=== PATIENT | female | born 1990 | race Caucasian/White ===

== ENCOUNTER → 2017-06-21 | Outpatient (CLI) | payer OTHER | END | disposition home or self-care (01) | LOC: CPPFTMAIN 14:05 | PROVIDERS: ATTEND Physician Assistant | DX: J45.909 Unspecified asthma, uncomplicated (principal) | CPT/HCPCS: 94060; 94726; 94729 ==

== ENCOUNTER 2018-04-18 10:13 | Inpatient (IN) | payer OTHER ==
[2018-04-18] MEDS ORDERED: FAMOTIDINE 20 MG/2 ML VIAL IV STA (10:44)
[2018-04-18] MEDS ORDERED: SODIUM CHLORIDE 0.9% 1,000 ML IV STA (10:44)
[2018-04-18] MEDS ORDERED: ONDANSETRON 4 MG/2 ML VIAL IVP STA ×2 (10:44→11:51)
--- NOTE | 2018-04-18 10:53 | ED ---
General Adult HPI - General Source: patient, RN notes reviewed Mode of arrival: ambulatory Limitations: no limitations <Vinod Byrnes - Last Filed: 04/18/18 12:18> <Yinka Jackson - Last Filed: 04/18/18 12:33> - General Chief complaint: Abdominal Pain Stated complaint: Abd Pain Time Seen by Provider: 04/18/18 10:29 - History of Present Illness Initial comments: Patient 27-year-old female presenting to the emergency room today with chief complaint of abdominal pain over the last 2 days. She does admit that it's worse with eating. She states located in the upper abdomen. She states feels it across. She states it lasted for approximately a lasted about an hour. She admits to nausea but denies vomiting. Patient denies any recent fever, chills, shortness of breath, chest pain, back pain, numbness or tingling, dysuria or hematuria, constipation or diarrhea, headaches or visual changes, or any other complaints. (Vinod Byrnes) - Related Data Home Medications Medication Instructions Recorded Confirmed Albuterol Sulfate [Proair Hfa] 2 puff INHALATION DIRECTED PRN 02/26/16 Butalb/Acetaminophen/Caffeine 1 tab PO DIRECTED PRN 02/26/16 04/18/18 [Fioricet 50-300-40 mg Capsule] Levothyroxine Sodium [Synthroid] 50 mcg PO DAILY 02/26/16 04/18/18 Levothyroxine Sodium [Synthroid] 200 mcg PO DAILY 02/26/16 04/18/18 Topiramate 50 mg PO DAILY 02/26/16 04/18/18 Montelukast [Singulair] 10 mg PO HS 03/01/16 04/18/18 Albuterol Nebulized [Ventolin 2.5 mg INHALATION Q6H PRN 04/18/18 04/18/18 Nebulized] Fexofenadine HCl [Loan Allergy] 60 mg PO DAILY 04/18/18 04/18/18 Allergies Allergy/AdvReac Type Severity Reaction Status Date / Time hydrocodone bitartrate Allergy Nausea & Verified 04/18/18 10:41 [From Vicodin] Vomiting tramadol Allergy Nausea & Verified 04/18/18 10:41 Vomiting Review of Systems ROS Other: All systems not noted in ROS Statement are negative. <Vinod Byrnes - Last Filed: 04/18/18 12:18> ROS Other: All systems not noted in ROS Statement are negative. <ManuelYinka - Last Filed: 04/18/18 12:33> ROS Statement: Those systems with pertinent positive or pertinent negative responses have been documented in the HPI. Past Medical History Past Medical History: Asthma, Hearing Disorder / Deafness, Thyroid Disorder Additional Past Medical History / Comment(s): CYST LEFT WRIST, HX MIGRAINES History of Any Multi-Drug Resistant Organisms: None Reported Past Surgical History: Ear Surgery Additional Past Surgical History / Comment(s): CLEFT PALETTE SX, JAW ALIGNMENT, PROSTHETIC EARS AND NOSE RECONSTRUCTION, JEFFERY COCHLEAR IMPLANTS Past Anesthesia/Blood Transfusion Reactions: Postoperative Nausea & Vomiting ( PONV) Past Psychological History: No Psychological Hx Reported Smoking Status: Never smoker Past Alcohol Use History: None Reported Past Drug Use History: None Reported - Past Family History Father Family Medical History: Cancer Additional Family Medical History / Comment(s): COLON Mother Family Medical History: Congestive Heart Failure (CHF) <Vinod Byrnes - Last Filed: 04/18/18 12:18> General Exam Limitations: no limitations <Vinod Byrnes - Last Filed: 04/18/18 12:18> <Yinka Jackson - Last Filed: 04/18/18 12:33> - General Exam Comments Initial Comments: General: The patient is awake and alert, in no distress, and does not appear acutely ill. Eye: Pupils are equal, round and reactive to light, extra-ocular movements are intact. No nystagmus. There is normal conjunctiva bilaterally. No signs of icterus. Ears, nose, mouth and throat: There are moist mucous membranes and no oral lesions. Neck: The neck is supple, there is no tenderness or JVD. Cardiovascular: There is a regular rate and rhythm. No murmur, rub or gallop is appreciated. Respiratory: Lungs are clear to auscultation, respirations are non-labored, breath sounds are equal. No wheezes, stridor, rales, or rhonchi. Gastrointestinal: Abdomen soft on palpation. Tender epigastric and right upper quadrants. No rebound tenderness. No guarding. Musculoskeletal: Normal ROM, no tenderness. Strength 5/5. Sensation intact. Neurological: A&O x 3. CN II-XII intact, There are no obvious motor or sensory deficits. Coordination appears grossly intact. Speech is normal. Skin: Skin is warm and dry and no rashes or lesions are noted. Psychiatric: Cooperative, appropriate mood & affect, normal judgment. (Vinod Byrnes) Course <Vinod Byrnes - Last Filed: 04/18/18 12:18> <Yinka Jackson - Last Filed: 04/18/18 12:33> Vital Signs 04/18/18 04/18/18 10:15 11:58 Temperature 97.9 F Pulse Rate 102 H 83 Respiratory 18 16 Rate Blood Pressure 144/79 111/65 O2 Sat by Pulse 100 100 Oximetry - Reevaluation(s) Reevaluation #1: 04/18/18 12:32 PA supervision: I did proceed a [id number] evaluation the patient did discuss [employer] the patient and her sister who is her caregiver. Absent discuss case Dr. Mckeon. Patient will be admitted for evaluation of dilated common bile duct and pancreatitis. I do agree with the assessment and plan. I did review the imaging and reports as well as the labs. (Yinka Jackson) Medical Decision Making - Lab Data Result diagrams: 04/18/18 10:33 04/18/18 10:33 <Vinod Byrnes - Last Filed: 04/18/18 12:18> - Lab Data Result diagrams: 04/18/18 10:33 04/18/18 10:33 <Yinka Jackson - Last Filed: 04/18/18 12:33> - Medical Decision Making Patient's labs been reviewed does show mildly elevated AST ALT and lipase. Patient's ultrasound does show evidence for dilated common bile duct. Case discussed with attending physician Dr. Jackson discuss case with admitting physician, she will with the patient with consult to GI. (Vinod Byrnes) - Lab Data Lab Results 04/18/18 04/18/18 04/18/18 Range/Units 10:33 10:33 10:33 WBC 6.1 (3.8-10.6) k/uL RBC 5.39 (3.80-5.40) m/uL Hgb 15.0 (11.4-16.0) gm/dL Hct 44.7 (34.0-46.0) % MCV 82.9 (80.0-100.0) fL MCH 27.8 (25.0-35.0) pg MCHC 33.5 (31.0-37.0) g/dL RDW 12.5 (11.5-15.5) % Plt Count 201 (150-450) k/uL Neutrophils % 69 % Lymphocytes % 21 % Monocytes % 6 % Eosinophils % 1 % Basophils % 0 % Neutrophils # 4.2 (1.3-7.7) k/uL Lymphocytes # 1.3 (1.0-4.8) k/uL Monocytes # 0.4 (0-1.0) k/uL Eosinophils # 0.1 (0-0.7) k/uL Basophils # 0.0 (0-0.2) k/uL Sodium 146 H (137-145) mmol/L Potassium 4.2 (3.5-5.1) mmol/L Chloride 113 H (98-107) mmol/L Carbon Dioxide 16 L (22-30) mmol/L Anion Gap 17 mmol/L BUN 10 (7-17) mg/dL Creatinine 0.75 (0.52-1.04) mg/dL Est GFR (CKD-EPI)AfAm >90 (>60 ml/min/1.73 sqM) Est GFR (CKD-EPI)NonAf >90 (>60 ml/min/1.73 sqM) Glucose 82 (74-99) mg/dL Calcium 9.5 (8.4-10.2) mg/dL Total Bilirubin 0.9 (0.2-1.3) mg/dL AST 129 H (14-36) U/L ALT 157 H (9-52) U/L Alkaline Phosphatase 90 (38-126) U/L Total Protein 7.4 (6.3-8.2) g/dL Albumin 4.7 (3.5-5.0) g/dL Amylase 102 (30-110) U/L Lipase 373 H (23-300) U/L Urine Color Urine Appearance (Clear) Urine pH (5.0-8.0) Ur Specific Allred (1.001-1.035) Urine Protein (Negative) Urine Glucose (UA) (Negative) Urine Ketones (Negative) Urine Blood (Negative) Urine Nitrite (Negative) Urine Bilirubin (Negative) Urine Urobilinogen (<2.0) mg/dL Ur Leukocyte Esterase (Negative) Urine RBC (0-5) /hpf Urine WBC (0-5) /hpf Ur Squamous Epith Cells (0-4) /hpf Urine Bacteria (None) /hpf Urine Mucus (None) /hpf Urine HCG, Qual Not Detected (Not Detectd) 04/18/18 Range/Units 10:33 WBC (3.8-10.6) k/uL RBC (3.80-5.40) m/uL Hgb (11.4-16.0) gm/dL Hct (34.0-46.0) % MCV (80.0-100.0) fL MCH (25.0-35.0) pg MCHC (31.0-37.0) g/dL RDW (11.5-15.5) % Plt Count (150-450) k/uL Neutrophils % % Lymphocytes % % Monocytes % % Eosinophils % % Basophils % % Neutrophils # (1.3-7.7) k/uL Lymphocytes # (1.0-4.8) k/uL Monocytes # (0-1.0) k/uL Eosinophils # (0-0.7) k/uL Basophils # (0-0.2) k/uL Sodium (137-145) mmol/L Potassium (3.5-5.1) mmol/L Chloride (98-107) mmol/L Carbon Dioxide (22-30) mmol/L Anion Gap mmol/L BUN (7-17) mg/dL Creatinine (0.52-1.04) mg/dL Est GFR (CKD-EPI)AfAm (>60 ml/min/1.73 sqM) Est GFR (CKD-EPI)NonAf (>60 ml/min/1.73 sqM) Glucose (74-99) mg/dL Calcium (8.4-10.2) mg/dL Total Bilirubin (0.2-1.3) mg/dL AST (14-36) U/L ALT (9-52) U/L Alkaline Phosphatase (38-126) U/L Total Protein (6.3-8.2) g/dL Albumin (3.5-5.0) g/dL Amylase (30-110) U/L Lipase (23-300) U/L Urine Color Yellow Urine Appearance Cloudy H (Clear) Urine pH 6.0 (5.0-8.0) Ur Specific Allred 1.024 (1.001-1.035) Urine Protein 1+ H (Negative) Urine Glucose (UA) Negative (Negative) Urine Ketones Negative (Negative) Urine Blood Negative (Negative) Urine Nitrite Negative (Negative) Urine Bilirubin 1+ H (Negative) Urine Urobilinogen 6.0 (<2.0) mg/dL Ur Leukocyte Esterase Large H (Negative) Urine RBC 3 (0-5) /hpf Urine WBC 15 H (0-5) /hpf Ur Squamous Epith Cells 41 H (0-4) /hpf Urine Bacteria Rare H (None) /hpf Urine Mucus Many H (None) /hpf Urine HCG, Qual (Not Detectd) Disposition Is patient prescribed a controlled substance at d/c from ED?: No Time of Disposition: 12:21 <Vinod Byrnes - Last Filed: 04/18/18 12:18> <Yinka Jackson - Last Filed: 04/18/18 12:33> Clinical Impression: Choledocholithiasis, Acute pancreatitis Disposition: ADMITTED IP TO THIS HOSP Condition: Stable
[2018-04-18 11:08] LABS: Basophils % (A) 0 %; Eosinophils # (A) 0.1 k/uL (0-0.7); Eosinophils % (A) 1 %; HCT 44.7 % (34.0-46.0); Lymphocytes # (A) 1.3 k/uL (1.0-4.8); Lymphocytes % (A) 21 %; MCH 27.8 pg (25.0-35.0); MCHC 33.5 g/dL (31.0-37.0); MCV 82.9 fL (80.0-100.0); Mean Platelet Volume 8.3; Monocytes # (A) 0.4 k/uL (0-1.0); Monocytes % (A) 6 %; Neutrophils # (A) 4.2 k/uL (1.3-7.7); Neutrophils % (A) 69 %; Platelet Count 201 k/uL (150-450); RBC 5.39 m/uL (3.80-5.40); RDW 12.5 % (11.5-15.5); WBC 6.1 k/uL (3.8-10.6)
[2018-04-18 11:14] LABS: Appearance,Urine Cloudy (Clear); Bacteria,Urine Rare /hpf; Bilirubin,Urine 1+ (Negative); Blood,Urine Negative (Negative); Color,Urine Yellow; Glucose,Urine (UA) Negative (Negative); Ketones,Urine Negative (Negative); Leukocyte Esterase,Urine Large (Negative); Mucus,Urine Many /hpf; Nitrite,Urine Negative (Negative); Protein,Urine 1+ (Negative); RBC,Urine 3 /hpf (0-5); Specific Gravity,Urine 1.024 (1.001-1.035); Squamous Epithelial Cell,Urine 41 /hpf (0-4); WBC,Urine 15 /hpf (0-5)
[2018-04-18 11:16] LABS: ALT 157 U/L (9-52); AST 129 U/L (14-36); Albumin 4.7 g/dL (3.5-5.0); Alkaline Phosphatase 90 U/L (38-126); Amylase 102 U/L (30-110); Anion Gap 17 mmol/L; Blood Urea Nitrogen 10 mg/dL (7-17); Calcium 9.5 mg/dL (8.4-10.2); Carbon Dioxide 16 mmol/L (22-30); Chloride 113 mmol/L (98-107); Glucose 82 mg/dL (74-99); Lipase 373 U/L (23-300); Potassium 4.2 mmol/L (3.5-5.1); Sodium 146 mmol/L (137-145); Total Bilirubin 0.9 mg/dL (0.2-1.3); Total Protein 7.4 g/dL (6.3-8.2)
--- NOTE | 2018-04-18 11:45 | US ---
EXAMINATION TYPE: US abdomen limited DATE OF EXAM: 04/18/2018 COMPARISON: NONE CLINICAL HISTORY: Pain, nausea/vomiting. Difficult exam as patient was in pain and could not tolerate much pressure from the probe. EXAM MEASUREMENTS: Liver Length: 14.6 cm Gallbladder Wall: 0.2 cm CBD: 1.1 cm Right Kidney: 9.5 x 4.1 x 3.8 cm Pancreas: Obscured by bowel gas Liver: Homogeneous. Some dilated intrahepatic ductal dilation Gallbladder: No stones or sludge visualized and the gallbladder appears hydropic Evidence for sonographic Crump's sign: Yes CBD: Dilated. Unable to visualized distal portion at pancreatic head due to overlying bowel gas Right Kidney: No hydronephrosis or masses seen There is no ascites. IMPRESSION: Dilated common bile duct, recommend gastroenterology consult There are some limitations t o the exam.
[2018-04-18] MEDS ORDERED: MORPHINE SULFATE 2 MG/ML SYRINGE IVP STA (11:51)
[2018-04-18] MEDS ORDERED: LORazepam 2 MG/ML INJ IV PRN (12:21)
[2018-04-18] MEDS ORDERED: NALOXONE 0.4 MG/ML 1 ML VIAL IV PRN (12:21)
[2018-04-18] MEDS ORDERED: SODIUM CHLORIDE 0.9% 1,000 ML IV ONE (12:21)
[2018-04-18 15:01] VITALS: BMI 35.7
[2018-04-18] MEDS: KETOROLAC 30 MG/ML 1 ML VIAL IVP PRN (18:53)
--- NOTE | 2018-04-18 22:09 | HP ---
HISTORY AND PHYSICAL DATE OF ADMISSION: 04/18/2018 DATE OF SERVICE: 04/18/2018 PRESENTING COMPLAINT: Abdominal pain. HISTORY OF PRESENTING COMPLAINT: This is a very pleasant 27-year-old patient of Dr. Grayson. Chronic stable medical conditions include asthma, scoliosis, bilateral cochlear implant. The patient has had multiple cleft palate facial surgeries. The patient lives with her boyfriend called Con and a sister who really helps her out. For 2 days, the patient was having increasing right upper quadrant pain present on and off with nausea, some sweating and chills, felt a bit faint. Normally has 3 bowel movements a week. In the ER, ultrasound did showed dilated intrabiliary duct with no obvious stone. The patient was admitted for the same. The patient's elder sister is present in the room. REVIEW OF SYSTEMS: CONSTITUTIONAL: Tired. HEENT: Cochlear implants. RESPIRATORY: None. CARDIOVASCULAR: None. GASTROINTESTINAL: As above. GENITOURINARY: None. MUSCULOSKELETAL: Scoliosis. DERMATOLOGICAL: None. HEMATOLOGICAL: None. LYMPHATICS: None. PSYCHIATRY: None. NEUROLOGICAL: None. 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 PAST SURGICAL HISTORY: Cleft palate surgery, jaw alignment, prosthetic ears and nose reconstruction, bilateral cochlear implant, right eye plastic surgery to make face look symmetrical, left wrist ganglion cyst removed twice. SOCIAL HISTORY: The patient lives with her boyfriend and a 6-year-old son, sister Agustina whom the patient calls mom and her sister has raised her. The patient does not drive. No smoking, no alcohol. FAMILY HISTORY: Colon cancer. HOME MEDICATIONS: 1. Synthroid 25 mcg, not on all days. 2. Topamax 50 mg p.o. b.i.d. 3. Loan 60 mg p.o. daily. 4. Singulair 10 mg p.o. q.h.s. 5. Synthroid 200 mcg p.o. daily. 6. Fioricet 50/300/40 one tab p.r.n. 7. ProAir 2 puffs p.r.n. 8. Ventolin 2.5 q.6h p.r.n. ALLERGIES: VICODIN and TRAMADOL. PHYSICAL EXAMINATION: Afebrile. GENERAL APPEARANCE: Well-built. BMI 35.7, sitting up. Pulse 83, respirations 16, blood pressure 111/65, pulse ox 100% on room air. EYES: Pupils equal and conjunctivae normal. HEENT: The patient with bilateral cochlear implants and hearing aids. NECK: JVD not raised. Mass not palpable. Respiratory effort normal. LUNGS: Fair entry. CARDIOVASCULAR: First and second sounds normal. No edema. ABDOMEN: Right upper quadrant tenderness. No guarding or rigidity. Liver and spleen not palpable. LYMPHATICS: No lymph palpable in the neck or axillae. PSYCHIATRY: Alert and oriented x3. Mood and affect normal. NEUROLOGICAL: Facial asymmetry, decreased hearing. Moving all 4 limbs. INVESTIGATIONS: White count 6.1, hemoglobin 15.0, potassium 4.2. BUN and creatinine is normal. AST 129, ALT 157. Bilirubin is normal. Abdominal ultrasound dilated common bile duct. ASSESSMENT: 1. This patient with significant tenderness right upper quadrant with pain present on and off for 2 days with dilated common bile duct. Even thought no stone is obvious it is pretty likely the patient has a great or small stone. The patient's gallbladder does appear hydropic. 2. Obesity, BMI 35.7. 3. Bilateral cochlear implants. 4. Chronic scoliosis. 5. Mild hypernatremia from free water deficit. PLAN: Both the consultation to GI and General Surgery was made. The patient is on IV fluids. Currently, there is no obvious evidence of infection. No fever, no white count. We will hold off any antibiotics. Care was discussed with the patient's family at the bedside. Questions were answered. The patient may need ERCP probably followed by cholecystectomy, depends how things betancourt out. MMODL / IJN: [id number] /
[2018-04-19] MEDS: MONTELUKAST 10 MG TAB PO SCH ×2 (01:43→21:08)
[2018-04-19] MEDS: TOPIRAMATE 25 MG TAB PO SCH ×3 (01:43→21:08)
[2018-04-19] MEDS: KETOROLAC 30 MG/ML 1 ML VIAL IVP PRN ×4 (01:44→21:19)
[2018-04-19] MEDS: LACTATED RINGERS 1,000 ML IV SCH ×3 (01:49→18:11)
[2018-04-19] MEDS: LEVOTHYROXINE 100 MCG TAB PO SCH (06:42)
[2018-04-19 07:14] LABS: Basophils % (A) 0 %; Eosinophils # (A) 0.1 k/uL (0-0.7); Eosinophils % (A) 3 %; HCT 38.3 % (34.0-46.0); HGB 13.1 gm/dL (11.4-16.0); Lymphocytes # (A) 1.2 k/uL (1.0-4.8); Lymphocytes % (A) 26 %; MCH 28.6 pg (25.0-35.0); MCHC 34.1 g/dL (31.0-37.0); MCV 83.9 fL (80.0-100.0); Mean Platelet Volume 8.2; Monocytes # (A) 0.3 k/uL (0-1.0); Monocytes % (A) 6 %; Neutrophils # (A) 2.8 k/uL (1.3-7.7); Neutrophils % (A) 63 %; Platelet Count 164 k/uL (150-450); RBC 4.56 m/uL (3.80-5.40); RDW 12.5 % (11.5-15.5); WBC 4.5 k/uL (3.8-10.6)
[2018-04-19 07:30] LABS: ALT 124 U/L (9-52); AST 77 U/L (14-36); Albumin 3.6 g/dL (3.5-5.0); Alkaline Phosphatase 78 U/L (38-126); Amylase 97 U/L (30-110); Anion Gap 14 mmol/L; Blood Urea Nitrogen 8 mg/dL (7-17); Calcium 9.1 mg/dL (8.4-10.2); Carbon Dioxide 16 mmol/L (22-30); Chloride 115 mmol/L (98-107); Glucose 77 mg/dL (74-99); Lipase 413 U/L (23-300); Sodium 145 mmol/L (137-145); Total Bilirubin 0.9 mg/dL (0.2-1.3); Total Protein 5.9 g/dL (6.3-8.2)
[2018-04-19] MEDS: ALBUTEROL NEBULIZED 2.5 MG/3 ML INHALATION PRN ×2 (07:37→15:03)
[2018-04-19 07:38] LABS: INR 1.2 (<1.2); Prothrombin Time 11.4 sec (9.0-12.0)
--- NOTE | 2018-04-19 08:54 | P.GSCN ---
<Cindy Morales - Last Filed: 04/19/18 08:40> History of Present Illness Consult date: 04/19/18 Reason for Consult: 27-year-old female being seen at the request of the attending for a surgical eval for right upper quadrant abdominal pain. Patient reportedly presented to the emergency room on the day of admission was reportedly experiencing an episode of right upper quadrant abdominal pain with nausea. Patient stated it started on Tuesday continued became more symptomatic. Patient states she felt nauseated but did not actually vomit. Denied any burning on urination frequency urgency or change in bowel habits denied any loose stools. Patient denies any prior episodes. Ultrasound done in the emergency room showed evidence to suggest a dilated common bile duct. The lipase was elevated 413 AST and ALT were mildly elevated positive tenderness to the right upper quadrant Denies any abdominal surgeries. 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 History of Any Multi-Drug Resistant Organisms: None Reported Past Surgical History: Ear Surgery Additional Past Surgical History / Comment(s): CLEFT PALETTE SX, JAW ALIGNMENT, PROSTHETIC EARS ( HAS BRACKETS ON SIDES OF HEAD) AND NOSE RECONSTRUCTION, JEFFERY COCHLEAR IMPLANTS, R EYE PLASTIC SURGERY TO MAKE FACE LOOK MORE SYMMETRICAL, L WRIST GANGLION CYST REMOVED TWICE. Past Anesthesia/Blood Transfusion Reactions: No Reported Reaction, Postoperative Nausea & Vomiting (PONV) Smoking Status: Never smoker - Past Family History Father Family Medical History: Cancer Additional Family Medical History / Comment(s): COLON Mother Family Medical History: Congestive Heart Failure (CHF) Medications and Allergies Home Medications Medication Instructions Recorded Confirmed Type Albuterol Sulfate [Proair Hfa] 2 puff INHALATION DIRECTED PRN 02/26/16 History Butalb/Acetaminophen/Caffeine 1 tab PO DIRECTED PRN 02/26/16 04/18/18 History [Fioricet 50-300-40 mg Capsule] Levothyroxine Sodium [Synthroid] 25 mcg PO DIRECTED PRN 02/26/16 04/18/18 History Levothyroxine Sodium [Synthroid] 200 mcg PO DAILY 02/26/16 04/18/18 History Topiramate 50 mg PO BID 02/26/16 04/18/18 History Montelukast [Singulair] 10 mg PO HS 03/01/16 04/18/18 History Albuterol Nebulized [Ventolin 2.5 mg INHALATION Q6H PRN 04/18/18 04/18/18 History Nebulized] Fexofenadine HCl [Loan Allergy] 60 mg PO DAILY 04/18/18 04/18/18 History Allergies Allergy/AdvReac Type Severity Reaction Status Date / Time hydrocodone bitartrate Allergy Nausea & Verified 04/18/18 10:41 [From Vicodin] Vomiting tramadol Allergy Nausea & Verified 04/18/18 10:41 Vomiting Surgical - Exam Vital Signs Temp Pulse Resp BP Pulse Ox 97.9 F 102 H 18 144/79 100 04/18/18 10:15 04/18/18 10:15 04/18/18 10:15 04/18/18 10:15 04/18/18 10:15 GENERAL APPEARANCE: 27-year-old female patient is alert, oriented, in no acute distress. Up ambulating to the bathroom reports persistent right upper quadrant abdominal discomfort VITAL SIGNS: Reviewed HEENT: Head is normocephalic and atraumatic. Pupils are equal and reactive. The nares are patent. Oropharynx is clear without lesions. NECK: Supple without lymphadenopathy. Traches midline. HEART: S1, S2. Regular rate and rhythm. No murmur denying chest pain LUNGS: No crackles or wheezes are heard. Cardiac exam movement bilaterally ABDOMEN: Soft, positive tenderness to the right upper quadrant nondistended with good bowel sounds. No peritoneal signs. No palpable organomegaly or masses. Reports a nausea sensation no emesis no stool EXTREMITIES: Normal skin color and turgor. No cyanosis, rash, ulceration, clubbing or edema. Radial pedal pulses are 2/4 bilaterally. NEUROLOGICAL: No focal deficits. Strength and sensation are grossly intact. Results - Labs 04/19/18 06:47 04/19/18 06:47 Abnormal Lab Results - Last 24 Hours (Table) 04/18/18 04/18/1818 Range/Units 10:33 10:33 06:47 INR (<1.2) Sodium 146 H (137-145) mmol/L Chloride 113 H 115 H (98-107) mmol/L Carbon Dioxide 16 L 16 L (22-30) mmol/L AST 129 H 77 H (14-36) U/L ALT 157 H 124 H (9-52) U/L Total Protein 5.9 L (6.3-8.2) g/dL Lipase 373 H 413 H (23-300) U/L Urine Appearance Cloudy H (Clear) Urine Protein 1+ H (Negative) Urine Bilirubin 1+ H (Negative) Ur Leukocyte Esterase Large H (Negative) Urine WBC 15 H (0-5) /hpf Ur Squamous Epith Cells 41 H (0-4) /hpf Urine Bacteria Rare H (None) /hpf Urine Mucus Many H (None) /hpf 04/19/18 Range/Units 06:47 INR 1.2 H (<1.2) Sodium (137-145) mmol/L Chloride (98-107) mmol/L Carbon Dioxide (22-30) mmol/L AST (14-36) U/L ALT (9-52) U/L Total Protein (6.3-8.2) g/dL Lipase (23-300) U/L Urine Appearance (Clear) Urine Protein (Negative) Urine Bilirubin (Negative) Ur Leukocyte Esterase (Negative) Urine WBC (0-5) /hpf Ur Squamous Epith Cells (0-4) /hpf Urine Bacteria (None) /hpf Urine Mucus (None) /hpf Diabetes panel 04/18/18 04/19/18 Range/Units 10:33 06:47 Sodium 146 H 145 (137-145) mmol/L Potassium 4.2 4.0 (3.5-5.1) mmol/L Chloride 113 H 115 H (98-107) mmol/L Carbon Dioxide 16 L 16 L (22-30) mmol/L BUN 10 8 (7-17) mg/dL Creatinine 0.75 0.69 (0.52-1.04) mg/dL Glucose 82 77 (74-99) mg/dL Calcium 9.5 9.1 (8.4-10.2) mg/dL AST 129 H 77 H (14-36) U/L ALT 157 H 124 H (9-52) U/L Alkaline Phosphatase 90 78 (38-126) U/L Total Protein 7.4 5.9 L (6.3-8.2) g/dL Albumin 4.7 3.6 (3.5-5.0) g/dL Calcium panel 04/18/18 04/19/18 Range/Units 10:33 06:47 Calcium 9.5 9.1 (8.4-10.2) mg/dL Albumin 4.7 3.6 (3.5-5.0) g/dL Pituitary panel 04/18/18 04/19/18 Range/Units 10:33 06:47 Sodium 146 H 145 (137-145) mmol/L Potassium 4.2 4.0 (3.5-5.1) mmol/L Chloride 113 H 115 H (98-107) mmol/L Carbon Dioxide 16 L 16 L (22-30) mmol/L BUN 10 8 (7-17) mg/dL Creatinine 0.75 0.69 (0.52-1.04) mg/dL Glucose 82 77 (74-99) mg/dL Calcium 9.5 9.1 (8.4-10.2) mg/dL Adrenal panel 04/18/18 04/19/18 Range/Units 10:33 06:47 Sodium 146 H 145 (137-145) mmol/L Potassium 4.2 4.0 (3.5-5.1) mmol/L Chloride 113 H 115 H (98-107) mmol/L Carbon Dioxide 16 L 16 L (22-30) mmol/L BUN 10 8 (7-17) mg/dL Creatinine 0.75 0.69 (0.52-1.04) mg/dL Glucose 82 77 (74-99) mg/dL Calcium 9.5 9.1 (8.4-10.2) mg/dL Total Bilirubin 0.9 0.9 (0.2-1.3) mg/dL AST 129 H 77 H (14-36) U/L ALT 157 H 124 H (9-52) U/L Alkaline Phosphatase 90 78 (38-126) U/L Total Protein 7.4 5.9 L (6.3-8.2) g/dL Albumin 4.7 3.6 (3.5-5.0) g/dL Assessment and Plan Assessment: Impression Present on admission right upper quadrant pain ultrasound abdomen dilated common bile duct Present on admission elevated AST, ALT, lipase Bilateral cochlear implants History of multiple facial surgeries for cleft palate reconstruction History of asthma no evidence of an exacerbation Obesity BMI 35 Plan IV fluid for hydration as ordered Await GIs eval pending Repeat labs in the morning Pain control DVT and GI prophylaxis Further surgical recommendations pending GIs workup NPO until surgical decision and workup is complete Surgical consultation note dictated for Dr Riggs The above impression and plan of care have been discussed and directed by signing physician. Cindy Morales nurse practitioner acting as scribe for signing physician. <Ashlee Riggs N - Last Filed: 04/19/18 19:12> Surgical - Exam Vital Signs Temp Pulse Resp BP Pulse Ox 97.9 F 102 H 18 144/79 100 04/18/18 10:15 04/18/18 10:15 04/18/18 10:15 04/18/18 10:15 04/18/18 10:15 Results - Labs 04/19/18 06:47 04/19/18 06:47 Abnormal Lab Results - Last 24 Hours (Table) 04/19/18 04/19/18 Range/Units 06:47 06:47 INR 1.2 H (<1.2) Chloride 115 H (98-107) mmol/L Carbon Dioxide 16 L (22-30) mmol/L AST 77 H (14-36) U/L ALT 124 H (9-52) U/L Total Protein 5.9 L (6.3-8.2) g/dL Lipase 413 H (23-300) U/L Diabetes panel 04/19/18 Range/Units 06:47 Sodium 145 (137-145) mmol/L Potassium 4.0 (3.5-5.1) mmol/L Chloride 115 H (98-107) mmol/L Carbon Dioxide 16 L (22-30) mmol/L BUN 8 (7-17) mg/dL Creatinine 0.69 (0.52-1.04) mg/dL Glucose 77 (74-99) mg/dL Calcium 9.1 (8.4-10.2) mg/dL AST 77 H (14-36) U/L ALT 124 H (9-52) U/L Alkaline Phosphatase 78 (38-126) U/L Total Protein 5.9 L (6.3-8.2) g/dL Albumin 3.6 (3.5-5.0) g/dL Calcium panel 04/19/18 Range/Units 06:47 Calcium 9.1 (8.4-10.2) mg/dL Albumin 3.6 (3.5-5.0) g/dL Pituitary panel 04/19/18 Range/Units 06:47 Sodium 145 (137-145) mmol/L Potassium 4.0 (3.5-5.1) mmol/L Chloride 115 H (98-107) mmol/L Carbon Dioxide 16 L (22-30) mmol/L BUN 8 (7-17) mg/dL Creatinine 0.69 (0.52-1.04) mg/dL Glucose 77 (74-99) mg/dL Calcium 9.1 (8.4-10.2) mg/dL Adrenal panel 04/19/18 Range/Units 06:47 Sodium 145 (137-145) mmol/L Potassium 4.0 (3.5-5.1) mmol/L Chloride 115 H (98-107) mmol/L Carbon Dioxide 16 L (22-30) mmol/L BUN 8 (7-17) mg/dL Creatinine 0.69 (0.52-1.04) mg/dL Glucose 77 (74-99) mg/dL Calcium 9.1 (8.4-10.2) mg/dL Total Bilirubin 0.9 (0.2-1.3) mg/dL AST 77 H (14-36) U/L ALT 124 H (9-52) U/L Alkaline Phosphatase 78 (38-126) U/L Total Protein 5.9 L (6.3-8.2) g/dL Albumin 3.6 (3.5-5.0) g/dL
[2018-04-19] MEDS: LORATADINE 10 MG TAB PO SCH (09:20)
--- NOTE | 2018-04-19 12:06 | P.CONS ---
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 Admitted with acute RUQ abdominal pain N/V no fever that started on Tuesday. No history of this type of pain. No changes in medications. US abdomen hydropic gallbladder without stones. CBD 1.1 cm. No focal liver mass. LFTs elevated T bili 0.9- AST 77-129. ALT 124-157. AP 78-90. Lipase 373-413. Amylase normal. No history of pancreatitis or ETOH abuse. No history of hepatitis. Denies dyspepsia hematemesis hematochezia or melena. UA positive for urobilinogen and bilirubin. Review of Systems Constitutional: Denies fever, chills, sweats, weight gain, or loss. HEENT: History of craniofacial abnormalities congenital. Negative for migraines , blurred vision or loss, earaches, drainage, tinnitus, oral mucosal lesions, dysphagia, or odynophagia. CARDIAC: Negative for chest pain, arrhythmias, or palpitation. RESPIRATORY: Negative for shortness of breath, hemoptysis, cough, or sputum production. GI: See HPI for pertinent findings. : Negative for hematuria, urgency, frequency, polyuria, or dysuria. GYNc: Negative vaginal discharge. MUSCULOSKELETAL: Negative for muscle aches, swelling, arthritis, and arthralgias. NEUROLOGIC: Negative for stroke or TIA. ENDOCRINE: Negative for thyroid problems. SKIN: Negative for rash or itching. 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 History of Any Multi-Drug Resistant Organisms: None Reported Past Surgical History: Ear Surgery Additional Past Surgical History / Comment(s): CLEFT PALETTE SX, JAW ALIGNMENT, PROSTHETIC EARS ( HAS BRACKETS ON SIDES OF HEAD) AND NOSE RECONSTRUCTION, JEFFERY COCHLEAR IMPLANTS, R EYE PLASTIC SURGERY TO MAKE FACE LOOK MORE SYMMETRICAL, L WRIST GANGLION CYST REMOVED TWICE. Past Anesthesia/Blood Transfusion Reactions: No Reported Reaction, Postoperative Nausea & Vomiting (PONV) Smoking Status: Never smoker - Past Family History Father Family Medical History: Cancer Additional Family Medical History / Comment(s): COLON Mother Family Medical History: Congestive Heart Failure (CHF) Medications and Allergies Home Medications Medication Instructions Recorded Confirmed Type Albuterol Sulfate [Proair Hfa] 2 puff INHALATION DIRECTED PRN 02/26/16 History Butalb/Acetaminophen/Caffeine 1 tab PO DIRECTED PRN 02/26/16 04/18/18 History [Fioricet 50-300-40 mg Capsule] Levothyroxine Sodium [Synthroid] 25 mcg PO DIRECTED PRN 02/26/16 04/18/18 History Levothyroxine Sodium [Synthroid] 200 mcg PO DAILY 02/26/16 04/18/18 History Topiramate 50 mg PO BID 02/26/16 04/18/18 History Montelukast [Singulair] 10 mg PO HS 03/01/16 04/18/18 History Albuterol Nebulized [Ventolin 2.5 mg INHALATION Q6H PRN 04/18/18 04/18/18 History Nebulized] Fexofenadine HCl [Loan Allergy] 60 mg PO DAILY 04/18/18 04/18/18 History Allergies Allergy/AdvReac Type Severity Reaction Status Date / Time hydrocodone bitartrate Allergy Nausea & Verified 04/18/18 10:41 [From Vicodin] Vomiting tramadol Allergy Nausea & Verified 04/18/18 10:41 Vomiting Physical Exam Vitals: Vital Signs Temp Pulse Pulse Resp BP BP Pulse Ox 04/19/18 08:00 97.7 F 108 H 20 121/84 98 04/19/18 07:45 76 04/19/18 07:40 72 04/19/18 02:00 97.9 F 68 18 117/64 96 04/19/18 00:00 16 04/18/18 20:02 98.1 F 81 16 105/71 96 04/18/18 16:15 98 F 69 16 107/72 98 04/18/18 13:08 98.2 F 82 19 121/81 98 04/18/18 12:35 98.1 F 85 18 118/83 100 Intake and Output 04/18/18 04/19/18 04/19/18 22:59 06:59 14:59 Intake Total 240 Balance 240 Intake: Oral 240 Other: # Voids 1 2 Weight 80.286 kg - Constitutional General appearance: average body habitus - EENT Eyes: normal appearance - Neck Neck: normal ROM - Respiratory Respiratory: bilateral: CTA - Cardiovascular Rhythm: regular Heart sounds: normal: S1, S2 - Gastrointestinal RUQ tenderness no rebound or guarding General gastrointestinal: soft Results CBC & Chem 7: 04/19/18 06:47 04/20/18 06:48 Labs: Abnormal Lab Results - Last 24 Hours (Table) 04/19/18 04/19/18 Range/Units 06:47 06:47 INR 1.2 H (<1.2) Chloride 115 H (98-107) mmol/L Carbon Dioxide 16 L (22-30) mmol/L AST 77 H (14-36) U/L ALT 124 H (9-52) U/L Total Protein 5.9 L (6.3-8.2) g/dL Lipase 413 H (23-300) U/L US - abdomen: report reviewed (Dr. Boo) Assessment and Plan (1) RUQ abdominal pain Narrative/Plan: 27 y/o female admitted with acute RUQ abdominal pain dilated CBD transaminitis but no stones on ultrasound. UA positive for bilirubin as well as mildly elevated lipase. Possible passage of microlithiasis possible mild biliary pancreatitis possible cholecystitis. Transaminases are improving. Current Visit: Yes Status: Acute Code(s): R10.11 - RIGHT UPPER QUADRANT PAIN SNOMED Code(s): 083669988 (2) Transaminitis Current Visit: Yes Status: Acute Code(s): R74.0 - NONSPEC ELEV OF LEVELS OF TRANSAMNS & LACTIC ACID DEHYDRGNSE SNOMED Code(s): 334203326 (3) Elevated lipase Current Visit: Yes Status: Acute Code(s): R74.8 - ABNORMAL LEVELS OF OTHER SERUM ENZYMES SNOMED Code(s): 390042577 Plan: 1. GS consult for further evaluation of abdominal pain. Hepatitis screen. 2. ERCP not indicated at this time considering transaminases are improving. She is not a good candidate for MRCP at this time secondary to multiple metal implantaions in her head. Guardian requests no MRI unless its absolutely necessary. 3. GI prophylaxsis. 4. Repeat CMP lipase in am. Will follow with you. HIDA ordered. Thank you for this kind referral and the opportunity to participate in the care of your patient. This consultation was discussed with Dr. Boo. The impression and plan of care have been directed as dictated.
--- NOTE | 2018-04-19 13:01 | NM ---
EXAMINATION TYPE: NM hepatobiliary w CCK DATE OF EXAM: 04/19/2018 COMPARISON: NONE HISTORY: Pain TECHNIQUE: After the intravenous administration of 5.3 mCi Tc 99m Mebrofenin hepatobiliary scintigrap hy is performed. Immediate images post injection. FINDINGS: There is satisfactory initial accumulation of tracer by the liver. The gallbladder is visualized wit hin 22 minutes. The small bowel activity is noted within 46 minutes. At one hour CCK was administer ed, patient was injected with 1.6 mcg of Kinevac, and gallbladder ejection fraction is calculated at 1%. IMPRESSION: Markedly diminished gallbladder ejection fraction which may reflect chronic cholecystitis and/or biliary dyskinesia.
[2018-04-19] MEDS: ONDANSETRON 4 MG/2 ML VIAL IVP PRN (13:23)
[2018-04-19 16:34] LABS: Hepatitis A Antibody IgM Non-Reactive (Non-Reactive); Hepatitis B Core IgM Non-Reactive (Non-Reactive)
--- NOTE | 2018-04-19 19:14 | P.PN ---
Progress Note - Text Progress Note Date: 04/19/18 Patient seen and evaluated. MICHELET reviewed with EF of 1%. She reports RUQ pain that is improved. Lipase is elevated. Patient reports that she wishes to go home and follow-up as outpatient for cholecystectomy. Patient is tentatively boarded for Tuesday, April 21 pending improvement of Lipase and LFTs.
[2018-04-20] MEDS: LACTATED RINGERS 1,000 ML IV SCH ×3 (01:12→18:26)
[2018-04-20] MEDS: KETOROLAC 30 MG/ML 1 ML VIAL IVP PRN ×3 (06:13→18:25)
[2018-04-20] MEDS: LEVOTHYROXINE 100 MCG TAB PO SCH (06:15)
[2018-04-20] MEDS ORDERED: LEVOTHYROXINE 25 MCG TAB PO SCH (06:30)
[2018-04-20 07:23] LABS: ALT 108 U/L (9-52); AST 51 U/L (14-36); Albumin 3.8 g/dL (3.5-5.0); Alkaline Phosphatase 76 U/L (38-126); Anion Gap 14 mmol/L; Blood Urea Nitrogen 6 mg/dL (7-17); Calcium 9.2 mg/dL (8.4-10.2); Carbon Dioxide 17 mmol/L (22-30); Chloride 115 mmol/L (98-107); Glucose 83 mg/dL (74-99); Lipase 220 U/L (23-300); Potassium 4.2 mmol/L (3.5-5.1); Sodium 146 mmol/L (137-145); Total Bilirubin 0.5 mg/dL (0.2-1.3); Total Protein 6.2 g/dL (6.3-8.2)
--- NOTE | 2018-04-20 09:02 | PN ---
PROGRESS NOTE DATE OF SERVICE: 04/19/2018 PRESENTING COMPLAINT: Abdominal pain. INTERVAL HISTORY: This patient was seen by me yesterday late afternoon, was admitted with right upper quadrant pain. The patient did undergo a HIDA scan today showing EF only 1%. At this point, surgical input was pending. The patient still has right upper abdominal pain, very slight nausea. REVIEW OF SYSTEMS: Review of systems done for constitutional, cardiovascular, GI, pulmonary; relevant findings as above. CURRENT MEDICATIONS: Current medications are reviewed that include IV fluids. PHYSICAL EXAMINATION: On examination, temperature 97.7 pulse 108, respirations 20, blood pressure 121/84, pulse ox 98% on room air. GENERAL APPEARANCE: Lying in bed, tired appearing. EYES: Pupils equal. Conjunctivae normal. HENT: The patient has bilateral cochlear implants with hearing aids. NECK: JVD not raised. Mass not palpable. RESPIRATORY: Effort normal. Lungs are clear. CARDIOVASCULAR: First and second sounds normal. No edema. ABDOMEN: Right upper quadrant tenderness persists. No guarding or rigidity. Liver and spleen not palpable. PSYCHIATRY: Alert and oriented x3. Mood and affect normal. INVESTIGATIONS: Potassium 4.0. AST 77, ALT 124, bilirubin 0.9. Lipase 413. HIDA scan poor EF. ASSESSMENT: 1. Acute acalculous cholecystitis with a poor ejection fraction. The patient is still symptomatic, but still possible patient could have passed a small stone given that the LFTs were up. The patient does have a hydropic gallbladder. 2. Obesity, body mass index 35.7. 3. Bilateral cochlear implants. 4. Chronic scoliosis. 5. Mild hypernatremia from free water deficit. PLAN: Continue current medication and treatment plans. IV fluids. Await input from Surgery. Patient will need surgery. At this point, GI has decided not to do any further interventions. Care was discussed with the patient. MMODL / IJN: [id number] /
[2018-04-20] MEDS: TOPIRAMATE 25 MG TAB PO SCH ×2 (09:18→20:56)
[2018-04-20] MEDS: LORATADINE 10 MG TAB PO SCH (09:18)
[2018-04-20] MEDS: ONDANSETRON 4 MG/2 ML VIAL IVP PRN ×2 (09:19→20:55)
[2018-04-20] MEDS: MORPHINE SULFATE 2 MG/ML SYRINGE IV PRN ×3 (09:19→20:56)
--- NOTE | 2018-04-20 10:08 | P.PN ---
Subjective Progress Note Date: 04/20/18 Principal diagnosis: RUQ abdominal pain elevated liver enzymes Still reports right upper quadrant abdominal pain. HIDA scan 1% scheduled for cholecystectomy tomorrow. Afebrile. Hepatitis screen negative. LFTs lipase improving. Objective - Vital Signs Vital signs: Vital Signs Temp 98.1 F 04/20/18 07:47 Pulse 68 04/20/18 07:47 Resp 16 04/20/18 07:47 BP 104/74 04/20/18 07:47 Pulse Ox 98 04/20/18 07:47 Intake & Output 04/19/18 04/20/18 04/20/18 18:59 06:59 18:59 Output Total 50 Balance -50 Output: Emesis 50 Other: Voiding Method Toilet # Voids 2 1 # Bowel Movements 1 - Exam General appearance: The patient is alert, oriented, in no acute distress. HET: Head is atraumatic. Pupils are equal and reactive. Oropharynx is clear without lesions. Neck: Supple without lymphadenopathy. Trachea midline. Heart: S1 S2. Regular rate and rhythm. Lungs: No crackles or wheezes are heard. Abdomen: Soft, tenderness right upper quadrant, nondistended with bowel sounds. No peritoneal signs. No palpable organomegaly or masses. Extremities: Normal skin color and turgor. No cyanosis, rash, ulceration, clubbing, or edema. Radial and pedal pulses are 2/4 bilaterally. Neurological: No focal deficits. Strength and sensation are grossly intact. - Labs CBC & Chem 7: 04/19/18 06:47 04/20/18 06:48 Labs: Abnormal Lab Results - Last 24 Hours (Table) 04/20/18 Range/Units 06:48 Sodium 146 H (137-145) mmol/L Chloride 115 H (98-107) mmol/L Carbon Dioxide 17 L (22-30) mmol/L BUN 6 L (7-17) mg/dL AST 51 H (14-36) U/L ALT 108 H (9-52) U/L Total Protein 6.2 L (6.3-8.2) g/dL Assessment and Plan (1) RUQ abdominal pain Narrative/Plan: 27 y/o female admitted with acute RUQ abdominal pain dilated CBD transaminitis but no stones on ultrasound. UA positive for bilirubin as well as mildly elevated lipase. Possible passage of microlithiasis possible mild biliary pancreatitis possible cholecystitis. Transaminases lipase are improving. Current Visit: Yes Status: Acute Code(s): R10.11 - RIGHT UPPER QUADRANT PAIN SNOMED Code(s): 733575535 (2) Transaminitis Current Visit: Yes Status: Acute Code(s): R74.0 - NONSPEC ELEV OF LEVELS OF TRANSAMNS & LACTIC ACID DEHYDRGNSE SNOMED Code(s): 796498362 (3) Elevated lipase Current Visit: Yes Status: Acute Code(s): R74.8 - ABNORMAL LEVELS OF OTHER SERUM ENZYMES SNOMED Code(s): 912795907 Plan: 1. OR tomorrow. Continue supportive measures. We'll follow as needed. ERCP not indicated. Assessment and plan a care discussed with Dr. Boo
--- NOTE | 2018-04-20 11:04 | P.PN ---
<Cindy Morales Zoila - Last Filed: 04/20/18 10:57> Subjective Progress Note Date: 04/20/18 27-year-old female sitting up in bed just ambulated from the bathroom. Continues to report having right upper quadrant abdominal pain. Patient states she wishes to stay in the hospital and have the surgery cholecystectomy tomorrow. Did note the labs have improved total bili 0.5, AST down to 51, ALT 108, lipase down to 220 alk phos down to 71 remains afebrile GIs recommendations noted continue supportive measures will follow as needed ERCP not indicated at this time Objective - Vital Signs Vital signs: Vital Signs Temp 98.1 F 04/20/18 07:47 Pulse 68 04/20/18 07:47 Resp 16 04/20/18 07:47 BP 104/74 04/20/18 07:47 Pulse Ox 98 04/20/18 07:47 Intake & Output 04/19/18 04/20/18 04/20/18 18:59 06:59 18:59 Output Total 50 Balance -50 Output: Emesis 50 Other: Voiding Method Toilet # Voids 2 1 # Bowel Movements 1 - Exam Physical exam 27-year-old female appears in no acute distress Lungs adequate air movement bilaterally on room air Heart S1-S2 audible regular Abdomen continues to report having right upper quadrant abdominal pain mild tenderness noted nondistended bowel tones present urinating no difficulty no nausea no vomiting Extremities no edema - Labs CBC & Chem 7: 04/19/18 06:47 04/20/18 06:48 Labs: Abnormal Lab Results - Last 24 Hours (Table) 04/20/18 Range/Units 06:48 Sodium 146 H (137-145) mmol/L Chloride 115 H (98-107) mmol/L Carbon Dioxide 17 L (22-30) mmol/L BUN 6 L (7-17) mg/dL AST 51 H (14-36) U/L ALT 108 H (9-52) U/L Total Protein 6.2 L (6.3-8.2) g/dL Assessment and Plan Assessment: Impression Present on admission right upper quadrant pain ultrasound abdomen dilated common bile duct Present on admission elevated AST, ALT, lipase Bilateral cochlear implants History of multiple facial surgeries for cleft palate reconstruction History of asthma no evidence of an exacerbation Obesity BMI 35 Present on admission right upper quadrant abdominal pain likely cholecystitis HIDA scan EF less than 1% Plan IV fluid for hydration as ordered Scheduled tomorrow for a lap cholecystectomy Repeat labs in the morning Pain control DVT and GI prophylaxis Surgical consultation note dictated for Dr Riggs The above impression and plan of care have been discussed and directed by signing physician. Cindy Morales nurse practitioner acting as scribe for signing physician. <Ashlee Riggs N - Last Filed: 04/20/18 19:57> Objective - Vital Signs Vital signs: Vital Signs Temp 98.1 F 04/20/18 16:27 Pulse 61 04/20/18 16:27 Resp 16 04/20/18 16:27 BP 114/80 04/20/18 16:27 Pulse Ox 97 04/20/18 16:27 Intake & Output 04/20/18 04/20/18 04/21/18 06:59 18:59 06:59 Output Total 300 Balance -300 Output: Urine 300 Other: Voiding Method Toilet # Voids 1 # Bowel Movements 1 - Labs CBC & Chem 7: 04/19/18 06:47 04/20/18 06:48 Labs: Abnormal Lab Results - Last 24 Hours (Table) 04/20/18 Range/Units 06:48 Sodium 146 H (137-145) mmol/L Chloride 115 H (98-107) mmol/L Carbon Dioxide 17 L (22-30) mmol/L BUN 6 L (7-17) mg/dL AST 51 H (14-36) U/L ALT 108 H (9-52) U/L Total Protein 6.2 L (6.3-8.2) g/dL
[2018-04-20] MEDS: FAMOTIDINE 20 MG/2 ML VIAL IV SCH ×2 (12:49→20:56)
--- NOTE | 2018-04-20 20:11 | PN ---
PROGRESS NOTE DATE OF SERVICE: 04/20/2018. PRESENTING COMPLAINT: Abdominal pain. INTERVAL HISTORY: This patient presented with acute cholecystitis. The patient may have had a stone. Still having right upper quadrant pain, pending surgery by Dr. Riggs, which is scheduled for tomorrow. REVIEW OF SYSTEMS: Done for constitutional, cardiovascular, GI, pulmonary; relevant findings as above. The patient continues to have some nausea. EXAMINATION: Temperature 97.8, pulse 77, respirations 16, blood pressure 109/78, pulse ox 96% on room air. GENERAL APPEARANCE: Lying in bed, tired-appearing. EYES: Pupils equal. Conjunctivae normal. HEENT: External appearance of nose and ears normal. The patient has bilateral cochlear implants with hearing aids. NECK: JVD not raised. Mass not palpable. RESPIRATORY: Effort normal. LUNGS: Clear. CARDIOVASCULAR: First and second sounds normal. No edema. ABDOMEN: Right upper quadrant tenderness. No guarding or rigidity. Liver and spleen not palpable. PSYCHIATRY: Alert and oriented x3. Mood and affect normal. INVESTIGATIONS: Potassium 4.2, BUN 6, creatinine 0.68. AST 51, ALT 108. ASSESSMENT: 1. Acute acalculous cholecystitis with poor ejection fraction. The patient remains to be symptomatic. The patient may have had a small stone. Pending surgery by Dr. Riggs. 2. Obesity, BMI 35.7. 3. Bilateral cochlear implants. 4. Chronic scoliosis. 5. Mild hyponatremia from free water deficit. 6. Hypochloremia. PLAN: The patient will be maintained on lactated Ringer's. Other medication and treatment plan. Await surgery as per Dr. Riggs. MMODL / IJN: [id number] /
[2018-04-20] MEDS: MONTELUKAST 10 MG TAB PO SCH (20:56)
[2018-04-20] MEDS ORDERED: ONDANSETRON 4 MG/2 ML VIAL IVP PRN (22:13)
[2018-04-20] MEDS ORDERED: MORPHINE SULFATE 2 MG/ML SYRINGE IV PRN (22:13)
[2018-04-20] MEDS ORDERED: HYDROmorphone 0.5 MG/0.5 ML SYRINGE IVP PRN (22:13)
[2018-04-20] MEDS ORDERED: ONDANSETRON 4 MG/2 ML VIAL IVP ONE (22:13)
[2018-04-20] MEDS ORDERED: PROMETHAZINE INJ 6.25 MG in SODIUM CHLORIDE 0.9% 50 ML IVPB PRN (22:13)
[2018-04-20] MEDS ORDERED: DEXAMETHASONE SOD PHOSPHATE 10 MG/ML 1 ML VIAL IV ONE (22:13)
[2018-04-20] MEDS ORDERED: LACTATED RINGERS 1,000 ML IV SCH (22:15)
[2018-04-21] MEDS: LACTATED RINGERS 1,000 ML IV SCH ×3 (00:14→12:36)
[2018-04-21] MEDS ORDERED: HEPARIN SODIUM,PORCINE 5,000 UNIT/ML 1 ML VIAL SQ ONE (06:00)
[2018-04-21] MEDS ORDERED: ceFAZolin IN SWFI 2 GM/20 ML SYRINGE IVP ONE ×2 (06:00→13:06)
[2018-04-21] MEDS: LEVOTHYROXINE 100 MCG TAB PO SCH (06:50)
[2018-04-21] MEDS: KETOROLAC 30 MG/ML 1 ML VIAL IVP PRN ×3 (06:52→18:50)
--- NOTE | 2018-04-21 08:02 | P.HPADDEND ---
H&P Addendum H&P Addendum Date: 04/21/18 Benefits and risks of surgical intervention described. We'll proceed with robotic cholecystectomy. Possible discharge in the morning when medically stable. May follow up in the office 1 week.
[2018-04-21] MEDS: TOPIRAMATE 25 MG TAB PO SCH ×2 (09:03→20:14)
[2018-04-21] MEDS: LORATADINE 10 MG TAB PO SCH (09:03)
[2018-04-21] MEDS: FAMOTIDINE 20 MG/2 ML VIAL IV SCH ×2 (09:03→20:14)
[2018-04-21] MEDS ORDERED: ACETAMINOPHEN IV (For NPO) 1,000 MG in EMPTY BAG 1 BAG IVPB STA (13:06)
[2018-04-21] MEDS ORDERED: INDOCYANINE GREEN 25 MG VIAL IV STA (13:06)
[2018-04-21] MEDS ORDERED: HEPARIN SODIUM,PORCINE 5,000 UNIT/ML 1 ML VIAL SQ STA (13:06)
[2018-04-21] MEDS ORDERED: IV FLUID CONTINUATION 1,000 ML IV ONE (14:04)
[2018-04-21] MEDS ORDERED: SCOPOLAMINE 1.5MG/72HR PATCH TRANSDERM ONE (14:05)
[2018-04-21] MEDS ORDERED: ONDANSETRON 4 MG/2 ML VIAL IVP ONE (14:05)
[2018-04-21] MEDS ORDERED: PROPOFOL 10 MG/ML 20 ML VIAL IV ONE (14:52)
[2018-04-21] MEDS ORDERED: NEOSTIGMINE 1 MG/ML 10 ML VIAL ONE (14:52)
[2018-04-21] MEDS ORDERED: ROCURONIUM BROMIDE 10 MG/ML 10 ML VIAL IV ONE (14:52)
[2018-04-21] MEDS ORDERED: fentaNYL (PF) 50 MCG/ML 2 ML AMP ONE (14:52)
[2018-04-21] MEDS ORDERED: HYDROmorphone (PF) 1 MG/ML ONE (14:52)
[2018-04-21] MEDS ORDERED: LIDOCAINE 1% INJ 10MG/ML (20 ML MDV) ONE (14:52)
[2018-04-21] MEDS ORDERED: GLYCOPYRROLATE 0.2 MG/ML 2 ML VIAL ONE (14:52)
[2018-04-21] MEDS ORDERED: MIDAZOLAM 2 MG/2 ML VIAL ONE (14:52)
[2018-04-21] MEDS ORDERED: BUPIVACAINE (PF) 0.5% 30 ML VIAL SQ ONE (15:17)
[2018-04-21] MEDS ORDERED: SODIUM CHLORIDE 0.9% 1,000 ML IV ONE ×2 (15:50)
--- NOTE | 2018-04-21 16:15 | P.OP ---
Date of Procedure: 04/21/18 Description of Procedure: SURGEON: SHANNAN BHATT MD IDENTIFICATION TECHNICIAN: PREOPERATIVE DIAGNOSES: 1. Chronic cholecystitis 2. Biliary dyskinesia 3. History of abnormal LFTs 4. Morbid obesity excess calories 5. BMI 35.7 6. Cognitive delay 7. History of craniofacial disorder 8. Family history of colon cancer 9. Congenital absence of thyroid gland 10. Hypothyroidism 11. History of cleft lip and palate 12. Asthma 13. Right upper quadrant abdominal pain POSTOPERATIVE DIAGNOSES: 1. Chronic cholecystitis 2. Biliary dyskinesia 3. History of abnormal LFTs 4. Morbid obesity excess calories 5. BMI 35.7 6. Cognitive delay 7. History of craniofacial disorder 8. Family history of colon cancer 9. Congenital absence of thyroid gland 10. Hypothyroidism 11. History of cleft lip and palate 12. Asthma 13. Right upper quadrant abdominal pain OPERATION: Robotic-assisted da Luigi Xi laparoscopic cholecystectomy, multiport with FIREFLY ESTIMATED BLOOD LOSS: 5 mL. SPECIMENS REMOVED: Gallbladder. COMPLICATIONS: None. OPERATIVE FINDINGS: 1. Chronic cholecystitis INDICATIONS: The patient is a 27-year-old female who presents with cholelcystitis. Surgical intervention with a laparoscopic cholecystectomy was described at length including injury to the biliary tree, bleeding, infection, need for further surgery. Informed consent was obtained. Robotic assisted laparoscopic approach was described. Benefits and risks of the procedure including but not limited to bleeding, infection, injury to the biliary tree was described. Informed consent was obtained. DESCRIPTION OF PROCEDURE: Patient was brought to the operating room, placed in supine position. After general induction, the abdomen had been prepped and draped in standard sterile fashion. The robotic da Luigi XI system was primed. After a timeout protocol was performed, the patient had been prepped and draped in standard sterile fashion. The patient was injected with indocyanine green. A 5 mm 0 degrees laparoscopic trocar entry was performed along the left upper quadrant. The abdomen insufflated to 15 mmHg pressure which she tolerated well. Diagnostic laparoscopy demonstrated no injury to bowel viscera or mesentery. The liver surface was unremarkable. Next, two 8 mm robotic ports were placed along the right upper abdomen. The camera 8-mm port was maintained along the epigastrium. Another 8 mm port was placed along the left upper abdominal wall after exchanging the 5 mm port. Please note that the ports were placed at least 10 to 15 cm away from the target anatomy of the gallbladder. The robot was docked along the left lateral abdomen. The patient was repositioned in reverse Trendelenburg position. Using a grasper for arm 3, a grasper for arm 4, including hook cautery for arm 1 , the robotic system was docked and primed as described. Instruments were interchanged by the marketing assistant including hook cautery, Bovie cautery and clip appliers. I had sat at the console. Adhesions were identified along the infundibulum of the gallbladder and addressed using hook cautery. The gallbladder fundus was retracted over the dome of the liver. Initial attention was brought to the infundibulum which was gently retracted in the inferior lateral approach. Using a grasper, the cystic duct including the cystic artery was carefully skeletonized. FIREFLY was used to identify the cystic artery and cystic structures. Large PLASTIC clips were used throughout the entire case. Using a clip sustainment logistics analyst 2 clips were placed proximally, and 1 clip was placed distally along the cystic duct and then cauterized with the cautery. Again care was taken to avoid any injury to the biliary tree as the common bile duct was clearly visualized during this portion of dissection. Next, the cystic artery was similarly clipped and cauterized. Electro-Bovie cautery was used to remove the gallbladder from the hepatic fossa. Hemostasis was checked and found to be adequate. The robot was undocked. I re-scrubbed into the case. Using a 10 mm Endo Catch bag via the left upper quadrant incision, the specimen was removed from the abdominal cavity. All pneumoperitoneum instruments were evacuated from the abdominal cavity. The incisions were reapproximated using 4-0 Monocryl in an interrupted subcuticular fashion. Fascial defects were less than 8 mm in size. Please note along the trocar sites, local anesthetic was placed as a field block prior to insertion of all instruments. Liquid glue was applied to the skin. At the end of the procedure needle, sponge, and instrument count had been verified correct by the surgical coordinator. The patient was transferred to postanesthesia care unit in stable condition. Intraoperative films were shared with the patient's family who were very pleased with the level of care. Console time 16 minutes
[2018-04-21] MEDS ORDERED: ACETAMINOPHEN TAB 325 MG TAB PO PRN (16:17)
[2018-04-21] MEDS: ONDANSETRON 4 MG/2 ML VIAL IVP PRN (20:14)
[2018-04-21] MEDS: MONTELUKAST 10 MG TAB PO SCH (20:14)
[2018-04-21] MEDS: MORPHINE SULFATE 2 MG/ML SYRINGE IV PRN (20:14)
[2018-04-22] MEDS: ceFAZolin IN SWFI 2 GM/20 ML SYRINGE IVP SCH ×2 (00:23→06:22)
[2018-04-22] MEDS: KETOROLAC 30 MG/ML 1 ML VIAL IVP PRN ×2 (01:43→09:12)
[2018-04-22] MEDS: LACTATED RINGERS 1,000 ML IV SCH (01:46)
--- NOTE | 2018-04-22 04:24 | PN ---
PROGRESS NOTE DATE OF SERVICE: April 21, 2018. PRESENTING COMPLAINT: Abdominal pain. INTERVAL HISTORY: Patient presented with right upper quadrant pain. Today underwent cholecystectomy by Dr. Riggs. Postprocedure, having some abdominal pain, some nausea. Lying in bed. Did try some clear liquids. REVIEW OF SYSTEMS: Attempted for constitutional, cardiovascular, GI, pulmonary; relevant findings as above. CURRENT MEDICATIONS: Reviewed. PHYSICAL EXAMINATION: VITAL SIGNS: On examination, afebrile. Pulse 95. Respiration 16, blood pressure 120/76, pulse ox 95% on room air. GENERAL APPEARANCE: Lying in bed, tired appearing. EYES: Pupils are equal. Conjunctivae normal. HEENT: External appearance of nose and ears normal. The patient does wear bilateral cochlear implants with hearing aids. NECK: JVD not raised. Mass not palpable. RESPIRATORY: Effort normal. LUNGS are clear. CARDIOVASCULAR: 1st and second sounds normal. No edema. ABDOMEN: Tenderness present. No guarding or rigidity. Liver and spleen not palpable. PSYCHIATRY: Tired but awake and answers questions. INVESTIGATIONS: Potassium 4.2, BUN 6, creatinine 0.68. These labs are from yesterday. Lipase was 220. ASSESSMENT: 1. Status post cholecystectomy for acalculous cholecystitis. 2. Obesity BMI 35.7. 3. Bilateral cochlear implants. 4. Chronic scoliosis. 5. Mild hypernatremia from free water deficit. PLAN: The patient is getting IV fluids. Continue other medication and treatment plan. Diet to be advanced per Dr. Riggs. MMODL / IJN: [id number] /
[2018-04-22] MEDS: LEVOTHYROXINE 100 MCG TAB PO SCH (06:22)
[2018-04-22] MEDS: MORPHINE SULFATE 2 MG/ML SYRINGE IV PRN (06:58)
[2018-04-22] MEDS: ONDANSETRON 4 MG/2 ML VIAL IVP PRN (06:58)
[2018-04-22 08:50] VITALS: RESP 19
[2018-04-22] MEDS: TOPIRAMATE 25 MG TAB PO SCH (09:05)
[2018-04-22] MEDS: LORATADINE 10 MG TAB PO SCH (09:05)
[2018-04-22] MEDS: FAMOTIDINE 20 MG/2 ML VIAL IV SCH (09:06)
[2018-04-22 12:01] VITALS: BP 127/67; PULSE 57; TEMP 97.6
--- NOTE | 2018-04-22 20:37 | DS ---
DISCHARGE SUMMARY DATE OF ADMISSION: April 18, 2018. DATE OF DISCHARGE: April 22, 2018. FINAL DIAGNOSES: 1. Acute acalculous cholecystitis. 2. Obesity BMI 35.7. 3. Bilateral cochlear implants. 4. Chronic scoliosis. 5. Mild hypernatremia from free water deficit. HOSPITAL COURSE: This patient presents with abdominal pain. Had a scan showed a low ejection fraction. Ultrasound showed dilated gallbladder. The patient underwent cholecystectomy by Dr. Riggs. Today was tolerating a diet. Some pain is present. No nausea, vomiting. Up and about in the hallway. PHYSICAL EXAMINATION: ABDOMEN: Soft, mild tenderness. Lungs are clear. CONSULTATION: Dr. Kimberly Boo from Gastroenterology and Dr. Riggs from General surgery. DISCHARGE MEDICATIONS: 1. ProAir 2 puffs p.r.n. 2. Fioricet p.r.n. 3. Synthroid 200 mcg p.o. daily. 4. Topamax 50 mg p.o. b.i.d. 5. Singulair 10 mg q.h.s. 6. Ventolin 2.5 q.6h p.r.n. 7. Loan 60 mg q.6. 8. Motrin 600 mg q.8h p.r.n. 9. Tylenol 650 mg q.6h p.r.n. Diet: Soft, bland, advanced as tolerated. Other postop surgical orders per Dr. Riggs. Follow up with Dr. Riggs on April 25, 2018, follow up with Dr. Manuel Grayson in [address] Grayson. MMODL / IJN: [id number] /
== END 2018-04-22 13:23 | disposition home or self-care (01) | DRG 417 ==
LOC: EC 10:13 → 6PED 12:18
PROVIDERS: ADMIT Hospitalist; ATTEND Hospitalist
PROC: 8E0W4CZ Robotic Assisted Procedure of Trunk Region, Percutaneous Endoscopic Approach (ICD-10-PCS; 2018-04-21)
PROC: 0FT44ZZ Resection of Gallbladder, Percutaneous Endoscopic Approach (ICD-10-PCS; principal; 2018-04-21 15:00)
DX: K81.0 Acute cholecystitis (principal); K85.90 Acute pancreatitis without necrosis or infection, unspecified; E87.0 Hyperosmolality and hypernatremia; K82.1 Hydrops of gallbladder; E66.01 Morbid (severe) obesity due to excess calories; E87.8 Other disorders of electrolyte and fluid balance, not elsewhere classified; J45.909 Unspecified asthma, uncomplicated; M41.9 Scoliosis, unspecified; E03.8 Other specified hypothyroidism; G43.909 Migraine, unspecified, not intractable, without status migrainosus; Z68.35 Body mass index [BMI] 35.0-35.9, adult; Z79.899 Other long term (current) drug therapy; Z79.890 Hormone replacement therapy; Z87.730 Personal history of (corrected) cleft lip and palate; Z88.5 Allergy status to narcotic agent; Z80.0 Family history of malignant neoplasm of digestive organs; Z82.49 Family history of ischemic heart disease and other diseases of the circulatory system
CPT/HCPCS: 36415; 76705; 78227; 80053; 80074; 81001; 81025; 82150; 83690; 85025; 85610; 88304; 94640; 96361; 96374; 96375; 99285

== ENCOUNTER → 2020-09-01 | Outpatient (CLI) | payer OTHER ==
--- NOTE | 2020-09-01 09:30 | USB ---
Reason for exam: clinical finding. Physical Findings: Nurse did not find any significant physical abnormalities on exam. US Breast BILAT Technologist: Shaniqua Abrams Right complete breast ultrasound includes all four quadrants, the retroareolar region and axilla. Finding demonstrates including area of concern. Left complete breast ultrasound includes all four quadrants, the retroareolar region and axilla. Finding demonstrates including area of concern. No abnormality seen along the medial aspect of the right breast at the patient directed palpable site. These results were verbally communicated with the patient and result sheet given to the patient on . ASSESSMENT: Negative, BI-RAD 1 RECOMMENDATION: Routine screening mammogram of both breasts at age 40. (unless clinical indication to start sooner) Manage on a clinical basis with regard to any enlarging palpable area can be rescanned.
== END | disposition home or self-care (01) ==
LOC: RADUSWWP 07:12
PROVIDERS: ATTEND Internal Medicine
DX: N63.10 Unspecified lump in the right breast, unspecified quadrant (principal)

== ENCOUNTER → 2021-11-04 | Outpatient (CLI) | payer OTHER ==
--- NOTE | 2021-11-04 14:14 | XR ---
EXAMINATION TYPE: XR thoracic spine 3 views, XR lumbar spine 3 views DATE OF EXAM: 11/04/2021 COMPARISON: 03/24/2010 HISTORY: 31-year-old female M5 4.6, M5 4.5, mid to lower back pain. FINDINGS: THORACIC SPINE: 12 rib-bearing thoracic vertebral bodies. All pedicles are visualized. There is a gentle dextroconvex curvature of the thoracic spine. Vertebral body heights are preserved and alignment is maintained. T here may be very minimal disc space narrowing in the upper third thoracic spine. LUMBAR SPINE: There is a transitional lumbosacral segment denoted as a lumbarized S1. Vertebral body heights are pr eserved and alignment is maintained. Facet arthropathy lower lumbar spine. Disc spaces relatively lyudmila ntained. IMPRESSION (thoracic and lumbar spine): 1. Thoracic spine: Gentle dextroconvex curvature. No vertebral compression collapse or malalignment. 2. Lumbar spine: Transitional lumbosacral segment denoted as a lumbarized S1. Facet arthropathy lower lumbar spine. No vertebral compression collapse or malalignment.
== END | disposition home or self-care (01) ==
LOC: RADXRMAIN 09:36
PROVIDERS: ATTEND Family Medicine
DX: M47.896 Other spondylosis, lumbar region (principal); M54.6 Pain in thoracic spine; M54.50 Low back pain, unspecified
CPT/HCPCS: 72070; 72100

== ENCOUNTER → 2021-11-04 | Outpatient (CLI) | payer OTHER ==
[2021-11-04 09:51] LABS: Basophils % (A) 1 %; Eosinophils # (A) 0.2 k/uL (0-0.7); Eosinophils % (A) 3 %; HCT 41.3 % (34.0-46.0); HGB 13.7 gm/dL (11.4-16.0); Lymphocytes # (A) 1.5 k/uL (1.0-4.8); Lymphocytes % (A) 26 %; MCH 28.9 pg (25.0-35.0); MCHC 33.1 g/dL (31.0-37.0); MCV 87.3 fL (80.0-100.0); Mean Platelet Volume 8.3; Monocytes # (A) 0.4 k/uL (0-1.0); Monocytes % (A) 7 %; Neutrophils # (A) 3.6 k/uL (1.3-7.7); Neutrophils % (A) 62 %; Platelet Count 201 k/uL (150-450); RBC 4.73 m/uL (3.80-5.40); RDW 13.7 % (11.5-15.5); WBC 5.8 k/uL (3.8-10.6)
== END | disposition home or self-care (01) ==
LOC: LABPAT 09:13
PROVIDERS: ATTEND Obstetrics & Gynecology
DX: Z01.812 Encounter for preprocedural laboratory examination (principal)
CPT/HCPCS: 85025

== ENCOUNTER 2021-11-20 06:14 | Day surgery (SDC) | payer OTHER ==
[2021-11-13 10:14] VITALS: BMI 37.6
--- NOTE | 2021-11-19 21:14 | P.HPOB ---
History of Present Illness H&P Date: 11/19/21 Chief Complaint: Family planning This is a 31 y.o. female, 2, para 1, who presents for laparoscopic bilateral tubal ligation via fulgaration for family planning. She has been on Depo-Provera for about 10 years and would like to get off it. OB Hx: . History of 1 previous and 1 . 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 No history of STDs Social Hx: Single, disabled. Lives with boyfriend and son. Review of Systems Constitutional: Reports weight gain, Denies chills, Denies fever Eyes: denies blurred vision, denies pain Ears: bilateral: decreased hearing Ears, nose, mouth and throat: Reports headache, Denies sore throat Cardiovascular: Denies chest pain, Denies shortness of breath Respiratory: Denies cough Gastrointestinal: Denies abdominal pain, Denies diarrhea, Denies nausea, Denies vomiting Genitourinary: Reports stress incontinence, Denies dysuria, Denies hematuria Menstruation: Reports amenorrhea on BC Musculoskeletal: Reports low back pain Integumentary: Denies pruritus, Denies rash Neurological: Reports headaches, Denies numbness, Denies weakness Psychiatric: Reports anxiety Endocrine: Reports weight change, Denies fatigue Past Medical History Past Medical History: Asthma, Hearing Disorder / Deafness, Musculoskeletal Disorder, Thyroid Disorder Additional Past Medical History / Comment(s): BILATERAL COCHLEAR IMPLANTS, HEARING AIDES, BORN WITH CLEFT PALATE/LIP, RIGHT FACIAL WEAKNESS, 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 History of Any Multi-Drug Resistant Organisms: None Reported Past Surgical History: Section, Ear Surgery Additional Past Surgical History / Comment(s): MULTIPLE CLEFT PALATE SURGERIES, JAW ALIGNMENT, PROSTHETIC EARS (HAS BRACKETS ON SIDES OF HEAD) AND NOSE RECONSTRUCTION, BILATERAL COCHLEAR IMPLANTS, RIGHT EYE PLASTIC SURGERY, LEFT WRIST GANGLION CYST REMOVED X2. Past Anesthesia/Blood Transfusion Reactions: Motion Sickness, Postoperative Nausea & Vomiting (PONV) Additional Past Anesthesia/Blood Transfusion Reaction / Comment(s): Slow to wake up. Past Psychological History: Anxiety Smoking Status: Never smoker Past Alcohol Use History: None Reported Past Drug Use History: None Reported - Past Family History Father Family Medical History: Cancer Additional Family Medical History / Comment(s): COLON Cancer. Mother Family Medical History: Congestive Heart Failure (CHF) Medications and Allergies Home Medications Medication Instructions Recorded Confirmed Type Albuterol Sulfate [Proair Hfa] 2 puff INHALATION DIRECTED PRN 02/26/16 11/20/21 History Butalb/Acetaminophen/Caffeine 1 tab PO DIRECTED PRN 02/26/16 11/20/21 History [Fioricet 50-300-40 mg Capsule] Topiramate 50 mg PO BID 02/26/16 11/20/21 History Montelukast [Singulair] 10 mg PO HS 03/01/16 11/20/21 History Albuterol Nebulized [Ventolin 2.5 mg INHALATION Q6H PRN 04/18/18 11/20/21 History Nebulized] Fexofenadine HCl [Loan Allergy] 60 mg PO DAILY 04/18/18 11/20/21 History Acetaminophen Tab [Tylenol] 650 mg PO Q6HR PRN tab 04/22/18 11/20/21 Rx FLUoxetine HCL [PROzac] 20 mg PO QAM 11/13/21 11/20/21 History Levothyroxine Sodium 150 mcg PO QAM 11/13/21 11/20/21 History Medroxyprogesterone Acetate 150 mg IM Q90D 11/13/21 11/20/21 History [Depo-Provera] Allergies Allergy/AdvReac Type Severity Reaction Status Date / Time hydrocodone bitartrate Allergy Nausea & Verified 11/20/21 06:54 [From Vicodin] Vomiting tramadol Allergy Nausea & Verified 11/20/21 06:54 Vomiting Exam Osteopathic Statement: *. No significant issues noted on an osteopathic structural exam other than those noted in the History and Physical/Consult. HEENT: within normal limits Heart: regular rate and rhythm Lungs: clear to auscultation bilaterally Abdomen: soft, non-tender Pelvic: uterus small, anteverted, non-tender with no adnexal masses or tenderness Extremities: neg. Real's Assessment and Plan (1) Family planning Current Visit: No Status: Acute Code(s): Z30.09 - ENCOUNTER FOR OTH GENERAL CNSL AND ADVICE ON CONTRACEPTION SNOMED Code(s): 552439819 Plan: Proceed with laparoscopic bilateral tubal ligation via fulgaration. I have discussed the risks, benefits, and alternative therapies for the above- mentioned procedure and for both sedation/anesthesia as well as necessary blood products administration, if indicated, as they pertain to this patient. The patient has indicated her understanding and acceptance of the risks and procedures discussed.
[~2021-11-20 06:14] MED LIST: DEXAMETHASONE SOD PHOSPHATE 4 MG/ML 1 ML VIAL IV ONE; HYDROmorphone 0.5 MG/0.5 ML SYRINGE IVP PRN; ONDANSETRON 4 MG/2 ML VIAL IVP ONE; Pre Op ABX Message 1 EACH MISC MISCELLANE ONE
[2021-11-20] MEDS ORDERED: LIDOCAINE 1% (10MG/ML) FOR IV START INTRADERMA ONE (07:09)
[2021-11-20] MEDS: LACTATED RINGERS 1,000 ML IV SCH ×2 (07:10→07:34)
[2021-11-20] MEDS ORDERED: SCOPOLAMINE 1.5MG/72HR PATCH TRANSDERM ONE (07:18)
[2021-11-20] MEDS ORDERED: NEOSTIGMINE 1 MG/ML 10 ML VIAL ONE (07:32)
[2021-11-20] MEDS ORDERED: LIDOCAINE 1% INJ 10MG/ML (20 ML MDV) ONE (07:32)
[2021-11-20] MEDS ORDERED: KETOROLAC 15 MG/ML 1 ML VIAL ONE (07:32)
[2021-11-20] MEDS ORDERED: GLYCOPYRROLATE 0.2 MG/ML 2 ML VIAL ONE (07:32)
[2021-11-20] MEDS ORDERED: fentaNYL (PF) 50 MCG/ML 2 ML AMP ONE (07:32)
[2021-11-20] MEDS ORDERED: SUCCINYLCHOLINE CHLORIDE 100 MG/5 ML SYR IV ONE (07:32)
[2021-11-20] MEDS ORDERED: PROPOFOL 10 MG/ML 20 ML VIAL IV ONE (07:32)
[2021-11-20] MEDS ORDERED: ROCURONIUM 10 MG/ML (5 ML VIAL) IV ONE (07:32)
[2021-11-20] MEDS ORDERED: BUPIVACAINE (PF) 0.25% 30 ML VIAL SQ ONE ×2 (07:32)
[2021-11-20] MEDS ORDERED: MIDAZOLAM 2 MG/2 ML VIAL ONE (07:32)
--- NOTE | 2021-11-20 08:17 | P.OP ---
Date of Procedure: 11/20/21 Preoperative Diagnosis: Family planning Postoperative Diagnosis: Same Procedure(s) Performed: Laparoscopic bilateral tubal ligation via fulguration Anesthesia: PATTIE Surgeon: Sherin Mcconnell Estimated Blood Loss (ml): 5 Pathology: none sent Condition: stable Disposition: same day Indications for Procedure: This is a 31 y.o. female, 2, para 1, who presents for laparoscopic bilateral tubal ligation via fulgaration for family planning. She has been on Depo-Provera for about 10 years and would like to get off it. Operative Findings: Uterus is anteverted, with normal contour, normal tubes and ovaries are noted. Description of Procedure: The patient is taken to the operating room where she is placed in the dorsal lithotomy position. She is prepped and draped in the normal sterile fashion. Examination is performed under anesthesia. Uterus is found to be in a anteverted position. No adnexal masses were palpated. Next a bivalve speculum was placed in the patient's vagina. A single-tooth tenaculum was used to grasp the anterior lip of the cervix. The uterus was sounded to 9 cm. The kroner uterine manipulator was then inserted through the cervix and the balloon was inflated. The single-tooth tenaculum is removed speculum was removed gloves were changed and attention was turned to the abdomen. A small stab incision was made with a scalpel in the infraumbilical fold. A 5 mm disposable bladeless trocar was then inserted into the peritoneal cavity under direct visualization. Once inside, pneumoperitoneum was achieved with CO2 gas. The insert was removed and the camera was replaced. Intraperitoneal placement was confirmed. No bleeding was noted. Next the patient was placed in Trendelenburg position. A small stab incision was made suprapubically and a 5 mm disposable bladeless trocar was inserted into the peritoneal cavity under direct visualization. Once inside pelvic contents were inspected. Next a bipolar Kleppinger instrument was placed through the inferior trocar and the midportion of each tube was brought away from other structures and completely fulgurated on approximate 2-3 cm segment of each tube. Excellent hemostasis was noted. Pictures were taken. Pneumoperitoneum was released after the inferior trocar was removed under direct visualization. The upper trocar was then removed. The skin incisions were then closed with 4-0 Vicryl suture in a subcuticular fashion. Incisions were then injected with quarter percent Marcaine. Approximately 7 mL were used. Next the kroner uterine manipulator was removed. Minimal bleeding was noted. All sponge and needle counts are correct. The patient is then taken to recovery room in stable condition.
[2021-11-20 08:39] VITALS: TEMP 97
[2021-11-20 08:41] VITALS: RESP 16
[2021-11-20] MEDS ORDERED: LACTATED RINGERS 1,000 ML IV ONE (09:20)
[2021-11-20 09:49] VITALS: BP 112/79; PULSE 80
== END 2021-11-20 10:13 | disposition home or self-care (01) ==
LOC: OR 06:14
PROVIDERS: ATTEND Obstetrics & Gynecology
DX: Z30.2 Encounter for sterilization (principal); J45.909 Unspecified asthma, uncomplicated; E07.9 Disorder of thyroid, unspecified; H91.90 Unspecified hearing loss, unspecified ear; M41.9 Scoliosis, unspecified; G43.909 Migraine, unspecified, not intractable, without status migrainosus; F41.9 Anxiety disorder, unspecified; F32.A Depression, unspecified; Z96.21 Cochlear implant status; Z87.730 Personal history of (corrected) cleft lip and palate; Z79.890 Hormone replacement therapy; Z79.3 Long term (current) use of hormonal contraceptives; Z79.899 Other long term (current) drug therapy; Z88.5 Allergy status to narcotic agent; Z88.8 Allergy status to other drugs, medicaments and biological substances; Z98.891 History of uterine scar from previous surgery; Z98.890 Other specified postprocedural states; Z80.0 Family history of malignant neoplasm of digestive organs; Z82.49 Family history of ischemic heart disease and other diseases of the circulatory system
CPT/HCPCS: 81025; 58670; J2250; J1100; J2710; J2405; J2001; J3010; J1885; J0330; J2704

== ENCOUNTER 2023-04-24 22:22 | Inpatient (IN) | payer OTHER ==
--- NOTE | 2023-04-24 23:17 | ED ---
General Adult HPI - General Chief complaint: Neuro Symptoms/Deficit Stated complaint: Weakness Time Seen by Provider: 04/24/23 22:51 Source: patient, family, RN notes reviewed Mode of arrival: EMS Limitations: no limitations - History of Present Illness Initial comments: Patient is a pleasant 32-year-old female presenting to the emergency department with concern for neurological problems. Onset was the past couple of hours. Patient was sleeping when she thought she was dialing 911. Patient then put it in her phone and happened to her to call. Patient symptoms have been waxing and waning. Mother is present and helps provide history. Mother states that appears like she is staring off in space at times. There was some reported speech problems earlier. Patient denies any weakness. 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 Patient does have history of multiple previous facial surgeries including cleft palate. Patient also has history of [place]'s palsy. There is a questionable history of seizures in the past. Patient also has had depression and had recent changes of her medications. Patient also has history of chronic headaches. - Related Data Home Medications Medication Instructions Recorded Confirmed Albuterol Sulfate [Proair Hfa] 2 puff INHALATION DIRECTED PRN 02/26/16 11/20/21 Butalb/Acetaminophen/Caffeine 1 tab PO DIRECTED PRN 02/26/16 11/20/21 [Fioricet 50-300-40 mg Capsule] Topiramate 50 mg PO BID 02/26/16 11/20/21 Montelukast [Singulair] 10 mg PO HS 03/01/16 11/20/21 Albuterol Nebulized [Ventolin 2.5 mg INHALATION Q6H PRN 04/18/18 11/20/21 Nebulized] Fexofenadine HCl [Loan Allergy] 60 mg PO DAILY 04/18/18 11/20/21 FLUoxetine HCL [PROzac] 20 mg PO QAM 11/13/21 11/20/21 Levothyroxine Sodium 150 mcg PO QAM 11/13/21 11/20/21 Medroxyprogesterone Acetate 150 mg IM Q90D 11/13/21 11/20/21 [Depo-Provera] Previous Rx's Medication Instructions Recorded Acetaminophen Tab [Tylenol] 650 mg PO Q6HR PRN tab 04/22/18 Acetaminophen-Codeine 300-30mg 1 tab PO Q4H PRN 3 Days #18 tablet 11/20/21 [Tylenol w/codeine #3] Allergies Allergy/AdvReac Type Severity Reaction Status Date / Time hydrocodone bitartrate Allergy Nausea & Verified 04/24/23 22:38 [From Vicodin] Vomiting tramadol Allergy Nausea & Verified 04/24/23 22:38 Vomiting Review of Systems ROS Statement: Those systems with pertinent positive or pertinent negative responses have been documented in the HPI. ROS Other: All systems not noted in ROS Statement are negative. 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 History of Any Multi-Drug Resistant Organisms: None Reported Past Surgical History: Ear Surgery, Tubal Ligation Additional Past Surgical History / Comment(s): CLEFT PALETTE SX, JAW ALIGNMENT, PROSTHETIC EARS ( HAS BRACKETS ON SIDES OF HEAD) AND NOSE RECONSTRUCTION, JEFFERY CO CHLEAR IMPLANTS, R EYE PLASTIC SURGERY TO MAKE FACE LOOK MORE SYMMETRICAL, L WRIST GANGLION CYST REMOVED TWICE. Past Anesthesia/Blood Transfusion Reactions: No Reported Reaction, Postoperative Nausea & Vomiting (PONV) Past Psychological History: No Psychological Hx Reported, Anxiety, Depression Smoking Status: Vaper Past Alcohol Use History: None Reported Past Drug Use History: Marijuana - Past Family History Father Family Medical History: Cancer Additional Family Medical History / Comment(s): COLON Cancer. Mother Family Medical History: Congestive Heart Failure (CHF) General Exam Limitations: no limitations General appearance: alert, in no apparent distress Head exam: Present: other (Congenital abnormality) Eye exam: Present: normal appearance, PERRL, EOMI ENT exam: Present: other (Difficulty opening her mouth reported as chronic. Chronic facial weakness and ear deformities) Neck exam: Present: normal inspection Respiratory exam: Present: normal lung sounds bilaterally Cardiovascular Exam: Present: regular rate, normal rhythm GI/Abdominal exam: Present: soft. Absent: tenderness Extremities exam: Present: normal inspection, full ROM Neurological exam: Present: alert Expanded Neurological exam: Present: protecting the airway Patient oriented to: Present: person, place, time Cranial nerves: EOM's Intact: Normal, Facial Palsy without Forehead Movement: Abnormal Right (Reported as chronic) Sensory exam: Upper Extremity Light Touch: Normal, Lower Extremity Light Touch: Normal Motor strength exam: RUE: 4 (Patient's right arm may drift a small amount), LUE: 5, RLE: 4, LLE: 4 Eye Response: (4) open spontaneously Motor Response: (6) obeys commands Verbal Response: (5) oriented Psychiatric exam: Present: flat affect Skin exam: Present: normal color Course Vital Signs 04/24/23 04/24/23 04/24/23 22:31 23:20 23:50 Temperature 98.5 F Pulse Rate 122 H 114 H 113 H Respiratory 20 14 17 Rate Blood Pressure 134/90 138/88 137/89 O2 Sat by Pulse 100 100 Oximetry 04/25/23 04/25/23 04/25/23 00:10 00:20 00:30 Temperature Pulse Rate 122 H 112 H 117 H Respiratory 14 12 12 Rate Blood Pressure 128/82 128/82 127/85 O2 Sat by Pulse 100 100 100 Oximetry - Reevaluation(s) Reevaluation #1: 04/24/23 23:13 Patient is not considered a TPA candidate secondary to stroke is not clearly defined as cause of her symptoms. EKG Findings - EKG Results: EKG: interpreted by ERMD, sinus rhythm, normal axis, normal QRS, normal ST/T EKG shows: tachycardia Medical Decision Making - Medical Decision Making Was pt. sent in by a medical professional or institution (, PA, [employer], urgent care, hospital, or fpc...) When possible be specific @ -No Did you speak to anyone other than the patient for history (EMS, parent, family, police, friend...)? What history was obtained from this source @ -Family is present and helps provide history as patient's history is somewhat unreliable. Did you review nursing and triage notes (agree or disagree)? Why? @ -I reviewed and agree with nursing and triage notes Were old charts reviewed (outside hosp., previous admission, EMS record, old EKG, old radiological studies, urgent care reports/EKG's, fpc records)? Report findings @ -No old charts were reviewed Differential Diagnosis (chest pain, altered mental status, abdominal pain women, abdominal pain men, vaginal bleeding, weakness, fever, dyspnea, syncope, headache, dizziness, GI bleed, back pain, seizure, CVA, palpatations, mental health)? @ -Differential Weakness: Hypoglycemia, shock, sepsis, hyponatremia, anemia, infection, NM, ETOH, adverse medicine reaction, overdose, stroke, this is not meant to be an all-inclusive l ist. EKG interpreted by me (3pts min.). @ -As above X-rays interpreted by me (1pt min.). @ -Chest x-ray shows no acute process CT interpreted by me (1pt min.). @ -Computed tomography scan of the brain shows no obvious large hemorrhage or mass U/S interpreted by me (1pt. min.). @ -None done What testing was considered but not performed or refused? (CT, X-rays, U/S, labs)? Why? @ -None What meds were considered but not given or refused? Why? @ -None Did you discuss the management of the patient with other professionals (professionals i.e. , PA, [employer], lab, RT, psych nurse, social service director, dipper machine operator, teacher, business development officer, case preparer and liner)? Give summary @ -Case was discussed with Dr. Vasquez, who will admit covering Dr. Sanz Was smoking cessation discussed for >3mins.? @ -No Was critical care preformed (if so, how long)? @ -No Were there social determinants of health that impacted care today? How? (Homelessness, low income, unemployed, alcoholism, drug addiction, transportation, low edu. Level, literacy, decrease access to med. care, assisted, rehab)? @ -No Was there de-escalation of care discussed even if they declined (Discuss DNR or withdrawal of care, Hospice)? DNR status @ -No What co-morbidities impacted this encounter? (DM, HTN, Smoking, COPD, CAD, Cancer, CVA, ARF, Chemo, Hep., AIDS, mental health diagnosis, sleep apnea, morbid obesity)? @ -None Was patient admitted / discharged? Hospital course, mention meds given and route, prescriptions, significant lab abnormalities, going to OR and other pertinent info. @ -Patient reevaluated and resting comfortably in bed. No reported episodes since patient has arrived. Cause of symptoms is unclear. It is felt patient could benefit from admission with neurology consult. They will need to be further investigation into possible small TIA versus seizure versus depression versus other. Undiagnosed new problem with uncertain prognosis? @ -No Drug Therapy requiring intensive monitoring for toxicity (Heparin, Nitro, Insulin, Cardizem)? @ -No Were any procedures done? @ -No Diagnosis/symptom? @ -Weakness, altered mental status Acute, or Chronic, or Acute on Chronic? @ -Acute, acute Uncomplicated (without systemic symptoms) or Complicated (systemic symptoms)? @ -default Side effects of treatment? @ -No Exacerbation, Progression, or Severe Exacerbation? @ -No Poses a threat to life or bodily function? How? (Chest pain, USA, NM, pneumonia, PE, COPD, DKA, ARF, appy, cholecystitis, CVA, Diverticulitis, Homicidal, Suicidal, threat to staff... and all critical care pts) @ -No - Lab Data Result diagrams: 04/24/23 23:17 04/24/23 23:17 Lab Results 04/24/23 04/24/23 04/24/23 Range/Units 23:17 23:17 23:17 WBC 8.1 (3.8-10.6) k/uL RBC 4.73 (3.80-5.40) m/uL Hgb 12.9 (11.4-16.0) gm/dL Hct 39.7 (34.0-46.0) % MCV 84.0 (80.0-100.0) fL MCH 27.3 (25.0-35.0) pg MCHC 32.6 (31.0-37.0) g/dL RDW 13.7 (11.5-15.5) % Plt Count 193 (150-450) k/uL MPV 9.4 Neutrophils % 63 % Lymphocytes % 25 % Monocytes % 7 % Eosinophils % 3 % Basophils % 0 % Neutrophils # 5.1 (1.3-7.7) k/uL Lymphocytes # 2.0 (1.0-4.8) k/uL Monocytes # 0.5 (0-1.0) k/uL Eosinophils # 0.2 (0-0.7) k/uL Basophils # 0.0 (0-0.2) k/uL PT 10.3 (9.0-12.0) sec INR 1.0 (<1.2) APTT 20.1 L (22.0-30.0) sec Sodium 141 (137-145) mmol/L Potassium 4.1 (3.5-5.1) mmol/L Chloride 109 H (98-107) mmol/L Carbon Dioxide 22 (22-30) mmol/L Anion Gap 10 mmol/L BUN 19 H (7-17) mg/dL Creatinine 1.01 (0.52-1.04) mg/dL Est GFR (CKD-EPI)AfAm 85 (>60 ml/min/1.73 sqM) Est GFR (CKD-EPI)NonAf 74 (>60 ml/min/1.73 sqM) Glucose 111 H (74-99) mg/dL Calcium 9.2 (8.4-10.2) mg/dL Total Bilirubin 0.5 (0.2-1.3) mg/dL AST 29 (14-36) U/L ALT 19 (4-34) U/L Alkaline Phosphatase 58 (38-126) U/L Creatine Kinase 96 (30-135) U/L Total Protein 7.4 (6.3-8.2) g/dL Albumin 4.3 (3.5-5.0) g/dL Urine Color Urine Appearance (Clear) Urine pH (5.0-8.0) Ur Specific [place] (1.001-1.035) Urine Protein (Negative) Urine Glucose (UA) (Negative) Urine Ketones (Negative) Urine Blood (Negative) Urine Nitrite (Negative) Urine Bilirubin (Negative) Urine Urobilinogen (<2.0) mg/dL Ur Leukocyte Esterase (Negative) Urine WBC (0-5) /hpf Ur Squamous Epith Cells (0-4) /hpf Urine Mucus (None) /hpf Urine Opiates Screen (NotDetected) Ur Oxycodone Screen (NotDetected) Urine Methadone Screen (NotDetected) Ur Propoxyphene Screen (NotDetected) Ur Barbiturates Screen (NotDetected) U Tricyclic Antidepress (NotDetected) Ur Phencyclidine Scrn (NotDetected) Ur Amphetamines Screen (NotDetected) U Methamphetamines Scrn (NotDetected) U Benzodiazepines Scrn (NotDetected) Urine Cocaine Screen (NotDetected) U Marijuana (THC) Screen (NotDetected) 04/25/23 Range/Units 00:25 WBC (3.8-10.6) k/uL RBC (3.80-5.40) m/uL Hgb (11.4-16.0) gm/dL Hct (34.0-46.0) % MCV (80.0-100.0) fL MCH (25.0-35.0) pg MCHC (31.0-37.0) g/dL RDW (11.5-15.5) % Plt Count (150-450) k/uL MPV Neutrophils % % Lymphocytes % % Monocytes % % Eosinophils % % Basophils % % Neutrophils # (1.3-7.7) k/uL Lymphocytes # (1.0-4.8) k/uL Monocytes # (0-1.0) k/uL Eosinophils # (0-0.7) k/uL Basophils # (0-0.2) k/uL PT (9.0-12.0) sec INR (<1.2) APTT (22.0-30.0) sec Sodium (137-145) mmol/L Potassium (3.5-5.1) mmol/L Chloride (98-107) mmol/L Carbon Dioxide (22-30) mmol/L Anion Gap mmol/L BUN (7-17) mg/dL Creatinine (0.52-1.04) mg/dL Est GFR (CKD-EPI)AfAm (>60 ml/min/1.73 sqM) Est GFR (CKD-EPI)NonAf (>60 ml/min/1.73 sqM) Glucose (74-99) mg/dL Calcium (8.4-10.2) mg/dL Total Bilirubin (0.2-1.3) mg/dL AST (14-36) U/L ALT (4-34) U/L Alkaline Phosphatase (38-126) U/L Creatine Kinase (30-135) U/L Total Protein (6.3-8.2) g/dL Albumin (3.5-5.0) g/dL Urine Color Yellow Urine Appearance Turbid H (Clear) Urine pH 7.0 (5.0-8.0) Ur Specific [place] 1.019 (1.001-1.035) Urine Protein Trace H (Negative) Urine Glucose (UA) Negative (Negative) Urine Ketones Negative (Negative) Urine Blood Small H (Negative) Urine Nitrite Negative (Negative) Urine Bilirubin Negative (Negative) Urine Urobilinogen <2.0 (<2.0) mg/dL Ur Leukocyte Esterase Moderate H (Negative) Urine WBC 8 H (0-5) /hpf Ur Squamous Epith Cells 23 H (0-4) /hpf Urine Mucus Occasional H (None) /hpf Urine Opiates Screen Not Detected (NotDetected) Ur Oxycodone Screen Not Detected (NotDetected) Urine Methadone Screen Not Detected (NotDetected) Ur Propoxyphene Screen Not Detected (NotDetected) Ur Barbiturates Screen Not Detected (NotDetected) U Tricyclic Antidepress Not Detected (NotDetected) Ur Phencyclidine Scrn Not Detected (NotDetected) Ur Amphetamines Screen Not Detected (NotDetected) U Methamphetamines Scrn Not Detected (NotDetected) U Benzodiazepines Scrn Not Detected (NotDetected) Urine Cocaine Screen Not Detected (NotDetected) U Marijuana (THC) Screen Detected H (NotDetected) Disposition Clinical Impression: Weakness, Altered mental status Disposition: ADMITTED IP TO THIS [facility] Is patient prescribed a controlled substance at d/c from ED?: No Referrals: Nonstaff,Physician [REFERRING] - 1-2 days Time of Disposition: 01:06
[2023-04-24 23:25] LABS: Basophils % (A) 0 %; Eosinophils # (A) 0.2 k/uL (0-0.7); Eosinophils % (A) 3 %; HCT 39.7 % (34.0-46.0); HGB 12.9 gm/dL (11.4-16.0); Lymphocytes % (A) 25 %; MCH 27.3 pg (25.0-35.0); MCHC 32.6 g/dL (31.0-37.0); Mean Platelet Volume 9.4; Monocytes # (A) 0.5 k/uL (0-1.0); Monocytes % (A) 7 %; Neutrophils # (A) 5.1 k/uL (1.3-7.7); Neutrophils % (A) 63 %; Platelet Count 193 k/uL (150-450); RBC 4.73 m/uL (3.80-5.40); RDW 13.7 % (11.5-15.5); WBC 8.1 k/uL (3.8-10.6)
[2023-04-24 23:40] LABS: Prothrombin Time 10.3 sec (9.0-12.0)
[2023-04-24 23:43] LABS: Partial Thromboplastin Time 20.1 sec (22.0-30.0)
[2023-04-24 23:47] LABS: ALT 19 U/L (4-34); African American GFR (CKD) 85 (>60 ml/min/1.73 sqM); Albumin 4.3 g/dL (3.5-5.0); Anion Gap 10 mmol/L; Blood Urea Nitrogen 19 mg/dL (7-17); Calcium 9.2 mg/dL (8.4-10.2); Carbon Dioxide 22 mmol/L (22-30); Chloride 109 mmol/L (98-107); Creatine Kinase 96 U/L (30-135); Glucose 111 mg/dL (74-99); Non-African American GFR(CKD) 74 (>60 ml/min/1.73 sqM); Sodium 141 mmol/L (137-145); Total Bilirubin 0.5 mg/dL (0.2-1.3); Total Protein 7.4 g/dL (6.3-8.2)
[2023-04-24 23:52] LABS: AST 29 U/L (14-36); Alkaline Phosphatase 58 U/L (38-126); Potassium 4.1 mmol/L (3.5-5.1)
--- NOTE | 2023-04-25 00:28 | CT ---
EXAM: CT Head Without Intravenous Contrast CLINICAL HISTORY: ITS.REASON CT Reason: Neuro deficit, acute, stroke suspected TECHNIQUE: Axial computed tomography images of the head/brain without intravenous contrast. CTDI is 49.2 mGy and DLP is 1041.4 mGy-cm. This CT exam was performed using one or more of the following dose reduction techniques: automated exposure control, adjustment of the mA and/or kV according to patient size, and/or use of iterative reconstruction technique. COMPARISON: No relevant prior studies available. FINDINGS: No acute intracranial hemorrhage. No midline shift or mass effect. The territorial neal-white matter differentiation is maintained throughout. The ventricles and sulci are commensurate with age. The visualized orbits appear grossly unremarkable. The calvarium is intact. Bilateral metallic streak artifact. Correlate with surgical history. The visualized paranasal sinuses and mastoid air cells are grossly clear. IMPRESSION: No acute intracranial hemorrhage, midline shift, or mass effect.
[2023-04-25 00:42] LABS: Appearance,Urine Turbid (Clear); Bilirubin,Urine Negative (Negative); Blood,Urine Small (Negative); Color,Urine Yellow; Glucose,Urine (UA) Negative (Negative); Ketones,Urine Negative (Negative); Leukocyte Esterase,Urine Moderate (Negative); Mucus,Urine Occasional /hpf; Nitrite,Urine Negative (Negative); Protein,Urine Trace (Negative); Specific Gravity,Urine 1.019 (1.001-1.035); Squamous Epithelial Cell,Urine 23 /hpf (0-4); Urobilinogen,Urine <2.0 mg/dL (<2.0); WBC,Urine 8 /hpf (0-5)
[2023-04-25 00:45] LABS: Amphetamine Screen,Urine Not Detected (NotDetected); Barbiturate Screen,Urine Not Detected (NotDetected); Benzodiazepines Screen,Urine Not Detected (NotDetected); Cocaine Screen,Urine Not Detected (NotDetected); Methadone Screen, Urine Not Detected (NotDetected); Opiate Screen,Urine Not Detected (NotDetected); Oxycodone Screen, Urine Not Detected (NotDetected); Phencyclidine Screen,Urine Not Detected (NotDetected); Tricyclic Antidepressant,Urine Not Detected (NotDetected); Urn Cannabinoid Scrn Detected (NotDetected)
--- NOTE | 2023-04-25 00:48 | XR ---
EXAM: XR Chest, 1 View CLINICAL HISTORY: ITS.REASON XR Reason: altered mental status TECHNIQUE: Frontal view of the chest. COMPARISON: No relevant prior studies available. FINDINGS: Lungs: Unremarkable. No consolidation. Pleural space: Unremarkable. No pneumothorax. Heart: Unremarkable. No cardiomegaly. Mediastinum: Unremarkable. Bones/joints: Unremarkable. IMPRESSION: Normal chest x-ray.
[2023-04-25] MEDS ORDERED: NALOXONE 0.4 MG/ML 1 ML VIAL IV PRN (01:06)
[2023-04-25] MEDS ORDERED: LORazepam 0.5 MG TAB PO PRN (01:06)
[2023-04-25] MEDS ORDERED: ALBUTEROL NEBULIZED 2.5 MG/3 ML INHALATION PRN (02:43)
--- NOTE | 2023-04-25 03:05 | P.HPIM ---
History of Present Illness H&P Date: 04/25/23 Chief Complaint: altered mental status 32 year old female with congenital disorder patient mother and guardian is offering the history patient was at her baseline status of health today, when she suddenly was not feeling well, and went to take a nap, however, after waking up , she seemed, to her , to be confused and having speech difficulties . 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 no report of smoking , street drugs or alcohol Review of Systems Pertinent positives as noted in HPI. 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 History of Any Multi-Drug Resistant Organisms: None Reported Past Surgical History: Ear Surgery, Tubal Ligation Additional Past Surgical History / Comment(s): CLEFT PALETTE SX, JAW ALIGNMENT, PROSTHETIC EARS ( HAS BRACKETS ON SIDES OF HEAD) AND NOSE RECONSTRUCTION, JEFFERY COCHLEAR IMPLANTS, R EYE PLASTIC SURGERY TO MAKE FACE LOOK MORE SYMMETRICAL, L WRIST GANGLION CYST REMOVED TWICE. Past Anesthesia/Blood Transfusion Reactions: No Reported Reaction, Postoperative Nausea & Vomiting (PONV) Past Psychological History: No Psychological Hx Reported, Anxiety, Depression Smoking Status: Vaper Past Alcohol Use History: None Reported Past Drug Use History: Marijuana - Past Family History Father Family Medical History: Cancer Additional Family Medical History / Comment(s): COLON Cancer. Mother Family Medical History: Congestive Heart Failure (CHF) Medications and Allergies Home Medications Medication Instructions Recorded Confirmed Type Albuterol Sulfate [Proair Hfa] 2 puff INHALATION DIRECTED PRN 02/26/16 11/20/21 History Butalb/Acetaminophen/Caffeine 1 tab PO DIRECTED PRN 02/26/16 11/20/21 History [Fioricet 50-300-40 mg Capsule] Topiramate 50 mg PO BID 02/26/16 11/20/21 History Montelukast [Singulair] 10 mg PO HS 03/01/16 11/20/21 History Albuterol Nebulized [Ventolin 2.5 mg INHALATION Q6H PRN 04/18/18 11/20/21 History Nebulized] Fexofenadine HCl [Loan Allergy] 60 mg PO DAILY 04/18/18 11/20/21 History Acetaminophen Tab [Tylenol] 650 mg PO Q6HR PRN tab 04/22/18 11/20/21 Rx FLUoxetine HCL [PROzac] 20 mg PO QAM 11/13/21 11/20/21 History Levothyroxine Sodium 150 mcg PO QAM 11/13/21 11/20/21 History Medroxyprogesterone Acetate 150 mg IM Q90D 11/13/21 11/20/21 History [Depo-Provera] Acetaminophen-Codeine 300-30mg 1 tab PO Q4H PRN 3 Days #18 tablet 11/20/21 Rx [Tylenol w/codeine #3] Allergies Allergy/AdvReac Type Severity Reaction Status Date / Time hydrocodone bitartrate Allergy Nausea & Verified 04/24/23 22:38 [From Vicodin] Vomiting tramadol Allergy Nausea & Verified 04/24/23 22:38 Vomiting Physical Exam Vitals: Vital Signs Temp Pulse Resp BP Pulse Ox 04/25/23 00:30 117 H 12 127/85 100 04/25/23 00:20 112 H 12 128/82 100 04/25/23 00:10 122 H 14 128/82 100 04/24/23 23:50 113 H 17 137/89 04/24/23 23:20 114 H 14 138/88 100 04/24/23 22:31 98.5 F 122 H 20 134/90 100 Intake and Output 04/24/23 04/24/23 04/25/23 14:59 22:59 06:59 Other: Weight 81.193 kg Constitutional: No acute distress, patient is very slow to move or speak Eyes: Anicteric sclerae, moist conjunctiva, Pupils equal round reactive to light ENMT: missing right ear, and partially missing left ear, cochlear implant bilaterally Oropharynx clear, no erythema, dry mucus membranes Neck: Supple, no masses, or JVD No carotid bruits No thyromegaly Lungs: Clear to auscultation Clear to percussion Normal respiratory effort, no accessory muscle use Cardiovascular: Heart regular in rate and rhythm, No murmurs, gallops, or rubs No peripheral edema Abdominal: Soft Nontender, no guarding, rebound or rigidity Abdomen moving with respiration Normoactive bowel sounds No hepatomegaly, No splenomegaly No palpable mass No abdominal wall hernia noted Skin: Normal temperature, tone, texture, turgor Extremities: No digital cyanosis No clubbing Pedal pulses intact and symmetrical Radial pulses intact and symmetrical No calf tenderness Psychiatric: Alert and oriented to person, place and time Appropriate affect fair judgement Neuro Muscles Strength 4/5 in all 4 extremities reports decrease sensation over bilateral legs Cranial nerves right sided facial palsy , difficulty hearing brisk reflexes bilateral knees Lymphatics: no palpable cervical or supraclavicular lymph nodes Results CBC & Chem 7: 04/24/23 23:17 04/24/23 23:17 Labs: Abnormal Lab Results - Last 24 Hours (Table) 04/24/23 04/24/23 04/25/23 Range/Units 23:17 23:17 00:25 APTT 20.1 L (22.0-30.0) sec Chloride 109 H (98-107) mmol/L BUN 19 H (7-17) mg/dL Glucose 111 H (74-99) mg/dL Urine Appearance Turbid H (Clear) Urine Protein Trace H (Negative) Urine Blood Small H (Negative) Ur Leukocyte Esterase Moderate H (Negative) Urine WBC 8 H (0-5) /hpf Ur Squamous Epith Cells 23 H (0-4) /hpf Urine Mucus Occasional H (None) /hpf U Marijuana (THC) Screen Detected H (NotDetected) Assessment and Plan Assessment: 32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
[2023-04-25] MEDS: SODIUM CHLORIDE 0.9% 1,000 ML IV SCH ×3 (03:59→22:32)
[2023-04-25] MEDS: LEVOTHYROXINE 75 MCG TAB PO SCH (06:43)
[2023-04-25] MEDS ORDERED: TOPIRAMATE 25 MG TAB PO SCH ×2 (09:00→09:19)
[2023-04-25] MEDS ORDERED: FLUoxetine HCL 20 MG CAP PO SCH (09:00)
[2023-04-25] MEDS: DULoxetine HCL 30 MG CAPSULE.DR PO SCH (09:45)
[2023-04-25] MEDS: LORATADINE 10 MG TAB PO SCH (09:46)
[2023-04-25] MEDS: TOPIRAMATE 25 MG TAB PO SCH ×2 (09:46→20:49)
--- NOTE | 2023-04-25 12:57 | EEG ---
ELECTROENCEPHALOGRAM REPORT PREAMBLE: This is a 32-year-old female with altered mental status. CURRENT MEDICATIONS: 1. Fioricet. 2. Cymbalta. 3. Synthroid. 4. Claritin. 5. Ativan. 6. Topamax. EEG FINDINGS: This is a 21-channel digital EEG recorded with video component, utilizing 10/20 international system with referential and bipolar montages. Background consists of moderately well-developed and regulated, predominantly [id number] amplitude of 6 to 7 hertz theta activity seen in bihemispheric region. Background does not seem to be clearly reactive to eye opening or closing. Photic driving response was not clearly seen. Intermittent, sporadic left temporal sharp waves were seen, which at times become higher amplitude rhythmic theta activity involving the left temporal region at 6 hertz. No electrographic seizure however was recorded. Photic driving response was not seen. Different stages of sleep were not clearly seen. IMPRESSION: This is an abnormal EEG due to: 1. Background slowing, suggestive of diffuse encephalopathy of [id number] degree. 2. Presence of intermittent, sporadic left temporal-sharp waves with rhythmic left temporal theta, suggestive of focal cortical neuronal dysfunction. This may suggest underlying cortical irritability and tendency for seizure. No electrographic seizure was recorded. Clinical correlation is strongly recommended. MMODL / IJN: [id number] / [facility]
--- NOTE | 2023-04-25 13:25 | P.CNNES ---
History of Present Illness Consult date: 04/25/23 Requesting physician: Jermaine Lizarraga Reason for Consult: Altered mental status, weak History of Present Illness: Patient is a 32-year-old left-handed female with history of learning disability, on disability, who came to the hospital last night at 10:22 PM by ambulance. EMS flow sheet not available in the chart. Patient's sister, who is her legal guardian was also present, who also provided with a history. Patient was fine yesterday in the morning. At around 10 PM they received a call from patient's [employer]es that patient was having symptoms like a stroke. Patient mentions that she laid down at 9 PM and took a nap for 30-40 minutes. When she woke up, she was disoriented she was shaking, like tremoring of her hands, flipping out and then complaining of "not feeling left side of the body". Her speech was off. The family felt that she was having a stroke. Patient's sister also mentioned that she was having a blank stare, would come out of it, makes eye contact and then goes back into the blank stare. She was not responding and there was mild shaking, tremoring but no jerking. Patient was very confused. When the confusion slightly improve, she was complaining of left-sided feeling heavy. Patient apparently did lose control of urine sometimes during this time, as she was noted to be wet at the time she arrived to the ER. Patient continues to have very delayed response, slow thought process as compared to the baseline, she speaks normally. Patient's sister mentioned that she did see the patient at about 4:30 to 5 PM and she was fine at that time. Vital signs on arrival blood pressure 134/90, pulse rate 122, temperature 98.5. Blood test shows normal CBC. PT/PTT,, normal CMP, CK 96, TSH normal, UA shows turbid, small amount of blood, moderate leukocyte esterase, 8 WBC, and urine drug screen positive for marijuana. CT head revealed no acute intracranial hemorrhage, midline shift or mass effect. Chest x-ray is normal. Patient does not have diabetes or hypertension, does not take any control pills as she has tubes tied. Patient has a 11-year-old son and an also has a fiance. Patient admits to having anxiety and depression, but denies any worsening of her anxiety or depression and denies any stressors at home. She has history of migraines for long time for which she takes Topamax 75 mg twice a day. Patient's sister states that patient has history of learning disability, but otherwise she talks normally. She has chronic right facial weakness since , peripheral type and has no right ear. She has history of cleft palate and has history of bilateral cochlear implant. Home medications include Topamax 75 mg twice a day, ibuprofen, levothyroxine, Zyrtec, Cymbalta 30 mg, Singulair,. Patient Vapes time to time, drinks alcohol very occasionally. She is not a drinker. She does not use any assistive device at home. Patient is currently on disability because of her history of learning disability. At present patient complaining of tightness in the left side of her face, and left arm and leg feels sore and weak. Patient continues to have very delayed thought process and response time. She admits to having headache involving the top of the head, 4/10, without any nausea vomiting light or noise sensitivity, aching type. Usually her migraines involved from back to the front. The current headache is different as compared to her migraines. Review of Systems Constitutional: Denies chills, Denies fever Eyes: denies blurred vision, denies diplopia, denies pain Ears: right: decreased hearing, deny: ear discharge, earache Ears, nose, mouth and throat: Reports headache, Denies sore throat Cardiovascular: Reports chest pain, Denies shortness of breath Respiratory: Reports cough, Denies excessive sputum Gastrointestinal: Denies abdominal pain, Denies diarrhea, Denies nausea, Denies vomiting Genitourinary: Denies dysuria, Denies hematuria, Denies stress incontinence Musculoskeletal: Reports low back pain, Reports neck pain, Denies myalgias Integumentary: Reports rash, Denies pruritus Neurological: Reports as per HPI Psychiatric: Reports anxiety, Reports depression Endocrine: Reports fatigue, Denies weight change Hematologic/Lymphatic: Reports easy bruising, Denies easy bleeding Past Medical History Past Medical History: Asthma, Hearing Disorder / Deafness, Thyroid Disorder Additional Past Medical History / Comment(s): BILATERAL COCHLEAR IMPLANTS, HEARING AIDES, BORN WITH CLEFT PALATE/LIP WITH MULTIPLE SURGERIES, R FACIAL WEAKNESS, BORN WITHOUT THYROID GLAND, SCOLIOSIS WITH OCCASIONAL BACK PAIN, MIGRA ALEIDA. History of Any Multi-Drug Resistant Organisms: None Reported Past Surgical History: Ear Surgery, Tubal Ligation Additional Past Surgical History / Comment(s): CLEFT PALETTE SX, JAW ALIGNMENT, PROSTHETIC EARS ( HAS BRACKETS ON SIDES OF HEAD) AND NOSE RECONSTRUCTION, JEFFERY COCHLEAR IMPLANTS, R EYE PLASTIC SURGERY TO MAKE FACE LOOK MORE SYMMETRICAL, L WRIST GANGLION CYST REMOVED TWICE. Past Anesthesia/Blood Transfusion Reactions: No Reported Reaction, Postoperative Nausea & Vomiting (PONV) Past Psychological History: No Psychological Hx Reported, Anxiety, Depression Additional Psychological History / Comment(s): Pt resides with her boyfriend and their 6 year old son. Pt has a sister, Agustina whom pt calls mom because her parents when pt was a 12 yr old and this sister raised her. Agustina is very helpful to pt and lives a few doors down. Pt is disabled and her sister, Agustina manages her SSI. Pt does not drive, Agustina takes her to appts. Smoking Status: Vaper Past Alcohol Use History: None Reported Past Drug Use History: Marijuana - Past Family History Father Family Medical History: Cancer Additional Family Medical History / Comment(s): COLON Cancer. Mother Family Medical History: Congestive Heart Failure (CHF) Medications and Allergies Home Medications Medication Instructions Recorded Confirmed Type Albuterol Sulfate [Proair Hfa] 2 puff INHALATION RT-QID PRN 02/26/16 04/25/23 History Topiramate 50 mg PO BID 02/26/16 04/25/23 History Montelukast [Singulair] 10 mg PO HS 03/01/16 04/25/23 History Cetirizine HCl [Zyrtec] 10 mg PO DAILY 04/25/23 04/25/23 History DULoxetine HCL [Cymbalta] 30 mg PO DAILY 04/25/23 04/25/23 History Ibuprofen [Motrin] 800 mg PO Q8H PRN 04/25/23 04/25/23 History Levothyroxine Sodium [Synthroid] 175 mcg PO AC-BRKFST 04/25/23 04/25/23 History Topiramate [Topamax] 25 mg PO BID 04/25/23 04/25/23 History Allergies Allergy/AdvReac Type Severity Reaction Status Date / Time hydrocodone bitartrate AdvReac Nausea & Verified 04/25/23 07:45 [From Vicodin] Vomiting tramadol AdvReac Nausea & Verified 04/25/23 07:45 Vomiting Physical Examination - Vital Signs Vital Signs: Vital Signs Temp Pulse Pulse Resp BP BP Pulse Ox 04/25/23 07:00 97.8 F 81 18 111/76 100 04/25/23 06:30 97.7 F 84 16 114/75 98 04/25/23 05:30 101 H 14 121/77 97 04/25/23 05:00 94 18 123/79 97 04/25/23 04:30 92 17 127/85 99 04/25/23 04:00 116 H 21 125/79 98 04/25/23 03:30 104 H 12 117/80 97 04/25/23 03:00 107 H 17 122/91 98 04/25/23 02:30 109 H 14 136/90 99 04/25/23 02:00 116 H 18 130/85 100 04/25/23 01:30 120 H 22 129/89 98 04/25/23 01:00 125 H 14 126/89 100 04/25/23 00:30 117 H 12 127/85 100 04/25/23 00:20 112 H 12 128/82 100 04/25/23 00:10 122 H 14 128/82 100 04/24/23 23:50 113 H 17 137/89 04/24/23 23:20 114 H 14 138/88 100 04/24/23 22:31 98.5 F 122 H 20 134/90 100 Intake and Output 04/24/23 04/25/23 04/25/23 22:59 06:59 14:59 Other: Weight 81.193 kg 81.193 kg Patient is a young female, who appears slightly older than her stated age. Patient is alert awake, but has slow mentation, delayed latency time to answer questions. She is otherwise oriented to time place and person. She knows that she lives in [place] in [place] in [facility] and that she is in [facility]. She knows it is April 2023 and her date of 1990. Speech and language functions are normal. Patient can name and repeat very well. No aphasia or dysarthria. Attention, concentration is diminished and fund of knowledge is adequate. Detailed cognitive function testing deferred. On cranial nerve examination, pupils are equal, round and reacting to light, visual ortiz are full on confrontation, with no neglect on double simultaneous stimulation. Extraocular muscles are intact with no nystagmus. Patient has chronic right facial weakness, peripheral type since . However she has new onset left facial weakness. She was not able to smile to the left, although when she was spontaneously smiling on some sisters comment, she smiled normally. Her tongue protrudes to the midline. Palatal elevation and sensation normal, hearing is absent on the right and decreased on the left side, and shoulder shrug normal, facial sensation decreased on the left. She has evidence of old cleft lip surgery. On muscle strength testing, there is left-sided drift but no pronation. The mus rashid strength (right/left) deltoid 5-/4-, biceps 5-/4-, triceps 5-/4, mail processing associate 5-4+/4-, hip flexion 5/3, ankle dorsiflexion 4+/4-. Deep tendon reflexes are symmetric 1+ at the biceps, 1+ brachioradialis, 2 at the knees 1 ankles and plantar is downgoing on the right, flat on the left. Sensory to touch is decreased in entire left side of the body. Cerebellar function showed no ataxia for [id number]-oocm testing on either side. No obvious ataxia for [id number]-[id number] testing on either side. Tone and bulk of muscles normal. Gait deferred.. On general examination, there is no carotid bruit or murmur, S1-S2 audible. Chest is clear on consultation. Abdomen is soft nontender. No organomegaly, bowel sounds present. Peripheral pulses are present. No edema. Patient has multiple areas of mosquito bite wyatt. Results - Laboratory Findings CBC and BMP: 04/26/23 05:43 04/26/23 05:43 Abnormal Lab Findings: Abnormal Labs 04/24/23 04/24/23 04/25/23 23:17 23:17 00:25 APTT 20.1 L Chloride 109 H BUN 19 H Glucose 111 H Urine Appearance Turbid H Urine Protein Trace H Urine Blood Small H Ur Leukocyte Esterase Moderate H Urine WBC 8 H Ur Squamous Epith Cells 23 H Urine Mucus Occasional H U Marijuana (THC) Screen Detected H Assessment and Plan Assessment: * Acute onset of altered mental status, confusion, staring spells, tremoring, delayed mental response, with left-sided weakness and numbness. All symptoms started upon waking up from a nap yesterday at around 10 PM. Exact cause is uncertain. Rule out CVA, rule out infectious process. Patient has been bitten by mosquitoes, rule out West Nile virus. * History of learning disability * Anxiety, depression * Vapes * History of cleft palate and cleft lip with multiple facial surgeries * Right facial weakness, congenital * Bilateral cochlear implants * History of migraine headaches, on Topamax for long time. Plan: * Patient cannot have MRI because of presence of cochlear implants. * Initial CT head did not reveal any acute process. We will repeat CT head in the morning to rule out any interval change. * Carotid Doppler to rule out stenosis * 2-D echo, rule out embolic source * Check EEG to rule out epileptiform activity * B12, folate, Lyme titer, West Nile virus, TSH is normal. * Hemoglobin A1c, fasting lipid panel * Agree with starting aspirin 325 mg daily. * If the repeat CT head negative, we may consider lumbar puncture. * Neurology will follow. Thank you for the consult.
--- NOTE | 2023-04-25 13:38 | P.PN ---
Subjective Progress Note Date: 04/25/23 (delayed charting seen at 0840) Patient is a 32-year-old female with congenital deafness status post bilateral cochlear implants, congenital hypothyroidism, and asthma who presented to the emergency department with complaints of altered mentation. On arrival to the emergency department her pulse was elevated at 122. Laboratory analysis was remarkable for BUN of 19, glucose 111, and marijuana in her urine drug screen. Initial head CT showed no acute intracranial hemorrhage, midline shift, or mass effect. Chest x-ray showed no acute process. Family was worried that she possibly had a seizure, patient has no history of seizure disorder. An arrangement was made for admission. Patient seen and examined at bedside with her older sister present. She was in her normal state of health up until yesterday. This morning she is complaining of left sided weakness without pain. Yesterday she was not as responsive as typical of delayed thinking as well as staring off into space being not responsive. She is feeling better and that way now. She reports no history of seizure disorder or family history of seizure disorders. She has no personal history of a stroke. She does have significant family history of diabetes. Vital signs reviewed General: nontoxic, no distress, appears at stated age Cardiovascular: S1S2 reg, no murmur, positive posterior tibial pulse bilateral, Lungs: CTA bilateral, no rhonchi, no rales , no accessory muscle use Abdominal: soft, nontender to palpation, no guarding, no appreciable organomegaly Ext: no gross muscle atrophy, no edema b/l lower extremities, no contractures Neuro: Right sided facial drooping, muscle strength 3-4 out of 5 in the left upper extremity and 3 out of 5 in the left lower external he, muscle strength 4+ out of 5 in the right upper and lower extremities Psych: Alert, oriented, blunted affect Assessment/Plan: Left sided weakness with confusion - CVA vs Infectious eitology vs severe hypothyoridism - concern for possible CVA, Unable to have MRI due to cochlear implants. Await neuro evaluation. Plan on repeat head CT at the 24 hours cristina. PT/OT/speech evaluation, echo, tele, carotid dopplers, neuro checks, ASA 325 mg daily, Lipitor 40 mg nightly, check lipid panel and A1C - EEG reviewed: sporadic left temporal-sharp wave, possible underlying cortical irritability and tendency for seizure - Check vitamin B12, vitamin D Congenital hypothyroidism - check T4 and Free T3 - Synthorid 150 mcg daily Hx of mirgrain headaches - continue with Topamax Asthma - Singulair, prn albuterol Deafness s/p cochlear implants Imaging: As reviewed above Data Review: Vital signs reviewed temperature 97.8, pulse 81, respirations 18, blood pressure 176, O2 sat 100% on room air No new laboratory analysis available DVT prophylaxis: SCDs Discussed with: Patient, mother Anticipated discharge date: Clinical Course Anticipated discharge place: Pending Clinical Course This dictation was prepared using [employer] voice recognition software. Though every attempt is made to correct errors during dictation some may still exist. Objective - Vital Signs Vital signs: Vital Signs Temp 97.8 F 04/25/23 07:00 Pulse 81 04/25/23 07:00 Resp 18 04/25/23 07:00 BP 111/76 04/25/23 07:00 Pulse Ox 98 04/25/23 12:07 FiO2 Intake & Output 04/24/23 04/25/23 04/25/23 18:59 06:59 18:59 Weight 81.193 kg 81.193 kg - Labs CBC & Chem 7: 04/24/23 23:17 04/24/23 23:17 Labs: Abnormal Lab Results - Last 24 Hours (Table) 04/24/23 04/24/23 04/25/23 Range/Units 23:17 23:17 00:25 APTT 20.1 L (22.0-30.0) sec Chloride 109 H (98-107) mmol/L BUN 19 H (7-17) mg/dL Glucose 111 H (74-99) mg/dL Urine Appearance Turbid H (Clear) Urine Protein Trace H (Negative) Urine Blood Small H (Negative) Ur Leukocyte Esterase Moderate H (Negative) Urine WBC 8 H (0-5) /hpf Ur Squamous Epith Cells 23 H (0-4) /hpf Urine Mucus Occasional H (None) /hpf U Marijuana (THC) Screen Detected H (NotDetected)
--- NOTE | 2023-04-25 15:54 | US ---
EXAMINATION TYPE: US carotid duplex BILAT DATE OF EXAM: 04/25/2023 COMPARISON: NONE CLINICAL INDICATION: Female, 32 years old with history of Stenosis; Patient states having left side w eakness. Elevated BP last night. TECHNIQUE: Carotid duplex ultrasound examination. Indirect Doppler criteria was utilized. FINDINGS: EXAM MEASUREMENTS: RIGHT: Peak Systolic Velocity (PSV) cm/sec ----- Right CCA: 107.0 ----- Right ICA: 74.0 ----- Right ECA: 84.4 ICA/CCA ratio: 0.7 RIGHT: End Diastole cm/sec ----- Right CCA: 24.0 ----- Right ICA: 27.5 ----- Right ECA: 10.9 LEFT: Peak Systolic Velocity (PSV) cm/sec ----- Left CCA: 109.0 ----- Left ICA: 85.3 ----- Left ECA: 72.5 ICA/CCA ratio: 0.8 LEFT: End Diastole cm/sec ----- Left CCA: 32.8 ----- Left ICA: 23.0 ----- Left ECA: 11.5 VERTEBRALS (direction of flow): Right Vertebral: Antegrade Left Vertebral: Antegrade Rhythm: Normal MAMMAL CONTROL AGENT NOTES: No plaque, elevated velocities or significant stenosis. IMPRESSION: No evidence for hemodynamically significant stenosis. Criteria for Assigning % of Stenosis / Diameter reduction (Estimation based on the indirect measurements of the internal carotid artery velocities (ICA PSV). 1. Normal (no stenosis)=ICA PSV < 125 cm/s: ratio < 2.0: ICA EDV<40 cm/s. 2. Less than 50% stenosis=ICA PSV < 125 cm/s: ratio < 2.0: ICA EDV<40 cm/s. 3. 50 to 69% stenosis=ICA PSV of 125 to 230 cm/s: ration 2.0 ? 4.0: ICA EDV 40-100 cm/s. 4. Greater than 70% stenosis to near occlusion= ICA PSV > 230 cm/s: ratio > 4.0: ICA EDV > 100 cm/s. 5. Near occlusion= ICA PSV velocities may be low or undetectable: variable ratio and ICA EDV. 6. Total occlusion=unable to detect flow.
[2023-04-25] MEDS: BUTALB/APAP/CAFF 50-325-40MG TAB PO PRN (16:00)
[2023-04-25] MEDS: ASPIRIN 325 MG TAB PO SCH (16:00)
[2023-04-25] MEDS: MONTELUKAST 10 MG TAB PO SCH (20:49)
[2023-04-26] MEDS: LEVOTHYROXINE 75 MCG TAB PO SCH (06:13)
[2023-04-26 06:39] LABS: Basophils % (A) 0 %; Eosinophils # (A) 0.2 k/uL (0-0.7); Eosinophils % (A) 4 %; HCT 35.7 % (34.0-46.0); HGB 11.4 gm/dL (11.4-16.0); Hypochromasia Slight; Lymphocytes # (A) 1.7 k/uL (1.0-4.8); Lymphocytes % (A) 37 %; MCH 27.5 pg (25.0-35.0); MCHC 31.9 g/dL (31.0-37.0); MCV 86.3 fL (80.0-100.0); Monocytes # (A) 0.4 k/uL (0-1.0); Monocytes % (A) 8 %; Neutrophils # (A) 2.2 k/uL (1.3-7.7); Neutrophils % (A) 49 %; Platelet Count 165 k/uL (150-450); RBC 4.14 m/uL (3.80-5.40); RDW 13.9 % (11.5-15.5); WBC 4.6 k/uL (3.8-10.6)
[2023-04-26 06:57] LABS: African American GFR (CKD) >90 (>60 ml/min/1.73 sqM); Anion Gap 6 mmol/L; Blood Urea Nitrogen 13 mg/dL (7-17); Calcium 7.2 mg/dL (8.4-10.2); Carbon Dioxide 19 mmol/L (22-30); Chloride 116 mmol/L (98-107); Glucose 82 mg/dL (74-99); Non-African American GFR(CKD) >90 (>60 ml/min/1.73 sqM); Potassium 4.4 mmol/L (3.5-5.1); Sodium 141 mmol/L (137-145)
--- NOTE | 2023-04-26 07:42 | CT ---
EXAMINATION TYPE: CT brain wo con DATE OF EXAM: 04/26/2023 COMPARISON: 04/24/2023 HISTORY: 32-year-old female Follow up for stroke. TECHNIQUE: Examination was done in axial plane without intravenous contrast. Coronal and sagittal r econstructions performed. CT DLP: 1002.5 mGycm Automated exposure control for dose reduction was used. FINDINGS: There is extensive artifact from metal overlying the patient's head. Questionable subtle loss of neal-white matter interface is slight sulcal effacement focally along the superior right frontal region, axial image 42, sagittal image 20, and coronal image 22. Most of the mid and lower aspect of the head is largely nondiagnostic due to extensive streak and erich m hardening artifact. Unable to adequately assess the basal cisterns. No obvious cerebellar tonsillar ectopia is seen. Slight asymmetric smaller size to the right lateral ventricle may be on a congenital basis. Allowing for the extensive exam limitations, no acute intracranial hemorrhage or extra-axial fluid collection seen along the more superior to mid aspect of the head. There is no midline shift. Redemonstrated previous bilateral facial fracture fixations. Rightward buckled nasal septum. Moderate to severe mucosal thickening right maxillary sinus. Frothy opacification left maxillary sinus could reflect superimposed acute sinusitis. Fluid within the left mastoid air cells extending into the left middle ear cavity. IMPRESSION: 1. The mid to inferior aspect of the head is nondiagnostic due to extensive, external metal artifact. Only the superior to mid aspect of the head is assessed. 2. Questionable loss of neal-white matter differentiation involving a portion of the superior right f rontal lobe (axial image 42, sagittal image 20, and coronal image 22). Query any corresponding left-s ided focal neurologic deficit. No associated acute intracranial hemorrhage in this region or within t he evaluated brain. 3. While there is no midline shift, there is similar asymmetric smaller size to the right lateral yuni tricle. Findings may be on a congenital basis. Ongoing follow-up as clinically indicated. 4. Fluid within the left mastoid air cells and left middle ear cavity. Correlate for any pain here to exclude otomastoiditis. 5. Possible acute left maxillary sinusitis.
[2023-04-26] MEDS: BUTALB/APAP/CAFF 50-325-40MG TAB PO PRN (09:36)
[2023-04-26] MEDS: LORATADINE 10 MG TAB PO SCH (09:37)
[2023-04-26] MEDS: ATORVASTATIN 40 MG TAB PO SCH (09:37)
[2023-04-26] MEDS: DULoxetine HCL 30 MG CAPSULE.DR PO SCH (09:37)
[2023-04-26] MEDS: TOPIRAMATE 25 MG TAB PO SCH ×2 (09:37→19:48)
[2023-04-26] MEDS: ASPIRIN 325 MG TAB PO SCH (09:37)
[2023-04-26] MEDS: SODIUM CHLORIDE 0.9% 1,000 ML IV SCH ×2 (11:22→19:48)
[2023-04-26 11:46] LABS: Chol/HDL Ratio 4.08 Ratio; LDL Cholesterol,Calculated 91.2 mg/dL (0.0-131.0); VLDL Calculation 19.84 mg/dL (5.00-40.00)
[2023-04-26] MEDS: CLOPIDOGREL 75 MG TAB PO SCH (14:05)
[2023-04-26] MEDS: ACETAMINOPHEN TAB 325 MG TAB PO PRN (16:33)
--- NOTE | 2023-04-26 17:53 | P.PN ---
Subjective Progress Note Date: 04/26/23 (delayed charting seen at 1130) Patient is a 32-year-old female with congenital deafness status post bilateral cochlear implants, congenital hypothyroidism, and asthma who presented to the emergency department with complaints of altered mentation. On arrival to the emergency department her pulse was elevated at 122. Laboratory analysis was remarkable for BUN of 19, glucose 111, and marijuana in her urine drug screen. Initial head CT showed no acute intracranial hemorrhage, midline shift, or mass effect. Chest x-ray showed no acute process. Family was worried that she possibly had a seizure, patient has no history of seizure disorder. Arrangement was made for admission. Upon further evaluation there was concerns for possible stroke. Neurology was consulted. Repeat head CT didn't demonstrate right-sided CVA. Carotid Dopplers were negative. Patient seen and examined at bedside. Per her sister her speech is worse today and the patient is using mostly sign language and not attempting to speak. She does complain of a right frontal headache. She denies any left-sided headache or left ear pain. We discussed the possibility of stroke and rehab therapy. They are aware that she will need a KALA and hypercoagulable workup. Vital signs reviewed General: nontoxic, no distress, appears at stated age Cardiovascular: S1S2 reg, no murmur, positive posterior tibial pulse bilateral, Lungs: CTA bilateral, no rhonchi, no rales , no accessory muscle use Abdominal: soft, nontender to palpation, no guarding, no appreciable organomegaly Ext: no gross muscle atrophy, no edema b/l lower extremities, no contractures Neuro: Right sided facial drooping, muscle strength 3-4 out of 5 in the left upper extremity and 3 out of 5 in the left lower extremity, muscle strength 4+ out of 5 in the right upper and lower extremities Psych: Alert, oriented, blunted affect Assessment/Plan: Acute right-sided CVA with left-sided deficit -Case discussed with Dr. Llanos who agrees that patient does have an acute CVA -Case discussed with Prudence nurse practitioner for cardiology and made aware of consult for KALA. She hasn't the patient be nothing by mouth after midnight -Continue with telemetry -Check hypercoagulable workup with activated protein C resistance, antithrombin III, beta-2 microglobulin, anticardiolipin antibody, lupus anticoagulant, protein S, prothrombin gene -Aspirin 325 mg, Lipitor 40 mg, Plavix 75 mg daily ordered by Dr. Llanos -Await PT/OT/speech recommendations -Consult PMR -Transition patient to inpatient, Move to Congenital hypothyroidism - Synthorid 150 mcg daily, free T3 normal, TSH normal Hx Migraine headaches - continue with Topamax Asthma - Singulair, prn albuterol Deafness s/p cochlear implants Imaging: CT brain reviewed: Questionable loss of neal-white matter differentiation superior right frontal lobe, fluid within the left mastoid cells possible mastoiditis, acute left maxillary sinusitis Data Dopplers-no hemodynamically significant stenosis Data Review: Vital signs reviewed. Temp 97.6, pulse 71, respirations 15, blood pressure 109/76, O2 sat 99% on room air A urinalysis reviewed and remarkable for HDL of 36, bone A1c normal at 5.1, chloride elevated at 116. DVT prophylaxis: SCDs Discussed with: Patient, Sister Anticipated discharge date: Clinical Course Anticipated discharge place: Pending Clinical Course This dictation was prepared using [employer] voice recognition software. Though every attempt is made to correct errors during dictation some may still exist. Objective - Vital Signs Vital signs: Vital Signs Temp 97.9 F 04/26/23 15:00 Pulse 68 04/26/23 15:00 Resp 14 04/26/23 15:00 BP 103/71 04/26/23 15:00 Pulse Ox 99 04/26/23 15:00 FiO2 Intake & Output 04/25/23 04/26/23 04/26/23 18:59 06:59 18:59 Intake Total 118 Balance 118 Weight 81.193 kg Intake: Oral 118 Other: Voiding Method Toilet Bedside Commode # Voids 2 1 4 - Labs CBC & Chem 7: 04/26/23 05:43 04/26/23 05:43 Labs: Abnormal Lab Results - Last 24 Hours (Table) 04/24/23 04/26/23 Range/Units 23:17 05:43 Chloride 116 H (98-107) mmol/L Carbon Dioxide 19 L (22-30) mmol/L Calcium 7.2 L (8.4-10.2) mg/dL HDL Cholesterol 36.00 L (40.00-60.00) mg/dL Vitamin D 25-Hydroxy 22.6 L (30.0-100.0) ng/mL
[2023-04-26] MEDS: MONTELUKAST 10 MG TAB PO SCH (19:48)
[2023-04-26 21:56] LABS: Cardiolipin Ab IgG Interp Negative (Negative); Cardiolipin Ab IgM Interp Negative (Negative); Cardiolipin IgA Antibody <2.0 U/mL; Cardiolipin IgM Antibody <1.5 U/mL
[2023-04-27] MEDS: SODIUM CHLORIDE 0.9% 1,000 ML IV SCH ×3 (04:13→20:30)
[2023-04-27] MEDS: LEVOTHYROXINE 75 MCG TAB PO SCH (05:31)
[2023-04-27] MEDS: ACETAMINOPHEN TAB 325 MG TAB PO PRN ×2 (05:31→18:06)
--- NOTE | 2023-04-27 07:01 | CA ---
Transthoracic Echo Report Name: Ngozi Coto Age: 32 Gender: F : 1990 Exam Date: 04/26/2023 13:13 Exam Location: [facility] Ht (in): 59 Wt (lb): 179 Ordering Physician: Telma Marinelli DO Attending/Referring Phys: [id number], Isis Voice Engineer Roslyn Pena [facility] Procedure CPT: Indications: Thrombus Cardiac Hx: Technical Quality: Fair Contrast 1: Total Dose (mL): Contrast 2: Total Dose (mL): MEASUREMENTS (Male / Female) Normal Values 2D ECHO LV Diastolic Diameter PLAX 4.0 cm 4.2 - 5.9 / 3.9 - 5.3 cm LV Systolic Diameter PLAX 2.8 cm IVS Diastolic Thickness 0.8 cm 0.6 - 1.0 / 0.6 - 0.9 cm LVPW Diastolic Thickness 0.8 cm 0.6 - 1.0 / 0.6 - 0.9 cm LV Relative Wall Thickness 0.4 RV Internal Dim ED PLAX 2.1 cm M-MODE Aortic Root Diameter MM 2.7 cm LA Systolic Diameter MM 2.9 cm LA Ao Ratio MM 1.1 AV Cusp Separation MM 1.7 cm DOPPLER AV Peak Velocity 144.3 cm/s AV Peak Gradient 8.3 mmHg AV Mean Velocity 101.4 cm/s AV Mean Gradient 4.5 mmHg AV Velocity Time Integral 28.8 cm LVOT Peak Velocity 106.6 cm/s LVOT Peak Gradient 4.5 mmHg LVOT Velocity Time Integral 23.1 cm Mitral E Point Velocity 82.7 cm/s Mitral A Point Velocity 59.5 cm/s Mitral E to A Ratio 1.4 MV Deceleration Time 189.3 ms LV E' Lateral Velocity 11.7 cm/s Mitral E to LV E' Lateral Ratio 7.1 LV E' Septal Velocity 10.1 cm/s Mitral E to LV E' Septal Ratio 8.2 TR Peak Velocity 209.5 cm/s TR Peak Gradient 17.6 mmHg Right Atrial Pressure 8.0 mmHg Pulmonary Artery Systolic Pressu 25.6 mmHg Right Ventricular Systolic Press 25.6 mmHg FINDINGS Left Ventricle Normal left ventricular size, wall thickness, systolic function with no obvious regional wall motion abnormalities. Normal left ventricular diastolic filling pattern for age. The ejection fraction is visually estimated at 55-60%. Right Ventricle The right ventricle is normal in size and function. Right Atrium The right atrium is normal in size. Left Atrium The left atrium is normal in size. Mitral Valve Structurally normal mitral valve. Trace to mild mitral regurgitation. Aortic Valve Trileaflet aortic valve. Trace to mild aortic regurgitation. Tricuspid Valve Structurally normal tricuspid valve. Trace tricuspid regurgitation. Pulmonic Valve Structurally normal pulmonic valve. No pulmonic regurgitation. Pericardium Normal pericardium without effusion. Aorta Normal aortic root dimension. CONCLUSIONS 1. Normal left ventricle size and systolic function 2. Trace to mild mitral, aortic and tricuspid regurgitation. Previewed by: Dr. Tiki Alan MD (Electronically Signed) Final Date: 27 April 2023 07:00
[2023-04-27] MEDS: LORATADINE 10 MG TAB PO SCH (09:18)
[2023-04-27] MEDS: TOPIRAMATE 25 MG TAB PO SCH ×2 (09:18→20:35)
[2023-04-27] MEDS: ATORVASTATIN 40 MG TAB PO SCH (09:18)
[2023-04-27] MEDS: CLOPIDOGREL 75 MG TAB PO SCH (09:18)
[2023-04-27] MEDS: ASPIRIN 325 MG TAB PO SCH (09:18)
[2023-04-27] MEDS: DULoxetine HCL 30 MG CAPSULE.DR PO SCH (09:18)
--- NOTE | 2023-04-27 10:36 | P.PN ---
Subjective Progress Note Date: 04/26/23 Patient was seen for a follow-up. Patient appears to be worse today as compared to yesterday. Patient complaining of headache /, pointing to the right side. Her left side is more weaker, speech more dysarthric and stuttering. Please refer to examination below. Patient feels that she is having issues with the pills although she is not coughing when she takes the pills. Objective - Vital Signs Vital signs: Vital Signs Temp 97.7 F 04/27/23 08:00 Pulse 61 04/27/23 08:00 Resp 16 04/27/23 08:00 BP 114/74 04/27/23 08:00 Pulse Ox 100 04/27/23 08:00 FiO2 Intake & Output 04/26/23 04/27/23 04/27/23 18:59 06:59 18:59 Intake Total 118 Balance 118 Intake: Oral 118 Other: Voiding Method Toilet Toilet Bedside Commode Bedside Commode # Voids 4 1 - Exam On examination patient is alert and awake, no distress. Her speech is more stuttering, slow, hesitant. Patient still able to name all 3 objects presented, knuckles, glasses, earlobe. She can repeat although takes time. On cranial nerve examination, pupils are equal, round and reacting, visual ortiz are full on confrontation. Extraocular muscles are intact with no nystagmus. Patient has chronic right facial weakness peripheral type. She has now left facial weakness, central type. Tongue protrudes the midline. 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 Sensory touch is decreased in the entire left side of the body including face arm and leg. No obvious ataxia for [id number] testing although she is slow on the left. - Labs CBC & Chem 7: 04/26/23 05:43 04/26/23 05:43 Labs: Abnormal Lab Results - Last 24 Hours (Table) 04/26/23 Range/Units 05:43 HDL Cholesterol 36.00 L (40.00-60.00) mg/dL Assessment and Plan Assessment: * Acute onset of altered mental status, confusion, staring spells, tremoring, delayed mental response, with left-sided weakness and numbness. All symptoms started upon waking up from a nap yesterday at around 10 PM. Exact cause is uncertain. Acute CVA with left hemiparesis and dysarthria. Symptoms have progressed as compared to yesterday. * History of learning disability * Anxiety, depression * Vapes * History of cleft palate and cleft lip with multiple facial surgeries * Right facial weakness, congenital * Bilateral cochlear implants * History of migraine headaches, on Topamax for long time. Plan: * Repeat CT head performed today revealed mid to inferior aspect of the head is nondiagnostic due to extensive external metal artifact. Only the superior to mid aspect of the head is assessed. Questionable loss of neal-white matter differentiation involving the portion of the superior right frontal lobe, suggestive of subacute infarct. No hemorrhage. No midline shift. There is similar asymmetric smaller size to the right lateral ventricle. Findings may be on a congenital basis. Fluid within the left mastoid air cells and left middle ear cavity. Correlate for any pain to exclude otomastoiditis. * Carotid Doppler revealed no evidence of hemodynamically significant stenosis. Antegrade flow in both vertebral arteries. * 2-D echo, revealed normal left ventricular size and systolic function. EF is 55-60%. Trace to mild mitral, aortic and tricuspid regurgitation. Left atrial size is normal. * EEG was abnormal due to background slowing of [id number] degree suggestive of diffuse encephalopathy. The presence of intermittent sporadic left temporal sharp waves with rhythmic left temporal theta, suggest focal cortical neuronal dysfunction. This may suggest underlying cortical irritability and tendency for seizure. No lateral graphesthesia was recorded. Clinical correlation recommended. Patient has an acute stroke. Patient has not had any clinical seizure-like activity since arrival to the hospital. Hold off on antiepileptic medication for now. * B12 451, folate 16.4, Lyme tite negative r, West Nile virus pending, TSH is normal. * Hemoglobin A1c 5.1, fasting lipid panel cholesterol 147, LDL 91, HDL 36 and triglycerides 99.2. Continue Lipitor 40 mg daily. * Patient's stroke symptoms have progressed. We will add Plavix 75 mg daily as well. * Continue telemetry monitoring. So far showing sinus rhythm with sinus bradycardia in the 50s. No other arrhythmia. * Cardiology consult for possible KALA. * Recommend hypercoagulable workup. * Discussed with primary team.
[2023-04-27] MEDS ORDERED: fentaNYL (PF) 50 MCG/ML 2 ML AMP ONE (10:44)
[2023-04-27] MEDS ORDERED: SODIUM CHLORIDE 0.9% 500 ML 500 ML IV ONE (11:10)
--- NOTE | 2023-04-27 11:10 | P.CRDCN ---
History of Present Illness History of present illness: HISTORY OF PRESENT ILLNESS: This is a 32-year-old female with a past medical history significant for congenital deafness with bilateral cochlear implants, congenital hypothyroidism, and asthma. Patient does not follow with a antenna specialist. We have been asked to see the patient in consultation for KALA. Patient examined at the bedside. Patient initially presented to the hospital with a chief complaint of altered mentation. Patient was found to have a CVA. She denies any chest pain or pressure. Denies any shortness of breath. * Chest xray negative for acute process * Laboratory data: Today WBC 4.6. Hemoglobin 11.4. Platelet count 165. Sodium 141. Potassium 4.4. BUN 13. Creatinine 0.70. * Current home cardiac medications include none * Most recent echocardiogram obtained reveals normal left ventricular size and systolic function. Trace to mild mitral aortic and tricuspid regurgitation * Carotid Doppler: Negative for hemodynamically significant stenosis * CT brain: Joo inferior aspect of the head is nondiagnostic due to extensive external metal artifact. Questionable loss of neal-white matter differentiation involving a portion of the superior right frontal lobe. No midline shift. Fluid within the left mastoid air cells and left middle ear cavity. Possible acute left maxillary sinusitis. * Cardiac catheterization history: None REVIEW OF SYSTEMS: At the time of my exam: CONSTITUTIONAL: Denies fever or chills. HEENT: Denies blurred vision, vision changes, or eye pain. Denies hemoptysis CARDIOVASCULAR: Denies chest pain. Denies orthopnea. Denies PND. Denies palpitations RESPIRATORY: Denies shortness of breath. GASTROINTESTINAL: Denies abdominal pain. Denies nausea or vomiting. HEMATOLOGIC: Denies bleeding disorders. GENITOURINARY: Denies any blood in urine. SKIN: Denies pruitis. Denies rash. PHYSICAL EXAM: VITAL SIGNS: Reviewed. GENERAL: Well-developed in no acute distress. HEENT: Head is normocephalic. Pupils are equal, round. Sclerae anicteric. Mucous membranes of the mouth are moist. Neck supple. No JVD or thyromegaly LUNGS: Respirations even and unlabored. Lungs essentially clear to auscultation bilaterally. HEART: Regular rate and rhythm. S1 and S2 heard. ABDOMEN: Soft. Nondistended. Nontender. EXTREMITIES: Normal range of motion. No clubbing or cyanosis. Peripheral pulses intact. No lower extremity edema NEUROLOGIC: Awake and alert. Oriented x 3. ASSESSMENT: Left-sided weakness with confusion Acute CVA Congenital hypothyroidism Deafness status post cochlear implants History of migraine headaches History of asthma PLAN: 2-D echo obtained and reviewed Continue aspirin, Lipitor, and Plavix Patient to undergo KALA today with Dr. Alan Consults hematology for hypercoagulable evaluation Recommend CTA head and neck. Discussed with Dr. Valera Further recommendations pending patient course Nurse practitioner note has been reviewed by physician. Signing provider agrees with the documented findings, assessment, and plan of care. 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 History of Any Multi-Drug Resistant Organisms: None Reported Past Surgical History: Ear Surgery, Tubal Ligation Additional Past Surgical History / Comment(s): CLEFT PALETTE SX, JAW ALIGNMENT, PROSTHETIC EARS ( HAS BRACKETS ON SIDES OF HEAD) AND NOSE RECONSTRUCTION, JEFFERY C OCHLEAR IMPLANTS, R EYE PLASTIC SURGERY TO MAKE FACE LOOK MORE SYMMETRICAL, L WRIST GANGLION CYST REMOVED TWICE. Past Anesthesia/Blood Transfusion Reactions: No Reported Reaction, Postoperative Nausea & Vomiting (PONV) Past Psychological History: No Psychological Hx Reported, Anxiety, Depression Additional Psychological History / Comment(s): Pt resides with her boyfriend and their 6 year old son. Pt has a sister, Agustina whom pt calls mom because her parents when pt was a 12 yr old and this sister raised her. Agustina is very helpful to pt and lives a few doors down. Pt is disabled and her sister, Agustina manages her SSI. Pt does not drive, Agustina takes her to [employer]. Smoking Status: Vaper Past Alcohol Use History: None Reported Past Drug Use History: Marijuana - Past Family History Father Family Medical History: Cancer Additional Family Medical History / Comment(s): COLON Cancer. Mother Family Medical History: Congestive Heart Failure (CHF) Medications and Allergies Home Medications Medication Instructions Recorded Confirmed Type Albuterol Sulfate [Proair Hfa] 2 puff INHALATION RT-QID PRN 02/26/16 04/25/23 History Topiramate 50 mg PO BID 02/26/16 04/25/23 History Montelukast [Singulair] 10 mg PO HS 03/01/16 04/25/23 History Cetirizine HCl [Zyrtec] 10 mg PO DAILY 04/25/23 04/25/23 History DULoxetine HCL [Cymbalta] 30 mg PO DAILY 04/25/23 04/25/23 History Ibuprofen [Motrin] 800 mg PO Q8H PRN 04/25/23 04/25/23 History Levothyroxine Sodium [Synthroid] 175 mcg PO [id number] 04/25/23 04/25/23 History Topiramate [Topamax] 25 mg PO BID 04/25/23 04/25/23 History Allergies Allergy/AdvReac Type Severity Reaction Status Date / Time hydrocodone bitartrate AdvReac Nausea & Verified 04/25/23 07:45 [From Vicodin] Vomiting tramadol AdvReac Nausea & Verified 04/25/23 07:45 Vomiting Physical Exam Vitals: Vital Signs Temp Pulse Resp BP Pulse Ox 04/27/23 03:22 98.0 F 69 15 109/79 100 04/26/23 23:29 97.8 F 79 15 106/71 99 04/26/23 19:42 98.1 F 70 15 108/74 100 04/26/23 15:00 97.9 F 68 14 103/71 99 04/26/23 14:00 71 15 04/26/23 12:46 99 Intake and Output 04/26/23 04/27/23 04/27/23 22:59 06:59 14:59 Other: Voiding Method Toilet Toilet Bedside Commode Bedside Commode # Voids 1 1 Results 04/26/23 05:43 04/26/23 05:43 Lipids 04/26/23 Range/Units 05:43 Triglycerides 99.20 (0.00-149.00) mg/dL Cholesterol 147.00 (0.00-200.00) mg/dL HDL Cholesterol 36.00 L (40.00-60.00) mg/dL Cholesterol/HDL Ratio 4.08 Ratio Current Medications Generic Name Dose Route Start Last Admin Trade Name Freq PRN Reason Stop Dose Admin Acetaminophen 650 mg 04/25/23 02:43 04/27/23 05:31 Acetaminophen Tab 325 Mg Tab PO 650 mg Q6HR PRN Administration Mild Pain or Fever >= 100.5 Acetaminophen/Butalbital/Caffeine 1 each 04/25/23 01:07 04/26/23 09:36 Butalb/Apap/Caff 50-325-40mg Tab PO 1 each DAILY PRN Administration Migraine Headache Albuterol Sulfate 2.5 mg 04/25/23 02:43 Albuterol Nebulized 2.5 Mg/3 Ml INHALATION Q6H PRN Shortness Of Breath Aspirin 325 mg 04/25/23 13:17 04/26/23 09:37 Aspirin 325 Mg Tab PO 325 mg DAILY SUMA Administration Atorvastatin Calcium 40 mg 04/26/23 09:00 04/26/23 09:37 Atorvastatin 40 Mg Tab PO 40 mg DAILY SUMA Administration Clopidogrel Bisulfate 75 mg 04/26/23 14:00 04/26/23 14:05 Clopidogrel 75 Mg Tab PO 75 mg DAILY SUMA Administration Duloxetine HCl 30 mg 04/25/23 09:30 04/26/23 09:37 Duloxetine Hcl 30 Mg Capsule.Dr PO 30 mg DAILY SUMA Administration Sodium Chloride 1,000 mls @ 100 mls/hr 04/25/23 01:15 04/27/23 04:13 Saline 0.9% IV Not Given .Q10H SUMA Levothyroxine Sodium 150 mcg 04/25/23 06:30 04/27/23 05:31 Levothyroxine 75 Mcg Tab PO 150 mcg QAM@0630 SUMA Administration Loratadine 10 mg 04/25/23 09:30 04/26/23 09:37 Loratadine 10 Mg Tab PO 10 mg DAILY SUMA Administration Lorazepam 0.5 mg 04/25/23 01:06 Lorazepam 0.5 Mg Tab PO Q6HR PRN Anxiety Montelukast Sodium 10 mg 04/25/23 21:00 04/26/23 19:48 Montelukast 10 Mg Tab PO 10 mg HS SUMA Administration Naloxone HCl 0.2 mg 04/25/23 01:06 Naloxone 0.4 Mg/Ml 1 Ml Vial IV Q2M PRN Opioid Reversal Topiramate 75 mg 04/25/23 10:00 04/26/23 19:48 Topiramate 25 Mg Tab PO 75 mg BID SUMA Administration Intake and Output 04/26/23 04/27/23 04/27/23 22:59 06:59 14:59 Other: Voiding Method Toilet Toilet Bedside Commode Bedside Commode # Voids 1 1 04/26/23 05:43 04/26/23 05:43
[2023-04-27] MEDS ORDERED: BENZOCAINE SPRAY 1 CAN MUCOUS MEM ONE (11:12)
[2023-04-27] MEDS ORDERED: MIDAZOLAM 2 MG/2 ML VIAL IV ONE (11:42)
[2023-04-27] MEDS ORDERED: fentaNYL (PF) 50 MCG/ML 2 ML AMP IV ONE (11:42)
--- NOTE | 2023-04-27 11:53 | P.PCN ---
Date of Procedure: 04/27/23 Description of Procedure: Indication: Evaluation of cardiac source for CVA Procedure Description: After explaining the procedure to the patient, it's risk and complications, blood pressure, heart rate and O2 saturation were monitored. The throat was sprayed with Cetacaine. Patient received 2 mg intravenous Versed, 50 mcg intravenous fentanyl. The probe was introduced into the esophagus without difficulty. Images were obtained. Following that, the probe was removed. There was no immediate complication. Findings: Left atrial size is normal, left atrial appendage is normal. Left ventricular size and systolic function are normal. The aortic valve, mitral valve and tricuspid valve are normal. No pericardial effusion was noted. Contrast bubble study revealed no shunting across the intra-atrial septum. Descending thoracic aorta appears to be normal. Doppler: Pulse wave and color Doppler were obtained, an revealed mild mitral and tricuspid regurgitation. There was no shunting by color Doppler study. Conclusion: 1. Normal left atrial appendage 2. Normal ventricle size and systolic function 3. Mild mitral and tricuspid regurgitation 4. No shunting across the interatrial septum 5. Normal appearance of the descending thoracic aorta
--- NOTE | 2023-04-27 13:06 | P.PN ---
Subjective Progress Note Date: 04/27/23 Hospital Course: 32-year-old female with congenital deafness status post bilateral cochlear implants, congenital hypothyroidism, and asthma who presented to the emergency department with complaints of altered mentation. On arrival to the emergency department her pulse was elevated at 122. Laboratory analysis was remarkable for BUN of 19, glucose 111, and marijuana in her urine drug screen. Initial head CT showed no acute intracranial hemorrhage, midline shift, or mass effect. Chest x-ray showed no acute process. Family was worried that she possibly had a seizure, patient has no history of seizure disorder. Arrangement was made for admission. Upon further evaluation there was concerns for possible stroke. Neurology was consulted. Repeat head CT didn't demonstrate right-sided CVA. It did show Questionable loss of neal-white matter differentiation superior right frontal lobe, fluid within the left mastoid cells possible mastoiditis, acute left maxillary sinusitis. Carotid Dopplers were negative. TTE Was unremarkable. Cardiology consulted. Pending KALA. Subjective: Patient seen and examined at bedside. No acute events overnight. No new neurological deficits. Still having difficulty with speech and swallowing. Requiring assistance with transferring out of the bed as well as ambulation. Pertinent positives and negatives as discussed above, a complete review of systems was performed and all other systems are negative. Vitals Signs Reviewed. General: nontoxic, no distress, appears at stated age Derm: warm, dry Head: atraumatic, normocephalic, symmetric Eyes: EOMI, no lid lag, anicteric sclera Mouth: no lip lesion, mucus membranes moist Cardiovascular: S1S2 reg, no murmur Lungs: CTA bilateral, no rhonchi, no rales , no accessory muscle use Abdominal: soft, nontender to palpation, no guarding, no appreciable organomegaly Ext: no gross muscle atrophy, no edema, no contractures Neuro: Left-sided deficits, dysarthria Psych: Alert, oriented, appropriate affect Data Reviewed Today: Pertinent Labs: Hypercoagulable workup negative so far, Lyme disease screen negative Assessment and Plan: Active: Acute right-sided CVA with left-sided deficit -Cardiology consulted for KALA -No shunting across intra-atrial septum noted -Neurology following -Currently on aspirin 325 mg daily, Plavix 75 mg daily, atorvastatin 40 mg daily -Cardiology also recommended CTA head and neck -Hypercoagulable workup negative so far -Oncology also consulted, for further evaluation for hypercoagulability -Speech therapy, PT/OT Resolved: Chronic: Congenital hypothyroidism Migraine Asthma Deafness s/p cochlear implants DVT ppx: SCDs Code status: Full code Anticipated discharge place: Possibly inpatient rehab Anticipated discharge time: Pending clinical course Objective - Vital Signs Vital signs: Vital Signs Temp 97.7 F 04/27/23 08:00 Pulse 89 04/27/23 11:45 Resp 16 04/27/23 11:45 BP 130/79 04/27/23 11:45 Pulse Ox 100 04/27/23 11:45 FiO2 Intake & Output 04/26/23 04/27/23 04/27/23 18:59 06:59 18:59 Intake Total 118 75 Balance 118 75 Intake: IV 75 Oral 118 Other: Voiding Method Toilet Toilet Bedside Commode Bedside Commode # Voids 4 1 - Labs CBC & Chem 7: 04/26/23 05:43 04/26/23 05:43
[2023-04-27 13:14] LABS: West Nile Virus IgM Antibody 0.02 INDEX (<0.90)
--- NOTE | 2023-04-27 13:15 | P.PN ---
Progress Note - Text Progress Note Date: 04/27/23 We were consulted for hypercoagulable workup. Attempted to see patient twice today but due to multiple imaging/testing patient was off the floor. Will attempt to see the patient again in the morning. Hypercoagulable workup has been ordered.
[2023-04-27 13:20] LABS: APTT 39 Sec(s) (<43); Dilute Russell Viper Venom 35 Sec(s) (<44)
--- NOTE | 2023-04-27 15:51 | P.CONS ---
History of Present Illness - Reason for Consult Consult date: 04/27/23 rehab recommendations - Chief Complaint CVA - History of Present Illness Patient is a 32-year-old left-handed female who lives with her significant other and 11 year old son in a single story home with 4 ALEYDA with left handrail. Prior to admission, patient was independent with mobility and basic ADLs. Her sister is her legal guardian. Patient with history of learning disability, on disability, who came to the hospital the night of April 24 at 10:22 PM by ambulance. Patient was fine in the morning, around 10 PM patient's sister (legal guardian) received a call from patient's significant other that patient was having symptoms like a stroke. Patient mentions that she laid down at 9 PM and took a nap for 30-40 minutes. When she woke up, she was disoriented she was shaking/tremors of her hands and complaining of "not feeling left side of the body". Patient also had difficulty with speech. Patient's sister also mentioned that she was having a blank stare, would come out of it, makes eye contact and then goes back into the blank stare. Patient was very confused. When the confusion slightly improve, she was complaining of left-sided feeling heavy. Patient apparently did lose control of urine sometimes during the episode time.In ED, she was noted to have a very delayed response, slow thought process as compared to the baseline. Vital signs on arrival blood pressure 134/90, pulse rate 122, temperature 98.5. Blood test shows normal CBC. PT/PTT,, normal CMP, CK 96, TSH normal, UA shows turbid, small amount of blood, moderate leukocyte esterase, 8 WBC, and urine drug screen positive for marijuana. CT head revealed no acute intracranial hemorrhage, midline shift or mass effect. Chest x-ray is normal. Patient's sister states that patient has history of learning disability, but otherwise she talks normally. She has chronic right facial weakness since , peripheral type and has no right ear. She has history of cleft palate and has history of bilateral cochlear implant. She was seen by Neurology and cardiology. She had an Echo with EF 55-60%, KALA ordered and performed 04/[address] head was negative for acute process. She is unable to have an MRI due to her cochlear implants. She was admitted for right sided CVA with left hemiparesis and metabolic encephalopathy. PM&R consulted for rehab recommendations. Patient is mod assist with bathing, dressing, min assist with transfers, min assist with gait 24 ft 2ww, CARGO HANDLER chopped diet and thin liquids with straws ok. 04/27/23: Past Medical History Past Medical History: Asthma, Hearing Disorder / Deafness, Thyroid Disorder Additional Past Medical History / Comment(s): BILATERAL COCHLEAR IMPLANTS, HEARING AIDES, BORN WITH CLEFT PALATE/LIP WITH MULTIPLE SURGERIES, R FACIAL WEAKNESS, 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 History of Any Multi-Drug Resistant Organisms: None Reported Past Surgical History: Ear Surgery, Tubal Ligation Additional Past Surgical History / Comment(s): CLEFT PALETTE SX, JAW ALIGNMENT, PROSTHETIC EARS ( HAS BRACKETS ON SIDES OF HEAD) AND NOSE RECONSTRUCTION, JEFFERY COCHLEAR IMPLANTS, R EYE PLASTIC SURGERY TO MAKE FACE LOOK MORE SYMMETRICAL, L WRIST GANGLION CYST REMOVED TWICE. Past Anesthesia/Blood Transfusion Reactions: No Reported Reaction, Postoperative Nausea & Vomiting (PONV) Past Psychological History: No Psychological Hx Reported, Anxiety, Depression Additional Psychological History / Comment(s): Pt resides with her boyfriend and their 6 year old son. Pt has a sister, Agustina whom pt calls mom because her parents when pt was a 12 yr old and this sister raised her. Agustina is very helpful to pt and lives a few doors down. Pt is disabled and her sister, Agustina manages her SSI. Pt does not drive, Agustina takes her to appts. Smoking Status: Vaper Past Alcohol Use History: None Reported Past Drug Use History: Marijuana - Past Family History Father Family Medical History: Cancer Additional Family Medical History / Comment(s): COLON Cancer. Mother Family Medical History: Congestive Heart Failure (CHF) Medications and Allergies Home Medications Medication Instructions Recorded Confirmed Type Albuterol Sulfate [Proair Hfa] 2 puff INHALATION RT-QID PRN 02/26/16 04/25/23 History Topiramate 50 mg PO BID 02/26/16 04/25/23 History Montelukast [Singulair] 10 mg PO HS 03/01/16 04/25/23 History Cetirizine HCl [Zyrtec] 10 mg PO DAILY 04/25/23 04/25/23 History DULoxetine HCL [Cymbalta] 30 mg PO DAILY 04/25/23 04/25/23 History Ibuprofen [Motrin] 800 mg PO Q8H PRN 04/25/23 04/25/23 History Levothyroxine Sodium [Synthroid] 175 mcg PO AC-BRKFST 04/25/23 04/25/23 History Topiramate [Topamax] 25 mg PO BID 04/25/23 04/25/23 History Allergies Allergy/AdvReac Type Severity Reaction Status Date / Time hydrocodone bitartrate AdvReac Nausea & Verified 04/25/23 07:45 [From Vicodin] Vomiting tramadol AdvReac Nausea & Verified 04/25/23 07:45 Vomiting Physical Exam Vitals: Vital Signs Temp Pulse Resp BP Pulse Ox 04/27/23 08:00 97.7 F 61 16 114/74 100 04/27/23 03:22 98.0 F 69 15 109/79 100 04/26/23 23:29 97.8 F 79 15 106/71 99 04/26/23 19:42 98.1 F 70 15 108/74 100 04/26/23 15:00 97.9 F 68 14 103/71 99 04/26/23 14:00 71 15 04/26/23 12:46 99 Intake and Output 04/26/23 04/27/23 04/27/23 22:59 06:59 14:59 Other: Voiding Method Toilet Toilet Bedside Commode Bedside Commode # Voids 1 1 General: The patient appears stated age, comfortable, NAD Head: Normocephalic, atraumatic. Eyes: Symmetric Ears: Symmetric. Hearing within normal limits. Mouth: Clear. Neck: Supple. Cardiac: Regular rate and rhythm. Calves supple, non tender, no edema Lungs: Breathing comfortably on RA. Chest symmetric. Abdomen: Soft, nontender. Extremities: Arthritic changes consistent with age. Tone normal. Neurological: Alert and oriented x . Speech is clear and fluent without paraphasic errors Cranial nerves: CN II-XII: intact. Sensation: Intact and symmetrical limbs. Musculoskeletal: ROM WFL EXCEPT: MMT UE Sh Abd EE EF FABD WE HG Right Left MMT LE HF KE DF EHL Right Left Reflexes Biceps Triceps Brachioradialis Patella Achilles Babinski Hoffmans Right Left Skin: Skin intact where visible to head, neck, and bilateral upper and lower extremities EXCEPT: Psych: Calm, cooperative - Constitutional General appearance: cooperative, morbidly obese - EENT Eyes: EOMI, PERRLA Ears: bilateral: normal - Neck Neck: normal ROM - Respiratory Respiratory: bilateral: CTA - Cardiovascular Rhythm: regular ankle Peripheral Edema: bilateral: None posterior tibial Peripheral Pulses: bilateral: Normal - Gastrointestinal General gastrointestinal: normal bowel sounds, soft - Integumentary Integumentary: normal - Neurologic Bilateral central VII deficits (per DPOA the right is old and from ) Decreased right NLF Left hemiparesis. brustrom II-III LE. II UE Left hemisensory deficit Dyarthria. no aphasia MMT RUE/RLE / DTR 2/4 Toes flexor on right and extensor on left / Neurologic: focal deficits - Musculoskeletal Musculoskeletal: left sided weakness - Psychiatric Psychiatric: A&O x's 3, appropriate affect cochler implants. Results CBC & Chem 7: 04/26/23 05:43 04/26/23 05:43 Labs: Abnormal Lab Results - Last 24 Hours (Table) 04/26/23 Range/Units 05:43 HDL Cholesterol 36.00 L (40.00-60.00) mg/dL Assessment and Plan Assessment: # Right sided CVA with left hemiparesis -CT head reviewed, cannot have MRI due to cochlear implants -KALA pending results -ASA 325 mg daily and plavix # Dysphagia -Chopped diet, thin liquids and straws ok # Dysarthria # Impaired gait and ADLs secondary to above # Bowel/ Bladder: Nursing to monitor and report concerns if any. # Skin/wound: Skin/Wound care to follow as needed # Pain Management -Tylenol PRN # DVT Prophylaxis: ASA 325 mg daily # Comorbidities: Anxiety, depression, learning disability, bilateral congenital deafness s/p cochlear implants # Your medical dx and mgt Goals: Modified Independent mobility and ADLS both basic and advanced; increased functional mobility/strength; increased balance, safety, endurance. Improvement in medical issues through your care. Barriers: left hemiparesis Discharge recommendation: IPR recommended as patient was independent with mobility and basic ADLs prior to admission. Patient has support from sister and significant other. Will need insurance authorization for IPR once medical work up completed. Patient seen and examined in coordination with Dr. Lang
[2023-04-27 16:46] LABS: Glucose,Whole Blood 118 mg/dL (70-110)
--- NOTE | 2023-04-27 19:13 | CT ---
EXAMINATION TYPE: CT angio head neck CT DLP: 668.3 mGycm, Automated exposure control for dose reduction was used. DATE OF EXAM: 04/27/2023 4:17 PM COMPARISON: CT brain same day. CLINICAL INDICATION:Female, 32 years old with history of Acute CVA; PHH, Acute CVA. Pt has cochlear i mplants and ear prosthetics that can not be removed. Best imaging possible TECHNIQUE: Axially acquired helical CT angiogram of the head and neck was obtained with contrast. Axi al images are supplemented with 3D reconstructions which [facility] NASCET criteria used. Contrast used:65 mL of Isovue 370 with IV Contrast, Oral contrast used: None. FINDINGS: CTA HEAD: Streak artifact from patient's bilateral surgical hardware.. No evidence of acute intracranial hemorrhage, mass effect, or midline shift. The ventricles, sulci, a nd cisterns are unremarkable. The visualized portions of the internal carotid arteries, middle cerebral arteries, anterior cerebral arteries, and posterior cerebral arteries are patent. The basilar and vertebral arteries are patent. CTA NECK: Right Carotid System: The common carotid artery and external carotid artery are patent. The carotid bifurcation demonstrate s no evidence of hemodynamically significant stenosis. The remaining portions of the internal carotid artery demonstrate normal size without significant narrowing. Left Carotid System: The common carotid artery and external carotid artery are patent. The carotid bifurcation demonstrate s no evidence of hemodynamically significant stenosis. The remaining portions of the internal carotid artery demonstrate normal size without significant narrowing. Vertebral arteries are patent without evidence hemodynamically significant stenosis. There is a three-vessel aortic arch. The origins of the great vessels are patent. No evidence of hemo dynamically significant stenosis.: IMPRESSION: 1. No evidence of dissection of the cervical internal carotid arteries or vertebral arteries or any e vidence of significant stenosis at the carotid bifurcations. 2. No evidence of intracranial high-grade stenosis or intracranial aneurysm.
[2023-04-27] MEDS: MONTELUKAST 10 MG TAB PO SCH (20:35)
[2023-04-28] MEDS: LEVOTHYROXINE 75 MCG TAB PO SCH (06:24)
[2023-04-28] MEDS: ACETAMINOPHEN TAB 325 MG TAB PO PRN (06:31)
[2023-04-28] MEDS: SODIUM CHLORIDE 0.9% 1,000 ML IV SCH ×2 (08:28→09:51)
[2023-04-28] MEDS: ATORVASTATIN 40 MG TAB PO SCH (08:34)
[2023-04-28] MEDS: ASPIRIN 325 MG TAB PO SCH (08:34)
[2023-04-28] MEDS: DULoxetine HCL 30 MG CAPSULE.DR PO SCH (08:34)
[2023-04-28] MEDS: TOPIRAMATE 25 MG TAB PO SCH ×2 (08:34→20:21)
[2023-04-28] MEDS: CLOPIDOGREL 75 MG TAB PO SCH (08:35)
[2023-04-28] MEDS: LORATADINE 10 MG TAB PO SCH (08:35)
--- NOTE | 2023-04-28 09:51 | P.PN ---
Subjective Progress Note Date: 04/27/23 Patient was seen for a follow-up. Patient is sitting in the recliner. One of the caregiver was also present. Patient denies headache at this time. She continues to have left hemiparesis and some speech difficulty. Objective - Vital Signs Vital signs: Vital Signs Temp 97.7 F 04/27/23 08:00 Pulse 89 04/27/23 11:45 Resp 16 04/27/23 11:45 BP 130/79 04/27/23 11:45 Pulse Ox 100 04/27/23 11:45 FiO2 Intake & Output 04/26/23 04/27/23 04/27/23 18:59 06:59 18:59 Intake Total 118 75 Balance 118 75 Intake: IV 75 Oral 118 Other: Voiding Method Toilet Toilet Bedside Commode Bedside Commode # Voids 4 1 - Exam On examination patient is alert and awake, no distress. Her speech is more stuttering, slow, hesitant. Patient still able to name all 3 objects presented, knuckles, glasses, earlobe. She can repeat although takes t darnell. Patient slightly better than yesterday. On cranial nerve examination, pupils are equal, round and reacting, visual ortiz are full on confrontation. Extraocular muscles are intact with no nyst agmus. Patient has chronic right facial weakness peripheral type. She has now left facial weakness, central type. Tongue protrudes the midline. On muscle strength testing, (right/left) deltoid 4+/3, triceps 5/3, biceps 5/3, piano refinisher 5-/3, hip flexion 5/1-2, ankle dorsiflexion 5/1-2. Sensory touch is decreased in the entire left side of the body including face arm and leg. No obvious ataxia for [id number] testing although she is slow on the left. - Labs CBC & Chem 7: 04/26/23 05:43 04/26/23 05:43 Assessment and Plan Assessment: * Acute onset of altered mental status, confusion, staring spells, tremoring, delayed mental response, with left-sided weakness and numbness. All symptoms started upon waking up from a nap on the day of admission. Probable acute stroke with dysarthria and left hemiparesis. * History of learning disability * Anxiety, depression * Vapes * History of cleft palate and cleft lip with multiple facial surgeries * Right facial weakness, congenital * Bilateral cochlear implants * History of migraine headaches, on Topamax for long time. Plan: * CTA of head and neck 04/27/2023: Revealed no evidence of dissection of the cervical internal carotid arteries or vertebral arteries or any evidence of significant stenosis at the carotid bifurcations. No evidence of intracranial high-grade stenosis or intracranial aneurysm. I personally reviewed CTA films. The brain does not reveal any obvious evolving stroke. We will review CTA with the radiologist. * Repeat CT head 04/26/2023 performed today revealed mid to inferior aspect of the head is nondiagnostic due to extensive external metal artifact. Only the superior to mid aspect of the head is assessed. Questionable loss of neal- white matter differentiation involving the portion of the superior right frontal lobe, suggestive of subacute infarct. No hemorrhage. No midline shift. There is similar asymmetric smaller size to the right lateral ventricle. Findings may be on a congenital basis. Fluid within the left mastoid air cells and left middle ear cavity. Correlate for any pain to exclude otomastoiditis. * Carotid Doppler revealed no evidence of hemodynamically significant stenosis. Antegrade flow in both vertebral arteries. * Transesophageal echocardiogram: Normal left atrial appendage, normal ventricle size and systolic function. Mild MR and TR. No shunting across the interatrial septum. Normal appearance of the descending thoracic aorta. * 2-D echo, revealed normal left ventricular size and systolic function. EF is 55-60%. Trace to mild mitral, aortic and tricuspid regurgitation. Left atrial size is normal. * EEG was abnormal due to background slowing of [id number] degree suggestive of diffuse encephalopathy. The presence of intermittent sporadic left temporal sharp waves with rhythmic left temporal theta, suggest focal cortical neuronal dysfunction. This may suggest underlying cortical irritability and tendency for seizure. No lateral graphesthesia was recorded. Clinical correlation recommended. Patient has an acute stroke. Patient has not had any clinical seizure-like activity since arrival to the hospital. Hold off on antiepileptic medication for now. * B12 451, folate 16.4, Lyme tite negative r, West Nile virus pending, TSH is normal. * Hemoglobin A1c 5.1, fasting lipid panel cholesterol 147, LDL 91, HDL 36 and triglycerides 99.2. Continue Lipitor 40 mg daily. * Patient's stroke symptoms have progressed. We will add Plavix 75 mg daily as well. * Continue telemetry monitoring. So far showing sinus rhythm with sinus bradycardia in the 50s. No other arrhythmia. * Hematology on board for evaluation for hypercoagulable workup. * Discussed with primary team. * PT, OT, speech therapy. Possible inpatient rehab when medically cleared.
--- NOTE | 2023-04-28 12:14 | P.PN ---
Subjective Progress Note Date: 04/28/23 Hospital Course: 32-year-old female with congenital deafness status post bilateral cochlear implants, congenital hypothyroidism, and asthma who presented to the emergency department with complaints of altered mentation. On arrival to the emergency department her pulse was elevated at 122. Laboratory analysis was remarkable for BUN of 19, glucose 111, and marijuana in her urine drug screen. Initial head CT showed no acute intracranial hemorrhage, midline shift, or mass effect. Chest x-ray showed no acute process. Family was worried that she possibly had a seizure, patient has no history of seizure disorder. Arrangement was made for admission. Upon further evaluation there was concerns for possible stroke. Neurology was consulted. Repeat head CT didn't demonstrate right-sided CVA. It did show Questionable loss of neal-white matter differentiation superior right frontal lobe, fluid within the left mastoid cells possible mastoiditis, acute left maxillary sinusitis. Carotid Dopplers were negative. TTE Was unremarkable. Cardiology consulted. TTE did not show any shunt across interatrial atrial septum. CTA did not show any evidence of intracranial high-grade stenosis or intracranial aneurysm, or any significant stenosis involving carotid bifurcations. Subjective: Patient seen and examined at bedside. No acute events overnight. No new neurological deficits. Still having difficulty with speech and swallowing. Requiring assistance with transferring out of the bed as well as ambulation. Pertinent positives and negatives as discussed above, a complete review of systems was performed and all other systems are negative. Vitals Signs Reviewed. General: nontoxic, no distress, appears at stated age Derm: warm, dry Head: atraumatic, normocephalic, symmetric Eyes: EOMI, no lid lag, anicteric sclera Mouth: no lip lesion, mucus membranes moist Cardiovascular: S1S2 reg, no murmur Lungs: CTA bilateral, no rhonchi, no rales , no accessory muscle use Abdominal: soft, nontender to palpation, no guarding, no appreciable organomegaly Ext: no gross muscle atrophy, no edema, no contractures Neuro: Left-sided deficits, dysarthria Psych: Alert, oriented, appropriate affect Data Reviewed Today: Pertinent Labs: Hypercoagulable workup negative so far, Lyme disease screen negative Assessment and Plan: Active: Acute right-sided CVA with left-sided deficit -Cardiology and neurology following -Currently on aspirin 325 mg daily, Plavix 75 mg daily, atorvastatin 40 mg daily -Hypercoagulable workup negative so far -Oncology also consulted, for further evaluation for hypercoagulability, pending recommendations -Speech therapy, PT/OT Resolved: Chronic: Congenital hypothyroidism Migraine Asthma Deafness s/p cochlear implants DVT ppx: SCDs Code status: Full code Anticipated discharge place: Inpatient rehab, pending authorization Anticipated discharge time: Pending clinical course Objective - Vital Signs Vital signs: Vital Signs Temp 97.9 F 04/28/23 11:28 Pulse 65 04/28/23 11:28 Resp 16 04/28/23 11:28 BP 112/75 04/28/23 11:28 Pulse Ox 100 04/28/23 11:28 FiO2 21 04/28/23 08:42 Intake & Output 04/27/23 04/28/23 04/28/23 18:59 06:59 18:59 Intake Total 75 350 Balance 75 350 Intake: IV 75 Oral 350 Other: Voiding Method Toilet Toilet Bedside Commode Bedside Commode # Voids 1 - Labs CBC & Chem 7: 04/26/23 05:43 04/26/23 05:43 Labs: Abnormal Lab Results - Last 24 Hours (Table) 04/27/23 Range/Units 16:43 POC Glucose (mg/dL) 118 H (70-110) mg/dL
--- NOTE | 2023-04-28 13:08 | P.PN ---
Subjective HISTORY OF PRESENT ILLNESS: This is a 32-year-old female with a past medical history significant for congenital deafness with bilateral cochlear implants, congenital hypothyroidism, and asthma. Patient does not follow with a bar helper. We have been asked to see the patient in consultation for KALA. Patient examined at the bedside. Patient initially presented to the hospital with a chief complaint of altered mentation. Patient was found to have a CVA. She denies any chest pain or pressure. Denies any shortness of breath. * Chest xray negative for acute process * Laboratory data: Today WBC 4.6. Hemoglobin 11.4. Platelet count 165. Sodium 141. Potassium 4.4. BUN 13. Creatinine 0.70. * Current home cardiac medications include none * Most recent echocardiogram obtained reveals normal left ventricular size and systolic function. Trace to mild mitral aortic and tricuspid regurgitation * Carotid Doppler: Negative for hemodynamically significant stenosis * CT brain: Joo inferior aspect of the head is nondiagnostic due to extensive external metal artifact. Questionable loss of neal-white matter differentiation involving a portion of the superior right frontal lobe. No midline shift. Fluid within the left mastoid air cells and left middle ear cavity. Possible acute left maxillary sinusitis. * Cardiac catheterization history: None 04/28/2023 Patient is status post KALA with no evidence of PFO, normal left atrial appendage, normal ventricular size and systolic function, mild mitral regurgitation, mild tricuspid regurgitation, and normal appearance of the descending thoracic aorta. Patient examined this morning at the bedside. She denies chest pain or pressure. She denies shortness of breath. Vital signs are stable. PHYSICAL EXAM: VITAL SIGNS: Reviewed. GENERAL: Well-developed in no acute distress. HEENT: Head is normocephalic. Pupils are equal, round. Sclerae anicteric. Mucous membranes of the mouth are moist. Neck supple. No JVD or thyromegaly LUNGS: Respirations even and unlabored. Lungs essentially clear to auscultation bilaterally. HEART: Regular rate and rhythm. S1 and S2 heard. ABDOMEN: Soft. Nondistended. Nontender. EXTREMITIES: Normal range of motion. No clubbing or cyanosis. Peripheral pulses intact. No lower extremity edema NEUROLOGIC: Awake and alert. Oriented x 3. ASSESSMENT: Left-sided weakness with confusion Acute CVA Congenital hypothyroidism Deafness status post cochlear implants History of migraine headaches History of asthma PLAN: Continue current cardiac medications Patient is stable from a cardiac standpoint No further inpatient recommendations from a cardiology perspective We will sign off. Please reconsult if needed. Nurse practitioner note has been reviewed by physician. Signing provider agrees with the documented findings, assessment, and plan of care. Objective - Vital Signs Vital signs: Vital Signs Temp 97.9 F 04/28/23 11:28 Pulse 65 04/28/23 11:28 Resp 16 04/28/23 11:28 BP 112/75 04/28/23 11:28 Pulse Ox 100 04/28/23 11:28 FiO2 21 04/28/23 08:42 Intake & Output 04/27/23 04/28/23 04/28/23 18:59 06:59 18:59 Intake Total 75 830 Balance 75 830 Intake: IV 75 Oral 830 Other: Voiding Method Toilet Toilet Bedside Commode Bedside Commode # Voids 1 - Labs CBC & Chem 7: 04/26/23 05:43 04/26/23 05:43 Labs: Abnormal Lab Results - Last 24 Hours (Table) 04/27/23 Range/Units 16:43 POC Glucose (mg/dL) 118 H (70-110) mg/dL
[2023-04-28] MEDS: BUTALB/APAP/CAFF 50-325-40MG TAB PO PRN (13:25)
--- NOTE | 2023-04-28 15:36 | P.CONS ---
History of Present Illness - Reason for Consult Consult date: 04/28/23 hypercoaguable workup Requesting physician: Prudence Schwartz - Chief Complaint left sided weakness - History of Present Illness Patient is a 32-year-old female who presented to the ER for left sided weakness. We are consulted for hypercoagulable work-up. Patient presented to the ER via EMS after family noticed patient was experiencing left-sided weakness, shaking and was having a blank stare. CT brain showed no intracranial hemorrhage, midline shift or mass effect. CTA angio head and neck revealed no evidence of dissection of the cervical internal carotid arteries or vertebral arteries or any evidence of significant stenosis at the carotid bifurcations. No evidence of intracranial high-grade stenosis or intracranial aneurysm. Echocardiogram revealed normal left ventricular size and systolic function. EEG showed background slowing of mild to moderate degree suggestive of diffuse encephalopathy. Presence of intermittent sporadic left temporal sharp waves with a rhythmic left temporal theta, suggestive of focal cortical neuronal dysfunction. This may suggest underlying cortical irritability and tendency for seizure. No electrographic seizure was recorded. Cardiology and neurology following. Hypercoagulable work-up has been ordered. At today's visit patient is answering questions appropriately. Reports feeling improved. Left sided facial and weakness still present. Review of Systems 10 point ROS is negative except as stated in the HPI Past Medical History Past Medical History: Asthma, Hearing Disorder / Deafness, Thyroid Disorder Additional Past Medical History / Comment(s): BILATERAL COCHLEAR IMPLANTS, HEARING AIDES, BORN WITH CLEFT PALATE/LIP WITH MULTIPLE SURGERIES, R FACIAL WEAKNESS, 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 History of Any Multi-Drug Resistant Organisms: None Reported Past Surgical History: Ear Surgery, Tubal Ligation Additional Past Surgical History / Comment(s): CLEFT PALETTE SX, JAW ALIGNMENT, PROSTHETIC EARS ( HAS BRACKETS ON SIDES OF HEAD) AND NOSE RECONSTRUCTION, JEFFERY COCHLEAR IMPLANTS, R EYE PLASTIC SURGERY TO MAKE FACE LOOK MORE SYMMETRICAL, L WRIST GANGLION CYST REMOVED TWICE. Past Anesthesia/Blood Transfusion Reactions: No Reported Reaction, Postoperative Nausea & Vomiting (PONV) Past Psychological History: No Psychological Hx Reported, Anxiety, Depression Additional Psychological History / Comment(s): Pt resides with her boyfriend and their 6 year old son. Pt has a sister, Agustina whom pt calls mom because her parents when pt was a 12 yr old and this sister raised her. Agustina is very helpful to pt and lives a few doors down. Pt is disabled and her sister, Agustina manages her SSI. Pt does not drive, Agustina takes her to [employer]. Smoking Status: Vaper Past Alcohol Use History: None Reported Past Drug Use History: Marijuana - Past Family History Father Family Medical History: Cancer Additional Family Medical History / Comment(s): COLON Cancer. Mother Family Medical History: Congestive Heart Failure (CHF) Medications and Allergies Home Medications Medication Instructions Recorded Confirmed Type Albuterol Sulfate [Proair Hfa] 2 puff INHALATION RT-QID PRN 02/26/16 04/25/23 History Topiramate 50 mg PO BID 02/26/16 04/25/23 History Montelukast [Singulair] 10 mg PO HS 03/01/16 04/25/23 History Cetirizine HCl [Zyrtec] 10 mg PO DAILY 04/25/23 04/25/23 History DULoxetine HCL [Cymbalta] 30 mg PO DAILY 04/25/23 04/25/23 History Ibuprofen [Motrin] 800 mg PO Q8H PRN 04/25/23 04/25/23 History Levothyroxine Sodium [Synthroid] 175 mcg PO AC-BRKFST 04/25/23 04/25/23 History Topiramate [Topamax] 25 mg PO BID 04/25/23 04/25/23 History Allergies Allergy/AdvReac Type Severity Reaction Status Date / Time hydrocodone bitartrate AdvReac Nausea & Verified 04/25/23 07:45 [From Vicodin] Vomiting tramadol AdvReac Nausea & Verified 04/25/23 07:45 Vomiting Physical Exam Vitals: Vital Signs Temp Pulse Resp BP Pulse Ox FiO2 04/28/23 11:28 97.9 F 65 16 112/75 100 04/28/23 08:42 100 21 04/28/23 08:00 97.6 F 79 16 114/78 100 04/28/23 04:00 98 F 78 18 112/70 99 04/27/23 23:20 98 F 78 18 103/61 99 04/27/23 20:00 66 17 126/84 99 04/27/23 17:27 97.8 F 66 16 108/72 100 Intake and Output 04/28/23 04/28/23 04/28/23 06:59 14:59 22:59 Intake Total 830 Balance 830 Intake: Oral 830 Other: Voiding Method Toilet Toilet Bedside Commode Bedside Commode # Voids 1 - Constitutional General appearance: no acute distress, obese - EENT Eyes: anicteric sclerae, EOMI ENT: hearing grossly normal - Respiratory Respiratory: bilateral: CTA - Cardiovascular Rhythm: regular Heart sounds: normal: S1, S2 Abnormal Heart Sounds: no systolic murmur, no diastolic murmur, no rub, no S3 Gallop, no S4 Gallop, no click, no other - Gastrointestinal General gastrointestinal: soft, no tenderness - Integumentary Integumentary: no cyanotic, no rash - Neurologic left sided facial droop and left sided weakness noted, 11/18 - Musculoskeletal Musculoskeletal: strength equal bilaterally - Psychiatric Psychiatric: A&O x's 3, appropriate affect, intact judgment & insight Results CBC & Chem 7: 04/26/23 05:43 04/26/23 05:43 Labs: Abnormal Lab Results - Last 24 Hours (Table) 04/27/23 Range/Units 16:43 POC Glucose (mg/dL) 118 H (70-110) mg/dL Comments: EEG and echo reviewed CT Scan - head: report reviewed Assessment and Plan (1) Weakness Current Visit: Yes Status: Acute Priority: High Code(s): R53.1 - WEAKNESS SNOMED Code(s): 60882478 (2) Altered mental status Current Visit: Yes Status: Acute Priority: High Code(s): R41.82 - ALTERED MENTAL STATUS, UNSPECIFIED SNOMED Code(s): 848534903 Plan: Weakness/AMS: -CT brain/CTA head/neck negative for acute intracranial processes. Pt unable to have MRI due to cochlear implants -Echocardiogram revealed normal left ventricular size and systolic function. EEG showed background slowing of mild to moderate degree suggestive of diffuse encephalopathy. Presence of intermittent sporadic left temporal sharp waves with a rhythmic left temporal theta, suggestive of focal cortical neuronal dysfunction. This may suggest underlying cortical irritability and tendency for seizure. No electrographic seizure was recorded. -Cardiology and neurology following -Hypercoagulable work-up has been ordered. Prothrombin gene mutation, cardiolipins and lupus anticoagulants negative. Remainder workup pending -Pt has been started on aspirin and plavix -Will continue to follow and make recommendations upon completion of workup attests: I have performed H&P and developed impression and plan of care for patient, discussed with dictator. I agree with dictated note, documented as a scribe
[2023-04-28] MEDS: MONTELUKAST 10 MG TAB PO SCH (20:21)
[2023-04-29] MEDS: SODIUM CHLORIDE 0.9% 1,000 ML IV SCH ×5 (03:00→22:19)
[2023-04-29] MEDS: LEVOTHYROXINE 75 MCG TAB PO SCH (06:13)
[2023-04-29] MEDS: BUTALB/APAP/CAFF 50-325-40MG TAB PO PRN (06:17)
[2023-04-29] MEDS: ACETAMINOPHEN TAB 325 MG TAB PO PRN (08:52)
[2023-04-29] MEDS: CLOPIDOGREL 75 MG TAB PO SCH (08:52)
[2023-04-29] MEDS: TOPIRAMATE 25 MG TAB PO SCH ×2 (08:52→20:04)
[2023-04-29] MEDS: DULoxetine HCL 30 MG CAPSULE.DR PO SCH (08:52)
[2023-04-29] MEDS: ATORVASTATIN 40 MG TAB PO SCH (08:52)
[2023-04-29] MEDS: LORATADINE 10 MG TAB PO SCH (08:52)
[2023-04-29] MEDS: ASPIRIN 325 MG TAB PO SCH (08:52)
--- NOTE | 2023-04-29 10:35 | P.PN ---
Subjective Progress Note Date: 04/28/23 Patient was seen for a follow-up. Patient is sitting in the recliner. Patient's half-sister, who is her caregiver was. Patient denies headache at this time. She continues to have left hemiparesis and some speech difficulty. Apparently as I entered the room, I saw patient rubbing her eyes with both gonzalez nds. She was using her left arm that he normally at that moment. Objective - Vital Signs Vital signs: Vital Signs Temp 97.9 F 04/28/23 11:28 Pulse 65 04/28/23 11:28 Resp 16 04/28/23 11:28 BP 112/75 04/28/23 11:28 Pulse Ox 100 04/28/23 11:28 FiO2 21 04/28/23 08:42 Intake & Output 04/27/23 04/28/23 04/28/23 18:59 06:59 18:59 Intake Total 75 830 Balance 75 830 Intake: IV 75 Oral 830 Other: Voiding Method Toilet Toilet Bedside Commode Bedside Commode # Voids 1 - Exam On examination patient is alert and awake, no distress. Her speech is more stuttering, slow, hesitant. Patient still able to name all 3 objects presented, knuckles, glasses, earlobe. She can repeat although takes time. Patient slightly better than yesterday. On cranial nerve examination, pupils are equal, round and reacting, visual ortiz are full on confrontation. Extraocular muscles are intact with no nystagmus. Patient has chronic right facial weakness peripheral type. She has now left facial weakness, central type. Tongue protrudes the midline. On muscle strength testing, (right/left) deltoid 4+/3, triceps 5/3, biceps 5/3, urologic surgeon 5-/3, hip flexion 5/1-2, ankle dorsiflexion 5/1-2. Sensory touch is decreased in the entire left side of the body including face arm and leg. No obvious ataxia for [id number]-fmkv testing although she is slow on the left. - Labs CBC & Chem 7: 04/26/23 05:43 04/26/23 05:43 Labs: Abnormal Lab Results - Last 24 Hours (Table) 04/27/23 Range/Units 16:43 POC Glucose (mg/dL) 118 H (70-110) mg/dL Assessment and Plan Assessment: * Acute onset of altered mental status, confusion, staring spells, tremoring, delayed mental response, with left-sided weakness and numbness. All symptoms started upon waking up from a nap on the day of admission. Probable acute stroke with dysarthria and left hemiparesis. * History of learning disability * Anxiety, depression * Vapes * History of cleft palate and cleft lip with multiple facial surgeries * Right facial weakness, congenital * Bilateral cochlear implants * History of migraine headaches, on Topamax for long time. Plan: * As I entered the room today, I saw patient rubbing her eyes using both hands equally. However later while examining, she was very weak in the left arm, with urologic surgeon of no more than 3, and biceps triceps of 3. We will repeat CT head to evaluate for any evolving stroke. * * CTA of head and neck 04/27/2023: Revealed no evidence of dissection of the cervical internal carotid arteries or vertebral arteries or any evidence of significant stenosis at the carotid bifurcations. No evidence of intracranial high-grade stenosis or intracranial aneurysm. I personally reviewed CTA films. The brain does not reveal any obvious evolving stroke. I discussed and reviewed CT head with Dr. Gamez, and he concurs that the CTA of the head was fairly good study, and does not reveal any obvious stroke. * Repeat CT head 04/26/2023 performed today revealed mid to inferior aspect of the head is nondiagnostic due to extensive external metal artifact. Only the superior to mid aspect of the head is assessed. Questionable loss of neal- white matter differentiation involving the portion of the superior right frontal lobe, suggestive of subacute infarct. No hemorrhage. No midline shift. There is similar asymmetric smaller size to the right lateral ventricle. Findings may be on a congenital basis. Fluid within the left mastoid air cells and left middle ear cavity. Correlate for any pain to exclude otomastoiditis. * Carotid Doppler revealed no evidence of hemodynamically significant stenosis. Antegrade flow in both vertebral arteries. * Transesophageal echocardiogram: Normal left atrial appendage, normal ventricle size and systolic function. Mild MR and TR. No shunting across the interatrial septum. Normal appearance of the descending thoracic aorta. * 2-D echo, revealed normal left ventricular size and systolic function. EF is 55-60%. Trace to mild mitral, aortic and tricuspid regurgitation. Left atrial size is normal. * EEG was abnormal due to background slowing of uoun-[id number] degree suggestive of diffuse encephalopathy. The presence of intermittent sporadic left temporal sharp waves with rhythmic left temporal theta, suggest focal cortical neuronal dysfunction. This may suggest underlying cortical irritability and tendency for seizure. No lateral graphesthesia was recorded. Clinical correlation recommended. Patient has an acute stroke. Patient has not had any clinical seizure-like activity since arrival to the hospital. Hold off on antiepileptic medication for now. * B12 451, folate 16.4, Lyme tite negative r, [place] Nile virus pending, TSH is normal. * Hemoglobin A1c 5.1, fasting lipid panel cholesterol 147, LDL 91, HDL 36 and triglycerides 99.2. Continue Lipitor 40 mg daily. * Patient's stroke symptoms have progressed. We will add Plavix 75 mg daily as well. * Continue telemetry monitoring. So far showing sinus rhythm with sinus bradycardia in the 50s. No other arrhythmia. * Hematology on board for evaluation for hypercoagulable workup. * Discussed with primary team. * PT, OT, speech therapy. Possible inpatient rehab when medically cleared.
--- NOTE | 2023-04-29 13:14 | CT ---
EXAMINATION TYPE: CT brain wo con DATE OF EXAM: 04/29/2023 COMPARISON: 04/26/2023 HISTORY: Follow up scan CT DLP: 1039.7 mGycm. Automated Exposure Control for Dose Reduction was Utilized. TECHNIQUE: CT scan of the head is performed without contrast. FINDINGS: There is extensive artifact from metal overlying the patient's head. Questionable subtle loss of neal -white matter interface not as well-seen on today's exam. Most of the mid and lower aspect of the head is largely nondiagnostic due to extensive streak and erich m hardening artifact. Unable to adequately assess the basal cisterns. No obvious cerebellar tonsillar ectopia is seen. Slight asymmetric smaller size to the right lateral ventricle may be on a congenital basis. Allowing for the extensive exam limitations, no acute intracranial hemorrhage or extra-axial fluid collection seen along the more superior to mid aspect of the head. There is no midline shift. Redemonstrated previous bilateral facial fracture fixations. Rightward buckled nasal septum. Moderate to severe mucosal thickening right maxillary sinus. Stable opacification left maxillary sinus could reflect sinusitis. Fluid within the left mastoid air cells extending into the left middle ear cavity. IMPRESSION: 1. The mid to inferior aspect of the head is nondiagnostic due to extensive, external metal artifact. Only the superior to mid aspect of the head is assessed. 2. Questionable loss of neal-white matter differentiation involving a portion of the superior right f rontal lobe on prior exam is not as well-seen on today's exam with no definite sulcal effacement note d. Correlate with MRI as clinically warranted.
--- NOTE | 2023-04-29 13:56 | FL ---
EXAMINATION TYPE: FL barium swallow w video DATE OF EXAM: 04/29/2023 COMPARISON: NONE HISTORY: Dysphasia TECHNIQUE: Fluoroscopy. FINDINGS: Fluoroscopic guidance was provided for the procedure performed in conjunction with the [facility] pathology department. Please see complete report forthcoming from the Speech Pathology departmen t. Various consistencies from thin liquid to solids were administered. Fluoroscopy time 1 minute 19 seconds. Number of images: 0. No aspiration or penetration was evident. Mild pooling within the vallecula most notably with solids. There was hesitancy in propulsion of the bolus. IMPRESSION: 1. Mild coiling within the vallecula. 2. Slow transit through the oral swallowing sequence. 3. No aspiration or penetration.
--- NOTE | 2023-04-29 17:54 | P.PN ---
Subjective Progress Note Date: 04/29/23 (delayed charting seen at 1030) Patient is a 32-year-old female with congenital deafness status post bilateral cochlear implants, congenital hypothyroidism, and asthma who presented to the emergency department with complaints of altered mentation. On arrival to the emergency department her pulse was elevated at 122. Laboratory analysis was remarkable for BUN of 19, glucose 111, and marijuana in her urine drug screen. Initial head CT showed no acute intracranial hemorrhage, midline shift, or mass effect. Chest x-ray showed no acute process. Family was worried that she possibly had a seizure, patient has no history of seizure disorder. Arrangement was made for admission. Upon further evaluation there was concerns for possible stroke. Neurology was consulted. Repeat head CT didn't demonstrate right-sided CVA. Carotid Dopplers were negative. KALA and hypercoag work-up negative. Patient seen and examined at bedside. She is speaking slowly today. She denies any chest pain, shortness breath, nausea, vomiting, diarrhea. Her sister is concerned that we have not found a cause for her acute stroke. She does state that the patient has had labile emotions being more rational recently and having some loss of enjoyment. Vital signs reviewed General: nontoxic, no distress, appears at stated age Cardiovascular: S1S2 reg, no murmur, positive posterior tibial pulse bilateral, Lungs: CTA bilateral, no rhonchi, no rales , no accessory muscle use Abdominal: soft, nontender to palpation, no guarding, no appreciable organomegaly Ext: no gross muscle atrophy, no edema b/l lower extremities, no contractures Neuro: Left-sided facial droop, no tremors, weakness in the left hip and foot as well as left leg Psych: Alert, oriented, appropriate affect Assessment/Plan: Altered mentation, dysarthria and left hemipareissi possble Acute right-sided CVA with left-sided deficit Evaluation : CTA head and neck 04/27/2023: No evidence of dissection of the cervical internal carotid arteries or vertebral arteries or any evidence of significant stenosis at the carotid bifurcations. No evidence of intracranial high-grade stenosis or intracranial aneurysm. CT head 04/26/2023: Questionable loss of neal-white matter differentiation superior right frontal lobe, fluid within the left mastoid cells possible mastoiditis, acute left maxillary sinusitis Carotid Doppler 04/26/2023: no hemodynamically significant stenosis KALA: NO PFO. Normal left atrial appendage. Mild MR/TR. No shunting across the interatrial septum. Descending thoracic aorta normal appaerance. TTE: EF is 55-60%. mild valvular dysfunction EEG : Abnormal. Per neurology. "This may suggest underlying cortical irritability and tendency for seizure. No lateral graphesthesia was recorded. Patient has an acute stroke. Patient has not had any clinical seizure-like activity since arrival to the hospital. Hold off on antiepileptic medication for now. " B12, folate, [place], [place], A1C (5.1), Cholesterol- with in normla/negaitve Hypercoag: To cardiolipin antibody, antiphospholipid antibody, anti-thrombin 3, prothrombin gene , and beta-2 microglobulin are negative Protein C/S resistance pending Tele: no significant arrhythmia - PT/OT recommedning IPR - Speech- barrium smallow today - ASA, Plavix, statin. Plan will be for Plavix for 30 days post event and then ASA only. - case discussed with Dr. Valera and patient was using her left hand to rub her eyes today as he entered the room. Consult for yonathan diaz with concerns of possible conversion disorder. Case discussed with Dr. Ceron their service will see the patient in the morning. Congenital hypothyroidism - Synthorid 150 mcg daily, free T3 normal, TSH normal Hx Migraine headaches - continue with Topamax Asthma - Singulair, prn albuterol Deafness s/p cochlear implants Imaging: Repeat head CT: Mid to inferior aspect of the head CT is nondiagnostic. Loss of neal-white matter junction of the frontal lobe on prior exam not well seen on today's exam with no definitive sulcal enhancement. Data Review: Vital signs reviewed: Temperature 98.1, pulse 70, respirations 18, blood pressure 121/72, O2 sat 100% on room air DVT prophylaxis: add lovenox This dictation was prepared using [employer] voice recognition software. Though every attempt is made to correct errors during dictation some may still exist. Objective - Vital Signs Vital signs: Vital Signs Temp 98.2 F 04/29/23 15:58 Pulse 81 04/29/23 15:58 Resp 17 04/29/23 15:58 BP 114/84 04/29/23 15:58 Pulse Ox 97 04/29/23 15:58 FiO2 21 04/28/23 08:42 Intake & Output 04/28/23 04/29/23 04/29/23 18:59 06:59 18:59 Intake Total 830 1620 Balance 830 1620 Intake: Oral 830 1620 Other: Voiding Method Toilet Toilet Toilet Bedside Commode Bedside Commode Bedside Commode # Voids 1 1 - Labs CBC & Chem 7: 04/26/23 05:43 04/26/23 05:43
[2023-04-29] MEDS: MONTELUKAST 10 MG TAB PO SCH (20:03)
[2023-04-29] MEDS: FAMOTIDINE 20 MG TAB PO SCH (20:04)
[2023-04-30] MEDS: LEVOTHYROXINE 75 MCG TAB PO SCH (06:30)
[2023-04-30] MEDS: BUTALB/APAP/CAFF 50-325-40MG TAB PO PRN (09:18)
[2023-04-30] MEDS: LORATADINE 10 MG TAB PO SCH (09:19)
[2023-04-30] MEDS: FAMOTIDINE 20 MG TAB PO SCH ×2 (09:19→19:52)
[2023-04-30] MEDS: CLOPIDOGREL 75 MG TAB PO SCH (09:19)
[2023-04-30] MEDS: ASPIRIN 325 MG TAB PO SCH (09:19)
[2023-04-30] MEDS: TOPIRAMATE 25 MG TAB PO SCH ×2 (09:19→19:52)
[2023-04-30] MEDS: ATORVASTATIN 40 MG TAB PO SCH (09:19)
[2023-04-30] MEDS: DULoxetine HCL 30 MG CAPSULE.DR PO SCH (09:19)
[2023-04-30] MEDS: ENOXAPARIN 40 MG/0.4 ML SYRINGE SQ SCH (09:19)
--- NOTE | 2023-04-30 10:32 | P.PN ---
Subjective Progress Note Date: 04/29/23 Patient was seen for a follow-up. Patient is sitting in the recliner. Patient's half-sister, who is her caregiver was also present today. Patient denies headache at this time. She continues to have left hemiparesis and significant speech difficulty mainly with stuttering. Objective - Vital Signs Vital signs: Vital Signs Temp 98.2 F 04/29/23 15:58 Pulse 81 04/29/23 15:58 Resp 17 04/29/23 15:58 BP 114/84 04/29/23 15:58 Pulse Ox 97 04/29/23 15:58 FiO2 21 04/28/23 08:42 Intake & Output 04/28/23 04/29/23 04/29/23 18:59 06:59 18:59 Intake Total 830 1620 Balance 830 1620 Intake: Oral 830 1620 Other: Voiding Method Toilet Toilet Toilet Bedside Commode Bedside Commode Bedside Commode # Voids 1 1 - Exam On examination patient is alert and awake, no distress. Her speech is stuttering, slow, hesitant. Patient still able to name all 3 objects presented, knuckles, glasses, earlobe. She can repeat although takes time. Patient no changes compared to yesterday. On cranial nerve examination, pupils are equal, round and reacting, visual ortiz are full on confrontation. Extraocular muscles are intact with no nystagmus. Patient has chronic right facial weakness peripheral type. She has now left facial weakness, central type. Tongue protrudes the midline. On muscle strength testing, (right/left) deltoid 4+/3, triceps 5/3, biceps 5/3, paper production engineer 5-/2, hip flexion 5/1, ankle dorsiflexion 5/1. Sensory touch is decreased in the entire left side of the body including face arm and leg. No obvious ataxia for [id number] testing although she is slow on the left. - Labs CBC & Chem 7: 04/26/23 05:43 04/26/23 05:43 Assessment and Plan Assessment: * Acute onset of altered mental status, confusion, staring spells, tremoring, delayed mental response, with left-sided weakness and numbness. All symptoms started upon waking up from a nap on the day of admission. Probable acute stroke with dysarthria and left hemiparesis. Patient did not receive TPA in the ER. * History of learning disability * Anxiety, depression * Vapes * History of cleft palate and cleft lip with multiple facial surgeries * Right facial weakness, congenital * Bilateral cochlear implants * History of migraine headaches, on Topamax for long time. Plan: * Repeat CT head performed today showed mid to inferior aspect of the head is nondiagnostic due to extensive external mental artifact. Only the superior to mid aspect of the head is assessed. Questionable loss of neal-white matter differentiation involving the portion of the superior right frontal lobe on prior examination is not well seen on today's exam with no definite sulcal effacement. I personally reviewed CT head, and agree no acute ischemic process. The right cerebral hemisphere is completely clear with no evidence of cortical or subcortical or lacunar stroke. Only pontine region was not visualized, therefore pontine lacunar stroke cannot be ruled out because of metallic beam artifact through the brainstem. * CTA of head and neck 04/27/2023: Revealed no evidence of dissection of the cervical internal carotid arteries or vertebral arteries or any evidence of significant stenosis at the carotid bifurcations. No evidence of intracranial high-grade stenosis or intracranial aneurysm. I personally reviewed CTA film s. The brain does not reveal any obvious evolving stroke. I discussed and reviewed CT head with Dr. Gamez, and he concurs that the CTA of the head was fairly good study, and does not reveal any obvious stroke. * Carotid Doppler revealed no evidence of hemodynamically significant stenosis. Antegrade flow in both vertebral arteries. * Transesophageal echocardiogram: Normal left atrial appendage, normal ventricle size and systolic function. Mild MR and TR. No shunting across the interatrial septum. Normal appearance of the descending thoracic aorta. * 2-D echo, revealed normal left ventricular size and systolic function. EF is 55-60%. Trace to mild mitral, aortic and tricuspid regurgitation. Left atrial size is normal. * EEG was abnormal due to background slowing of [id number] degree suggestive of diffuse encephalopathy. The presence of intermittent sporadic left temporal sharp waves with rhythmic left temporal theta, suggest focal cortical neuronal dysfunction. This may suggest underlying cortical irritability and tendency for seizure. No lateral graphesthesia was recorded. Clinical correlation recommended. Patient has an acute stroke. Patient has not had any clinical seizure-like activity since arrival to the hospital. Hold off on antiepileptic medication for now. * B12 451, folate 16.4, Lyme tite negative r, West Nile virus antibodies normal/negative, TSH is normal. * Hemoglobin A1c 5.1, fasting lipid panel cholesterol 147, LDL 91, HDL 36 and triglycerides 99.2. Continue Lipitor 40 mg daily. * Continue aspirin 325 mg and Plavix 75 mg daily for 30 days, then stop Plavix and continue aspirin indefinitely. * Start Pepcid 20 mg twice a day for gastric ulcer prophylaxis. * Continue telemetry monitoring. So far showing sinus rhythm with sinus bradycardia in the 50s. No other arrhythmia. * Hematology on board for evaluation for hypercoagulable workup. Lupus anticoagulant, antithrombin III antigen, anticardiolipin antibodies negative. Prothrombin gene mutation negative. * Discussed with primary team. * PT, OT, speech therapy. Possible inpatient rehab when medically cleared. * Patient has some inconsistencies in the examination. Suggest psychiatric consultation to rule out psychogenic overlay. Discussed with primary physician.
[2023-04-30] MEDS: FLUTICASONE 50MCG/SPRAY NASAL 16GM EA NOSTRIL SCH (12:38)
[2023-04-30] MEDS: SODIUM CHLORIDE 0.9% 1,000 ML IV SCH ×2 (12:39→19:24)
[2023-04-30 13:59] VITALS: BMI 36.1
--- NOTE | 2023-04-30 14:38 | P.PN ---
Subjective Progress Note Date: 04/30/23 Patient is a 32-year-old female with congenital deafness status post bilateral cochlear implants, congenital hypothyroidism, and asthma who presented to the emergency department with complaints of altered mentation. On arrival to the emergency department her pulse was elevated at 122. Laboratory analysis was remarkable for BUN of 19, glucose 111, and marijuana in her urine drug screen. Initial head CT showed no acute intracranial hemorrhage, midline shift, or mass effect. Chest x-ray showed no acute process. Family was worried that she possibly had a seizure, patient has no history of seizure disorder. Arrangement was made for admission. Upon further evaluation there was concerns for possible stroke. Neurology was consulted. Repeat head CT didn't demonstrate right-sided CVA. Carotid Dopplers were negative. KALA and hypercoag work-up negative. Patient seen and examined at bedside. She is speaking slowly and with intention. She has no complaints at this time. She continues to have left sided weakness. Sister is present at bedside and believes that the patient has more difficulty when she is thinking about her movements, but does not struggle as much when she is not thinking about her movements. She is apply for court appointed guardianship. She Vital signs reviewed General: nontoxic, no distress, appears at stated age Cardiovascular: S1S2 reg, no murmur, positive posterior tibial pulse bilateral, Lungs: CTA bilateral, no rhonchi, no rales , no accessory muscle use Abdominal: soft, nontender to palpation, no guarding, no appreciable organomegaly Ext: no gross muscle atrophy, no edema b/l lower extremities, no contractures Neuro: Left-sided facial droop, no tremors, slowed speech, "huffing" noises when trying to speak. Psych: Alert, oriented, appropriate affect Assessment/Plan: Altered mentation, dysarthria and left hemiparesis possible Acute right-sided CVA with left-sided deficit vs conversion disorder - repeat head CT without definitive stroke, currently awaiting psych evaluation. - PT/OT recommending IPR, currently awaiting insurance auth - Speech- recommended dysphagia level III diet with think liquids - ASA, Plavix, statin. Plan will be for Plavix for 30 days post event and then ASA only. - Neuro recs: await psych evaluation Evaluation : CTA head and neck 04/27/2023: No evidence of dissection of the cervical internal carotid arteries or vertebral arteries or any evidence of significant stenosis at the carotid bifurcations. No evidence of intracranial high-grade stenosis or intracranial aneurysm. CT head 04/26/2023: Questionable loss of neal-white matter differentiation s uperior right frontal lobe, fluid within the left mastoid cells possible mastoiditis, acute left maxillary sinusitis Carotid Doppler 04/26/2023: no hemodynamically significant stenosis KALA: NO PFO. Normal left atrial appendage. Mild MR/TR. No shunting across the interatrial septum. Descending thoracic aorta normal appearance. TTE: EF is 55-60%. mild valvular dysfunction EEG : Abnormal. Per neurology. "This may suggest underlying cortical irritability and tendency for seizure. No lateral graphesthesia was recorded. Patient has an acute stroke. Patient has not had any clinical seizure-like activity since arrival to the hospital. Hold off on antiepileptic medication for now. " B12, folate, Lymes, [place] nile, A1C (5.1), Cholesterol- with in normla/negaitve Hypercoag: To cardiolipin antibody, antiphospholipid antibody, anti-thrombin 3, prothrombin gene , and beta-2 microglobulin are negative Protein C/S resistance pending Tele: no significant arrhythmia Headache with left sided sinusitis on CT - Claritin continued - add flonase Congenital hypothyroidism - Synthorid 150 mcg daily, free T3 normal, TSH normal Hx Migraine headaches - continue with Topamax Asthma - Singulair, prn albuterol Deafness s/p cochlear implants Imaging: Repeat head CT: Mid to inferior aspect of the head CT is nondiagnostic. Loss of neal-white matter junction of the frontal lobe on prior exam not well seen on today's exam with no definitive sulcal enhancement. Data Review: Vital signs reviewed: Temperature 98.1, pulse 70, respirations 18, blood pressure 121/72, O2 sat 100% on room air DVT prophylaxis: add lovenox This dictation was prepared using [employer] voice recognition software. Though every attempt is made to correct errors during dictation some may still exist. Objective - Vital Signs Vital signs: Vital Signs Temp 97.7 F 04/30/23 08:00 Pulse 69 04/30/23 12:00 Resp 18 04/30/23 12:00 BP 110/76 04/30/23 12:00 Pulse Ox 100 04/30/23 12:00 FiO2 21 04/28/23 08:42 Intake & Output 04/29/23 04/30/23 04/30/23 18:59 06:59 18:59 Intake Total 2160 240 Balance 2160 240 Weight 81.193 kg Intake: Oral 2160 240 Other: Voiding Method Toilet Toilet Bedside Commode Bedside Commode # Voids 1 1 - Labs CBC & Chem 7: 04/26/23 05:43 04/26/23 05:43
--- NOTE | 2023-04-30 16:22 | P.CN ---
Psychiatric Consult - . Consult date: 04/30/23 Consult:: 04/30/23 15:55 IDENTIFYING DATA: This patient is a 32-year-old female REASON FOR REFERRAL: Psychiatry was consulted for potential conversion disorder HISTORY OF PRESENT ILLNESS: The patient has a history of learning disability and presented to the hospital on 04/24/2023 due to strokelike symptoms. Per Neuro intake note and confirmed portions with patient today: Patient mentioned "that she laid down at 9 PM and took a nap for 30-40 minutes. When she woke up, she was disoriented she was shaking, like tremoring of her hands, flipping out and then complaining of "not feeling left side of the body". Her speech was off. The family felt that she was having a stroke. Patient's sister also mentioned that she was having a blank stare, would come out of it, makes eye contact and then goes back into the blank stare. She was not responding and there was mild shaking, tremoring but no jerking. Patient was very confused. When the confusion slightly improve, she was complaining of left-sided feeling heavy. Patient apparently did lose control of urine sometimes during this time, as she was noted to be wet at the time she arrived to the ER. Patient continues to have very delayed response, slow thought process as compared to the baseline, she speaks normally. Patient's sister mentioned that she did see the patient at about 4:30 to 5 PM and she was fine at that time. Patient's sister states that patient has history of learning disability, but otherwise she talks normally. She has chronic right facial weakness since , peripheral type and has no right ear. She has history of cleft palate and has history of bilateral cochlear implant. Home medications include Topamax 75 mg twice a day, ibuprofen, levothyroxine, Zyrtec, Cymbalta 30 mg, Singulair." Patient today states that she has been doing "okay "without having acute anxiety or depression. She denies having any recent stressors. She reports that she has been doing well as she is living with her son and valeria. She states that she used to have anxiety about family and that this has been well controlled on Cymbalta 30 mg daily. She denies experiencing low mood. She denies having experience these current symptoms in the past. However, due to inconsistencies on physical exam, psychiatry was consulted. Patient has not had any seizure- like activity while she has been hospitalized. However, she continues to have speech difficulty. She expresses frustration with her current symptoms and is concerned about them. Per Neuro, CT head did not demonstrate any acute ischemic process although pontine region was not visualized due to having metallic artifact in the brainstem. CTA of the head and neck did not show any evidence of dissection or significant stenosis. Carotid Doppler did not reveal significant stenosis. Transesophageal echo showed normal left atrial appendage, normal ventricle size and systolic function, mild MR and TR, no shunting across the interatrial septum, and normal appearance of the descending thoracic aorta. EEG was "abnormal due to background slowing of [id number] degree suggestive of diffuse encephalopathy. The presence of intermittent sporadic left temporal sharp waves with rhythmic left temporal theta, suggest focal cortical neuronal dysfunction. This may suggest underlying cortical irritability and tendency for seizure. No lateral graphesthesia was recorded. Clinical correlation recommended." At this time patient denies any suicidal or homicidal ideation, intent or plan. Patient denies any auditory, visual hallucinations and denies any paranoia or delusions. Patient only reports occasional alcohol use but denies all other substance use. However, UDS was positive for marijuana. PAST PSYCHIATRIC HISTORY: Patient has a a history of anxiety that has been treated with Cymbalta 30 mg since February 2023. She stated that she tried Lexapro in the past but that it was not helpful. She denies a history of psychiatric hospitalizations or suicide attempts. She denies having seen a psychiatrist in the past. She says that she follows with [facility] for psychotherapy PAST MEDICAL HISTORY: Past Medical History: Asthma, Hearing Disorder / Deafness, Thyroid Disorder Additional Past Medical History / Comment(s): BILATERAL COCHLEAR IMPLANTS, HEARING AIDES, BORN WITH CLEFT PALATE/LIP WITH MULTIPLE SURGERIES, R FACIAL WEAKNESS, 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 History of Any Multi-Drug Resistant Organisms: None Reported Past Surgical History: Ear Surgery, Tubal Ligation Additional Past Surgical History / Comment(s): CLEFT PALETTE SX, JAW ALIGNMENT, PROSTHETIC EARS ( HAS BRACKETS ON SIDES OF HEAD) AND NOSE RECONSTRUCTION, JEFFERY COCHLEAR IMPLANTS, R EYE PLASTIC SURGERY TO MAKE FACE LOOK MORE SYMMETRICAL, L WRIST GANGLION CYST REMOVED TWICE. Past Anesthesia/Blood Transfusion Reactions: No Reported Reaction, Postoperative Nausea & Vomiting (PONV) Past Psychological History: No Psychological Hx Reported, Anxiety, Depression Smoking Status: Vaper Past Alcohol Use History: None Reported Past Drug Use History: Marijuana ALLERGIES: as per EMR. CHEMICAL DEPENDENCY HISTORY: as per HPI. FAMILY PSYCHIATRIC/SUBSTANCE USE HISTORY: denies SOCIAL HISTORY: Patient reports currently residing with 11-year-old son and fianc. MENTAL STATUS EXAM: General Appearance: Patient appears to be stated age is alert, pleasant, and cooperative. Patient appears to have poor hygiene and grooming wearing hospital gown with good eye contact. Behavior: Patient is calmly lying in bed without any agitated behavior. Negative Thompson's test Speech: Patient's speech is aphasic and not pressured Mood/Affect: Patient reports their mood is "okay", affect is congruent Suicidality/Homicidality: Patient denies having any suicidal or homicidal ideation intent or plan. Perceptions: Patient denies any visual hallucinations and denies any auditory hallucinations Though content/process: There is no evidence of any delusional thought content and thought process is linear and goal-directed. Memory and concentration: AOX3, grossly intact for the purposes of this session. 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 -Would recommend the following medication changes/additions: Increase Cymbalta to 60 mg daily -fast foods worker to provide patient with outpatient mental health/psychiatry resources for appropriate follow up upon discharge. CBT is first-line. Discussed this with patient -Agree with inpatient PT to improve physical function -Communicated plan to patient's nurse -Psychiatry will sign off at this time -Please contact with any questions.
[2023-04-30] MEDS: ACETAMINOPHEN TAB 325 MG TAB PO PRN (17:59)
[2023-04-30] MEDS: MONTELUKAST 10 MG TAB PO SCH (19:52)
[2023-05-01] MEDS: ACETAMINOPHEN TAB 325 MG TAB PO PRN (06:23)
[2023-05-01] MEDS: LEVOTHYROXINE 75 MCG TAB PO SCH (06:24)
[2023-05-01] MEDS: CLOPIDOGREL 75 MG TAB PO SCH (09:40)
[2023-05-01] MEDS: TOPIRAMATE 25 MG TAB PO SCH ×2 (09:40→20:48)
[2023-05-01] MEDS: DULoxetine HCL 60 MG CAPSULE.DR PO SCH (09:40)
[2023-05-01] MEDS: FAMOTIDINE 20 MG TAB PO SCH ×2 (09:40→20:48)
[2023-05-01] MEDS: ATORVASTATIN 40 MG TAB PO SCH (09:40)
[2023-05-01] MEDS: ASPIRIN 325 MG TAB PO SCH (09:40)
[2023-05-01] MEDS: LORATADINE 10 MG TAB PO SCH (09:40)
[2023-05-01] MEDS: FLUTICASONE 50MCG/SPRAY NASAL 16GM EA NOSTRIL SCH (09:40)
[2023-05-01] MEDS: ENOXAPARIN 40 MG/0.4 ML SYRINGE SQ SCH (09:40)
--- NOTE | 2023-05-01 10:21 | P.PN ---
Subjective Progress Note Date: 04/30/23 Patient was seen for a follow-up. Patient is sitting in the recliner, slightly rolled to her left side. Her family members were not present today. Patient denies headache at this time. She continues to have left hemiparesis and significant speech difficulty mainly with stuttering, although appears slightly better.. Objective - Vital Signs Vital signs: Vital Signs Temp 97.7 F 04/30/23 08:00 Pulse 69 04/30/23 12:00 Resp 18 04/30/23 12:00 BP 110/76 04/30/23 12:00 Pulse Ox 100 04/30/23 12:00 FiO2 21 04/28/23 08:42 Intake & Output 04/29/23 04/30/23 04/30/23 18:59 06:59 18:59 Intake Total 2160 240 Balance 2160 240 Weight 81.193 kg Intake: Oral 2160 240 Other: Voiding Method Toilet Toilet Bedside Commode Bedside Commode # Voids 1 1 - Exam On examination patient is alert and awake, no distress. Patient was reclining in the recliner, somewhat tilted to the left side. She was holding the cell phone with her left hand, and using the right index finger to manipulate. I told patient to like in the early head start teacher to her cell phone. After numerous attempts, by herself, she was able to duck operator the cell phone with her left hand with enough strength, that she was able to push the early head start teacher in the port. Her speech is stuttering, slow, hesitant. Patient still able to name all 3 objects presented, knuckles, glasses, earlobe. She can repeat although takes time. Patient no changes compared to yesterday. On cranial nerve examination, pupils are equal, round and reacting, visual ortiz are full on confrontation. Extraocular muscles are intact with no nystagmus. Patient has chronic right facial weakness peripheral type. Patient has left facial weakness, which also appears somewhat peripheral, as she cannot wrinkle her forehead or smile. Tongue protrudes the midline. On muscle strength testing, (right/left) deltoid 4+/3, triceps 5/4-, biceps 5/4- , duck operator 5-/3-, hip flexion 5/0, ankle dorsiflexion 5/0. Sensory touch is decreased in the entire left side of the body including face arm and leg. No obvious ataxia for [id number] testing although she is slow on the left. - Labs CBC & Chem 7: 04/26/23 05:43 04/26/23 05:43 Assessment and Plan Assessment: * Acute onset of altered mental status, confusion, staring spells, tremoring, delayed mental response, with left-sided weakness and numbness. All symptoms started upon waking up from a nap on the day of admission. Possible acute stroke with dysarthria and left hemiparesis. Patient did not receive TPA in the ER. Patient has 0/5 strength in the left lower limb, but still able to walk to the bathroom with her walker, dragging her left leg. With this strength of 0/5, uncertain if patient would be able to hold her weight at all with the left leg and she did not fall. Uncertain if there is any psychogenic overlay. * History of learning disability * Anxiety, depression * Vapes * History of cleft palate and cleft lip with multiple facial surgeries * Right facial weakness, congenital * Bilateral cochlear implants * History of migraine headaches, on Topamax for long time. Plan: * Repeat CT head performed today showed mid to inferior aspect of the head is nondiagnostic due to extensive external mental artifact. Only the superior to mid aspect of the head is assessed. Questionable loss of neal-white matter differentiation involving the portion of the superior right frontal lobe on prior examination is not well seen on today's exam with no definite sulcal effacement. I personally reviewed CT head, and agree no acute ischemic process. The right cerebral hemisphere is completely clear with no evidence of cortical or subcortical or lacunar stroke. Only pontine region was not visualized, therefore pontine lacunar stroke cannot be ruled out because of metallic beam artifact through the brainstem. * CTA of head and neck 04/27/2023: Revealed no evidence of dissection of the cervical internal carotid arteries or vertebral arteries or any evidence of significant stenosis at the carotid bifurcations. No evidence of intracranial high-grade stenosis or intracranial aneurysm. I personally reviewed CTA films. The brain does not reveal any obvious evolving stroke. I discussed and reviewed CT head with Dr. Gamez, and he concurs that the CTA of the head w as fairly good study, and does not reveal any obvious stroke. * Carotid Doppler revealed no evidence of hemodynamically significant stenosis. Antegrade flow in both vertebral arteries. * Transesophageal echocardiogram: Normal left atrial appendage, normal ventricle size and systolic function. Mild MR and TR. No shunting across the interatrial septum. Normal appearance of the descending thoracic aorta. * 2-D echo, revealed normal left ventricular size and systolic function. EF is 55-60%. Trace to mild mitral, aortic and tricuspid regurgitation. Left atrial size is normal. * EEG was abnormal due to background slowing of [id number]-mbojswuc degree suggestive of diffuse encephalopathy. The presence of intermittent sporadic left temporal sharp waves with rhythmic left temporal theta, suggest focal cortical neuronal dysfunction. This may suggest underlying cortical irritability and tendency for seizure. No lateral graphesthesia was recorded. Clinical correlation recommended. Patient has an acute stroke. Patient has not had any clinical seizure-like activity since arrival to the hospital. Hold off on antiepileptic medication for now. * B12 451, folate 16.4, Lyme tite negative r, West Nile virus antibodies normal/negative, TSH is normal. * Hemoglobin A1c 5.1, fasting lipid panel cholesterol 147, LDL 91, HDL 36 and triglycerides 99.2. Continue Lipitor 40 mg daily. * Continue aspirin 325 mg and Plavix 75 mg daily for 30 days, then stop Plavix and continue aspirin indefinitely. * Start Pepcid 20 mg twice a day for gastric ulcer prophylaxis. * Continue telemetry monitoring. So far showing sinus rhythm with sinus bradycardia in the 50s. No other arrhythmia. * Hematology on board for evaluation for hypercoagulable workup. Lupus anticoagulant, antithrombin III antigen, anticardiolipin antibodies negative. Prothrombin gene mutation negative. * Discussed with primary team. * PT, OT, speech therapy. Possible inpatient rehab when medically cleared. * Patient has some inconsistencies in the examination. Patient was able to plug in the cell phone early head start teacher in the port, while holding the cell phone with the left hand. Also with amount of severe weakness 0/5 in the left leg patient is still able to walk to the bathroom with her walker dragging her leg, without falling. Suggest psychiatric consultation to rule out psychogenic overlay. Discussed with primary physician. * Dr. Jose Silverio Will resume neurology service from Tuesday.
--- NOTE | 2023-05-01 10:45 | P.PN ---
Subjective Progress Note Date: 05/01/23 Patient is a 32-year-old female with congenital deafness status post bilateral cochlear implants, congenital hypothyroidism, and asthma who presented to the emergency department with complaints of altered mentation. On arrival to the emergency department her pulse was elevated at 122. Laboratory analysis was remarkable for BUN of 19, glucose 111, and marijuana in her urine drug screen. Initial head CT showed no acute intracranial hemorrhage, midline shift, or mass effect. Chest x-ray showed no acute process. Family was worried that she possibly had a seizure, patient has no history of seizure disorder. Arrangement was made for admission. Upon further evaluation there was concerns for possible stroke. Neurology was consulted. Repeat head CT didn't demonstrate right-sided CVA. Carotid Dopplers were negative. KALA and hypercoag work-up negative. 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 Patient seen and examined at bedside with a friend present. No chest pain, no shortness of breath. Continue with BEASLEY, no improvement with flonase. Vital signs reviewed General: nontoxic, no distress, appears at stated age Cardiovascular: S1S2 reg, no murmur, positive posterior tibial pulse bilateral, Lungs: Decreased bs bilateral, no rhonchi, no rales , no accessory muscle use Abdominal: soft, nontender to palpation, no guarding, no appreciable organomegaly Ext: no gross muscle atrophy, no edema b/l lower extremities, no contractures Neuro: Left-sided facial droop, no tremors, slowed speech, "huffing" noises when trying to speak. 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 Outpatient mental health counseling. Continue with physical therapy. -Neurology note reviewed: Possible psychogenic overlay. - PT/OT recommending IPR, currently awaiting insurance auth - Speech- recommended dysphagia level III diet with thin liquids - ASA, Plavix, statin. Plan will be for Plavix for 30 days post event and then ASA only. Evaluation : CTA head and neck 04/27/2023: No evidence of dissection of the cervical internal carotid arteries or vertebral arteries or any evidence of significant stenosis at the carotid bifurcations. No evidence of intracranial high-grade stenosis or intracranial aneurysm. CT head 04/26/2023: Questionable loss of neal-white matter differentiation s uperior right frontal lobe, fluid within the left mastoid cells possible mastoiditis, acute left maxillary sinusitis CT head 04/29/2023: No Acute process noted. Mid to inferior aspect of the head CT is nondiagnostic. Loss of neal-white matter junction of the frontal lobe on prior exam not well seen on today's exam with no definitive sulcal enhancement. Carotid Doppler 04/26/2023: no hemodynamically significant stenosis KALA: NO PFO. Normal left atrial appendage. Mild MR/TR. No shunting across the interatrial septum. Descending thoracic aorta normal appearance. TTE: EF is 55-60%. mild valvular dysfunction EEG : Abnormal. Per neurology. "This may suggest underlying cortical irritability and tendency for seizure. No lateral graphesthesia was recorded. Patient has an acute stroke. Patient has not had any clinical seizure-like activity since arrival to the hospital. Hold off on antiepileptic medication for now. " B12, folate, [place], [place], A1C (5.1), Cholesterol- with in normla/negaitve Hypercoag: To cardiolipin antibody, antiphospholipid antibody, anti-thrombin 3, prothrombin gene , and beta-2 microglobulin are negative Protein C/S resistance pending Tele: no significant arrhythmia Headache with left sided sinusitis on CT - Claritin continued - flonase Congenital hypothyroidism - Synthorid 150 mcg daily, free T3 normal, TSH normal Hx Migraine headaches - continue with Topamax Asthma - Singulair, prn albuterol Deafness s/p cochlear implants Imaging: None new Data Review: Vital signs reviewed temperature 98.2, pulse 83, respirations 18, blood pressure 105/70, O2 sat 99% on room air DVT prophylaxis: add lovenox This dictation was prepared using [employer] voice recognition software. Though every attempt is made to correct errors during dictation some may still exist. Objective - Vital Signs Vital signs: Vital Signs Temp 98.2 F 05/01/23 04:00 Pulse 83 05/01/23 04:00 Resp 18 05/01/23 04:00 BP 105/70 05/01/23 04:00 Pulse Ox 97 05/01/23 08:56 FiO2 21 04/28/23 08:42 Intake & Output 04/30/23 05/01/23 05/01/23 18:59 06:59 18:59 Intake Total 540 Balance 540 Weight 81.193 kg Intake: Oral 540 Other: Voiding Method Toilet Bedside Commode # Voids 1 - Labs CBC & Chem 7: 04/26/23 05:43 04/26/23 05:43
[2023-05-01] MEDS: SODIUM CHLORIDE 0.9% 1,000 ML IV SCH ×2 (19:38)
[2023-05-01] MEDS: MONTELUKAST 10 MG TAB PO SCH (20:48)
--- NOTE | 2023-05-02 01:59 | P.PN ---
Subjective Progress Note Date: 05/01/23 Patient was seen for a follow-up. Patient is sleeping in the recliner, slightly rolled to her left side. Family members were not present. Patient essentially unchanged. Objective - Vital Signs Vital signs: Vital Signs Temp 98.1 F 05/01/23 08:00 Pulse 77 05/01/23 12:00 Resp 18 05/01/23 12:00 BP 115/75 05/01/23 12:00 Pulse Ox 97 05/01/23 12:00 FiO2 21 04/28/23 08:42 Intake & Output 04/30/23 05/01/23 05/01/23 18:59 06:59 18:59 Intake Total 540 Balance 540 Weight 81.193 kg Intake: Oral 540 Other: Voiding Method Toilet Bedside Commode # Voids 1 - Exam On examination patient is alert and awake, no distress. Her speech is stuttering, slow, hesitant. Patient still able to name all 3 objects presented, knuckles, glasses, earlobe. She can repeat although takes time. Patient continues to have significant stuttering. No improvement in her speech. Today appears slightly worse. On cranial nerve examination, pupils are equal, round and reacting, visual ortiz are full on confrontation. Extraocular muscles are intact with no nystagmus. Patient has chronic right facial weakness peripheral type. Patient has left facial weakness, which also appears somewhat peripheral, as she cannot wrinkle her forehead or smile. Tongue protrudes the midline. On muscle strength testing, (right/left) deltoid 4+/4-, triceps 5/4, biceps 5/4, ball mill operator 5-/3-, hip flexion 5/0, ankle dorsiflexion 5/0. Sensory touch is decreased in the entire left side of the body including face arm and leg. No obvious ataxia for [id number] testing although she is slow on the left. - Labs CBC & Chem 7: 04/26/23 05:43 04/26/23 05:43 Assessment and Plan Assessment: * Acute onset of altered mental status, confusion, staring spells, tremoring, delayed mental response, with left-sided weakness and numbness. All symptoms started upon waking up from a nap on the day of admission. Possible acute stroke with dysarthria and left hemiparesis. Patient did not receive TPA in the ER. Patient has 0/5 strength in the left lower limb, but still able to walk to the bathroom with her walker, dragging her left leg. With this strength of 0/5, uncertain if patient would be able to hold her weight at all with the left leg and she did not fall. Uncertain if there is any psychogenic overlay. * History of learning disability * Anxiety, depression * Vapes * History of cleft palate and cleft lip with multiple facial surgeries * Right facial weakness, congenital * Bilateral cochlear implants * History of migraine headaches, on Topamax for long time. Plan: * Repeat CT head performed 04/30/2023 showed mid to inferior aspect of the head is nondiagnostic due to extensive external mental artifact. Only the superior to mid aspect of the head is assessed. Questionable loss of neal-white matter differentiation involving the portion of the superior right frontal lobe on prior examination is not well seen on today's exam with no definite sulcal effacement. I personally reviewed CT head, and agree no acute ischemic process. The right cerebral hemisphere is completely clear with no evidence of cortical or subcortical or lacunar stroke. Only pontine region was not visualized, therefore pontine lacunar stroke cannot be ruled out because of metallic beam artifact through the brainstem. * CTA of head and neck 04/27/2023: Revealed no evidence of dissection of the cervical internal carotid arteries or vertebral arteries or any evidence of significant stenosis at the carotid bifurcations. No evidence of intracranial high-grade stenosis or intracranial aneurysm. I personally reviewed CTA films. The brain does not reveal any obvious evolving stroke. I discussed and reviewed CT head with Dr. Gamez, and he concurs that the CTA of the head was fairly good study, and does not reveal any obvious stroke. * Carotid Doppler revealed no evidence of hemodynamically significant stenosis. Antegrade flow in both vertebral arteries. * Transesophageal echocardiogram: Normal left atrial appendage, normal ventricle size and systolic function. Mild MR and TR. No shunting across the interatrial septum. Normal appearance of the descending thoracic aorta. * 2-D echo, revealed normal left ventricular size and systolic function. EF is 55-60%. Trace to mild mitral, aortic and tricuspid regurgitation. Left atrial size is normal. * EEG was abnormal due to background slowing of [id number] degree suggestive of diffuse encephalopathy. The presence of intermittent sporadic left temporal sharp waves with rhythmic left temporal theta, suggest focal cortical neuronal dysfunction. This may suggest underlying cortical irritability and tendency for seizure. No lateral graphesthesia was recorded. Clinical correlation recommended. Patient has an acute stroke. Patient has not had any clinical seizure-like activity since arrival to the hospital. Hold off on antiepileptic medication for now. * B12 451, folate 16.4, Lyme tite negative r, West Nile virus antibodies normal/negative, TSH is normal. * Hemoglobin A1c 5.1, fasting lipid panel cholesterol 147, LDL 91, HDL 36 and triglycerides 99.2. Continue Lipitor 40 mg daily. * Continue aspirin 325 mg and Plavix 75 mg daily for 30 days, then stop Plavix and continue aspirin indefinitely. * Start Pepcid 20 mg twice a day for gastric ulcer prophylaxis. * Continue telemetry monitoring. So far showing sinus rhythm with sinus bradycardia in the 50s. No other arrhythmia. * Hematology on board for evaluation for hypercoagulable workup. Lupus anticoagulant, antithrombin III antigen, anticardiolipin antibodies negative. Prothrombin gene mutation negative. * Discussed with primary team. * PT, OT, speech therapy. Possible inpatient rehab when medically cleared. * Patient has some inconsistencies in the examination. Patient was able to plug in the cell phone internal control specialist in the port, while holding the cell phone with the left hand. Also with amount of severe weakness 0/5 in the left leg patient is still able to walk to the bathroom with her walker dragging her leg, without falling. Suggest psychiatric consultation to rule out psychogenic overlay. Discussed with primary physician. * Dr. Jose Silverio Will resume neurology service from Tuesday.
[2023-05-02] MEDS: SODIUM CHLORIDE 0.9% 1,000 ML IV SCH (04:34)
[2023-05-02] MEDS: LEVOTHYROXINE 75 MCG TAB PO SCH (06:50)
[2023-05-02] MEDS: BUTALB/APAP/CAFF 50-325-40MG TAB PO PRN (06:50)
[2023-05-02] MEDS: ASPIRIN 325 MG TAB PO SCH (08:31)
[2023-05-02] MEDS: FAMOTIDINE 20 MG TAB PO SCH (08:31)
[2023-05-02] MEDS: CLOPIDOGREL 75 MG TAB PO SCH (08:31)
[2023-05-02] MEDS: DULoxetine HCL 60 MG CAPSULE.DR PO SCH (08:31)
[2023-05-02] MEDS: LORATADINE 10 MG TAB PO SCH (08:31)
[2023-05-02] MEDS: TOPIRAMATE 25 MG TAB PO SCH (08:31)
[2023-05-02] MEDS: ENOXAPARIN 40 MG/0.4 ML SYRINGE SQ SCH (08:31)
[2023-05-02] MEDS: ATORVASTATIN 40 MG TAB PO SCH (08:31)
[2023-05-02] MEDS: FLUTICASONE 50MCG/SPRAY NASAL 16GM EA NOSTRIL SCH (08:32)
[2023-05-02 10:51] VITALS: TEMP 97
--- NOTE | 2023-05-02 11:51 | P.PN ---
Subjective Progress Note Date: 05/02/23 Principal diagnosis: Weakness, altered mental status, concerns for CVA/TIA In follow-up today patient is sitting in a chair. When we entered the room, she introduced her niece to us then, did not speak after that. Objective - Vital Signs Vital signs: Vital Signs Temp 97.0 F L 05/02/23 08:00 Pulse 85 05/02/23 08:00 Resp 18 05/02/23 08:00 BP 109/60 05/02/23 08:00 Pulse Ox 98 05/02/23 08:00 FiO2 21 04/28/23 08:42 Intake & Output 05/01/23 05/02/23 05/02/23 18:59 06:59 18:59 Intake Total 118 Balance 118 Intake: Oral 118 Other: Voiding Method Toilet Bedside Commode # Voids 2 1 - Constitutional General appearance: Present: disheveled, no acute distress, obese - EENT Eyes: Present: anicteric sclerae, EOMI ENT: Present: hearing grossly normal - Respiratory Details: Respirations even and unlabored at rest - Cardiovascular Details: Skin warm and dry to the touch - Integumentary Integumentary: Present: normal - Musculoskeletal Musculoskeletal: Present: generalized weakness - Psychiatric Psychiatric Comment(s): Patient introduces us to her niece in the room, otherwise does not verbally respond to questions, Alert, oriented to people in the room. Psychiatric: Absent: appropriate affect - Labs CBC & Chem 7: 04/26/23 05:43 04/26/23 05:43 Assessment and Plan (1) Altered mental status Current Visit: Yes Status: Acute Priority: High Code(s): R41.82 - ALTERED MENTAL STATUS, UNSPECIFIED SNOMED Code(s): 064681339 Plan: Altered mental status, weakness, stroke-like symptoms. -Patient has been assessed by Neurology with recommendations for dual anti- platelet therapy with aspirin and Plavix 30 days then, cont on aspirin. -Hypercoagulable workup resulted so far, negative. Still pending beta-2 glycoprotein 1 ab results. No recommendations from Hematology for full dose anticoagulation at this time. attests: I have seen and examined patient, performed H&P, and developed impression and plan of care. Discussed with dictator. Agree with documentation, dictated as a scribe
--- NOTE | 2023-05-02 12:06 | P.PN ---
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 On arrival to the emergency department her pulse was elevated at 122. Laboratory analysis was remarkable for BUN of 19, glucose 111, and marijuana in her urine drug screen. Initial head CT showed no acute intracranial hemorrhage, midline shift, or mass effect. Chest x-ray showed no acute process. Family was worried that she possibly had a seizure, patient has no history of seizure disorder. Arrangement was made for admission. Upon further evaluation there was concerns for possible stroke. Neurology was consulted. Repeat head CT didn't demonstrate right-sided CVA. Carotid Dopplers were negative. KALA and hypercoag work-up negative. 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 Neurology recommended Plavix and ASA for the first 30 days followed by Plavix alone indefinitely. PT and OT was consulted and recommended IPR. Insurance authorization is still pending at the time of this note. Pertinent studies include: CTA head and neck 04/27/2023: No evidence of dissection of the cervical internal carotid arteries or vertebral arteries or any evidence of significant stenosis at the carotid bifurcations. No evidence of intracranial high-grade stenosis or intracranial aneurysm. CT head 04/26/2023: Questionable loss of neal-white matter differentiation superior right frontal lobe, fluid within the left mastoid cells possible mastoiditis, acute left maxillary sinusitis. CT head 04/29/2023: No Acute process noted. Mid to inferior aspect of the head CT is nondiagnostic. Loss of neal-white matter junction of the frontal lobe on prior exam not well seen on today's exam with no definitive sulcal enhancement. Carotid Doppler 04/26/2023: No hemodynamically significant stenosis. KALA: No PFO. Normal left atrial appendage. Mild MR/TR. No shunting across the interatrial septum. Descending thoracic aorta normal appearance. TTE: EF is 55-60%. Mild valvular dysfunction. EEG : Abnormal per neurology. "This may suggest underlying cortical irritability and tendency for seizure. No lateral graphesthesia was recorded. Patient has an acute stroke. Patient has not had any clinical seizure-like activity since arrival to the hospital. Hold off on antiepileptic medication for now.". B12, folate, [place], [place], A1C (5.1), Lipid panel within normal limits. Cardiolipin antibody, antiphospholipid antibody, anti-thrombin 3, prothrombin gene 47406, and beta-2 microglobulin are negative. Patient was seen and examined. No acute events overnight. Patient reports soreness in her left upper and left lower extremity. She has no other complaints. Vital signs reviewed General: nontoxic, no distress, appears at stated age Cardiovascular: S1S2 reg, no murmur, positive posterior tibial pulse bilateral, Lungs: Decreased bs bilateral, no rhonchi, no rales , no accessory muscle use Abdominal: soft, nontender to palpation, no guarding, no appreciable organomegaly Ext: no gross muscle atrophy, no edema b/l lower extremities, no contractures Neuro: Left-sided facial droop, no tremors, slowed speech, "huffing" noises when trying to speak. Psych: Alert, oriented, appropriate affect Altered mentation, dysarthria and left hemiparesis possible Acute right-sided CVA with left-sided deficit vs conversion disorder Headache with left sided sinusitis on CT Congenital hypothyroidism Hx Migraine headaches Asthma Deafness s/p cochlear implants No new labs ordered or reviewed. PT and OT was consulted and recommended IPR. Insurance authorization is still pending at the time of this note. Continue aspirin 325 mg by mouth daily, Plavix 75 mg by mouth daily. Continue Lipitor 40 mg by mouth daily. Discontinue aspirin after 30 days. Continue Synthroid 50 g by mouth in the morning. Continue Topamax 75 mg by mouth twice a day. Albuterol neb as needed for shortness of breath and wheezing. Continue Singulair 10 mg by mouth at bedtime. Lovenox SQ for DVT prophylaxis. Objective - Vital Signs Vital signs: Vital Signs Temp 97.0 F L 05/02/23 08:00 Pulse 85 05/02/23 08:00 Resp 18 05/02/23 08:00 BP 109/60 05/02/23 08:00 Pulse Ox 98 05/02/23 08:00 FiO2 21 04/28/23 08:42 Intake & Output 05/01/23 05/02/23 05/02/23 18:59 06:59 18:59 Intake Total 118 Balance 118 Intake: Oral 118 Other: Voiding Method Toilet Bedside Commode # Voids 2 1 - Labs CBC & Chem 7: 04/26/23 05:43 04/26/23 05:43
--- NOTE | 2023-05-02 12:13 | P.DS ---
Providers Date of admission: 04/25/23 01:07 Expected date of discharge: 05/02/23 Attending physician: Berkley Chung MD Consults: 04/25/23 01:06 Consult Physician Routine Consulting Provider: Jose Silverio Consult Reason/Comments: ams, weak Do you want consulting provider notified?: Yes 04/26/23 12:01 Consult Physician Routine Consulting Provider: Domingo Winston Consult Reason/Comments: CVA Do you want consulting provider notified?: Yes 04/27/23 10:25 Consult Physician Routine Consulting Provider: Moshe Reich Consult Reason/Comments: hypercoag. state Do you want consulting provider notified?: Yes 04/29/23 13:36 Consult Physician Routine Consulting Provider: Bipin Ceron Consult Reason/Comments: conversion disorder Do you want consulting provider notified?: Yes Primary care physician: [facility] Hospital Course: Patient is a 32-year-old female with congenital deafness status post bilateral cochlear implants, congenital hypothyroidism, and asthma who presented to the emergency department with complaints of altered mentation. On arrival to the emergency department her pulse was elevated at 122. Laboratory analysis was remarkable for BUN of 19, glucose 111, and marijuana in her urine drug screen. Initial head CT showed no acute intracranial hemorrhage, midline shift, or mass effect. Chest x-ray showed no acute process. Family was worried that she possibly had a seizure, patient has no history of seizure disorder. Arrangement was made for admission. Upon further evaluation there was concerns for possible stroke. Neurology was consulted. Repeat head CT didn't demonstrate right-sided CVA. Carotid Dopplers were negative. KALA and hypercoag work-up negative. 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 Neurology recommended Plavix and ASA for the first 30 days followed by Plavix alone indefinately. PT and OT was consulted and recommended IPR. Insurance authorization was obtained on 05/02. Pertinent studies include: CTA head and neck 04/27/2023: No evidence of dissection of the cervical internal carotid arteries or vertebral arteries or any evidence of significant stenosis at the carotid bifurcations. No evidence of intracranial high-grade stenosis or intracranial aneurysm. CT head 04/26/2023: Questionable loss of neal-white matter differentiation superior right frontal lobe, fluid within the left mastoid cells possible mastoiditis, acute left maxillary sinusitis. CT head 04/29/2023: No Acute process noted. Mid to inferior aspect of the head CT is nondiagnostic. Loss of neal-white matter junction of the frontal lobe on prior exam not well seen on today's exam with no definitive sulcal enhancement. Carotid Doppler 04/26/2023: No hemodynamically significant stenosis. KALA: No PFO. Normal left atrial appendage. Mild MR/TR. No shunting across the interatrial septum. Descending thoracic aorta normal appearance. TTE: EF is 55-60%. Mild valvular dysfunction. EEG : Abnormal per neurology. "This may suggest underlying cortical irritability and tendency for seizure. No lateral graphesthesia was recorded. Patient has an acute stroke. Patient has not had any clinical seizure-like activity since arrival to the hospital. Hold off on antiepileptic medication for now.". B12, folate, [place], [place], A1C (5.1), Lipid panel within normal limits. Cardiolipin antibody, antiphospholipid antibody, anti-thrombin 3, prothrombin gene [id number], and beta-2 microglobulin are negative. Pertinent procedures include KALA. Patient was seen and examined. No acute events overnight. Patient reports soreness in her left upper and left lower extremity. She has no other complaints. Vital signs reviewed General: nontoxic, no distress, appears at stated age Cardiovascular: S1S2 reg, no murmur, positive posterior tibial pulse bilateral, Lungs: Decreased bs bilateral, no rhonchi, no rales , no accessory muscle use Abdominal: soft, nontender to palpation, no guarding, no appreciable organomegaly Ext: no gross muscle atrophy, no edema b/l lower extremities, no contractures Neuro: Left-sided facial droop, no tremors, slowed speech, "huffing" noises when trying to speak. Psych: Alert, oriented, appropriate affect Discharge Diagnosis: Altered mentation, dysarthria and left hemiparesis possible Acute right-sided CVA with left-sided deficit vs conversion disorder Headache with left sided sinusitis on CT Congenital hypothyroidism Hx Migraine headaches Asthma Deafness s/p cochlear implants This complex discharge took 35 minutes to complete. Patient Condition at Discharge: Stable Plan - Discharge Summary New Discharge Prescriptions: New Aspirin 325 mg PO DAILY 23 Days tab LORazepam [Ativan] 0.5 mg PO Q6HR PRN tab PRN Reason: Anxiety Fluticasone Nasal [place] [Flonase Nasal [place]] 2 spray EA NOSTRIL DAILY ml Butalb/APAP/Caff 50-325-40Mg [Fioricet 50-325-40] 1 each PO DAILY PRN tab PRN Reason: Migraine Headache Atorvastatin [Lipitor] 40 mg PO DAILY tab Famotidine [Pepcid] 20 mg PO BID tab Clopidogrel [Plavix] 75 mg PO DAILY tab Levothyroxine Sodium [Synthroid] 150 mcg PO QAM@0630 tab Continue Topiramate 50 mg PO BID Albuterol Sulfate [Proair Hfa] 2 puff INHALATION RT-QID PRN PRN Reason: Shortness Of Breath Montelukast [Singulair] 10 mg PO HS DULoxetine HCL [Cymbalta] 30 mg PO DAILY Cetirizine HCl [Zyrtec] 10 mg PO DAILY Ibuprofen [Motrin] 800 mg PO Q8H PRN PRN Reason: Pain Topiramate [Topamax] 25 mg PO BID Discontinued Levothyroxine Sodium [Synthroid] 175 mcg PO [id number] Discharge Medication List Albuterol Sulfate [Proair Hfa] 2 puff INHALATION RT-QID PRN 02/26/16 [History] Topiramate 50 mg PO BID 02/26/16 [History] Montelukast [Singulair] 10 mg PO HS 03/01/16 [History] Cetirizine HCl [Zyrtec] 10 mg PO DAILY 04/25/23 [History] DULoxetine HCL [Cymbalta] 30 mg PO DAILY 04/25/23 [History] Ibuprofen [Motrin] 800 mg PO Q8H PRN 04/25/23 [History] Topiramate [Topamax] 25 mg PO BID 04/25/23 [History] Aspirin 325 mg PO DAILY 23 Days tab 05/02/23 [Rx] Atorvastatin [Lipitor] 40 mg PO DAILY tab 05/02/23 [Rx] Butalb/APAP/Caff 50-325-40Mg [Fioricet 50-325-40] 1 each PO DAILY PRN tab 05/02/23 [Rx] Clopidogrel [Plavix] 75 mg PO DAILY tab 05/02/23 [Rx] Famotidine [Pepcid] 20 mg PO BID tab 05/02/23 [Rx] Fluticasone Nasal [place] [Flonase Nasal [place]] 2 spray EA NOSTRIL DAILY ml [Rx] LORazepam [Ativan] 0.5 mg PO Q6HR PRN tab 05/02/23 [Rx] Levothyroxine Sodium [Synthroid] 150 mcg PO QAM@0630 tab 05/02/23 [Rx] Follow up Appointment(s)/Referral(s): Lucy Baldwin MD [Medical Doctor] - 1 Week Nonstaff,Physician [REFERRING] - 1-2 days Activity/Diet/Wound Care/Special Instructions: Diet: Cardiac, NDD3 Follow up with your PCP within 1-2 days of discharge. Follow up with Neurology within 1 week of discharge. Follow up with Psychiatry within 1 week of discharge. Take all medications as advised. Repeat TSH, FT3/FT4 in 6 weeks. ASA and Plavix for 30 days followed by Plavix only indefinitely. Discharge Disposition: OTHER INSTITUTION NOT DEFINED
[2023-05-02 12:51] LABS: Anti-Thrombin III Activity 88 % (79-109)
[2023-05-02 13:10] VITALS: BP 102/56; PULSE 84; RESP 16
== END 2023-05-02 14:35 | disposition short-term general hospital (02) | DRG 45 ==
LOC: EC 22:22 → 3SCARD 04-25 01:06 → OBSVTOIN 04-25 01:07 → 6NMEDSUR 04-25 01:14 → 3SCARD 04-26 17:21
PROVIDERS: ADMIT Internal Medicine; ATTEND Internal Medicine
PROC: B24BZZ4 Ultrasonography of Heart with Aorta, Transesophageal (ICD-10-PCS; principal; 2023-04-27 11:05)
DX: I63.9 Cerebral infarction, unspecified (principal); E03.1 Congenital hypothyroidism without goiter; F17.290 Nicotine dependence, other tobacco product, uncomplicated; F32.A Depression, unspecified; F41.9 Anxiety disorder, unspecified; F44.9 Dissociative and conversion disorder, unspecified; F81.9 Developmental disorder of scholastic skills, unspecified; G43.909 Migraine, unspecified, not intractable, without status migrainosus; G81.94 Hemiplegia, unspecified affecting left nondominant side; G93.41 Metabolic encephalopathy; I10 Essential (primary) hypertension; J45.30 Mild persistent asthma, uncomplicated; R13.10 Dysphagia, unspecified; R29.810 Facial weakness; M41.9 Scoliosis, unspecified; R76.0 Raised antibody titer; J32.9 Chronic sinusitis, unspecified; I08.1 Rheumatic disorders of both mitral and tricuspid valves; Q16.9 Congenital malformation of ear causing impairment of hearing, unspecified; M54.9 Dorsalgia, unspecified; R47.1 Dysarthria and anarthria; W57.XXXA Bitten or stung by nonvenomous insect and other nonvenomous arthropods, initial encounter; Z79.02 Long term (current) use of antithrombotics/antiplatelets; Z79.82 Long term (current) use of aspirin; Z79.890 Hormone replacement therapy; Z79.899 Other long term (current) drug therapy; Z80.0 Family history of malignant neoplasm of digestive organs; Z82.49 Family history of ischemic heart disease and other diseases of the circulatory system; Z83.3 Family history of diabetes mellitus; Z87.730 Personal history of (corrected) cleft lip and palate; Z96.21 Cochlear implant status; Z88.5 Allergy status to narcotic agent; Z71.3 Dietary counseling and surveillance
CPT/HCPCS: 36415; 70450; 70496; 70498; 71045; 74230; 80048; 80053; 80061; 80306; 81001; 81240; 82232; 82306; 82550; 82607; 82746; 83036; 84443; 84481; 85025; 85300; 85301; 85306; 85307; 85610; 85613; 85730; 86147; 86618; 86788; 86789; 93005; 93306; 93312; 93320; 93325; 93880; 94760; 95816; 99285

== ENCOUNTER 2023-09-06 20:58 | Inpatient (IN) | payer OTHER ==
[2023-09-06] MEDS ORDERED: SODIUM CHLORIDE 0.9% 1,000 ML IV STA (21:08)
--- NOTE | 2023-09-06 21:20 | ED ---
General Adult HPI - General Stated complaint: Weakness Time Seen by Provider: 09/06/23 21:08 Source: patient, EMS Mode of arrival: EMS - History of Present Illness Initial comments: Dictation was produced using [employer] dictation software. please excuse any grammatical, word or spelling errors. Chief Complaint: 32-year-old female past medical history of migraines presents to the ER for neuro deficits History of Present Illness: To 32-year-old female who is present illness obtained from EMS patient lives at a home. There apparently is a bunch of staff that isn't too familiar with patient's medical history. Power of contract attorney however is at the bedside. Patient brought from home for acute onset of alleged neuro deficits starting 30 minutes prior to arrival. Patient has history of migraines takes Topamax. She also has history of complex neurologic history. Allegedly she has a history of CVA. Patient also has history of psychiatric disorder. Power of contract attorney at the bedside states that patient's history of stroke with residual left-sided weakness. Patient apparently was here with a similar issue back in April 2022. She had extensive workup for possible CVA. There is concern perhaps maybe this was a pontine related issue versus psychogenic response. She had a normal echo, normal CT angiography and mostly unremarkable computed tomography scan of the head at that time. She did have an EEG that was suggestive of diffuse encephalopathy. He was concerned that pe rhaps patient has seizure. New-onset deficits according to power of contract attorney was right-sided weakness. Patient complaining of diffuse body numbness. 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 Patient denies any pain. The ROS documented in this emergency department record has been reviewed and confirmed by me. Those systems with pertinent positive or negative responses have been documented in the HPI. All other systems are other negative and/or noncontributory. - Related Data Home Medications Medication Instructions Recorded Confirmed Albuterol Sulfate [Proair Hfa] 2 puff INHALATION RT-QID PRN 02/26/16 09/06/23 Montelukast [Singulair] 10 mg PO HS 03/01/16 09/06/23 Cetirizine HCl [Zyrtec] 10 mg PO DAILY 04/25/23 09/06/23 Aspirin EC [Ecotrin Low Dose] 81 mg PO DAILY 09/06/23 09/06/23 DULoxetine HCL [Cymbalta] 60 mg PO DAILY 09/06/23 09/06/23 Levothyroxine Sodium [Synthroid] 175 mcg PO DAILY 09/06/23 09/06/23 Sennosides [Senokot] 8.6 mg PO HS 09/06/23 09/06/23 Topiramate [Topamax] 100 mg PO BID 09/06/23 09/06/23 Previous Rx's Medication Instructions Recorded Atorvastatin [Lipitor] 40 mg PO DAILY tab 05/02/23 Clopidogrel [Plavix] 75 mg PO DAILY tab 05/02/23 Allergies Allergy/AdvReac Type Severity Reaction Status Date / Time hydrocodone bitartrate AdvReac Nausea & Verified 09/06/23 21:58 [From Vicodin] Vomiting tramadol AdvReac Nausea & Verified 09/06/23 21:58 Vomiting Review of Systems ROS Statement: Those systems with pertinent positive or pertinent negative responses have been documented in the HPI. ROS Other: All systems not noted in ROS Statement are negative. 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 History of Any Multi-Drug Resistant Organisms: None Reported Past Surgical History: Ear Surgery, Tubal Ligation Additional Past Surgical History / Comment(s): CLEFT PALETTE SX, JAW ALIGNMENT, PROSTHETIC EARS ( HAS BRACKETS ON SIDES OF HEAD) AND NOSE RECONSTRUCTION, JEFFERY COCHLEAR IMPLANTS, R EYE PLASTIC SURGERY TO MAKE FACE LOOK MORE SYMMETRICAL, L WRIST GANGLION CYST REMOVED TWICE. Past Anesthesia/Blood Transfusion Reactions: No Reported Reaction, Postoperative Nausea & Vomiting (PONV) Past Psychological History: No Psychological Hx Reported, Anxiety, Depression Smoking Status: Vaper Past Alcohol Use History: None Reported Past Drug Use History: Marijuana - Past Family History Father Family Medical History: Cancer Additional Family Medical History / Comment(s): COLON Cancer. Mother Family Medical History: Congestive Heart Failure (CHF) General Exam - General Exam Comments Initial Comments: PHYSICAL EXAM: General Impression: Alert and oriented x3, not in acute distress HEENT: Normocephalic atraumatic, extra-ocular movements intact, pupils equal and reactive to light bilaterally, mucous membranes moist. Cardiovascular: Heart regular rate and rhythm Chest: Able to complete full sentences, no retractions, no tachypnea Abdomen: abdomen soft, non-tender, non-distended, no organomegaly Musculoskeletal: Pulses present and equal in all extremities, no peripheral edema Motor: no focal deficits noted Neurological: poor effort with performing NIH stroke scale, she has symmetrical drift of bilateral upper shrubberies, she shows very poor effort with lower extremity assessment. She complains of full body sensory deficit to light touch. Patient provides poor effort. Performing facial movements, not aphasic Skin: Intact with no visualized rashes Psych: Normal affect and mood Course Vital Signs 09/06/23 09/06/23 09/06/23 21:12 21:15 21:30 Temperature 97.9 F 97.9 F 97.8 F Pulse Rate 105 H 93 101 H Respiratory 19 19 19 Rate Blood Pressure 130/81 128/77 117/77 O2 Sat by Pulse 100 100 100 Oximetry 09/06/23 09/06/23 09/06/23 21:45 22:00 22:15 Temperature 97.9 F 97.8 F 98.7 F Pulse Rate 98 85 82 Respiratory 18 17 18 Rate Blood Pressure 110/72 108/72 113/79 O2 Sat by Pulse 100 99 100 Oximetry 09/06/23 09/06/23 09/06/23 22:30 22:45 23:00 Temperature 98.6 F 98.7 F 98.7 F Pulse Rate 88 89 85 Respiratory 17 17 17 Rate Blood Pressure 105/70 112/74 115/76 O2 Sat by Pulse 98 100 100 Oximetry 09/06/23 09/06/23 23:15 23:30 Temperature 98.7 F 98.2 F Pulse Rate 79 77 Respiratory 17 18 Rate Blood Pressure 112/73 114/72 O2 Sat by Pulse 99 99 Oximetry - Reevaluation(s) Reevaluation #2: 09/06/23 21:37 Patient not a candidate for TPA or thrombectomy. Risks outweigh the benefits. Time of onset is 8:30 PM. Case discussed with stroke neurologist, Dr. Benton who agreed. EKG Findings - EKG Comments: EKG Findings:: My EKG interpretation: Ventricular rate 103, sinus tachycardia,. 149, QRS 92, QTC 394. No LA prolongation, no QTC prolongation, no ST or T-wave changes noted. Overall, this EKG is unremarkable Medical Decision Making - Medical Decision Making Was pt. sent in by a medical professional or institution ([facility], NURSING SECRETARY, urgent care, hospital, or penitentiary...) When possible be specific @ -No Did you speak to anyone other than the patient for history (EMS, parent, family, police, friend...)? What history was obtained from this source @ -No Did you review nursing and triage notes (agree or disagree)? Why? @ -I reviewed and agree with nursing and triage notes Were old charts reviewed (outside hosp., previous admission, EMS record, old EKG, old radiological studies, urgent care reports/EKG's, penitentiary records)? Report findings @ -Previous discharge summary reviewed showing the patient has complex neurologic history she is perhaps multifactorial with layers of seizure versus psychiatric somatization Differential Diagnosis (chest pain, altered mental status, abdominal pain women, abdominal pain men, vaginal bleeding, musculoskeletal, weakness, fever, dyspnea, syncope, headache, dizziness, GI bleed, back pain, seizure, CVA, palpatations, mental health)? @ - Differential CVA: Ischemic stroke, hemorrhagic stroke, brain tumor, atypical migraine, Wernicke's encephalopathy, seizure, multiple sclerosis, meningitis, encephalitis, hypoglycemia, Guillain-House, electrolytes disturbance, myasthenia gravis.... This is not meant to be an all-inclusive list EKG interpreted by me (3pts min.). @ -See above X-rays interpreted by me (1pt min.). @ -X-rays and nonacute CT interpreted by me (1pt min.). @ -CT brain CT angiography of the head and neck shows no acute processes U/S interpreted by me (1pt. min.). @ -None done What testing was considered but not performed or refused? (CT, X-rays, U/S, labs)? Why? @ -None What meds were considered but not given or refused? Why? @ -None Did you discuss the management of the patient with other professionals (professionals i.e. [facility], NURSING SECRETARY, lab, RT, psych nurse, criminal justice social worker, body service team member, teacher, juvenile probation officer, case hardener)? Give summary @ -Case discussed with hospitalist for admission and stroke neurologist as described above Was smoking cessation discussed for >3mins.? @ -No Was critical care preformed (if so, how long)? @ -Yes, 33 minutes Were there social determinants of health that impacted care today? How? (Homelessness, low income, unemployed, alcoholism, drug addiction, transportation, low edu. Level, literacy, decrease access to med. care, assisted, rehab)? @ -Mental debility Was there de-escalation of care discussed even if they declined (Discuss DNR or withdrawal of care, Hospice)? DNR status @ -No What co-morbidities impacted this encounter? (DM, HTN, Smoking, COPD, CAD, Cancer, CVA, ARF, Chemo, Hep., AIDS, mental health diagnosis, sleep apnea, morbid obesity)? @ -None Was patient admitted / discharged? Hospital course, mention meds given and route, prescriptions, significant lab abnormalities, going to OR and other pertinent info. @ -32 Year-old female presents with chief complaint of strokelike symptoms. Vital signs are stable. Patient does not have any focal neurologic findings. Vital signs stable. Code stroke page due to acuity of symptoms. Patient is not a good candidate for alteplase given complex neurologic history is perhaps related to psychiatric some medication versus encephalopathy. At this point risk outweigh the benefits. CT brain and CT angiography is negative. Patient is a candidate for thrombectomy. Laboratory evaluation is unremarkable. Patient aspirin. Patient reevaluated at bedside with improvement of symptoms. She is able to stand maintain her weight however still having difficulty pivoting. Patient be admitted. Given aspirin. Undiagnosed new problem with uncertain prognosis? @ -No Drug Therapy requiring intensive monitoring for toxicity (Heparin, Nitro, Insulin, Cardizem)? @ -No Were any procedures done? @ -No Diagnosis/symptom? Acute, or Chronic, or Acute on Chronic? Uncomplicated (without systemic symptoms) or Complicated (systemic symptoms)? @ -Stroke Like symptoms Side effects of treatment? @ -No Exacerbation, Progression, or Severe Exacerbation? @ -No Poses a threat to life or bodily function? How? (Chest pain, USA, ND, pneumonia, PE, COPD, DKA, ARF, appy, cholecystitis, CVA, Diverticulitis, Homicidal, Suicidal, threat to staff... and all critical care pts) @ -yes - Lab Data Result diagrams: 09/06/23 21:32 09/06/23 21:37 Lab Results 09/06/23 09/06/23 09/06/23 Range/Units 21:27 21:32 21:37 WBC 8.3 (3.8-10.6) k/uL RBC 4.39 (3.80-5.40) m/uL Hgb 12.2 (11.4-16.0) gm/dL Hct 36.1 (34.0-46.0) % MCV 82.4 (80.0-100.0) fL MCH 27.7 (25.0-35.0) pg MCHC 33.6 (31.0-37.0) g/dL RDW 13.7 (11.5-15.5) % Plt Count 155 (150-450) k/uL MPV 9.2 Neutrophils % 66 % Lymphocytes % 23 % Monocytes % 7 % Eosinophils % 2 % Basophils % 0 % Neutrophils # 5.5 (1.3-7.7) k/uL Lymphocytes # 1.9 (1.0-4.8) k/uL Monocytes # 0.6 (0-1.0) k/uL Eosinophils # 0.2 (0-0.7) k/uL Basophils # 0.0 (0-0.2) k/uL PT (10.0-12.5) sec INR (<1.2) APTT (22.0-30.0) sec Sodium 137 (137-145) mmol/L Potassium 4.1 (3.5-5.1) mmol/L Chloride 112 H (98-107) mmol/L Carbon Dioxide 18 L (22-30) mmol/L Anion Gap 7 mmol/L BUN 12 (7-17) mg/dL Creatinine 0.63 (0.52-1.04) mg/dL Est GFR (CKD-EPI)AfAm >90 (>60 ml/min/1.73 sqM) Est GFR (CKD-EPI)NonAf >90 (>60 ml/min/1.73 sqM) Glucose 92 (74-99) mg/dL POC Glucose (mg/dL) 97 (70-110) mg/dL POC Glu [employer] Portal Developer ID Vin, Yenny Calcium 7.9 L (8.4-10.2) mg/dL Total Bilirubin 0.3 (0.2-1.3) mg/dL AST 21 (14-36) U/L ALT 17 (4-34) U/L Alkaline Phosphatase 55 (38-126) U/L Creatine Kinase 54 (30-135) U/L Troponin I (0.000-0.034) ng/mL Total Protein 5.7 L (6.3-8.2) g/dL Albumin 3.2 L (3.5-5.0) g/dL 09/06/23 09/06/23 Range/Units 21:37 22:40 WBC (3.8-10.6) k/uL RBC (3.80-5.40) m/uL Hgb (11.4-16.0) gm/dL Hct (34.0-46.0) % MCV (80.0-100.0) fL MCH (25.0-35.0) pg MCHC (31.0-37.0) g/dL RDW (11.5-15.5) % Plt Count (150-450) k/uL MPV Neutrophils % % Lymphocytes % % Monocytes % % Eosinophils % % Basophils % % Neutrophils # (1.3-7.7) k/uL Lymphocytes # (1.0-4.8) k/uL Monocytes # (0-1.0) k/uL Eosinophils # (0-0.7) k/uL Basophils # (0-0.2) k/uL PT 10.3 (10.0-12.5) sec INR 0.9 (<1.2) APTT 21.0 L (22.0-30.0) sec Sodium (137-145) mmol/L Potassium (3.5-5.1) mmol/L Chloride (98-107) mmol/L Carbon Dioxide (22-30) mmol/L Anion Gap mmol/L BUN (7-17) mg/dL Creatinine (0.52-1.04) mg/dL Est GFR (CKD-EPI)AfAm (>60 ml/min/1.73 sqM) Est GFR (CKD-EPI)NonAf (>60 ml/min/1.73 sqM) Glucose (74-99) mg/dL POC Glucose (mg/dL) (70-110) mg/dL POC Glu [employer] Portal Developer ID Calcium (8.4-10.2) mg/dL Total Bilirubin (0.2-1.3) mg/dL AST (14-36) U/L ALT (4-34) U/L Alkaline Phosphatase (38-126) U/L Creatine Kinase (30-135) U/L Troponin I <0.012 (0.000-0.034) ng/mL Total Protein (6.3-8.2) g/dL Albumin (3.5-5.0) g/dL Disposition Clinical Impression: Stroke-like symptoms Disposition: ADMITTED IP TO THIS [facility] Condition: Fair Referrals: Arnie Sanz MD [Primary Care Provider] - 1-2 days Decision Time: 11:00
--- NOTE | 2023-09-06 21:28 | CT ---
EXAMINATION TYPE: CT brain wo con CT DLP: 1104.6 mGycm, Automated exposure control for dose reduction was used. DATE OF EXAM: 09/06/2023 9:21 PM COMPARISON: 04/29/2023.. CLINICAL INDICATION:Female, 32 years old with history of Neuro deficit, acute, stroke suspected, Neur o deficit, acute, stroke suspected TECHNIQUE: Brain: Axial CT images of the brain were obtained with coronal and sagittal reformats created and rev iewed. Contrast used: None. Oral contrast used: None. FINDINGS: Brain: Extra-axial spaces: No abnormal extra-axial fluid collections. Ventricular system: Within normal limits Cerebral parenchyma: No acute intraparenchymal hemorrhage or mass effect. The neal-white junction is well differentiated. Cerebellum: Unremarkable. Mass effect: No evidence of midline shift. Intracranial vasculature: unremarkable Soft tissues: Normal. Calvarium/osseous structures: No depressed skull fracture. Bilateral cochlear implants with streak ar tifact limits evaluation of these lower brain. Paranasal sinuses and mastoid air cells: Mild scattered paranasal sinus disease. Visualized orbits: Orbital contents are intact. IMPRESSION: Bilateral cochlear implants with streak artifact limits evaluation of these lower brain. No acute int racranial process where visualized.
[2023-09-06 21:38] LABS: Glucose,Whole Blood 97 mg/dL (70-110)
[2023-09-06 21:56] LABS: ALT 17 U/L (4-34); African American GFR (CKD) >90 (>60 ml/min/1.73 sqM); Albumin 3.2 g/dL (3.5-5.0); Anion Gap 7 mmol/L; Blood Urea Nitrogen 12 mg/dL (7-17); Calcium 7.9 mg/dL (8.4-10.2); Carbon Dioxide 18 mmol/L (22-30); Chloride 112 mmol/L (98-107); Creatine Kinase 54 U/L (30-135); Glucose 92 mg/dL (74-99); Non-African American GFR(CKD) >90 (>60 ml/min/1.73 sqM); Sodium 137 mmol/L (137-145); Total Bilirubin 0.3 mg/dL (0.2-1.3); Total Protein 5.7 g/dL (6.3-8.2)
--- NOTE | 2023-09-06 21:58 | XR ---
EXAMINATION TYPE: XR chest 2V DATE OF EXAM: 09/06/2023 9:46 PM CLINICAL INDICATION:Female, 32 years old with history of altered mental status; [facility] COMPARISON: Chest radiographs from 04/24/2023 TECHNIQUE: XR chest 2V Frontal and lateral views of the chest. FINDINGS: Lungs/Pleura: There is no evidence of pleural effusion, focal consolidation, or pneumothorax. Pulmonary vascularity: Unremarkable. Heart/mediastinum: Cardiomediastinal silhouette is unremarkable. Musculoskeletal: No acute osseous pathology. IMPRESSION: Low lung lines, No acute cardiopulmonary disease/process.
[2023-09-06 22:06] LABS: Basophils % (A) 0 %; Eosinophils # (A) 0.2 k/uL (0-0.7); Eosinophils % (A) 2 %; HCT 36.1 % (34.0-46.0); HGB 12.2 gm/dL (11.4-16.0); Lymphocytes # (A) 1.9 k/uL (1.0-4.8); Lymphocytes % (A) 23 %; MCH 27.7 pg (25.0-35.0); MCHC 33.6 g/dL (31.0-37.0); MCV 82.4 fL (80.0-100.0); Mean Platelet Volume 9.2; Monocytes # (A) 0.6 k/uL (0-1.0); Monocytes % (A) 7 %; Neutrophils # (A) 5.5 k/uL (1.3-7.7); Neutrophils % (A) 66 %; Platelet Count 155 k/uL (150-450); RBC 4.39 m/uL (3.80-5.40); RDW 13.7 % (11.5-15.5); WBC 8.3 k/uL (3.8-10.6)
--- NOTE | 2023-09-06 22:06 | CT ---
EXAMINATION TYPE: CT angio head neck CT DLP: 554.1 mGycm, Automated exposure control for dose reduction was used. DATE OF EXAM: 09/06/2023 9:50 PM COMPARISON: CT brain same day.. CLINICAL INDICATION:Female, 32 years old with history of Neuro deficit, acute, stroke suspected; PHH, Neuro Deficit, suspected stroke TECHNIQUE: Axially acquired helical CT angiogram of the head and neck was obtained with contrast. Axi al images are supplemented with 3D reconstructions which [facility] NASCET criteria used. Contrast used:65 cc mL of Isovue 370 with IV Contrast, Oral contrast used: None. FINDINGS: CTA HEAD: Fixation changes to the osseous structures of the maxillary sinuses. Cochlear implants note d bilaterally. No evidence of acute intracranial hemorrhage, mass effect, or midline shift. The ventricles, sulci, a nd cisterns are unremarkable. The visualized portions of the internal carotid arteries, middle cerebral arteries, anterior cerebral arteries, and posterior cerebral arteries are patent. origin of the left posterior cerebral ar morales. The basilar and vertebral arteries are patent. CTA NECK: Right Carotid System: The common carotid artery and external carotid artery are patent. The carotid bifurcation demonstrate s no evidence of hemodynamically significant stenosis. The remaining portions of the internal carotid artery demonstrate normal size without significant narrowing. Left Carotid System: The common carotid artery and external carotid artery are patent. The carotid bifurcation demonstrate s no evidence of hemodynamically significant stenosis. The remaining portions of the internal carotid artery demonstrate normal size without significant narrowing. Vertebral arteries are patent without evidence hemodynamically significant stenosis. There is a three-vessel aortic arch. The origins of the great vessels are patent. No evidence of hemo dynamically significant stenosis. Upper thorax: IMPRESSION: 1. No evidence of dissection of the cervical internal carotid arteries or vertebral arteries or any e vidence of significant stenosis at the carotid bifurcations. 2. No evidence of intracranial high-grade stenosis or intracranial aneurysm.
[2023-09-06 22:10] LABS: AST 21 U/L (14-36); Alkaline Phosphatase 55 U/L (38-126); Potassium 4.1 mmol/L (3.5-5.1)
[2023-09-06 23:08] LABS: INR 0.9 (<1.2); Prothrombin Time 10.3 sec (10.0-12.5)
[2023-09-06] MEDS ORDERED: ASPIRIN 81 MG PO STA (23:09)
[2023-09-07] MEDS ORDERED: NALOXONE 0.4 MG/ML 1 ML VIAL IV PRN (00:28)
[2023-09-07] MEDS: SODIUM CHLORIDE 0.9% 1,000 ML IV SCH ×2 (01:42→16:49)
[2023-09-07] MEDS ORDERED: ATORVASTATIN 80 MG TAB PO STA (02:58)
[2023-09-07] MEDS ORDERED: ALBUTEROL NEBULIZED 2.5 MG/3 ML INHALATION PRN (02:59)
--- NOTE | 2023-09-07 03:00 | P.HPIM ---
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 Of note, the patient recently had a suspected CVA in 05/06 and has since been ambulating with a walker. The sister reports that she was contacted shortly after the patient had undergone a recent physical therapy appointment that the patient was feeling weak in her right lower extremity. Patient reports she has been feeling diffusely weak over the past 1-2 days but that it acutely worsened tonight. She had an extensive workup for possible CVA back in 05/06 when in the EEG was suggestive of diffuse encephalopathy with no obvious abnormalities noted on CT imaging of brain. Patient notes persistent right lower extremity weakness at the time of interview. Code stroke was activated in the emergency room. The patient was deemed to not be a candidate for TPA. CT angiogram of head and neck revealed no acute abnormalities with CT brain also revealing no acute abnormalities. EKG revealed sinus tachycardia 103 bpm with poor R-wave progression with no ST/T-wave changes noted as reviewed by me. Laboratory evaluation was reviewed with WBC count 8.3, hemoglobin 12.2, sodium 137, chloride 18, calcium 7.9, troponin less than 0.012. ED documentation reviewed and case discussed with ED provider. Review of systems: Pertinent positives and negatives as discussed in HPI, a complete review of systems was performed and all other systems are negative. Physical examination: Vital signs reviewed General: non toxic, no distress Derm: no unusual rashes/lesions, warm Head: atraumatic, normocephalic, symmetric Eyes: anicteric sclera, pupils equal round reactive to light ENT: Nose and ears atraumatic Neck: No cervical lymphadenopathy, trachea midline, supple Mouth: no lip lesion, mucus membranes moist Cardiovascular: S1S2 reg, no murmur, positive dorsalis pedis pulse bilateral, no edema Lungs: CTA bilateral, no rhonchi, no rales, no accessory muscle use Abdominal: soft, nontender to palpation, no guarding Ext: muscle strength 4/5 of jeffery upper extremities, strength 2/5 of jeffery lower extremities, no gross muscle atrophy, no contractures Neuro: CN II-XI grossly intact Psych: Alert, slow to respond, oriented, appropriate affect Assessment: Right lower extremity weakness, suspected CVA Chronic conditions: Hypothyroidism, seizure disorder, hyperlipidemia Imaging: CT angiogram of head and neck revealed no acute abnormalities with CT brain also revealing no acute abnormalities. EKG revealed sinus tachycardia 103 bpm with poor R-wave progression with no ST/T-wave changes noted as reviewed by me. Data Review: Laboratory evaluation was reviewed with WBC count 8.3, hemoglobin 12.2, sodium 137, chloride 18, calcium 7.9, troponin less than 0.012. Plan: Continue with aspirin and statin Neurology consult Neuro checks Fall and aspiration precautions PT and CASING TIER consult Obtain echocardiogram Cardiac monitoring DVT prophylaxis: Lovenox Subq The patient is admitted with an anticipated greater than 2 midnight stay for evaluation of RLE weakness CODE STATUS: Full Code Discussed with: Patient, sister Anticipated discharge place: Home Past Medical History Past Medical History: Asthma, Hearing Disorder / Deafness, Thyroid Disorder Additional Past Medical History / Comment(s): BILATERAL COCHLEAR IMPLANTS, HEARING AIDES, BORN WITH CLEFT PALATE/LIP WITH MULTIPLE SURGERIES, R FACIAL W EAKNESS, 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 History of Any Multi-Drug Resistant Organisms: None Reported Past Surgical History: Ear Surgery, Tubal Ligation Additional Past Surgical History / Comment(s): CLEFT PALETTE SX, JAW ALIGNMENT, PROSTHETIC EARS ( HAS BRACKETS ON SIDES OF HEAD) AND NOSE RECONSTRUCTION, JEFFERY COCHLEAR IMPLANTS, R EYE PLASTIC SURGERY TO MAKE FACE LOOK MORE SYMMETRICAL, L WRIST GANGLION CYST REMOVED TWICE. Past Anesthesia/Blood Transfusion Reactions: No Reported Reaction, Postoperative Nausea & Vomiting (PONV) Past Psychological History: No Psychological Hx Reported, Anxiety, Depression Additional Psychological History / Comment(s): Pt resides with her boyfriend and their 6 year old son. Pt has a sister, Agustina whom pt calls mom because her parents when pt was a 12 yr old and this sister raised her. Agustina is very helpful to pt and lives a few doors down. Pt is disabled and her sister, Agustina manages her SSI. Pt does not drive, Agustina takes her to appts. Smoking Status: Vaper Past Alcohol Use History: None Reported Past Drug Use History: Marijuana - Past Family History Father Family Medical History: Cancer Additional Family Medical History / Comment(s): COLON Cancer. Mother Family Medical History: Congestive Heart Failure (CHF) Medications and Allergies Home Medications Medication Instructions Recorded Confirmed Type Albuterol Sulfate [Proair Hfa] 2 puff INHALATION RT-QID PRN 02/26/16 09/06/23 History Montelukast [Singulair] 10 mg PO HS 03/01/16 09/06/23 History Cetirizine HCl [Zyrtec] 10 mg PO DAILY 04/25/23 09/06/23 History Atorvastatin [Lipitor] 40 mg PO DAILY tab 05/02/23 09/06/23 Rx Clopidogrel [Plavix] 75 mg PO DAILY tab 05/02/23 09/06/23 Rx Aspirin EC [Ecotrin Low Dose] 81 mg PO DAILY 09/06/23 09/06/23 History DULoxetine HCL [Cymbalta] 60 mg PO DAILY 09/06/23 09/06/23 History Levothyroxine Sodium [Synthroid] 175 mcg PO DAILY 09/06/23 09/06/23 History Sennosides [Senokot] 8.6 mg PO HS 09/06/23 09/06/23 History Topiramate [Topamax] 100 mg PO BID 09/06/23 09/06/23 History Allergies Allergy/AdvReac Type Severity Reaction Status Date / Time hydrocodone bitartrate AdvReac Nausea & Verified 09/06/23 21:58 [From Vicodin] Vomiting tramadol AdvReac Nausea & Verified 09/06/23 21:58 Vomiting Physical Exam Vitals: Vital Signs Temp Pulse Resp BP Pulse Ox 09/07/23 00:23 98.7 F 84 17 113/69 99 09/06/23 23:53 98.4 F 81 18 107/69 99 09/06/23 23:30 98.2 F 77 18 114/72 99 09/06/23 23:15 98.7 F 79 17 112/73 99 09/06/23 23:00 98.7 F 85 17 115/76 100 09/06/23 22:45 98.7 F 89 17 112/74 100 09/06/23 22:30 98.6 F 88 17 105/70 98 09/06/23 22:15 98.7 F 82 18 113/79 100 09/06/23 22:00 97.8 F 85 17 108/72 99 09/06/23 21:45 97.9 F 98 18 110/72 100 09/06/23 21:30 97.8 F 101 H 19 117/77 100 09/06/23 21:15 97.9 F 93 19 128/77 100 09/06/23 21:12 97.9 F 105 H 19 130/81 100 Intake and Output 09/06/23 09/06/23 09/07/23 14:59 22:59 06:59 Other: Weight 84.822 kg 84.822 kg Results CBC & Chem 7: 09/06/23 21:32 09/06/23 21:37 Labs: Abnormal Lab Results - Last 24 Hours (Table) 09/06/23 09/06/23 Range/Units 21:37 22:40 APTT 21.0 L (22.0-30.0) sec Chloride 112 H (98-107) mmol/L Carbon Dioxide 18 L (22-30) mmol/L Calcium 7.9 L (8.4-10.2) mg/dL Total Protein 5.7 L (6.3-8.2) g/dL Albumin 3.2 L (3.5-5.0) g/dL Thrombosis Risk Factor Assmnt - Choose All That Apply Any of the Below Risk Factors Present?: Yes Each Factor Represents 1 point: Obesity (BMI >25) Thrombosis Risk Factor Assessment Total Risk Factor Score: 1 Thrombosis Risk Factor Assessment Level: Low Risk
[2023-09-07] MEDS: LEVOTHYROXINE 100 MCG TAB PO SCH (06:03)
[2023-09-07] MEDS: LEVOTHYROXINE 75 MCG TAB PO SCH (06:04)
[2023-09-07] MEDS ORDERED: TOPIRAMATE 100 MG TAB PO SCH (09:00)
[2023-09-07] MEDS: ENOXAPARIN 40 MG/0.4 ML SYRINGE SQ SCH (09:12)
[2023-09-07] MEDS: CLOPIDOGREL 75 MG TAB PO SCH (09:12)
[2023-09-07] MEDS: DULoxetine HCL 60 MG CAPSULE.DR PO SCH (09:12)
[2023-09-07] MEDS: ASPIRIN 81 MG PO SCH (09:12)
--- NOTE | 2023-09-07 13:24 | P.CNNES ---
History of Present Illness Consult date: 09/07/23 Requesting physician: Mack Castillo Reason for Consult: stroke-like symptoms History of Present Illness: This is a 32-year-old woman with history of stroke with residual left-sided slight hemiparesis, cleft lip and palate with multiple facial surgeries with residual right facial weakness, cognitive impairment/learning disability, bilateral cochlear implants, migraine headache who presented emergency department because of unresponsiveness and staring spells. Some of the history is obtained from patient's sister (Agustina) who is the legal guardian. According to sister since the patient stroke since April 2023 patient had that total of 12 4 episode of unresponsiveness with staring spells. It seems that her boyfriend noticed recent episode recently stat lasting for about 20 minutes and as a result the the patient the sister wants her to be hospitalized for further investigation. The patient's sister did not witness the most recent episode but seems that the patient was unresponsive and she had staring spells lasting for 20 minutes with some postictal confusion that. According to sister she had a total 4 episodes since April 2023 and the sister know did witness one of the episodes and she had postictal confusion was prolonged. No jerk in of any extremities. No urinary or bowel incontinence no foaming around the mouth. She'll have her eyes open and she'll just area. She followed up with Dr. Johana Avery and she had an EEG in July but unknown the result. She was supposed to follow-up with him today for follow-up appointment. Patient is on Topamax 100 mg twice a day initially that sister stated that was placed at because of migraine but in July 2023 was increased by her neurologist. Because of the episode of unresponsiveness she also has a weakness on the right side since the most recent episode. Patient denies of any stressors at. Of note she was seen last by Dr. Valera in our facility on 05/02/2023. He reported the patient has altered mental status confusion staring spells left- sided weakness numbness in his symptoms started upon waking up from a nap possible acute stroke and she had dysarthria with left hemiparesis she did not receive the TPA area and he stated ulcerative there is any psychogenic overlay. He did an EEG which shows mild to moderate encephalopathy and she had intermittent sporadic left temporal sharps no seizure was noted. please refer to his note for further details. Some of the workup during his hospital visit consisted of: CBC with differential is unremarkable Calcium is 7.9, HDL is within normal limits, glucose is 92. Sodium is 137. CT of the head is reported as bilateral cochlear implants was treated artifact limiting evaluation of those lower brain. No acute intracranial processes were visualized. I personally reviewed the CT and I agree there is artifact due to the cochlear implant but there is no appreciable acute or subacute ischemia and there is no bleed. CT angiography of the head and neck is reported as no evidence of dissection of the cervical internal carotid arteries or vertebral artery or any evidence of significant stenosis at the carotid bifurcation. No evidence of intracranial high-grade stenosis or intracranial aneurysm. Review of Systems The positive and negative as per HPI. 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 History of Any Multi-Drug Resistant Organisms: None Reported Past Surgical History: Ear Surgery, Tubal Ligation Additional Past Surgical History / Comment(s): CLEFT PALETTE SX, JAW ALIGNMENT, PROSTHETIC EARS ( HAS BRACKETS ON SIDES OF HEAD) AND NOSE RECONSTRUCTION, JEFFERY COCHLEAR IMPLANTS, R EYE PLASTIC SURGERY TO MAKE FACE LOOK MORE SYMMETRICAL, L WRIST GANGLION CYST REMOVED TWICE. Past Anesthesia/Blood Transfusion Reactions: No Reported Reaction, Postoperative Nausea & Vomiting (PONV) Past Psychological History: No Psychological Hx Reported, Anxiety, Depression Additional Psychological History / Comment(s): Pt resides with her boyfriend and their 6 year old son. Pt has a sister, Agustina whom pt calls mom because her parents when pt was a 12 yr old and this sister raised her. Agustina is very helpful to pt and lives a few doors down. Pt is disabled and her sister, Agustina manages her SSI. Pt does not drive, Agustina takes her to [employer]. Smoking Status: Vaper Past Alcohol Use History: None Reported Past Drug Use History: Marijuana - Past Family History Father Family Medical History: Cancer Additional Family Medical History / Comment(s): COLON Cancer. Mother Family Medical History: Congestive Heart Failure (CHF) Medications and Allergies Home Medications Medication Instructions Recorded Confirmed Type Albuterol Sulfate [Proair Hfa] 2 puff INHALATION RT-QID PRN 02/26/16 09/06/23 History Montelukast [Singulair] 10 mg PO HS 03/01/16 09/06/23 History Cetirizine HCl [Zyrtec] 10 mg PO DAILY 04/25/23 09/06/23 History Atorvastatin [Lipitor] 40 mg PO DAILY tab 05/02/23 09/06/23 Rx Clopidogrel [Plavix] 75 mg PO DAILY tab 05/02/23 09/06/23 Rx Aspirin EC [Ecotrin Low Dose] 81 mg PO DAILY 09/06/23 09/06/23 History DULoxetine HCL [Cymbalta] 60 mg PO DAILY 09/06/23 09/06/23 History Levothyroxine Sodium [Synthroid] 175 mcg PO DAILY 09/06/23 09/06/23 History Sennosides [Senokot] 8.6 mg PO HS 09/06/23 09/06/23 History Topiramate [Topamax] 100 mg PO BID 09/06/23 09/06/23 History Allergies Allergy/AdvReac Type Severity Reaction Status Date / Time hydrocodone bitartrate AdvReac Nausea & Verified 09/06/23 21:58 [From Vicodin] Vomiting tramadol AdvReac Nausea & Verified 09/06/23 21:58 Vomiting Physical Examination - Vital Signs Vital Signs: Vital Signs Temp Pulse Pulse Resp BP BP Pulse Ox 09/07/23 09:41 98 09/07/23 08:00 97.6 F 88 16 114/56 98 09/07/23 04:00 90 16 107/71 97 09/07/23 02:00 17 09/07/23 01:10 97.7 F 82 16 107/71 96 09/07/23 00:23 98.7 F 84 17 113/69 99 09/06/23 23:53 98.4 F 81 18 107/69 99 09/06/23 23:30 98.2 F 77 18 114/72 99 09/06/23 23:15 98.7 F 79 17 112/73 99 09/06/23 23:00 98.7 F 85 17 115/76 100 09/06/23 22:45 98.7 F 89 17 112/74 100 09/06/23 22:30 98.6 F 88 17 105/70 98 09/06/23 22:15 98.7 F 82 18 113/79 100 09/06/23 22:00 97.8 F 85 17 108/72 99 09/06/23 21:45 97.9 F 98 18 110/72 100 09/06/23 21:30 97.8 F 101 H 19 117/77 100 09/06/23 21:15 97.9 F 93 19 128/77 100 09/06/23 21:12 97.9 F 105 H 19 130/81 100 Intake and Output 09/06/23 09/07/23 09/07/23 22:59 06:59 14:59 Intake Total 120 Balance 120 Intake: Oral 120 Other: # Voids 0 0 Weight 84.822 kg 84.822 kg GENERAL: The patient is sitting in a recliner chair and is not in acute dist ress. HENT: Supple neck. NEUROLOGICAL: Higher mental function: The patient is awake, alert, oriented to self, place and time. Patient has some delay in response. She seems flat affect. Patient is following simple commands. No aphasia and no neglect. Cranial nerves: The pupils are round, equal and reactive to light. Visual ortiz are full to confrontation throughout. Extraocular movement is has lazy eye on the right eye and per sister old. Otherwise no nystagmus is noted. Facial sensation is normal to touch throughout. Has right lower facial weakness that is mild and is chronic. Hearing is normal bilaterally to hand rub. Tongue is midline and moved [id number] without any difficulty. No dysarthria is noted. Shoulder shrug is normal bilaterally. Motor: The strength is limited in assessment individual muscles since weakness and poor effort. He shouldn't was able to lift of bilateral upper extremity above gravity but again I felt there is a poor effort the. While lowers she was not able to move above gravity and I felt she had maybe a 1 but again I felt like she there is also effort related. Normal tone and bulk. Cerebellum: Normal finger to nose bilaterally. Sensation: Sensation is normal to touch throughout. Reflexes (right/left): 2+ throughout. Plantars are mute bilaterally. Results - Laboratory Findings CBC and BMP: 09/06/23 21:32 09/06/23 21:37 Abnormal Lab Findings: Abnormal Labs 09/06/23 09/06/23 21:37 22:40 APTT 21.0 L Chloride 112 H Carbon Dioxide 18 L Calcium 7.9 L Total Protein 5.7 L Albumin 3.2 L Assessment and Plan Assessment: This is a 32-year-old woman with history of stroke with residual left-sided weakness and per the sister she walks with a walker and has mild weakness on the left side since April 2023 who has been having 4 episodes of unresponsiveness with blank stares since April 2023 and the episodes are prolonged with prolonged postictal state but no jerking of extremity urinary bowel incontinence. She recently had the witnessed on response with blank stares by her boyfriend and she has currently right-sided weakness. On examination there is poor effort on muscle strength. 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 Possible new onset seizure. I felt on examination there is poor effort on individual muscle strength. History of stroke with residual mild left hemiparesis and walks with a walker. Stroke was in April 2023 History of cleft lip/palate and had multiple facial surgeries with residual right facial weakness Underlying cognitive impairment/learning disability and resides with her boyfriend who is also disabled and has a son History of bilateral cochlear implant History of migraine headache History of Plan: Cannot obtain MRI since the patient has cochlear implant. We'll consider repeating CT of the head tomorrow. I spoke with the primary team and will pursue with an EEG Will go up on Topamax from 100 mg twice a day 150 mg twice a day which can help with her migraines as well as a has antiepileptic effect Seizure because of seizure pads Patient is on aspirin 81 mg, Plavix 75 mg and Lipitor 80 mg daily at bedtime Continue neuro checks PT OT and ACCOUNT GENERAL MANAGER are consulted 2-D echo was ordered and is pending We'll defer the rest of medical management to the primary team The plan was discussed with the patient, her sister was the legal guardian and the primary attending. Thank you for the consultation Time with Patient: Greater than 30
--- NOTE | 2023-09-07 17:32 | P.CONS ---
History of Present Illness - Reason for Consult Consult date: 09/07/23 - Chief Complaint weakness, possible seizure - History of Present Illness Ms Ngozi Coto is a 32 y/o single female who lives with her boyfriend and 6 year old son in a single story home with 3 ALEYDA. Patient has a legal guardian, Sister Agustina, whom she refers to as her mother (raised her from age 12). She was using a walker for ambulation, able to perform basic ADLs, but her sister assisted with bathing, medications, and finances. She gets transportation provided by her sister. 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 She did well and was able to transition back home and was doing outpatient therapy. Patent presented to the hospital after multiple episodes over the past couple of months of "blank staring" episodes, sometimes lasting 20 minutes at a time. She has had at least 4 episodes since her discharge from [facility]. She was following outpatient with neurology, recently had her Topomax dose increased in July for Migraines. She was supposed to have a follow up with neurology on the day she presented to the hospital. She was also noted to have right sided weakness which was new. Neurology consulted. Head CT and CTA with no acute process. She is unable to have an MRI due to her cochlear implants. EKG with sinus tachycardia. Neurology ordered EEG, Echo, and increased her Topomax. PM&R consulted for rehab recommendations. Patient was cleared by speech therapy, thought to be at her baseline function. She needed total assist with bathing, UB dressing max, LB dressing total assist, grooming min assist, eating supervision, transfers dependent ( 2 ppl mod assist), was unable to ambulate at this time, standing balance supported due to knees buckling. 09/07/23: Patient seen sitting in recliner with legs elevated, sister at her bedside. She denies CP, SOB, and abdominal pain. She admits to some functional incontinence since her stroke in April, now wears a pad liner. She has chronic constipation, takes daily softeners at home. She has had 4 of these " episodes" since her stroke. Per her sister she has been seeing neurology outpatient, had not had any episodes since her increase of Topomax in July. She denies loss of bowel or bladder or tongue biting during these episodes. She does not remember them and cannot tell what us going on around her when they occur. Per her sister, she had been making good progress with outpatient therapy but in the last couple of visits they noted that she had hit a plateau and even had some regression. She had an outpatient EEG with Neurology on Aug 25 and was supposed to get the results on her day of admission to the hospital. Per sister and patient she was able to walk with her walker earlier in the day prior to admission. She is now unable to lift her legs, has significant weakness in her right arm. She did have some residual left sided weakness from her stroke, but that is now worse. She has had vision changes since her stroke in April and is planning to follow with ophthalmology on Sep 17. She reports numbness and tingling in her distal arms and hands as well as her feet,new. 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 History of Any Multi-Drug Resistant Organisms: None Reported Past Surgical History: Ear Surgery, Tubal Ligation Additional Past Surgical History / Comment(s): CLEFT PALETTE SX, JAW ALIGNMENT, PROSTHETIC EARS ( HAS BRACKETS ON SIDES OF HEAD) AND NOSE RECONSTRUCTION, JEFFERY COCHLEAR IMPLANTS, R EYE PLASTIC SURGERY TO MAKE FACE LOOK MORE SYMMETRICAL, L WRIST GANGLION CYST REMOVED TWICE. Past Anesthesia/Blood Transfusion Reactions: No Reported Reaction, Postoperative Nausea & Vomiting (PONV) Past Psychological History: No Psychological Hx Reported, Anxiety, Depression Additional Psychological History / Comment(s): Pt resides with her boyfriend and their 6 year old son. Pt has a sister, Agustina whom pt calls mom because her parents when pt was a 12 yr old and this sister raised her. Agustina is very helpful to pt and lives a few doors down. Pt is disabled and her sister, Agustina manages her SSI. Pt does not drive, Agustina takes her to appts. Smoking Status: Vaper Past Alcohol Use History: None Reported Past Drug Use History: Marijuana - Past Family History Father Family Medical History: Cancer Additional Family Medical History / Comment(s): COLON Cancer. Mother Family Medical History: Congestive Heart Failure (CHF) Medications and Allergies Home Medications Medication Instructions Recorded Confirmed Type Albuterol Sulfate [Proair Hfa] 2 puff INHALATION RT-QID PRN 02/26/16 09/06/23 H istory Montelukast [Singulair] 10 mg PO HS 03/01/16 09/06/23 History Cetirizine HCl [Zyrtec] 10 mg PO DAILY 04/25/23 09/06/23 History Atorvastatin [Lipitor] 40 mg PO DAILY tab 05/02/23 09/06/23 Rx Clopidogrel [Plavix] 75 mg PO DAILY tab 05/02/23 09/06/23 Rx Aspirin EC [Ecotrin Low Dose] 81 mg PO DAILY 09/06/23 09/06/23 History DULoxetine HCL [Cymbalta] 60 mg PO DAILY 09/06/23 09/06/23 History Levothyroxine Sodium [Synthroid] 175 mcg PO DAILY 09/06/23 09/06/23 History Sennosides [Senokot] 8.6 mg PO HS 09/06/23 09/06/23 History Topiramate [Topamax] 100 mg PO BID 09/06/23 09/06/23 History Allergies Allergy/AdvReac Type Severity Reaction Status Date / Time hydrocodone bitartrate AdvReac Nausea & Verified 09/06/23 21:58 [From Vicodin] Vomiting tramadol AdvReac Nausea & Verified 09/06/23 21:58 Vomiting Physical Exam Vitals: Vital Signs Temp Pulse Pulse Resp BP BP Pulse Ox 09/07/23 09:41 98 09/07/23 08:00 97.6 F 88 16 114/56 98 09/07/23 04:00 90 16 107/71 97 09/07/23 02:00 17 09/07/23 01:10 97.7 F 82 16 107/71 96 09/07/23 00:23 98.7 F 84 17 113/69 99 09/06/23 23:53 98.4 F 81 18 107/69 99 09/06/23 23:30 98.2 F 77 18 114/72 99 09/06/23 23:15 98.7 F 79 17 112/73 99 09/06/23 23:00 98.7 F 85 17 115/76 100 09/06/23 22:45 98.7 F 89 17 112/74 100 09/06/23 22:30 98.6 F 88 17 105/70 98 09/06/23 22:15 98.7 F 82 18 113/79 100 09/06/23 22:00 97.8 F 85 17 108/72 99 09/06/23 21:45 97.9 F 98 18 110/72 100 09/06/23 21:30 97.8 F 101 H 19 117/77 100 09/06/23 21:15 97.9 F 93 19 128/77 100 09/06/23 21:12 97.9 F 105 H 19 130/81 100 Intake and Output 09/06/23 09/07/23 09/07/23 22:59 06:59 14:59 Intake Total 120 Balance 120 Intake: Oral 120 Other: # Voids 0 0 Weight 84.822 kg 84.822 kg EXAM; General: WDWN, young female sitting up in recliner with leg elevated, NAD, sister at the bedside Head: Nontraumatic Eyes: slight eye ptosis Ears: bilateral cochlear implants Mouth: Clear. Neck: Supple. Cardiac: operating room manager on, Calves supple, non tender, trace ankle edema Lungs: Breathing comfortably on RA. Chest symmetric. Abdomen: Soft, nontender. Neurological: Alert and oriented x 4. Speech is slightly slurred but baseline, history of right facial palsy, slight left facial droop-not new Sensation: reports decreased sensation to light touch distal arms/hands/ bilateral feet to light touch Musculoskeletal: LE paresis, bilateral UE weakness proximal greater than distal MMT UE Sh Abd EE EF FABD WE HG Right 3- 3+ 3+ 2 Left 3- 3+ 3+ 3- MMT LE HF KE DF EHL Right 0 0 0 1 Left 0 0 0 1 Reflexes Biceps Triceps Brachioradialis Patella Achilles Babinski Hoffmans Right 2 2 2 2 2 Left 2 2 2 2 2 Skin: Skin intact where visible to head, neck, and bilateral upper and lower extremities EXCEPT: peripheral IV Psych: Calm, cooperative Results CBC & Chem 7: 09/06/23 21:32 09/06/23 21:37 Labs: Abnormal Lab Results - Last 24 Hours (Table) 09/06/23 09/06/23 Range/Units 21:37 22:40 APTT 21.0 L (22.0-30.0) sec Chloride 112 H (98-107) mmol/L Carbon Dioxide 18 L (22-30) mmol/L Calcium 7.9 L (8.4-10.2) mg/dL Total Protein 5.7 L (6.3-8.2) g/dL Albumin 3.2 L (3.5-5.0) g/dL Assessment and Plan Assessment: # 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 # Seizure like activity with post ictal states, new onset -Neurology following, EEG pending, seizure precautions -PT/OT, inner layer scrubber tender signed off # Right sided weakness, new onset -CT head negative # left sided residual weakness due to recent ( April 2023) CVA -on ASA, plavix, statin # Impaired gait and ADLs secondary to above # Cognitive impairment # Impaired hearing, bilateral cochlear implants # History of right facial palsy with multiple surgeries #Bowel/ Bladder: Nursing to monitor and report concerns if any. # Diet- per EMR # Skin/wound: Skin/Wound care to follow as needed # Pain Management- cymbalta # DVT Prophylaxis: Lovenox # Comorbidities: migraines # Your medical dx and mgt Goals: Modified Independent mobility and ADLS both basic and advanced; increased functional mobility/strength; increased balance, safety, endurance. Improvement in medical issues through your care. Barriers: weakness, fall risk, history of cva Discharge recommendation: PM&R will continue to follow, patient needing significant assistance from her baseline function. She is pending further medical work up. May be an IPR candidate, discussed with patient and her sister. Patient seen and examined in coordination with Dr. Vazquez Patient seen and examined by me in coordination with CHIN Meehan; agree with note, edited as needed.
[2023-09-07] MEDS: ATORVASTATIN 80 MG TAB PO SCH (20:15)
[2023-09-07] MEDS: TOPIRAMATE 100 MG TAB PO SCH (20:15)
[2023-09-07] MEDS: MONTELUKAST 10 MG TAB PO SCH (20:15)
[2023-09-08] MEDS: LEVOTHYROXINE 75 MCG TAB PO SCH (06:12)
[2023-09-08] MEDS: LEVOTHYROXINE 100 MCG TAB PO SCH (06:12)
[2023-09-08] MEDS: SODIUM CHLORIDE 0.9% 1,000 ML IV SCH ×2 (06:12→18:52)
[2023-09-08] MEDS: CLOPIDOGREL 75 MG TAB PO SCH (09:06)
[2023-09-08] MEDS: ASPIRIN 81 MG PO SCH (09:06)
[2023-09-08] MEDS: ENOXAPARIN 40 MG/0.4 ML SYRINGE SQ SCH (09:06)
[2023-09-08] MEDS: DULoxetine HCL 60 MG CAPSULE.DR PO SCH (09:06)
[2023-09-08] MEDS: TOPIRAMATE 100 MG TAB PO SCH ×2 (09:06→20:04)
--- NOTE | 2023-09-08 11:14 | CA ---
Transthoracic Echo Report Name: Ngozi Coto Age: 32 Gender: F : 1990 Exam Date: 09/07/2023 16:39 Exam Location: [place] [facility] Ht (in): 58 Wt (lb): 187 Ordering Physician: Caroline Blum MD Attending/Referring Phys: [employer] Safety [employer] Health Specialist Marzena Phan RDCS Procedure CPT: Indications: CVA Cardiac Hx: Technical Quality: Fair Contrast 1: Total Dose (mL): Contrast 2: Total Dose (mL): MEASUREMENTS (Male / Female) Normal Values 2D ECHO LV Diastolic Diameter PLAX 3.5 cm 4.2 - 5.9 / 3.9 - 5.3 cm LV Systolic Diameter PLAX 2.2 cm IVS Diastolic Thickness 0.9 cm 0.6 - 1.0 / 0.6 - 0.9 cm LVPW Diastolic Thickness 1.1 cm 0.6 - 1.0 / 0.6 - 0.9 cm LV Relative Wall Thickness 0.5 FINDINGS Left Ventricle Normal Left ventricular size, wall thickness, systolic function with no obvious regional wall motion abnormalities. Left ventricular ejection fraction is estimated at 55-60 %. Right Ventricle Right Atrium Normal right atrial size. No right atrial thrombus or mass seen. Left Atrium Normal left atrial size. No left atrial thrombus or mass present. Mitral Valve Aortic Valve Tricuspid Valve Pulmonic Valve Pericardium No pericardial effusion. Aorta CONCLUSIONS Limited Echo Normal LV size and systolic function. LVEF estimated at 55-60% No obvious regional wall motion abnormality Normal RA and LA size No pericardial effusion Previewed by: Dr Jarod Thompson (Electronically Signed) Final Date: 08 September 2023 11:13
--- NOTE | 2023-09-08 14:27 | P.PN ---
Subjective Progress Note Date: 09/08/23 I am following-up with patient and per her legal guardian, she does not feel she is back to baseline since still having weakness in lowers and cannot move it. Patient denies of any headaches, nausea or vomiting. Denies of any stressors. No further seizure-like activity overnight or today. Objective - Vital Signs Vital signs: Vital Signs Temp 97.8 F 09/08/23 08:00 Pulse 72 09/08/23 12:00 Resp 18 09/08/23 12:00 BP 116/78 09/08/23 12:00 Pulse Ox 99 09/08/23 12:39 FiO2 Intake & Output 09/07/23 09/08/23 09/08/23 18:59 06:59 18:59 Intake Total 600 1080 Output Total 400 Balance 200 1080 Intake: Oral 600 1080 Output: Urine 400 Other: # Voids 0 1 - Exam GENERAL: The patient is sitting in a recliner chair and is not in acute distress. HENT: Supple neck. NEUROLOGICAL: Higher mental function: The patient is awake, alert, oriented to self, place and time. Patient has some delay in response. She seems flat affect. Patient is following simple commands. No aphasia and no neglect. Cranial nerves: The pupils are round, equal and reactive to light. Visual ortiz are full to confrontation throughout. Extraocular movement is has lazy eye on the right eye and per sister old. Otherwise no nystagmus is noted. Facial sensation is normal to touch throughout. Has right lower facial weakness that is mild and is chronic. Hearing is normal bilaterally to hand rub. Tongue is midline and moved [id number] without any difficulty. No dysarthria is noted. Shoulder shrug is normal bilaterally. Motor: The strength is limited in assessment individual muscles since weakness and poor effort. He shouldn't was able to lift of bilateral upper extremity above gravity but again I felt there is a poor effort the. While lowers she was not able to move above gravity and I felt she had maybe a 1 but again I felt like she there is also effort related. Normal tone and bulk. Cerebellum: Normal finger to nose bilaterally. Sensation: Sensation is normal to touch throughout. Reflexes (right/left): 2+ throughout. Plantars are mute bilaterally. Some of the workup during his hospital visit consisted of: CBC with differential is unremarkable Calcium is 7.9, HDL is within normal limits, glucose is 92. Sodium is 137. CT of the head is reported as bilateral cochlear implants was treated artifact limiting evaluation of those lower brain. No acute intracranial processes were visualized. I personally reviewed the CT and I agree there is artifact due to the cochlear implant but there is no appreciable acute or subacute ischemia and there is no bleed. CT angiography of the head and neck is reported as no evidence of dissection of the cervical internal carotid arteries or vertebral artery or any evidence of significant stenosis at the carotid bifurcation. No evidence of intracranial high-grade stenosis or intracranial aneurysm. 2-D echo is reported as normal size and systolic function. Ejection fraction of 55-60%. No obvious regional wall motion abnormality. Normal right atrium and left atrium size. No pericardial effusion - Labs CBC & Chem 7: 09/06/23 21:32 09/06/23 21:37 Assessment and Plan Assessment: This is a 32-year-old woman with history of stroke with residual left-sided wea kness and per the sister she walks with a walker and has mild weakness on the left side since April 2023 who has been having 4 episodes of unresponsiveness with blank stares since April 2023 and the episodes are prolonged with prolonged postictal state but no jerking of extremity urinary bowel incontinence. She recently had the witnessed on response with blank stares by her boyfriend and she has currently right-sided weakness. On examination there is poor effort on muscle strength. Episodes of unresponsive with blank stares with weakness over the right side is ?Bret's paralysis. Possible new onset seizure. I felt on examination there is poor effort on muscle strength. She had more lower > upper extremity weakness but again there is poor effort. Normal CBC with diff and is afebrile so it does not appear like underlying infection. History of stroke with residual mild left hemiparesis and walks with a walker. Stroke was in April 2023 History of cleft lip/palate and had multiple facial surgeries with residual right facial weakness Underlying cognitive impairment/learning disability and resides with her boyfriend who is also disabled and has a son History of bilateral cochlear implant History of migraine headache Plan: Cannot obtain MRI since the patient has cochlear implant. Will obtain repeat CT brain. Also will obtain CT cervical and lumbar. Her reflexes are normal. Routine EEG on 09/07/2023: Pending for EEG to be transcribed. I personally did not defect seizures. But I felt there is intermittent of sporadic left parietal suggestive of focal cortical irritability and tendency for seizure. I went up on Topamax from 100 mg twice a day 150 mg twice a day which can help with her migraines as well as a has antiepileptic effect. If has any further seizures consider Lamictal. Seizure because of seizure pads Patient is on aspirin 81 mg, Plavix 75 mg and Lipitor 80 mg daily at bedtime Continue neuro checks PT OT and CAR DISTRIBUTOR are consulted We'll defer the rest of medical management to the primary team. The plan was discussed with the patient, legal guardian and the primary attending. Will continue to follow. Time with Patient: Less than 30
--- NOTE | 2023-09-08 15:42 | P.PN ---
Subjective Progress Note Date: 09/08/23 Patient is a 32-year-old female with multiple congenital disorders, suspected recent CVA with left-sided residual deficits, hypothyroidism, seizure disorder, and hyperlipidemia who was brought to the emergency room accompanied by her sister/legal guardian with complaints of lower extremity weakness. Of note, the patient recently had a suspected CVA in 05/06 and has since been ambulating with a walker. The sister reports that she was contacted shortly after the patient had undergone a recent physical therapy appointment that the patient was feeling weak in her right lower extremity. Patient reports she has been feeling diffusely weak over the past 1-2 days but that it acutely worsened tonight. She had an extensive workup for possible CVA back in 05/06 when in the EEG was suggestive of diffuse encephalopathy with no obvious abnormalities noted on CT imaging of brain. Patient notes persistent right lower extremity weakness at the time of interview. Code stroke was activated in the emergency room. The patient was deemed to not be a candidate for TPA. CT angiogram of head and neck revealed no acute abnormalities with CT brain also revealing no acute abnormalities. EKG revealed sinus tachycardia 103 bpm with poor R-wave progression with no ST/T-wave changes noted as reviewed by me. Laboratory evaluation was reviewed with WBC count 8.3, hemoglobin 12.2, sodium 137, chloride 18, calcium 7.9, troponin less than 0.012. Patient is admitted for acute on chronic diastolic CHF exacerbation. 09/08 Patient was seen and examined. Guardian at bedside. Patient continues to experience profound weakness in both legs and arms along with weakened visual manager strength. Case was discussed with Dr. Silverio, patient and guardian at bedside, plans for repeat CT brain and CT C-spine, abnormal EEG but no seizure like activity seen, increase Topamax. PMR has been consulted for possible IPR. Echocardiogram is within normal limits. Vital signs reviewed General: non toxic, no distress Head: atraumatic, normocephalic, symmetric Eyes: anicteric sclera ENT: Nose and ears atraumatic Cardiovascular: S1S2 reg, no murmur, no edema Lungs: CTA bilateral, no rhonchi, no rales, no accessory muscle use Ext: muscle strength 3/5 of fabricio upper extremities, strength 1/5 of fabricio lower extremities, no gross muscle atrophy, no contractures Neuro: Sensation intact to touch in all 4 extremities. Normal reflexes. Psych: Alert, slow to respond, oriented, appropriate affect Right lower extremity weakness, suspected CVA vs Todds paralysis History of CVA with residual L sided weakness Chronic conditions: Hypothyroidism, seizure disorder, hyperlipidemia Based on my assessment of this patient, this patient meets a high complexity level of care. Patient has a history of CVA with residual left sided weakness severe exacerbation or progression of disease which poses a threat to life or bodily function. She had an episode of unresponsiveness lasting over 20 minutes followed by profound weakness in all 4 extremities. Right lower extremity weakness, suspected CVA vs Todds paralysis: Repeat CT head and and CT C-spine ordered. Abnormal EEG: Discussed with Dr. Silverio, Topamax increased from 100 to 150 mg PO BID. ASA 81 mg PO QD. Lipitor 80 mg PO QHS. Plavix 75 mg PO QD. Neurochecks. Telemetry monitoring. History of CVA with residual L sided weakness Lovenox SQ for DVT prophylaxis. FULL CODE. I have reviewed the following product support consultant notes: Neuro note. I have reviewed the results of the following tests: Echo I have ordered the following tests: CT brain. CT C-spine. I have discussed the care of this patient with the following independent historian: I have independently interpreted the following test below: I have discussed the management of this patient with the following physician: Discussed with Dr. Silverio at bedside. Objective - Vital Signs Vital signs: Vital Signs Temp 97.8 F 09/08/23 08:00 Pulse 72 09/08/23 12:00 Resp 18 09/08/23 12:00 BP 116/78 09/08/23 12:00 Pulse Ox 99 09/08/23 12:39 FiO2 Intake & Output 09/07/23 09/08/23 09/08/23 18:59 06:59 18:59 Intake Total 600 1080 Output Total 400 Balance 200 1080 Intake: Oral 600 1080 Output: Urine 400 Other: # Voids 0 1 - Labs CBC & Chem 7: 09/06/23 21:32 09/06/23 21:37
--- NOTE | 2023-09-08 16:23 | CT ---
EXAMINATION TYPE: CT brain cspine wo con CT DLP: 1281.4 mGycm, Automated exposure control for dose reduction was used. DATE OF EXAM: 09/08/2023 4:15 PM COMPARISON: 09/06/2023 CLINICAL INDICATION:Female, 32 years old with history of r/o cva; R/O CVA. TECHNIQUE: Brain: Multiple axial CT images of the brain were obtained without IV contrast. Cspine: Axial CT images from the skull base to the inferior aspect of T2 we obtained without intraven ous contrast. Coronal and sagittal reformatted images were also reviewed. FINDINGS: Brain: Extra-axial spaces: No abnormal extra-axial fluid collections. Ventricular system: Within normal limits Cerebral parenchyma: Limited evaluation secondary to streak artifact. No acute intraparenchymal hemor rhage or mass effect. The neal-white junction is well differentiated. Cerebellum: Unremarkable. Mass effect: No evidence of midline shift. Intracranial vasculature: unremarkable Soft tissues: Normal. Calvarium/osseous structures: No depressed skull fracture. Streak artifact from metal implants limit evaluation the brain. Paranasal sinuses and mastoid air cells: Mild paranasal sinus disease. Visualized orbits: Orbital contents are intact. Cervical spine: Fracture: None. Osseous structures: Multilevel degenerative disc disease changes with endplate spurring and disc oste ophyte complex's. Vertebral alignment: Within normal limits. Spinal canal/Neural Foramina: Disc osteophyte complexes at ?? with at least mild spinal canal stenosi s. No evidence for significant neural foraminal stenosis. Neck soft tissues: Prevertebral soft tissues are within normal limits. IMPRESSION: 1. No change from 2 days ago. Limited evaluation of the brain secondary to streak artifact from meta l implants. 2. No acute intracranial process. 3. No evidence of cervical spine fracture. 4. Mild multilevel degenerative disc disease.
--- NOTE | 2023-09-08 16:24 | CT ---
EXAMINATION TYPE: CT lumbar spine wo con CT DLP: 1437.6 mGycm, Automated exposure control for dose reduction was used. DATE OF EXAM: 09/08/2023 4:15 PM COMPARISON: None. CLINICAL INDICATION:Female, 32 years old with history of leg weakness; PHH, Leg weakness. TECHNIQUE: Multiple axial images were obtained from the midportion of T11 through the sacroiliac nette nts. Soft tissue and bone windows in coronal and sagittal planes were obtained and reviewed. 3-D ref ormats of the bones were created on a separate workstation and submitted for review. Contrast used: none. Oral contrast used: none. FINDINGS: Alignment: There are 5 lumbar type vertebral bodies within normal alignment. Bone: No evidence of fracture is identified. Discs: T12-L1: No spinal canal or neural foraminal stenosis is identified. L1-L2: No spinal canal or neural foraminal stenosis is identified. L2-L3: No spinal canal or neural foraminal stenosis is identified. L3-L4: No spinal canal or neural foraminal stenosis is identified. L4-L5: No spinal canal or neural foraminal stenosis is identified. L5-S1: No spinal canal or neural foraminal stenosis is identified. Other: Nonobstructing left 3 mm calculus. IMPRESSION: 1. No evidence for spinal fracture. 2. No evidence for significant spinal canal or neural foraminal stenosis.
[2023-09-08] MEDS: ATORVASTATIN 80 MG TAB PO SCH (20:04)
[2023-09-08] MEDS: MONTELUKAST 10 MG TAB PO SCH (20:14)
[2023-09-09] MEDS: LEVOTHYROXINE 75 MCG TAB PO SCH (05:53)
[2023-09-09] MEDS: LEVOTHYROXINE 100 MCG TAB PO SCH (05:53)
--- NOTE | 2023-09-09 08:29 | EEG ---
ELECTROENCEPHALOGRAM REPORT CLINICAL HISTORY: This is a 32-year-old woman with episode of unresponsiveness and blank stares. The video EEG is obtained to evaluate for seizure epileptiform activity. RELEVANT MEDICATION: Topamax. EEG TYPE: Routine 21 channel EEG is performed with video using the 10/20 electrode placement system. DESCRIPTION: Wakefulness is obtained. During the awake state, the background consists of low voltage of 7 to 8 hertz that is poorly formed and poorly modulated. There is no physiological stage 2 sleep activity. There is no focal slowing. INTERICTAL AND ICTAL: There is 5 to 6 hertz of activity and it seems sharply contoured lasting for 1 second over the left parietal region. One time, it seems diffuse lasting between 2 to 3 seconds. There is no seizure noted during this study. ACTIVATION PROCEDURE: Photic stimulation did not evoke a posterior driving response. There is no abnormality during the photic stimulation. Hyperventilation is not performed. CLINICAL INTERPRETATION: This is an abnormal routine EEG. The background slowing is suggestive of mild encephalopathy. There is intermittent sporadic left parietal theta activity and at times it seems sharply contoured and at one time it seems diffuse in activity over bilateral hemisphere lasting between 2 to 3 seconds suggestive of focal cortical neuronal dysfunction. This may suggest underlying cortical irritability and tendency for seizure. No seizure noted during this study. Clinical correlation is recommended. MMODL / IJN: [id number] / HARRIET
[2023-09-09] MEDS: CLOPIDOGREL 75 MG TAB PO SCH (08:53)
[2023-09-09] MEDS: ENOXAPARIN 40 MG/0.4 ML SYRINGE SQ SCH (08:53)
[2023-09-09] MEDS: DULoxetine HCL 60 MG CAPSULE.DR PO SCH (08:53)
[2023-09-09] MEDS: ASPIRIN 81 MG PO SCH (08:53)
[2023-09-09] MEDS: TOPIRAMATE 100 MG TAB PO SCH ×2 (08:53→21:13)
--- NOTE | 2023-09-09 12:47 | P.PN ---
Subjective Progress Note Date: 09/09/23 I am follow-up with the patient and she is accompanied with her legal guardian. The patient legal guardian states that the patient is about the same and there is no improvement in the legal guardian states nobody has given her answers of what's going on. She continues to have weakness of upper and lower but mostly lower extremity. No further the soles of unresponsiveness or any seizure-like activity according to the legal guardian. According to the therapy team the patient is able to be help going to bathroom by her legal guardian walking and no other assistance during inpatient. Objective - Vital Signs Vital signs: Vital Signs Temp 98 F 09/09/23 08:55 Pulse 89 09/09/23 11:50 Resp 17 09/09/23 11:50 BP 102/71 09/09/23 11:50 Pulse Ox 98 09/09/23 11:50 FiO2 21 09/09/23 08:25 Intake & Output 09/08/23 09/09/23 09/09/23 18:59 06:59 18:59 Intake Total 1080 110 Balance 1080 110 Intake: Oral 1080 110 Other: # Voids 1 - Exam GENERAL: The patient is sitting in a recliner chair and is not in acute distress. HENT: Supple neck. NEUROLOGICAL: Higher mental function: The patient is awake, alert, oriented to self, place and time. Patient has some delay in response. She seems flat affect. Patient is following simple commands. No aphasia and no neglect. Cranial nerves: The pupils are round, equal and reactive to light. Visual ortiz are full to confrontation throughout. Extraocular movement is has lazy eye on the right eye and per sister old. Otherwise no nystagmus is noted. Facial sensation is normal to touch throughout. Has right lower facial weakness that is mild and is chronic. Hearing is normal bilaterally to hand rub. Tongue is midline and moved kyip-[id number]-giey without any difficulty. No dysarthria is noted. Shoulder shrug is normal bilaterally. Motor: The primary and I helped stand the patient upon on her feet with some support and was able to hold her legs up and it seemed off since if has no strength in lowers she would not be able to hold her self up. The strength is limited in assessment individual muscles testing since weakness and poor effort. Was able to lift of bilateral upper extremity above gravity but again I felt there is a poor effort and strength was felt 3. While lowers were 0 bilaterally and I felt there is poor effort related. Normal tone and bulk. Cerebellum: Normal finger to nose bilaterally. Sensation: Sensation is normal to touch throughout. Reflexes (right/left): 2+ throughout. Plantars are mute bilaterally. Some of the workup during his hospital visit consisted of: CBC with differential is unremarkable Calcium is 7.9, HDL is within normal limits, glucose is 92. Sodium is 137. CT of the head is reported as bilateral cochlear implants was treated artifact limiting evaluation of those lower brain. No acute intracranial processes were visualized. I personally reviewed the CT and I agree there is artifact due to the cochlear implant but there is no appreciable acute or subacute ischemia and there is no bleed. CT angiography of the head and neck is reported as no evidence of dissection of the cervical internal carotid arteries or vertebral artery or any evidence of significant stenosis at the carotid bifurcation. No evidence of intracranial high-grade stenosis or intracranial aneurysm. 2-D echo is reported as normal size and systolic function. Ejection fraction of 55-60%. No obvious regional wall motion abnormality. Normal right atrium and left atrium size. No pericardial effusion Routine EEG is abnormal. The background slowing suggestive of mild encephalopathy. There is intermittent sporadic left parietal theta activity and at times seems sharply contoured that at one time seems diffuse in activity over bilateral hemisphere lasting between 2-3 seconds suggestive of focal cortical neuronal dysfunction. This may suggest underlying cortical ribbon and tendency for seizure. No seizure noted during the study. Repeat CT of the head was reported as no change from 2 days ago. Limited evaluation of the brain secondary due to streak artifact from metal implant. No acute intracranial process. CT cervical spine is reported as No evidence of cervical spine fracture. Mild multilevel degenerative disc disease CT lumbar reported as no evidence for a spine fracture. No evidence for significance the spinal canal or neuronal foramina stenosis. - Labs CBC & Chem 7: 09/06/23 21:32 09/06/23 21:37 Assessment and Plan Assessment: This is a 32-year-old woman with history of stroke with residual left-sided weakness and per the sister she walks with a walker and has mild weakness on the left side since April 2023 who has been having 4 episodes of unresponsiveness with blank stares since April 2023 and the episodes are prolonged with prolonged postictal state but no jerking of extremity urinary bowel incontinence. She recently had the witnessed on response with blank stares by her boyfriend and she has currently right-sided weakness. On examination there is poor effort on muscle strength. Episodes of unresponsive with blank stares. ? Seizure on the EEG there is no evidence of seizure and according to the patient's legal guardian has not had any further episode of unresponsiveness. Weakness of lower more than upper and on examination there is effort related on examination. Patient had 2 CTs of the head which were negative but there is some limitation because of artifact, CT cervical and lumbar is negative. Normal CBC with diff and is afebrile so it does not appear like underlying infection. Again on examination there is effort related and per the therapy team patient's also showing inconsistency. Patient reflexes are normal. Her sensation is normal. 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 Stroke was in April 2023. On examination she's presenting of symmetrical weakness of upper and lower and again on unsure if she truly had a stroke. History of cleft lip/palate and had multiple facial surgeries with residual right facial weakness Underlying cognitive impairment/learning disability and resides with her boy friend who is also disabled and has a son History of bilateral cochlear implant History of migraine headache Plan: Patient legal guardian stated that her cochlear implant or MRI compatible that she was notified. We'll pursue with the MRI the brain and cervical spine with and without At this time there is no evidence for lumbar puncture and I don't feel patient has GBS since she has normal reflexes and normal sensation and if someone has significant weakness of expected reflexes to be a diminished. I went up on Topamax from 100 mg twice a day 150 mg twice a day which can help with her migraines as well as a has antiepileptic effect. If has any further seizures consider Lamictal. Seizure because of seizure pads Patient is on aspirin 81 mg, Plavix 75 mg and Lipitor 80 mg daily at bedtime Continue neuro checks PT OT and TEAR DOWN MAN are consulted We'll defer the rest of medical management to the primary team. The plan was discussed with the patient, legal guardian and the primary attending. Will continue to follow. Dr. Valera will start neurology service tomorrow A.M. Time with Patient: Less than 30
--- NOTE | 2023-09-09 13:32 | P.PN ---
Subjective Progress Note Date: 09/09/23 Patient is a 32-year-old female with multiple congenital disorders, suspected recent CVA with left-sided residual deficits, hypothyroidism, seizure disorder, and hyperlipidemia who was brought to the emergency room accompanied by her sister/legal guardian with complaints of lower extremity weakness. Of note, the patient recently had a suspected CVA in 05/06 and has since been ambulating with a walker. The sister reports that she was contacted shortly after the patient had undergone a recent physical therapy appointment that the patient was feeling weak in her right lower extremity. Patient reports she has been feeling diffusely weak over the past 1-2 days but that it acutely worsened tonight. She had an extensive workup for possible CVA back in 05/06 when in the EEG was suggestive of diffuse encephalopathy with no obvious abnormalities noted on CT imaging of brain. Patient notes persistent right lower extremity weakness at the time of interview. Code stroke was activated in the emergency room. The patient was deemed to not be a candidate for TPA. CT angiogram of head and neck revealed no acute abnormalities with CT brain also revealing no acute abnormalities. EKG revealed sinus tachycardia 103 bpm with poor R-wave progression with no ST/T-wave changes noted as reviewed by me. Laboratory evaluation was reviewed with WBC count 8.3, hemoglobin 12.2, sodium 137, chloride 18, calcium 7.9, troponin less than 0.012. Patient is admitted for acute on chronic diastolic CHF exacerbation. 09/08 Patient was seen and examined. Guardian at bedside. Patient continues to experience profound weakness in both legs and arms along with weakened milk hauler strength. Case was discussed with Dr. Silverio, patient and guardian at bedside, plans for repeat CT brain and CT C-spine, abnormal EEG but no seizure like activity seen, increase Topamax. PMR has been consulted for possible IPR. Echocardiogram is within normal limits. 09/09 Patient was seen and examined. Continued weakness bilateral UE and LE. Able to stand up with assist of Dr. Silverio but unable to take steps. Repeat CT brain and C-spine within normal limits. We will check if MRI is compatible with cochlear implant (information provided by guardian). ESR and CRP negative. Vital signs reviewed General: non toxic, no distress Head: atraumatic, normocephalic, symmetric Eyes: anicteric sclera ENT: Nose and ears atraumatic Cardiovascular: good distal perfusion in all 4 extremities, no edema Lungs: breathing comfortably, no accessory muscle use Ext: muscle strength 3/5 of fabricio upper extremities, strength 1/5 of fabricio lower extremities, no gross muscle atrophy, no contractures Neuro: Sensation intact to touch in all 4 extremities. Normal reflexes. Psych: Alert, slow to respond, oriented, appropriate affect Right lower extremity weakness, suspected CVA vs Todds paralysis History of CVA with residual L sided weakness Chronic conditions: Hypothyroidism, seizure disorder, hyperlipidemia Based on my assessment of this patient, this patient meets a high complexity level of care. Patient has a history of CVA with residual left sided weakness severe exacerbation or progression of disease which poses a threat to life or bodily function. She had an episode of unresponsiveness lasting over 20 minutes followed by profound weakness in all 4 extremities. Right lower extremity weakness, suspected CVA vs Todds paralysis vs conversion disorder: Repeat CT head and and CT C-spine unremarkable. Abnormal EEG: Discussed with Dr. Silverio, Topamax increased from 100 to 150 mg PO BID. ASA 81 mg PO QD. Lipitor 80 mg PO QHS. Plavix 75 mg PO QD. Neurochecks. Telemetry monitoring. History of CVA with residual L sided weakness Lovenox SQ for DVT prophylaxis. FULL CODE. I have reviewed the following compensation consultant notes: Neuro note. I have reviewed the results of the following tests: CT brain. CT C-spine. I have ordered the following tests: MRI brain, C-spine w/wo. I have discussed the care of this patient with the following independent historian: Guardian at bedside. RN. I have independently interpreted the following test below: I have discussed the management of this patient with the following physician: Discussed with Dr. Silverio at bedside. Objective - Vital Signs Vital signs: Vital Signs Temp 98 F 09/09/23 08:55 Pulse 89 09/09/23 11:50 Resp 17 09/09/23 11:50 BP 102/71 09/09/23 11:50 Pulse Ox 98 09/09/23 11:50 FiO2 21 09/09/23 08:25 Intake & Output 09/08/23 09/09/23 09/09/23 18:59 06:59 18:59 Intake Total 1080 220 Balance 1080 220 Intake: Oral 1080 220 Other: # Voids 1 - Labs CBC & Chem 7: 09/06/23 21:32 09/06/23 21:37
--- NOTE | 2023-09-09 15:54 | P.PN ---
Subjective Progress Note Date: 09/09/23 Principal diagnosis: Stroke like symptoms Ms Ngozi Coto is a 32 y/o single female who lives with her boyfriend and 6 year old son in a single story home with 3 ALEYDA. Patient has a legal guardian, Sister Agustina, whom she refers to as her mother (raised her from age 12). She was using a walker for ambulation, able to perform basic ADLs, but her sister assisted with bathing, medications, and finances. She gets transportation provided by her sister. She was on [facility] floor in April 2023 after CVA with left hemiparesis. She did well and was able to transition back home and was doing outpatient therapy. Patent presented to the hospital after multiple episodes over the past couple of months of "blank staring" episodes, sometimes lasting 20 minutes at a time. She has had at least 4 episodes since her discharge from [facility]. She was following outpatient with neurology, recently had her Topomax dose increased in July for Migraines. She was supposed to have a follow up with neurology on the day she presented to the hospital. She was also noted to have right sided weakness which was new. Neurology consulted. Head CT and CTA with no acute process. She is unable to have an MRI due to her cochlear implants. EKG with sinus tachycardia. Neurology ordered EEG, Echo, and increased her Topomax. PM&R consulted for rehab recommendations. Patient was cleared by speech therapy, thought to be at her baseline function. She needed total assist with bathing, UB dressing max, LB dressing total assist, grooming min assist, eating supervision, transfers dependent ( 2 ppl mod assist), was unable to ambulate at this time, standing balance supported due to knees buckling. 09/07/23: Patient seen sitting in recliner with legs elevated, sister at her bedside. She denies CP, SOB, and abdominal pain. She admits to some functional incontinence since her stroke in April, now wears a pad liner. She has chronic constipation, takes daily softeners at home. She has had 4 of these " episodes" since her stroke. Per her sister she has been seeing neurology outpatient, had not had any episodes since her increase of Topomax in July. She denies loss of bowel or bladder or tongue biting during these episodes. She does not remember them and cannot tell what us going on around her when they occur. Per her sister, she had been making good progress with outpatient therapy but in the last couple of visits they noted that she had hit a plateau and even had some regression. She had an outpatient EEG with Neurology on Aug 25 and was supposed to get the results on her day of admission to the hospital. Per sister and patient she was able to walk with her walker earlier in the day prior to admission. She is now unable to lift her legs, has significant weakness in her right arm. She did have some residual left sided weakness from her stroke, but that is now worse. She has had vision changes since her stroke in April and is planning to follow with ophthalmology on Sep 17. She reports numbness and tingling in her distal arms and hands as well as her feet,new. 09/09/2023: Patient found in recliner, with legs elevated. Patient denies CP, SOB and abdominal pain. Denies issues with urination, LBM 09/07. Patient does complain of some headaches. Patient is frustrated that she does not have any answers regarding medical diagnosis. Patient reports that she is willing to work with therapy, and wants to gain her strength and go back home. Patient has pending MRI of the brain. Therapy progress as of 09/09: Bathing total assist, UB dressing max assist, LB dressing total assist, grooming min assist, eating supervision, toileting ability total assist, bed mobility max assist, total assist transfers Objective - Vital Signs Vital signs: Vital Signs Temp 98 F 09/09/23 08:55 Pulse 89 09/09/23 11:50 Resp 17 09/09/23 11:50 BP 102/71 09/09/23 11:50 Pulse Ox 98 09/09/23 11:50 FiO2 21 09/09/23 08:25 Intake & Output 09/08/23 09/09/23 09/09/23 18:59 06:59 18:59 Intake Total 1080 220 Balance 1080 220 Intake: Oral 1080 220 Other: # Voids 1 - Exam EXAM; General: WDWN, young female sitting up in recliner with legs elevated, NAD Head: Nontraumatic Eyes: slight eye ptosis Ears: bilateral cochlear implants Mouth: Clear. Neck: Supple. Cardiac: monitoring and evaluation advisor on, Calves supple, non tender, trace ankle edema Lungs: Breathing comfortably on RA. Chest symmetric. Abdomen: Soft, nontender. Neurological: Alert and oriented x 4. 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 # Seizure like activity with post ictal states, new onset -Neurology following, EEG pending, seizure precautions -PT/OT, soakers supervisor signed off -09/09/2023: EEG abnormal, suggestive of mild encephalopathy and cortical irritability with the tendency for seizure. MRI of brain pending # Right sided weakness, new onset -CT head negative # left sided residual weakness due to recent ( April 2023) CVA -on ASA, plavix, statin # Impaired gait and ADLs secondary to above # Cognitive impairment # Impaired hearing, bilateral cochlear implants # History of right facial palsy with multiple surgeries #Bowel/ Bladder: Nursing to monitor and report concerns if any. -09/09: Denies issues with urination, LBM 09/07 # Diet- -Cardiac # Skin/wound: Skin/Wound care to follow as needed # Pain Management- cymbalta # DVT Prophylaxis: Lovenox # Comorbidities: migraines # Your medical dx and mgt Goals: Modified Independent mobility and ADLS both basic and advanced; increased functional mobility/strength; increased balance, safety, endurance. Improvement in medical issues through your care. Barriers: weakness, fall risk, history of cva Discharge recommendation: PM&R will continue to follow, patient needing significant assistance from her baseline function. She is pending further medical work up. May be an IPR candidate, discussed with patient. Patient seen and examined in coordination with by EB Davies
[2023-09-09] MEDS: SODIUM CHLORIDE 0.9% 1,000 ML IV SCH ×2 (18:54→21:13)
[2023-09-09] MEDS: MONTELUKAST 10 MG TAB PO SCH (21:13)
[2023-09-09] MEDS ORDERED: diphenhydrAMINE 25 MG CAP PO STA (21:13)
[2023-09-09] MEDS ORDERED: CALCIUM CARBONATE 500 MG CHEWABLE PO STA (21:13)
[2023-09-09] MEDS: ACETAMINOPHEN TAB 325 MG TAB PO PRN (21:43)
[2023-09-10] MEDS: LEVOTHYROXINE 100 MCG TAB PO SCH (06:07)
[2023-09-10] MEDS: LEVOTHYROXINE 75 MCG TAB PO SCH (06:07)
[2023-09-10] MEDS: SODIUM CHLORIDE 0.9% 1,000 ML IV SCH ×2 (09:15→23:37)
[2023-09-10] MEDS: ASPIRIN 81 MG PO SCH (09:20)
[2023-09-10] MEDS: ENOXAPARIN 40 MG/0.4 ML SYRINGE SQ SCH (09:20)
[2023-09-10] MEDS: TOPIRAMATE 100 MG TAB PO SCH ×2 (09:20→20:27)
[2023-09-10] MEDS: DULoxetine HCL 60 MG CAPSULE.DR PO SCH (09:20)
[2023-09-10] MEDS: CLOPIDOGREL 75 MG TAB PO SCH (09:20)
--- NOTE | 2023-09-10 13:32 | P.PN ---
Subjective Progress Note Date: 09/10/23 Patient initially seen by Dr. Jose Silverio. Please refer to his note for details. Patient is a 32-year-old female came with lower more than upper extremity weakness. She came to the hospital because of episode of staring off in space. And then she was not able to move her legs. At present she complains of some headache and dizziness. Dr. Silverio felt that her leg weakness was possible conversion disorder. Patient continues to have weakness of the legs. She is sitting in the recliner, and her is by her bedside. Patient appears comfortable. Some of the workup during his hospital visit consisted of: CBC with differential is unremarkable Calcium is 7.9, HDL is within normal limits, glucose is 92. Sodium is 137. CT of the head is reported as bilateral cochlear implants was treated artifact limiting evaluation of those lower brain. No acute intracranial processes were visualized. I personally reviewed the CT and I agree there is artifact due to the cochlear implant but there is no appreciable acute or subacute ischemia and there is no bleed. CT angiography of the head and neck is reported as no evidence of dissection of the cervical internal carotid arteries or vertebral artery or any evidence of significant stenosis at the carotid bifurcation. No evidence of intracranial high-grade stenosis or intracranial aneurysm. 2-D echo is reported as normal size and systolic function. Ejection fraction of 55-60%. No obvious regional wall motion abnormality. Normal right atrium and left atrium size. No pericardial effusion Routine EEG is abnormal. The background slowing suggestive of mild encephalopathy. There is intermittent sporadic left parietal theta activity and at times seems sharply contoured that at one time seems diffuse in activity over bilateral hemisphere lasting between 2-3 seconds suggestive of focal cortical neuronal dysfunction. This may suggest underlying cortical ribbon and tendency for seizure. No seizure noted during the study. Repeat CT of the head was reported as no change from 2 days ago. Limited evaluation of the brain secondary due to streak artifact from metal implant. No acute intracranial process. CT cervical spine is reported as No evidence of cervical spine fracture. Mild multilevel degenerative disc disease CT lumbar reported as no evidence for a spine fracture. No evidence for significance the spinal canal or neuronal foramina stenosis. Workup performed last admission, been seen by myself in April 2023 include: * Repeat CT head 04/30/2023 showed mid to inferior aspect of the head is nondiagnostic due to extensive external mental artifact. Only the superior to mid aspect of the head is assessed. Questionable loss of neal-white matter differentiation involving the portion of the superior right frontal lobe on prior examination is not well seen on today's exam with no definite sulcal effacement. I personally reviewed CT head, and agree no acute ischemic process. The right cerebral hemisphere is completely clear with no evidence of cortical or subcortical or lacunar stroke. Only pontine region was not visualized, therefore pontine lacunar stroke cannot be ruled out because of metallic beam artifact through the brainstem. * CTA of head and neck 04/27/2023: Revealed no evidence of dissection of the cervical internal carotid arteries or vertebral arteries or any evidence of significant stenosis at the carotid bifurcations. No evidence of intracranial high-grade stenosis or intracranial aneurysm. I personally reviewed CTA films. The brain does not reveal any obvious evolving stroke. I discussed and reviewed CT head with Dr. Gamez, and he concurs that the CTA of the head was fairly good study, and does not reveal any obvious stroke. * Carotid Doppler revealed no evidence of hemodynamically significant stenosis. Antegrade flow in both vertebral arteries. * Transesophageal echocardiogram: Normal left atrial appendage, normal ventricle size and systolic function. Mild MR and TR. No shunting across the inter atrial septum. Normal appearance of the descending thoracic aorta. * 2-D echo, revealed normal left ventricular size and systolic function. EF is 55-60%. Trace to mild mitral, aortic and tricuspid regurgitation. Left atrial size is normal. * EEG was abnormal due to background slowing of [id number] degree suggestive of diffuse encephalopathy. The presence of intermittent sporadic left temporal sharp waves with rhythmic left temporal theta, suggest focal cortical neuronal dysfunction. This may suggest underlying cortical irritability and tendency for seizure. No electrographic seizure was recorded. Clinical correlation recommended. Patient has an acute stroke. Patient has not had any clinical seizure-like activity since arrival to the hospital. Hold off on antiepileptic medication for now. * B12 451, folate 16.4, Lyme tite negative r, West Nile virus antibodies normal/negative, TSH is normal. * Hemoglobin A1c 5.1, fasting lipid panel cholesterol 147, LDL 91, HDL 36 and triglycerides 99.2. Continue Lipitor 40 mg daily. * Continue aspirin 325 mg and Plavix 75 mg daily for 30 days, then stop Plavix and continue aspirin indefinitely. * Hematology on board for evaluation for hypercoagulable workup. Lupus anticoagulant, antithrombin III antigen, anticardiolipin antibodies negative. Prothrombin gene mutation negative. Objective - Vital Signs Vital signs: Vital Signs Temp 97.9 F 09/10/23 04:00 Pulse 96 09/10/23 04:00 Resp 20 09/10/23 04:00 BP 117/71 09/10/23 04:00 Pulse Ox 96 09/10/23 04:00 FiO2 21 09/09/23 08:25 Intake & Output 09/09/23 09/10/23 09/10/23 18:59 06:59 18:59 Intake Total 220 0 Balance 220 0 Weight 89 kg Intake: Oral 220 0 Other: # Voids 1 1 - Exam Patient is alert and awake in no distress. Her speech is slow, hesitant, but not stuttering. On cranial nerve examination, pupils are equal, round and reacting to light, visual ortiz are full on confrontation with no neglect on either side. Extrao cular muscles are intact with no nystagmus. Patient has chronic right facial weakness peripheral type ( defect). Patient has bifacial weakness, not able to smile on either side. Patient cannot wrinkle forehead on either side. However when she closes her eye, the left eye has much better strength of closure, but the right eye is definitely weak. Tongue protrudes the midline. She has cochlear implant bilaterally. On muscle strength testing, the strength is very symmetric. Deltoids 3+4-, biceps 3+, triceps 3+, crystal inspector 3, hip flexion 0, ankle dorsiflexion 0. Deep tendon reflexes are symmetric, 1 at the biceps, 2 brachioradialis, 2+ at the knees, 1+ ankles and plantars are flat bilaterally. Sensory to touch is slightly decreased in the lower limbs as compared to the upper. - Labs CBC & Chem 7: 09/06/23 21:32 09/06/23 21:37 Assessment and Plan Assessment: This is a 32-year-old woman with history of ?stroke with residual left-sided weakness and per the sister she walks with a walker and has mild weakness on the left side since April 2023 who has been having 4 episodes of unresponsiveness with blank stares since April 2023 and the episodes are prolonged with prolonged postictal state but no jerking of extremity urinary bowel incontinence. She recently had the witnessed on response with blank stares by her boyfriend and she has currently right-sided weakness. On examination there is poor effort on muscle strength. Episodes of unresponsive with blank stares. ? Seizure on the EEG there is no evidence of seizure and according to the patient's legal guardian has not had any further episode of unresponsiveness. Weakness of lower more than upper and on examination there is effort related on examination. Patient had 2 CTs of the head which were negative but there is some limitation because of artifact, CT cervical and lumbar is negative. Normal CBC with diff and is afebrile so it does not appear like underlying infection. Again on examination there is effort related and per the therapy team patient's also showing inconsistency. Patient reflexes are normal. Her sensation is normal. 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 Stroke was in April 2023. On examination she's presenting of symmetrical weakness of upper and lower and again on unsure if she truly had a stroke. History of cleft lip/palate and had multiple facial surgeries with residual right facial weakness Underlying cognitive impairment/learning disability and resides with her boyfriend who is also disabled and has a son History of bilateral cochlear implant History of migraine headache Plan: Patient legal guardian stated that her cochlear implant is MRI compatible that she was notified. We'll pursue with the MRI the brain and cervical spine with and without, only if cleared by radiology. Patient continues to be weak in all 4 extremities with lower extremities 0 bilaterally, and upper extremities also weak about 3+ all over bilaterally. We will stop Plavix. After 5 days will consider lumbar puncture. Dr. Silverio increased Topamax from 100 mg twice a day to 150 mg twice a day which can help with her migraines as well as a has antiepileptic effect. If has any further seizures consider Lamictal. Seizure precautions with seizure pads Hold aspirin and Plavix for possible lumbar puncture. Continue Lipitor 80 mg daily at bedtime Continue neuro checks PT OT and ROLLOFF DRIVER are consulted We'll defer the rest of medical management to the primary team.
--- NOTE | 2023-09-10 14:21 | P.PN ---
Subjective Progress Note Date: 09/10/23 Patient is a 32-year-old female with multiple congenital disorders, suspected recent CVA with left-sided residual deficits, hypothyroidism, seizure disorder, and hyperlipidemia who was brought to the emergency room accompanied by her sister/legal guardian with complaints of lower extremity weakness. Of note, the patient recently had a suspected CVA in 05/06 and has since been ambulating with a walker. The sister reports that she was contacted shortly after the patient had undergone a recent physical therapy appointment that the patient was feeling weak in her right lower extremity. Patient reports she has been feeling diffusely weak over the past 1-2 days but that it acutely worsened tonight. She had an extensive workup for possible CVA back in 05/06 when in the EEG was suggestive of diffuse encephalopathy with no obvious abnormalities noted on CT imaging of brain. Patient notes persistent right lower extremity weakness at the time of interview. Code stroke was activated in the emergency room. The patient was deemed to not be a candidate for TPA. CT angiogram of head and neck revealed no acute abnormalities with CT brain also revealing no acute abnormalities. EKG revealed sinus tachycardia 103 bpm with poor R-wave progression with no ST/T-wave changes noted as reviewed by me. Laboratory evaluation was reviewed with WBC count 8.3, hemoglobin 12.2, sodium 137, chloride 18, calcium 7.9, troponin less than 0.012. Patient is admitted for acute on chronic diastolic CHF exacerbation. 09/08 Patient was seen and examined. Guardian at bedside. Patient continues to experience profound weakness in both legs and arms along with weakened nursing unit manager strength. Case was discussed with Dr. Silverio, patient and guardian at bedside, plans for repeat CT brain and CT C-spine, abnormal EEG but no seizure like activity seen, increase Topamax. PMR has been consulted for possible IPR. Echocardiogram is within normal limits. 09/09 Patient was seen and examined. Continued weakness bilateral UE and LE. Able to stand up with assist of Dr. Silverio but unable to take steps. Repeat CT brain and C-spine within normal limits. We will check if MRI is compatible with cochlear implant (information provided by guardian). ESR and CRP negative. 09/10 Patient was seen and examined. No changes neurologically. Our MRI is not compatible with her cochlear implants. I will attempt to see if Dr. Baldwin's MRI is compatible. Dr. Valera recommends LP after holding Plavix/ASA for 5 days. Vital signs reviewed General: non toxic, no distress Head: atraumatic, normocephalic, symmetric Eyes: anicteric sclera ENT: Nose and ears atraumatic Cardiovascular: good distal perfusion in all 4 extremities, no edema Lungs: breathing comfortably, no accessory muscle use Psych: Alert, slow to respond, oriented, appropriate affect Right lower extremity weakness, suspected CVA vs Todds paralysis History of CVA with residual L sided weakness Chronic conditions: Hypothyroidism, seizure disorder, hyperlipidemia Based on my assessment of this patient, this patient meets a moderate complexity level of care. Patient has a history of CVA with residual left sided weakness severe exacerbation or progression of disease which poses a threat to life or bodily function. She had an episode of unresponsiveness lasting over 20 minutes followed by profound weakness in all 4 extremities. Right lower extremity weakness, suspected CVA vs Todds paralysis vs conversion disorder: Repeat CT head and and CT C-spine unremarkable. Abnormal EEG: Discussed with Dr. Silverio, Topamax increased from 100 to 150 mg PO BID. ASA and Plavix held for possible LP. Lipitor 80 mg PO QHS. Neurochecks. Telemetry monitoring. History of CVA with residual L sided weakness Lovenox SQ for DVT prophylaxis. FULL CODE. I have reviewed the following peoplesoft consultant notes: Neuro note. I have reviewed the results of the following tests: I have ordered the following tests: CBC, BMP. I have discussed the care of this patient with the following independent historian: I have independently interpreted the following test below: I have discussed the management of this patient with the following physician: Objective - Vital Signs Vital signs: Vital Signs Temp 98 F 09/10/23 12:00 Pulse 89 09/10/23 12:00 Resp 18 09/10/23 12:00 BP 109/72 09/10/23 12:00 Pulse Ox 98 09/10/23 12:00 FiO2 21 09/09/23 08:25 Intake & Output 09/09/23 09/10/23 09/10/23 18:59 06:59 18:59 Intake Total 220 200 Balance 220 200 Weight 89 kg Intake: Oral 220 200 Other: Voiding Method Bedside Commode # Voids 1 1 - Labs CBC & Chem 7: 09/06/23 21:32 09/06/23 21:37
[2023-09-10] MEDS: ACETAMINOPHEN TAB 325 MG TAB PO PRN (20:26)
[2023-09-10] MEDS: MONTELUKAST 10 MG TAB PO SCH (20:27)
[2023-09-10] MEDS: ATORVASTATIN 80 MG TAB PO SCH (20:27)
[2023-09-11] MEDS: LEVOTHYROXINE 75 MCG TAB PO SCH (06:35)
[2023-09-11] MEDS: LEVOTHYROXINE 100 MCG TAB PO SCH (06:35)
[2023-09-11 07:42] LABS: HCT 36.1 % (34.0-46.0); HGB 12.3 gm/dL (11.4-16.0); MCH 28.3 pg (25.0-35.0); MCV 83.3 fL (80.0-100.0); Mean Platelet Volume 8.3; Platelet Count 182 k/uL (150-450); RBC 4.34 m/uL (3.80-5.40); WBC 7.5 k/uL (3.8-10.6)
[2023-09-11 08:00] LABS: African American GFR (CKD) >90 (>60 ml/min/1.73 sqM); Anion Gap 12 mmol/L; Blood Urea Nitrogen 16 mg/dL (7-17); Calcium 8.3 mg/dL (8.4-10.2); Carbon Dioxide 16 mmol/L (22-30); Chloride 112 mmol/L (98-107); Glucose 81 mg/dL (74-99); Non-African American GFR(CKD) >90 (>60 ml/min/1.73 sqM); Potassium 3.9 mmol/L (3.5-5.1); Sodium 140 mmol/L (137-145)
[2023-09-11] MEDS: ASPIRIN 81 MG PO SCH (09:03)
[2023-09-11] MEDS: ENOXAPARIN 40 MG/0.4 ML SYRINGE SQ SCH (09:10)
[2023-09-11] MEDS: DULoxetine HCL 60 MG CAPSULE.DR PO SCH (09:10)
[2023-09-11] MEDS: TOPIRAMATE 100 MG TAB PO SCH ×2 (09:10→20:22)
[2023-09-11] MEDS: SODIUM CHLORIDE 0.9% 1,000 ML IV SCH (09:10)
--- NOTE | 2023-09-11 11:59 | P.PN ---
Subjective Progress Note Date: 09/11/23 Patient is a 32-year-old female with multiple congenital disorders, suspected recent CVA with left-sided residual deficits, hypothyroidism, seizure disorder, and hyperlipidemia who was brought to the emergency room accompanied by her sister/legal guardian with complaints of lower extremity weakness. Of note, the patient recently had a suspected CVA in 05/06 and has since been ambulating with a walker. The sister reports that she was contacted shortly after the patient had undergone a recent physical therapy appointment that the patient was feeling weak in her right lower extremity. Patient reports she has been feeling diffusely weak over the past 1-2 days but that it acutely worsened tonight. She had an extensive workup for possible CVA back in 05/06 when in the EEG was suggestive of diffuse encephalopathy with no obvious abnormalities noted on CT imaging of brain. Patient notes persistent right lower extremity weakness at the time of interview. Code stroke was activated in the emergency room. The patient was deemed to not be a candidate for TPA. CT angiogram of head and neck revealed no acute abnormalities with CT brain also revealing no acute abnormalities. EKG revealed sinus tachycardia 103 bpm with poor R-wave progression with no ST/T-wave changes noted as reviewed by me. Laboratory evaluation was reviewed with WBC count 8.3, hemoglobin 12.2, sodium 137, chloride 18, calcium 7.9, troponin less than 0.012. Patient is admitted for acute on chronic diastolic CHF exacerbation. 09/08 Patient was seen and examined. Guardian at bedside. Patient continues to experience profound weakness in both legs and arms along with weakened skinner pelts strength. Case was discussed with Dr. Silverio, patient and guardian at bedside, plans for repeat CT brain and CT C-spine, abnormal EEG but no seizure like activity seen, increase Topamax. PMR has been consulted for possible IPR. Echocardiogram is within normal limits. 09/09 Patient was seen and examined. Continued weakness bilateral UE and LE. Able to stand up with assist of Dr. Silverio but unable to take steps. Repeat CT brain and C-spine within normal limits. We will check if MRI is compatible with cochlear implant (information provided by guardian). ESR and CRP negative. 09/10 Patient was seen and examined. No changes neurologically. Our MRI is not compatible with her cochlear implants. I will attempt to see if Dr. Baldwin's MRI is compatible. Dr. Valera recommends LP after holding Plavix/ASA for 5 days. 09/11 Patient was seen and examined. No changes neurologically. CBC unremarkable. BMP Cl 112, bicarb 16, Ca 8.3. Vital signs reviewed General: non toxic, no distress Head: atraumatic, normocephalic, symmetric Eyes: anicteric sclera ENT: Nose and ears atraumatic Cardiovascular: good distal perfusion in all 4 extremities, no edema Lungs: breathing comfortably, no accessory muscle use Psych: Alert, slow to respond, oriented, appropriate affect Right lower extremity weakness, suspected CVA vs Todds paralysis History of CVA with residual L sided weakness Chronic conditions: Hypothyroidism, seizure disorder, hyperlipidemia Based on my assessment of this patient, this patient meets a moderate complexity level of care. Patient has a history of CVA with residual left sided weakness severe exacerbation or progression of disease which poses a threat to life or bodily function. She had an episode of unresponsiveness lasting over 20 minutes followed by profound weakness in all 4 extremities. Right lower extremity weakness, suspected CVA vs Todds paralysis vs conversion disorder: Repeat CT head and and CT C-spine unremarkable. Abnormal EEG: Discussed with Dr. Silverio, Topamax increased from 100 to 150 mg PO BID. ASA and Plavix held for possible LP. Lipitor 80 mg PO QHS. Neurochecks. Telemetry monitoring. History of CVA with residual L sided weakness Lovenox SQ for DVT prophylaxis. FULL CODE. I have reviewed the following retirement sales consultant notes: Neuro note. I have reviewed the results of the following tests: CBC, BMP. I have ordered the following tests: I have discussed the care of this patient with the following independent historian: I have independently interpreted the following test below: I have discussed the management of this patient with the following physician: Objective - Vital Signs Vital signs: Vital Signs Temp 97.7 F 09/11/23 08:00 Pulse 89 09/11/23 08:00 Resp 18 09/11/23 08:00 BP 100/66 09/11/23 08:00 Pulse Ox 96 09/11/23 08:00 FiO2 21 09/09/23 08:25 Intake & Output 09/10/23 09/11/23 09/11/23 18:59 06:59 18:59 Intake Total 940 575 Balance 940 575 Intake: Oral 940 575 Other: Voiding Method Bedside Commode Bedside Commode Bedside Commode # Voids 2 2 1 - Labs CBC & Chem 7: 09/11/23 06:36 09/11/23 06:36 Labs: Abnormal Lab Results - Last 24 Hours (Table) 09/11/23 Range/Units 06:36 Chloride 112 H (98-107) mmol/L Carbon Dioxide 16 L (22-30) mmol/L Calcium 8.3 L (8.4-10.2) mg/dL
[2023-09-11] MEDS: ATORVASTATIN 80 MG TAB PO SCH (20:22)
[2023-09-11] MEDS: MONTELUKAST 10 MG TAB PO SCH (20:22)
[2023-09-11] MEDS: ACETAMINOPHEN TAB 325 MG TAB PO PRN (21:00)
[2023-09-12] MEDS: SODIUM CHLORIDE 0.9% 1,000 ML IV SCH (06:19)
[2023-09-12] MEDS: LEVOTHYROXINE 75 MCG TAB PO SCH (06:22)
[2023-09-12] MEDS: LEVOTHYROXINE 100 MCG TAB PO SCH (06:22)
[2023-09-12] MEDS: TOPIRAMATE 100 MG TAB PO SCH ×2 (09:53→21:27)
[2023-09-12] MEDS: ENOXAPARIN 40 MG/0.4 ML SYRINGE SQ SCH (09:54)
[2023-09-12] MEDS: DULoxetine HCL 60 MG CAPSULE.DR PO SCH (09:54)
--- NOTE | 2023-09-12 14:14 | P.PN ---
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 Of note, the patient recently had a suspected CVA in 05/06 and has since been ambulating with a walker. The sister reports that she was contacted shortly after the patient had undergone a recent physical therapy appointment that the patient was feeling weak in her right lower extremity. Patient reports she has been feeling diffusely weak over the past 1-2 days but that it acutely worsened tonight. She had an extensive workup for possible CVA back in 05/06 when in the EEG was suggestive of diffuse encephalopathy with no obvious abnormalities noted on CT imaging of brain. Patient notes persistent right lower extremity weakness at the time of interview. Code stroke was activated in the emergency room. The patient was deemed to not be a candidate for TPA. CT angiogram of head and neck revealed no acute abnormalities with CT brain also revealing no acute abnormalities. EKG revealed sinus tachycardia 103 bpm with poor R-wave progression with no ST/T-wave changes noted as reviewed by me. Laboratory evaluation was reviewed with WBC count 8.3, hemoglobin 12.2, sodium 137, chloride 18, calcium 7.9, troponin less than 0.012. Patient is admitted for acute on chronic diastolic CHF exacerbation. 09/08 Patient was seen and examined. Guardian at bedside. 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 Case was discussed with Dr. Silverio, patient and guardian at bedside, plans for repeat CT brain and CT C-spine, abnormal EEG but no seizure like activity seen, increase Topamax. PMR has been consulted for possible IPR. Echocardiogram is within normal limits. 09/09 Patient was seen and examined. Continued weakness bilateral UE and LE. Able to stand up with assist of Dr. Silverio but unable to take steps. Repeat CT brain and C-spine within normal limits. We will check if MRI is compatible with cochlear implant (information provided by guardian). ESR and CRP negative. 09/10 Patient was seen and examined. No changes neurologically. Our MRI is not compatible with her cochlear implants. I will attempt to see if Dr. Baldwin's MRI is compatible. Dr. Valera recommends LP after holding Plavix/ASA for 5 days. 09/11 Patient was seen and examined. No changes neurologically. CBC unremarkable. BMP Cl 112, bicarb 16, Ca 8.3. 09/12 Patient was seen and examined. No changes neurologically. PMR to determine if patient would be a good candidate for IPR. Case management on board. Will discus with Dr. Valera if LP is necessary. Vital signs reviewed General: non toxic, no distress Head: atraumatic, normocephalic, symmetric Eyes: anicteric sclera ENT: Nose and ears atraumatic Cardiovascular: good distal perfusion in all 4 extremities, no edema Lungs: breathing comfortably, no accessory muscle use Psych: Alert, slow to respond, oriented, appropriate affect Right lower extremity weakness, suspected CVA vs Todds paralysis History of CVA with residual L sided weakness Chronic conditions: Hypothyroidism, seizure disorder, hyperlipidemia Based on my assessment of this patient, this patient meets a moderate complexity level of care. Patient has a history of CVA with residual left sided weakness severe exacerbation or progression of disease which poses a threat to life or bodily function. She had an episode of unresponsiveness lasting over 20 minutes followed by profound weakness in all 4 extremities. Right lower extremity weakness, suspected CVA vs Todds paralysis vs conversion disorder: Repeat CT head and and CT C-spine unremarkable. Abnormal EEG: Discussed with Dr. Silverio, Topamax increased from 100 to 150 mg PO BID. ASA and Plavix held for possible LP. Lipitor 80 mg PO QHS. Neurochecks. Telemetry monitoring. History of CVA with residual L sided weakness Lovenox SQ for DVT prophylaxis. FULL CODE. I have reviewed the following account consultant notes: I have reviewed the results of the following tests: I have ordered the following tests: I have discussed the care of this patient with the following independent hist orian: I have independently interpreted the following test below: I have discussed the management of this patient with the following physician: Objective - Vital Signs Vital signs: Vital Signs Temp 98.0 F 09/12/23 13:07 Pulse 71 09/12/23 13:07 Resp 16 09/12/23 13:07 BP 107/73 09/12/23 13:07 Pulse Ox 98 09/12/23 13:07 FiO2 21 09/09/23 08:25 Intake & Output 09/11/23 09/12/2309/12/23 18:59 06:59 18:59 Intake Total 1215 360 Balance 1215 360 Intake: Oral 1215 360 Other: Voiding Method Bedside Commode Bedside Commode Bedside Commode # Voids 2 1 1 - Labs CBC & Chem 7: 09/11/23 06:36 09/11/23 06:36
--- NOTE | 2023-09-12 18:39 | P.PN ---
Subjective Progress Note Date: 09/12/23 Principal diagnosis: weakness Ms Ngozi Coto is a 32 y/o single female who lives with her boyfriend and 6 year old son in a single story home with 3 ALEYDA. Patient has a legal guardian, Sister Agustina, whom she refers to as her mother (raised her from age 12). She was using a walker for ambulation, able to perform basic ADLs, but her sister assisted with bathing, medications, and finances. She gets transportation provided by her sister. She was on [facility] floor in April 2023 after CVA with left hemiparesis. She did well and was able to transition back home and was doing outpatient therapy. Patent presented to the hospital after multiple episodes over the past couple of months of "blank staring" episodes, sometimes lasting 20 minutes at a time. She has had at least 4 episodes since her discharge from [facility]. She was following outpatient with neurology, recently had her Topomax dose increased in July for Migraines. She was supposed to have a follow up with neurology on the day she presented to the hospital. She was also noted to have right sided weakness which was new. Neurology consulted. Head CT and CTA with no acute process. She is unable to have an MRI due to her cochlear implants. EKG with sinus tachycardia. Neurology ordered EEG, Echo, and increased her Topomax. PM&R consulted for rehab recommendations. Patient was cleared by speech therapy, thought to be at her baseline function. She needed total assist with bathing, UB dressing max, LB dressing total assist, grooming min assist, eating supervision, transfers dependent ( 2 ppl mod assist), was unable to ambulate at this time, standing balance supported due to knees buckling. 09/07/23: Patient seen sitting in recliner with legs elevated, sister at her bedside. She denies CP, SOB, and abdominal pain. She admits to some functional incontinence since her stroke in April, now wears a pad liner. She has chronic constipation, takes daily softeners at home. She has had 4 of these " episodes" since her stroke. Per her sister she has been seeing neurology outpatient, had not had any episodes since her increase of Topomax in July. She denies loss of bowel or bladder or tongue biting during these episodes. She does not remember them and cannot tell what us going on around her when they occur. Per her sister, she had been making good progress with outpatient therapy but in the last couple of visits they noted that she had hit a plateau and even had some regression. She had an outpatient EEG with Neurology on Aug 25 and was supposed to get the results on her day of admission to the hospital. Per sister and patient she was able to walk with her walker earlier in the day prior to admission. She is now unable to lift her legs, has significant weakness in her right arm. She did have some residual left sided weakness from her stroke, but that is now worse. She has had vision changes since her stroke in April and is planning to follow with ophthalmology on Sep 17. She reports numbness and tingling in her distal arms and hands as well as her feet,new. 09/09/2023: Patient found in recliner, with legs elevated. Patient denies CP, SOB and abdominal pain. Denies issues with urination, LBM 09/07. Patient does complain of some headaches. Patient is frustrated that she does not have any answers regarding medical diagnosis. Patient reports that she is willing to work with therapy, and wants to gain her strength and go back home. Patient has pending MRI of the brain. 09/12/23 ESR and CRP WNL. Per records, they are attempting to find an MRI compatible with her cochlear implants. Dr Friend recommending MRI brain and C spine as well as Lumbar Puncture. Agree with his assessment as there has not been an identified etiology to her weakness. Patient denies CP,SOB, and abdominal pain. Denies issues with bowel and bladder. Still has some numbness in her legs and is unable to move them. She is able to move her arms although ataxic at times. Therapy progress Bathing total assist, UB dressing max assist, LB dressing total assist, grooming min assist,toileting ability total assist, bed mobility max assist, total assist transfers, not ambulatory Objective - Vital Signs Vital signs: Vital Signs Temp 98.1 F 09/12/23 16:00 Pulse 64 09/12/23 16:00 Resp 18 09/12/23 16:00 BP 119/82 09/12/23 16:00 Pulse Ox 100 09/12/23 16:00 FiO2 21 09/09/23 08:25 Intake & Output 09/11/23 09/12/23 09/12/23 18:59 06:59 18:59 Intake Total 1215 360 Balance 1215 360 Intake: Oral 1215 360 Other: Voiding Method Bedside Commode Bedside Commode Bedside Commode # Voids 2 1 1 - Exam EXAM; General: WDWN, young female sitting up in recliner, legs down, NAD, sister at bedside Head: Nontraumatic Eyes: slight eye ptosis Ears: bilateral cochlear implants Mouth: Clear. Neck: Supple. Cardiac: paleologist on, Calves supple, non tender, trace ankle/foot edema Lungs: Breathing comfortably on RA. Chest symmetric. Abdomen: Soft, nontender. Neurological: Alert and oriented x 4. Speech is slightly slurred but baseline, history of right facial palsy, slight left facial droop-not new Musculoskeletal: LE paresis, bilateral UE weakness proximal greater than distal. 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 -09/12 possible MRI brain and C spine if compatible MRI, LP pending, agree with procedure. # Seizure like activity with post ictal states, new onset -Neurology following, EEG pending, seizure precautions -PT/OT, compliance clerk signed off -09/09/2023: EEG abnormal, suggestive of mild encephalopathy and cortical irritability with the tendency for seizure. MRI of brain pending # Right sided weakness, new onset -CT head negative # left sided residual weakness due to recent ( April 2023) CVA -on ASA, plavix, statin # Impaired gait and ADLs secondary to above # Cognitive impairment # Impaired hearing, bilateral cochlear implants # History of right facial palsy with multiple surgeries #Bowel/ Bladder: Nursing to monitor and report concerns if any. -09/09: Denies issues with urination, LBM 09/07 # Diet- -Cardiac # Skin/wound: Skin/Wound care to follow as needed # Pain Management- cymbalta # DVT Prophylaxis: Lovenox # Comorbidities: migraines # Your medical dx and mgt Goals: Modified Independent mobility and ADLS both basic and advanced; increased functional mobility/strength; increased balance, safety, endurance. Improvement in medical issues through your care. Barriers: weakness, fall risk, history of cva Discharge recommendation: PM&R will continue to follow, patient needing significant assistance from her baseline function. She is pending further medical work up and agree with LP. May be an IPR candidate, discussed with patient and her sister. Patient reports she would need her mostly independent to be able to take her home. patient's sister is aware that average length of stay for IPR is 10-14 days. She is not interested in [facility]. Patient seen and examined by eTlma Lou PA-C, Discussed with Dr Vazquez.
--- NOTE | 2023-09-12 19:13 | P.PN ---
Subjective Progress Note Date: 09/12/23 09/12/2023: Patient was seen for a follow-up. Patient's conditions remains unchanged. Patient was sleeping. She appears very comfortable. 09/10/2023: Patient initially seen by Dr. Jose Silverio. Please refer to his note for details. Patient is a 32-year-old female came with lower more than upper extremity weakness. She came to the hospital because of episode of staring off in space. And then she was not able to move her legs. At present she complains of some headache and dizziness. Dr. Silverio felt that her leg weakness was possible conversion disorder. Patient continues to have weakness of the legs. She is sitting in the recliner, and her is by her bedside. Patient appears comfortable. Some of the workup during his hospital visit consisted of: CBC with differential is unremarkable Calcium is 7.9, HDL is within normal limits, glucose is 92. Sodium is 137. CT of the head is reported as bilateral cochlear implants was treated artifact limiting evaluation of those lower brain. No acute intracranial processes were visualized. I personally reviewed the CT and I agree there is artifact due to the cochlear implant but there is no appreciable acute or subacute ischemia and there is no bleed. CT angiography of the head and neck is reported as no evidence of dissection of the cervical internal carotid arteries or vertebral artery or any evidence of significant stenosis at the carotid bifurcation. No evidence of intracranial high-grade stenosis or intracranial aneurysm. 2-D echo is reported as normal size and systolic function. Ejection fraction of 55-60%. No obvious regional wall motion abnormality. Normal right atrium and left atrium size. No pericardial effusion Routine EEG is abnormal. The background slowing suggestive of mild encephalopathy. There is intermittent sporadic left parietal theta activity and at times seems sharply contoured that at one time seems diffuse in activity over bilateral hemisphere lasting between 2-3 seconds suggestive of focal cortical neuronal dysfunction. This may suggest underlying cortical ribbon and tendency for seizure. No seizure noted during the study. Repeat CT of the head was reported as no change from 2 days ago. Limited evaluation of the brain secondary due to streak artifact from metal implant. No acute intracranial process. CT cervical spine is reported as No evidence of cervical spine fracture. Mild multilevel degenerative disc disease CT lumbar reported as no evidence for a spine fracture. No evidence for significance the spinal canal or neuronal foramina stenosis. Workup performed last admission, been seen by myself in April 2023 include: * Repeat CT head 04/30/2023 showed mid to inferior aspect of the head is nondiagnostic due to extensive external mental artifact. Only the superior to mid aspect of the head is assessed. Questionable loss of neal-white matter differentiation involving the portion of the superior right frontal lobe on prior examination is not well seen on today's exam with no definite sulcal effacement. I personally reviewed CT head, and agree no acute ischemic process. The right cerebral hemisphere is completely clear with no evidence of cortical or subcortical or lacunar stroke. Only pontine region was not visualized, therefore pontine lacunar stroke cannot be ruled out because of metallic beam artifact through the brainstem. * CTA of head and neck 04/27/2023: Revealed no evidence of dissection of the cervical internal carotid arteries or vertebral arteries or any evidence of significant stenosis at the carotid bifurcations. No evidence of intracranial high-grade stenosis or intracranial aneurysm. I personally reviewed CTA films. The brain does not reveal any obvious evolving stroke. I discussed and reviewed CT head with Dr. Gamez, and he concurs that the CTA of the head was fairly good study, and does not reveal any obvious stroke. * Carotid Doppler revealed no evidence of hemodynamically significant stenosis. Antegrade flow in both vertebral arteries. * Transesophageal echocardiogram: Normal left atrial appendage, normal ventricle size and systolic function. Mild MR and TR. No shunting across the interatrial septum. Normal appearance of the descending thoracic aorta. * 2-D echo, revealed normal left ventricular size and systolic function. EF is 55-60%. Trace to mild mitral, aortic and tricuspid regurgitation. Left atrial size is normal. * EEG was abnormal due to background slowing of [id number] degree suggestive of diffuse encephalopathy. The presence of intermittent sporadic left temporal sharp waves with rhythmic left temporal theta, suggest focal cor tical neuronal dysfunction. This may suggest underlying cortical irritability and tendency for seizure. No electrographic seizure was recorded. Clinical correlation recommended. Patient has an acute stroke. Patient has not had any clinical seizure-like activity since arrival to the hospital. Hold off on antiepileptic medication for now. * B12 451, folate 16.4, Lyme tite negative r, West Nile virus antibodies normal/negative, TSH is normal. * Hemoglobin A1c 5.1, fasting lipid panel cholesterol 147, LDL 91, HDL 36 and triglycerides 99.2. Continue Lipitor 40 mg daily. * Continue aspirin 325 mg and Plavix 75 mg daily for 30 days, then stop Plavix and continue aspirin indefinitely. * Hematology on board for evaluation for hypercoagulable workup. Lupus anticoagulant, antithrombin III antigen, anticardiolipin antibodies negative. Prothrombin gene mutation negative. Objective - Vital Signs Vital signs: Vital Signs Temp 98.0 F 09/12/23 13:07 Pulse 71 09/12/23 13:30 Resp 16 09/12/23 13:30 BP 107/73 09/12/23 13:07 Pulse Ox 98 09/12/23 13:07 FiO2 21 09/09/23 08:25 Intake & Output 09/11/23 09/12/23 09/12/23 18:59 06:59 18:59 Intake Total 1215 360 Balance 1215 360 Intake: Oral 1215 360 Other: Voiding Method Bedside Commode Bedside Commode Bedside Commode # Voids 2 1 1 - Exam Patient is alert and awake in no distress. Her speech is slow, hesitant, but not stuttering. On cranial nerve examination, pupils are equal, round and reacting to light, visual ortiz are full on confrontation with no neglect on either side. Extraocular muscles are intact with no nystagmus. Patient has chronic right facial weakness peripheral type ( defect). Patient has bifacial weakness, not able to smile on either side. Patient cannot wrinkle forehead on either side. However when she closes her eye, the left eye has much better strength of closure, but the right eye is definitely weak. Tongue protrudes the midline. She has cochlear implant bilaterally. On muscle strength testing, the strength is very symmetric. Deltoids 3+4-, biceps 3+, triceps 3+, aviation project manager 2+3, hip flexion 0, ankle dorsiflexion 0. Deep tendon reflexes are symmetric, 1 at the biceps, 2 brachioradialis, 2+ at the knees, 1+ ankles and plantars are flat bilaterally. Sensory to touch is slightly decreased in the lower limbs as compared to the upper. - Labs CBC & Chem 7: 09/11/23 06:36 09/11/23 06:36 Assessment and Plan Assessment: Paraparesis, with moderate bilateral upper extremity weakness and bifacial weakness, unclear cause rule out CIDP, rule out myasthenia gravis versus functional disorder/conversion disorder. Patient's examination has inconsistent response. Episodes of unresponsive with blank stares. ? Seizure on the EEG there is no evidence of seizure and according to the patient's legal guardian has not had an y further episode of unresponsiveness. No definitive evidence of recent or remote stroke. Patient's CT scans performed in the past had significant artifact, therefore CVA suspected. However repeat computed tomography scan of the head has been negative, with no evidence of an acute or remote stroke. History of cleft lip/palate and had multiple facial surgeries with residual right facial weakness Underlying cognitive impairment/learning disability and resides with her boyfriend who is also disabled and has a son History of bilateral cochlear implant History of migraine headache Plan: Patient legal guardian stated that her cochlear implant is MRI compatible that she was notified. We'll pursue with the MRI the brain and cervical spine with and without, only if cleared by radiology. Patient continues to be weak in all 4 extremities with lower extremities 0 bilaterally, and upper extremities also weak about 3+ all over bilaterally. Patient also has bifacial weakness. We will stop Plavix (last dose 09/10/2023). After 5 days will consider lumbar puncture. Check acetylcholine receptor antibodies. Dr. Silverio increased Topamax from 100 mg twice a day to 150 mg twice a day which can help with her migraines as well as a has antiepileptic effect. If has any further seizures consider Lamictal. Seizure precautions with seizure pads Hold aspirin and Plavix for possible lumbar puncture. Continue Lipitor 80 mg daily at bedtime Continue neuro checks PT OT and BID CLERK are consulted We'll defer the rest of medical management to the primary team. Discussed with primary physician.
[2023-09-12] MEDS: MONTELUKAST 10 MG TAB PO SCH (21:27)
[2023-09-12] MEDS: ATORVASTATIN 80 MG TAB PO SCH (21:27)
[2023-09-13] MEDS: LEVOTHYROXINE 75 MCG TAB PO SCH (06:22)
[2023-09-13] MEDS: LEVOTHYROXINE 100 MCG TAB PO SCH (06:22)
[2023-09-13] MEDS: DULoxetine HCL 60 MG CAPSULE.DR PO SCH (09:50)
[2023-09-13] MEDS: TOPIRAMATE 100 MG TAB PO SCH ×2 (09:50→20:14)
[2023-09-13] MEDS: ENOXAPARIN 40 MG/0.4 ML SYRINGE SQ SCH (09:51)
--- NOTE | 2023-09-13 11:02 | P.PN ---
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 Of note, the patient recently had a suspected CVA in 05/06 and has since been ambulating with a walker. The sister reports that she was contacted shortly after the patient had undergone a recent physical therapy appointment that the patient was feeling weak in her right lower extremity. Patient reports she has been feeling diffusely weak over the past 1-2 days but that it acutely worsened tonight. She had an extensive workup for possible CVA back in 05/06 when in the EEG was suggestive of diffuse encephalopathy with no obvious abnormalities noted on CT imaging of brain. Patient notes persistent right lower extremity weakness at the time of interview. Code stroke was activated in the emergency room. The patient was deemed to not be a candidate for TPA. CT angiogram of head and neck revealed no acute abnormalities with CT brain also revealing no acute abnormalities. EKG revealed sinus tachycardia 103 bpm with poor R-wave progression with no ST/T-wave changes noted as reviewed by me. Laboratory evaluation was reviewed with WBC count 8.3, hemoglobin 12.2, sodium 137, chloride 18, calcium 7.9, troponin less than 0.012. Patient is admitted for new right sided weakness, rule out CVA/seizures with Neurology on consult. 09/08 Patient was seen and examined. Guardian at bedside. Patient continues to experience profound weakness in both legs and arms along with weakened crane follower strength. Case was discussed with Dr. Silverio, patient and guardian at bedside, plans for repeat CT brain and CT C-spine, abnormal EEG but no seizure like activity seen, increase Topamax. PMR has been consulted for possible IPR. Echocardiogram is within normal limits. 09/09 Patient was seen and examined. Continued weakness bilateral UE and LE. Able to stand up with assist of Dr. Silverio but unable to take steps. Repeat CT brain and C-spine within normal limits. We will check if MRI is compatible with cochlear implant (information provided by guardian). ESR and CRP negative. 09/10 Patient was seen and examined. No changes neurologically. Our MRI is not compatible with her cochlear implants. I will attempt to see if Dr. Baldwin's MRI is compatible. Dr. Valera recommends LP after holding Plavix/ASA for 5 days. 09/11 Patient was seen and examined. No changes neurologically. CBC unremarkable. BMP Cl 112, bicarb 16, Ca 8.3. 09/12 Patient was seen and examined. No changes neurologically. PMR to determine if patient would be a good candidate for IPR. Case management on board. Will discus with Dr. Valera if LP is necessary. 09/13 Patient was seen and examined. Sleeping comfortably. No nursing complaints. Quite inconsistent with her neurological exam. Shows 0/5 strength in her bilateral LE but able to stand up with 2 person assist. Shows extremely weak strip strength but reports from staff that she is able to comb her hair. We are waiting for lumbar puncture, hopefully can be done on as recommended by Dr. Valera. PMR following for possible IPR. Vital signs reviewed General: non toxic, no distress Head: atraumatic, normocephalic, symmetric ENT: Nose and ears atraumatic Cardiovascular: good distal perfusion in all 4 extremities, no edema Lungs: breathing comfortably, no accessory muscle use Psych: Sleeping Right lower extremity weakness, suspected CVA vs Todds paralysis vs conversion disorder History of CVA with residual L sided weakness Chronic conditions: Hypothyroidism, seizure disorder, hyperlipidemia Based on my assessment of this patient, this patient meets a moderate complexity level of care. Patient has a history of CVA with residual left sided weakness severe exacerbation or progression of disease which poses a threat to life or bodily function. She had an episode of unresponsiveness lasting over 20 minutes followed by profound weakness in all 4 extremities. Right lower extremity weakness, suspected CVA vs Todds paralysis vs conversion disorder: Repeat CT head and and CT C-spine unremarkable. Unable to obtain MRI due to cochlear implants, would recommend outpatient compatible MRI brain. Abnormal EEG: Discussed with Dr. Silverio, Topamax increased from 100 to 150 mg PO BID. ASA and Plavix held for possible LP on (last dose was on 09/10). Lipitor 80 mg PO QHS. Neurochecks. Telemetry monitoring. History of CVA with residual L sided weakness Lovenox SQ for DVT prophylaxis. FULL CODE. I have reviewed the following hematology oncology consultant notes: Neurology, PMR note. I have reviewed the results of the following tests: I have ordered the following tests: I have discussed the care of this patient with the following independent historian: Discussed with RN. I have independently interpreted the following test below: I have discussed the management of this patient with the following physician: Discussed with Dr. Valera on 09/12. Objective - Vital Signs Vital signs: Vital Signs Temp 97.6 F 09/13/23 05:15 Pulse 77 09/13/23 05:15 Resp 18 09/13/23 05:15 BP 95/65 09/13/23 05:15 Pulse Ox 97 09/13/23 07:54 FiO2 21 09/09/23 08:25 Intake & Output 09/12/23 09/13/23 09/13/23 18:59 06:59 18:59 Intake Total 480 540 Balance 480 540 Intake: Oral 480 540 Other: Voiding Method Bedside Commode Bedside Commode # Voids 1 - Labs CBC & Chem 7: 09/11/23 06:36 09/11/23 06:36
[2023-09-13] MEDS: ATORVASTATIN 80 MG TAB PO SCH (20:14)
[2023-09-13] MEDS: MONTELUKAST 10 MG TAB PO SCH (20:14)
[2023-09-14] MEDS: LEVOTHYROXINE 100 MCG TAB PO SCH (06:19)
[2023-09-14] MEDS: LEVOTHYROXINE 75 MCG TAB PO SCH (06:19)
[2023-09-14] MEDS: TOPIRAMATE 100 MG TAB PO SCH ×2 (09:33→20:25)
[2023-09-14] MEDS: DULoxetine HCL 60 MG CAPSULE.DR PO SCH (09:33)
[2023-09-14] MEDS: ENOXAPARIN 40 MG/0.4 ML SYRINGE SQ SCH ×2 (09:33→18:11)
--- NOTE | 2023-09-14 11:26 | P.PN ---
Subjective Progress Note Date: 09/13/23 09/13/2023: Patient was seen for a follow-up. Patient is sitting in the recliner. She was watching some video on the i-pad. When I entered the room, patient turned it off, placed the ipad at another part of the table, able to unplug the cable and was performing usually last normally. 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 Quite inconsistencies. Per nursing report, patient sometimes can stand up with one assist, and other times has difficulty with standing up with to assist. Patient has very inconsistencies in the examination. 09/12/2023: Patient was seen for a follow-up. Patient's conditions remains unchanged. Patient was sleeping. She appears very comfortable. 09/10/2023: Patient initially seen by Dr. Jose Silverio. Please refer to his note for details. Patient is a 32-year-old female came with lower more than upper extremity weakness. She came to the hospital because of episode of staring off in space. And then she was not able to move her legs. At present she complains of some headache and dizziness. Dr. Silverio felt that her leg weakness was possible conversion disorder. Patient continues to have weakness of the legs. She is sitting in the recliner, and her is by her bedside. Patient appears comfortable. Some of the workup during his hospital visit consisted of: CBC with differential is unremarkable Calcium is 7.9, HDL is within normal limits, glucose is 92. Sodium is 137. CT of the head is reported as bilateral cochlear implants was treated artifact limiting evaluation of those lower brain. No acute intracranial processes were visualized. I personally reviewed the CT and I agree there is artifact due to the cochlear implant but there is no appreciable acute or subacute ischemia and there is no bleed. CT angiography of the head and neck is reported as no evidence of dissection of the cervical internal carotid arteries or vertebral artery or any evidence of significant stenosis at the carotid bifurcation. No evidence of intracranial high-grade stenosis or intracranial aneurysm. 2-D echo is reported as normal size and systolic function. Ejection fraction of 55-60%. No obvious regional wall motion abnormality. Normal right atrium and left atrium size. No pericardial effusion Routine EEG is abnormal. The background slowing suggestive of mild encephalopathy. There is intermittent sporadic left parietal theta activity and at times seems sharply contoured that at one time seems diffuse in activity over bilateral hemisphere lasting between 2-3 seconds suggestive of focal cortical neuronal dysfunction. This may suggest underlying cortical ribbon and tendency for seizure. No seizure noted during the study. Repeat CT of the head was reported as no change from 2 days ago. Limited evaluation of the brain secondary due to streak artifact from metal implant. No acute intracranial process. CT cervical spine is reported as No evidence of cervical spine fracture. Mild multilevel degenerative disc disease CT lumbar reported as no evidence for a spine fracture. No evidence for significance the spinal canal or neuronal foramina stenosis. Workup performed last admission, been seen by myself in April 2023 include: * Repeat CT head 04/30/2023 showed mid to inferior aspect of the head is nondiagnostic due to extensive external mental artifact. Only the superior to mid aspect of the head is assessed. Questionable loss of neal-white matter differentiation involving the portion of the superior right frontal lobe on prior examination is not well seen on today's exam with no definite sulcal effacement. I personally reviewed CT head, and agree no acute ischemic proce ss. The right cerebral hemisphere is completely clear with no evidence of cortical or subcortical or lacunar stroke. Only pontine region was not visualized, therefore pontine lacunar stroke cannot be ruled out because of metallic beam artifact through the brainstem. * CTA of head and neck 04/27/2023: Revealed no evidence of dissection of the cervical internal carotid arteries or vertebral arteries or any evidence of significant stenosis at the carotid bifurcations. No evidence of intracranial high-grade stenosis or intracranial aneurysm. I personally reviewed CTA f ilms. The brain does not reveal any obvious evolving stroke. I discussed and reviewed CT head with Dr. Gamez, and he concurs that the CTA of the head was fairly good study, and does not reveal any obvious stroke. * Carotid Doppler revealed no evidence of hemodynamically significant stenosis. Antegrade flow in both vertebral arteries. * Transesophageal echocardiogram: Normal left atrial appendage, normal ventricle size and systolic function. Mild MR and TR. No shunting across the interatrial septum. Normal appearance of the descending thoracic aorta. * 2-D echo, revealed normal left ventricular size and systolic function. EF is 55-60%. Trace to mild mitral, aortic and tricuspid regurgitation. Left atrial size is normal. * EEG was abnormal due to background slowing of [id number] degree suggestive of diffuse encephalopathy. The presence of intermittent sporadic left temporal sharp waves with rhythmic left temporal theta, suggest focal cortical neuronal dysfunction. This may suggest underlying cortical irritability and tendency for seizure. No electrographic seizure was recorded. Clinical correlation recommended. Patient has an acute stroke. Patient has not had any clinical seizure-like activity since arrival to the hospital. Hold off on antiepileptic medication for now. * B12 451, folate 16.4, Lyme tite negative r, West Nile virus antibodies normal/negative, TSH is normal. * Hemoglobin A1c 5.1, fasting lipid panel cholesterol 147, LDL 91, HDL 36 and triglycerides 99.2. Continue Lipitor 40 mg daily. * Continue aspirin 325 mg and Plavix 75 mg daily for 30 days, then stop Plavix and continue aspirin indefinitely. * Hematology on board for evaluation for hypercoagulable workup. Lupus anticoagulant, antithrombin III antigen, anticardiolipin antibodies negative. Prothrombin gene mutation negative. Objective - Vital Signs Vital signs: Vital Signs Temp 97.7 F 09/13/23 09:38 Pulse 85 09/13/23 15:39 Resp 16 09/13/23 15:39 BP 102/58 09/13/23 15:39 Pulse Ox 98 09/13/23 15:39 FiO2 21 09/09/23 08:25 Intake & Output 09/12/23 09/13/23 09/13/23 18:59 06:59 18:59 Intake Total 480 540 Balance 480 540 Intake: Oral 480 540 Other: Voiding Method Bedside Commode Bedside Commode Bedside Commode # Voids 1 1 - Exam Patient is alert and awake in no distress. Her speech is slow, hesitant, but not stuttering. On cranial nerve examination, pupils are equal, round and reacting to light, visual ortiz are full on confrontation with no neglect on either side. Extraocular muscles are intact with no nystagmus. Patient has chronic right fac ial weakness peripheral type ( defect). Patient has bifacial weakness, not able to smile on either side. Patient cannot wrinkle forehead on either side. However when she closes her eye, the left eye has much better strength of closure, but the right eye is definitely weak. Tongue protrudes the midline. She has cochlear implant bilaterally. On muscle strength testing, the strength is very symmetric. Deltoids 3+4-, biceps 3+, triceps 3+, landscape supervisor 2+3, hip flexion 0, ankle dorsiflexion 0. Deep tendon reflexes are symmetric, 1 at the biceps, 2 brachioradialis, 2+ at the knees, 1+ ankles and plantars are flat bilaterally. Sensory to touch is slightly decreased in the lower limbs as compared to the upper. - Labs CBC & Chem 7: 09/11/23 06:36 09/11/23 06:36 Assessment and Plan Assessment: Paraparesis, with moderate bilateral upper extremity weakness and bifacial weakness, unclear cause rule out CIDP, rule out myasthenia gravis versus functional disorder/conversion disorder. Patient's examination has significant inconsistencies, suggestive of possible conversion disorder. Episodes of unresponsive with blank stares. ? Seizure on the EEG there is no evidence of seizure and according to the patient's legal guardian has not had any further episode of unresponsiveness. No definitive evidence of recent or remote stroke. Patient's CT scans performed in the past had significant artifact, therefore CVA suspected. However repeat computed tomography scan of the head has been negative, with no evidence of an acute or remote stroke. History of cleft lip/palate and had multiple facial surgeries with residual right facial weakness Underlying cognitive impairment/learning disability and resides with her boyfriend who is also disabled and has a son History of bilateral cochlear implant History of migraine headache Plan: Patient legal guardian stated that her cochlear implant is MRI compatible that she was notified. We'll pursue with the MRI the brain and cervical spine with and without, only if cleared by radiology. Patient continues to be weak in all 4 extremities with lower extremities 0 bilaterally, and upper extremities also weak about 3+ all over bilaterally. Patient also has bifacial weakness. We will stop Plavix (last dose 09/10/2023). After 5 days will consider lumbar puncture. Hold Lovenox the day prior to lumbar puncture. Check acetylcholine receptor antibodies. Dr. Silverio increased Topamax from 100 mg twice a day to 150 mg twice a day which can help with her migraines as well as a has antiepileptic effect. If has any further seizures consider Lamictal. Seizure precautions with seizure pads Hold aspirin and Plavix for possible lumbar puncture. Continue Lipitor 80 mg daily at bedtime Continue neuro checks PT OT and BUSINESS SEGMENT MANAGER are consulted We'll defer the rest of medical management to the primary team. Discussed with primary physician.
--- NOTE | 2023-09-14 13:31 | P.PN ---
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 She presented to the emergency room accompanied by her sister/legal guardian with complaints of lower extremity weakness. Of note, the patient recently had a suspected CVA in 05/06 and has since been ambulating with a walker. The sister reports that she was contacted shortly after the patient had undergone a recent physical therapy appointment that the patient was feeling weak in her right lower extremity. Patient reports she has been feeling diffusely weak over the past 1-2 days but that it acutely worsened tonight. She had an extensive workup for possible CVA back in 05/06 when in the EEG was suggestive of diffuse encephalopathy with no obvious abnormalities noted on CT imaging of brain. Patient notes persistent right lower extremity weakness at the time of interview. Code stroke was activated in the emergency room. The patient was deemed to not be a candidate for TPA. CT angiogram of head and neck revealed no acute abnormalities with CT brain also revealing no acute abnormalities. EKG revealed sinus tachycardia 103 bpm with poor R-wave progression with no ST/T-wave changes noted as reviewed by me. Laboratory evaluation was reviewed with WBC count 8.3, hemoglobin 12.2, sodium 137, chloride 18, calcium 7.9, troponin less than 0.012. Patient was admitted for new right-sided weakness, rule out CVA/seizures. Consult was placed to neurology. 09/08 Patient was seen and examined. Guardian at bedside. Patient continues to experience profound weakness in both legs and arms along with weakened control director strength. Case was discussed with Dr. Silverio, patient and guardian at bedside, plans for repeat CT brain and CT C-spine, abnormal EEG but no seizure like activity seen, increase Topamax. PMR has been consulted for possible IPR. Echocardiogram is within normal limits. 09/09 Patient was seen and examined. Continued weakness bilateral UE and LE. Able to stand up with assist of Dr. Silverio but unable to take steps. Repeat CT brain and C-spine within normal limits. We will check if MRI is compatible with cochlear implant (information provided by guardian). ESR and CRP negative. 09/10 Patient was seen and examined. No changes neurologically. Our MRI is not compatible with her cochlear implants. I will attempt to see if Dr. Baldwin's MRI is compatible. Dr. Valera recommends LP after holding Plavix/ASA for 5 days. 09/11 Patient was seen and examined. No changes neurologically. CBC unremarkable. BMP Cl 112, bicarb 16, Ca 8.3. 09/12 Patient was seen and examined. No changes neurologically. PMR to determine if patient would be a good candidate for IPR. Case management on board. Will discus with Dr. Valera if LP is necessary. 09/13 Patient was seen and examined. Sleeping comfortably. No nursing complaints. Quite inconsistent with her neurological exam. Shows 0/5 strength in her bilateral LE but able to stand up with 2 person assist. Shows extremely weak strip strength but reports from staff that she is able to comb her hair. We are waiting for lumbar puncture, hopefully can be done on as recommended by Dr. Valera. PMR following for possible IPR. 09/14: Patient seen and fully evaluated at bedside. She was sitting up in a chair and reports continued complete weakness and numbness to bilateral lower extremities. Upon further physical examination, patient does minimally jerk away/withdraw from pain when a pen is ran up bottom of plantar surface of feet bilaterally. Awaiting completion of lumbar puncture, Plavix and Lovenox was hel d and lumbar puncture scheduled to be completed 09/15/23. Physical exam: Vital signs reviewed and stable. General: Nontoxic, no distress and appears stated age. Derm: Skin warm and dry, normal coloration for ethnicity. Head: Atraumatic, normocephalic and symmetric. Eyes: EOMs intact, no lid lag, and anicteric sclera Mouth: no lip lesions, mucus membranes moist Cardiovascular: regular rate and rhythm with normal S1S2, no murmur, positive posterior tibial pulses bilaterally, and cap refill < 2 seconds. Lungs: Respirations even, regular, and unlabored on room air. Lungs CTA bilaterally, no rhonchi, no rales, no wheezing, and no accessory muscle usage. Abdominal: soft, nontender to palpation, no guarding, no appreciable organomegaly Ext: No gross muscle atrophy, no edema, no contractures Neuro: Speech clear but slow to respond. GCS 15. Patient was sitting up in a chair and reports continued complete weakness and numbness to bilateral lower extremities. Upon further physical examination, patient does minimally jerk away/withdraw from pain when a pen is ran up bottom of plantar surface of feet bilaterally. Psych: Alert and oriented to person, place, time, and situation. Appropriate and pleasant affect. Assessment and Plan of Care: Right lower extremity weakness, suspected CVA vs Todds paralysis vs conversion disorder History of CVA with residual L sided weakness Chronic conditions: Hypothyroidism, seizure disorder, hyperlipidemia, congenital disorders Bilateral lower extremity weakness, suspected CVA vs Todds paralysis vs conversion disorder: Repeat CT head and and CT C-spine unremarkable. Unable to obtain MRI due to cochlear implants, would recommend outpatient compatible MRI brain. Neurology following recommending lumbar puncture and plans to complete o n 09/15/23. Abnormal EEG: Discussed with Dr. Silverio, Topamax increased from 100 to 150 mg PO BID. ASA and Plavix held for possible LP on (last dose was on 09/10). Lipitor 80 mg PO QHS. Neurochecks. Telemetry monitoring. History of CVA with residual L sided weakness, provide safe and supportive care with assistance as needed. CODE STATUS: FULL CODE DVT prophylaxis: Lovenox SQ for DVT prophylaxis. Anticipated discharge date: Clinical course to determine Anticipated discharge place: Clinical course to determine Patient was seen independently by Nurse Pracitioner. This document was prepared using [employer] dictation software. Please allow for errors in orthotic/prosthetic clinician, while rare they do occur. I reviewed the documentation as provided by the DANELLE above, who is the original author of this note. I agree with the documented assessment and plan, with the following changes: none Objective - Vital Signs Vital signs: Vital Signs Temp 97.9 F 09/14/23 05:00 Pulse 89 09/14/23 05:00 Resp 16 09/14/23 05:00 BP 113/73 09/14/23 05:00 Pulse Ox 97 09/14/23 05:00 FiO2 21 09/09/23 08:25 Intake & Output 09/13/23 09/14/23 09/14/23 18:59 06:59 18:59 Other: Voiding Method Bedside Commode Bedside Commode # Voids 1 1 1 - Labs CBC & Chem 7: 09/11/23 06:36 09/11/23 06:36
[2023-09-14 14:27] VITALS: BMI 41.0
[2023-09-14] MEDS: MONTELUKAST 10 MG TAB PO SCH (20:25)
[2023-09-14] MEDS: MELATONIN 5 MG TABLET PO SCH (20:25)
[2023-09-14] MEDS: ATORVASTATIN 80 MG TAB PO SCH (20:25)
[2023-09-15] MEDS: LEVOTHYROXINE 75 MCG TAB PO SCH (05:58)
[2023-09-15] MEDS: LEVOTHYROXINE 100 MCG TAB PO SCH (05:58)
[2023-09-15] MEDS: DULoxetine HCL 60 MG CAPSULE.DR PO SCH (09:06)
[2023-09-15] MEDS: TOPIRAMATE 100 MG TAB PO SCH ×2 (09:06→20:16)
--- NOTE | 2023-09-15 11:02 | P.PN ---
Subjective Progress Note Date: 09/14/23 09/14/2023: Patient was seen for a follow-up. Patient is sitting in the recliner, comfortable. No new concerns. 09/13/2023: Patient was seen for a follow-up. Patient is sitting in the recliner. She was watching some video on the i-pad. When I entered the room, patient turned it off, placed the ipad at another part of the table, able to unplug the cable and was performing usually last normally. 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 Quite inconsistencies. Per nursing report, patient sometimes can stand up with one assist, and other times has difficulty with standing up with to assist. Patient has very inconsistencies in the examination. 09/12/2023: Patient was seen for a follow-up. Patient's conditions remains unchanged. Patient was sleeping. She appears very comfortable. 09/10/2023: Patient initially seen by Dr. Jose Silverio. Please refer to his note for details. Patient is a 32-year-old female came with lower more than upper extremity weakness. She came to the hospital because of episode of staring off in space. And then she was not able to move her legs. At present she complains of some headache and dizziness. Dr. Silverio felt that her leg weakness was possible conversion disorder. Patient continues to have weakness of the legs. She is sitting in the recliner, and her is by her bedside. Patient appears comfortable. Some of the workup during his hospital visit consisted of: CBC with differential is unremarkable Calcium is 7.9, HDL is within normal limits, glucose is 92. Sodium is 137. CT of the head is reported as bilateral cochlear implants was treated artifact limiting evaluation of those lower brain. No acute intracranial processes were visualized. I personally reviewed the CT and I agree there is artifact due to the cochlear implant but there is no appreciable acute or subacute ischemia and there is no bleed. CT angiography of the head and neck is reported as no evidence of dissection of the cervical internal carotid arteries or vertebral artery or any evidence of significant stenosis at the carotid bifurcation. No evidence of intracranial high-grade stenosis or intracranial aneurysm. 2-D echo is reported as normal size and systolic function. Ejection fraction of 55-60%. No obvious regional wall motion abnormality. Normal right atrium and left atrium size. No pericardial effusion Routine EEG is abnormal. The background slowing suggestive of mild encephalopathy. There is intermittent sporadic left parietal theta activity and at times seems sharply contoured that at one time seems diffuse in activity over bilateral hemisphere lasting between 2-3 seconds suggestive of focal cortical neuronal dysfunction. This may suggest underlying cortical ribbon and tendency for seizure. No seizure noted during the study. Repeat CT of the head was reported as no change from 2 days ago. Limited eval uation of the brain secondary due to streak artifact from metal implant. No acute intracranial process. CT cervical spine is reported as No evidence of cervical spine fracture. Mild multilevel degenerative disc disease CT lumbar reported as no evidence for a spine fracture. No evidence for sign ificance the spinal canal or neuronal foramina stenosis. Workup performed last admission, been seen by myself in April 2023 include: * Repeat CT head 04/30/2023 showed mid to inferior aspect of the head is nondiagnostic due to extensive external mental artifact. Only the superior to mid aspect of the head is assessed. Questionable loss of neal-white matter differentiation involving the portion of the superior right frontal lobe on prior examination is not well seen on today's exam with no definite sulcal effacement. I personally reviewed CT head, and agree no acute ischemic process. The right cerebral hemisphere is completely clear with no evidence of cortical or subcortical or lacunar stroke. Only pontine region was not visualized, therefore pontine lacunar stroke cannot be ruled out because of metallic beam artifact through the brainstem. * CTA of head and neck 04/27/2023: Revealed no evidence of dissection of the cervical internal carotid arteries or vertebral arteries or any evidence of significant stenosis at the carotid bifurcations. No evidence of intracranial high-grade stenosis or intracranial aneurysm. I personally reviewed CTA films. The brain does not reveal any obvious evolving stroke. I discussed and reviewed CT head with Dr. Gamez, and he concurs that the CTA of the head was fairly good study, and does not reveal any obvious stroke. * Carotid Doppler revealed no evidence of hemodynamically significant stenosis. Antegrade flow in both vertebral arteries. * Transesophageal echocardiogram: Normal left atrial appendage, normal ventricle size and systolic function. Mild MR and TR. No shunting across the interatrial septum. Normal appearance of the descending thoracic aorta. * 2-D echo, revealed normal left ventricular size and systolic function. EF is 55-60%. Trace to mild mitral, aortic and tricuspid regurgitation. Left atrial size is normal. * EEG was abnormal due to background slowing of tgli-im-eqettqwu degree suggestive of diffuse encephalopathy. The presence of intermittent sporadic left temporal sharp waves with rhythmic left temporal theta, suggest focal cortical neuronal dysfunction. This may suggest underlying cortical irr itability and tendency for seizure. No electrographic seizure was recorded. Clinical correlation recommended. Patient has an acute stroke. Patient has not had any clinical seizure-like activity since arrival to the hospital. Hold off on antiepileptic medication for now. * B12 451, folate 16.4, Lyme tite negative r, West Nile virus antibodies normal/negative, TSH is normal. * Hemoglobin A1c 5.1, fasting lipid panel cholesterol 147, LDL 91, HDL 36 and triglycerides 99.2. Continue Lipitor 40 mg daily. * Continue aspirin 325 mg and Plavix 75 mg daily for 30 days, then stop Plavix and continue aspirin indefinitely. * Hematology on board for evaluation for hypercoagulable workup. Lupus anticoagulant, antithrombin III antigen, anticardiolipin antibodies negative. Prothrombin gene mutation negative. Objective - Vital Signs Vital signs: Vital Signs Temp 98 F 09/15/23 08:00 Pulse 88 09/15/23 08:00 Resp 20 09/15/23 08:00 BP 98/57 09/15/23 08:00 Pulse Ox 97 09/15/23 08:00 FiO2 21 09/09/23 08:25 Intake & Output 09/14/23 09/15/23 09/15/23 18:59 06:59 18:59 Intake Total 775 540 Balance 775 540 Weight 89 kg Intake: Oral 775 540 Other: Voiding Method Bedside Commode Bedside Commode # Voids 1 # Bowel Movements 1 - Exam Patient is alert and awake in no distress. Her speech is slow, hesitant, but not stuttering. On cranial nerve examination, pupils are equal, round and reacting to light, visual ortiz are full on confrontation with no neglect on either side. Extraocular muscles are intact with no nystagmus. Patient has chronic right facial weakness peripheral type ( defect). Patient has bifacial weakness, not able to smile on either side. Patient cannot wrinkle forehead on either side. However when she closes her eye, the left eye has much better strength of closure, but the right eye is definitely weak. Tongue protrudes the midline. She has cochlear implant bilaterally. On muscle strength testing, the strength is very symmetric. Deltoids 3+4-, biceps 3+, triceps 3+, rocket assembly operator 2+3, hip flexion 0, ankle dorsiflexion 0. Deep tendon reflexes are symmetric, 1 at the biceps, 2 brachioradialis, 2+ at the knees, 1+ ankles and plantars are flat bilaterally. Sensory to touch is slightly decreased in the lower limbs as compared to the upper. - Labs CBC & Chem 7: 09/11/23 06:36 09/11/23 06:36 Assessment and Plan Assessment: Paraparesis, with moderate bilateral upper extremity weakness and bifacial weakness, unclear cause rule out CIDP, rule out myasthenia gravis versus functional disorder/conversion disorder. Patient's examination has significant inconsistencies, suggestive of possible conversion disorder. Episodes of unresponsive with blank stares. ? Seizure on the EEG there is no evidence of seizure and according to the patient's legal guardian has not had any further episode of unresponsiveness. No definitive evidence of recent or remote stroke. Patient's CT scans performed in the past had significant artifact, therefore CVA suspected. However repeat computed tomography scan of the head has been negative, with no evidence of an acute or remote stroke. History of cleft lip/palate and had multiple facial surgeries with residual right facial weakness Underlying cognitive impairment/learning disability and resides with her boyfriend who is also disabled and has a son History of bilateral cochlear implant History of migraine headache Plan: Patient legal guardian stated that her cochlear implant is MRI compatible that she was notified. We'll pursue with the MRI the brain and cervical spine with and without, only if cleared by radiology. Patient continues to be weak in all 4 extremities with lower extremities 0 bilaterally, and upper extremities also weak about 3+ all over bilaterally. Patient also has bifacial weakness. We will stop Plavix (last dose 09/10/2023). After 5 days will consider lumbar puncture. Hold Lovenox the day prior to lumbar puncture. Await acetylcholine receptor antibodies. Dr. Silverio increased Topamax from 100 mg twice a day to 150 mg twice a day which can help with her migraines as well as a has antiepileptic effect. If has any further seizures consider Lamictal. Seizure precautions with seizure pads Hold aspirin and Plavix for possible lumbar puncture. Continue Lipitor 80 mg daily at bedtime. We will discontinue Plavix, no need for Plavix. Continue neuro checks PT OT and COSTUME DIRECTOR are consulted We'll defer the rest of medical management to the primary team. Discussed with primary physician.
--- NOTE | 2023-09-15 11:04 | P.PN ---
Subjective Progress Note Date: 09/15/23 Subjective: No new complaints today. Reports no improvement in LE weakness. Pending LP today. 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 She presented to the emergency room accompanied by her sister/legal guardian with complaints of lower extremity weakness. Of note, the patient recently had a suspected CVA in 05/06 and has since been ambulating with a walker. The sister reports that she was contacted shortly after the patient had undergone a recent physical therapy appointment that the patient was feeling weak in her right lower extremity. Patient reports she has been feeling diffusely weak over the past 1-2 days but that it acutely worsened tonight. She had an extensive workup for possible CVA back in 05/06 when in the EEG was suggestive of diffuse encephalopathy with no obvious abnormalities noted on CT imaging of brain. Patient notes persistent right lower extremity weakness at the time of interview. Code stroke was activated in the emergency room. The patient was deemed to not be a candidate for TPA. CT angiogram of head and neck revealed no acute abnormalities with CT brain also revealing no acute abnormalities. EKG revealed sinus tachycardia 103 bpm with poor R-wave progression with no ST/T-wave changes noted as reviewed by me. Laboratory evaluation was reviewed with WBC count 8.3, hemoglobin 12.2, sodium 137, chloride 18, calcium 7.9, troponin less than 0.012. Patient was admitted for new right-sided weakness, rule out CVA/seizures. Consult was placed to neurology. 09/08 Patient was seen and examined. Guardian at bedside. 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 Case was discussed with Dr. Silverio, patient and guardian at bedside, plans for repeat CT brain and CT C-spine, abnormal EEG but no seizure like activity seen, increase Topamax. PMR has been consulted for possible IPR. Echocardiogram is within normal limits. 09/09 Patient was seen and examined. Continued weakness bilateral UE and LE. Able to stand up with assist of Dr. Silverio but unable to take steps. Repeat CT brain and C-spine within normal limits. We will check if MRI is compatible with cochlear implant (information provided by guardian). ESR and CRP negative. 09/10 Patient was seen and examined. No changes neurologically. Our MRI is not compatible with her cochlear implants. I will attempt to see if Dr. Baldwin's MRI is compatible. Dr. Valera recommends LP after holding Plavix/ASA for 5 days. 09/11 Patient was seen and examined. No changes neurologically. CBC unremarkable. BMP Cl 112, bicarb 16, Ca 8.3. 09/12 Patient was seen and examined. No changes neurologically. PMR to determine if patient would be a good candidate for IPR. Case management on board. Will discus with Dr. Valera if LP is necessary. 09/13 Patient was seen and examined. Sleeping comfortably. No nursing complaints. Quite inconsistent with her neurological exam. Shows 0/5 strength in her bilateral LE but able to stand up with 2 person assist. Shows extremely weak strip strength but reports from staff that she is able to comb her hair. We are waiting for lumbar puncture, hopefully can be done on as recommended by Dr. Valera. PMR following for possible IPR. 09/14: Patient seen and fully evaluated at bedside. She was sitting up in a chair and reports continued complete weakness and numbness to bilateral lower extremities. Upon further physical examination, patient does minimally jerk away/withdraw from pain when a pen is ran up bottom of plantar surface of feet bilaterally. Awaiting completion of lumbar puncture, Plavix and Lovenox was hel d and lumbar puncture scheduled to be completed 09/15/23. Physical exam: Assessment and Plan of Care: Right lower extremity weakness, suspected CVA vs Todds paralysis vs conversion disorder History of CVA with residual L sided weakness Chronic conditions: Hypothyroidism, seizure disorder, hyperlipidemia, congenital disorders Bilateral lower extremity weakness, suspected CVA vs Todds paralysis vs conversion disorder: Repeat CT head and and CT C-spine unremarkable. Unable to obtain MRI due to cochlear implants, would recommend outpatient compatible MRI brain. Neurology following recommending lumbar puncture and plans to complete on 09/15/23. Abnormal EEG: Discussed with Dr. Silverio, Topamax increased from 100 to 150 mg PO BID. ASA and Plavix held for possible LP on (last dose was on 09/10). Lipitor 80 mg PO QHS. Neurochecks. Telemetry monitoring. History of CVA with residual L sided weakness, provide safe and supportive care with assistance as needed. CODE STATUS: FULL CODE DVT prophylaxis: Lovenox SQ for DVT prophylaxis. Anticipated discharge date: Clinical course to determine Anticipated discharge place: Clinical course to determine Objective - Vital Signs Vital signs: Vital Signs Temp 98 F 09/15/23 08:00 Pulse 88 09/15/23 08:00 Resp 20 09/15/23 08:00 BP 98/57 09/15/23 08:00 Pulse Ox 97 09/15/23 08:00 FiO2 21 09/09/23 08:25 Intake & Output 09/14/23 09/15/23 09/15/23 18:59 06:59 18:59 Intake Total 775 540 Balance 775 540 Weight 89 kg Intake: Oral 775 540 Other: Voiding Method Bedside Commode Bedside Commode # Voids 1 # Bowel Movements 1 - Labs CBC & Chem 7: 09/11/23 06:36 09/11/23 06:36
--- NOTE | 2023-09-15 16:09 | FL ---
Lumbar puncture INDICATION: Mental status changes FINDINGS: Fluoroscopy time: 8 seconds. Images obtained: One. The procedure was explained to the patient. Risks complications and benefits were discussed. Alternat shonna were discussed. All questions were answered. Informed consent was obtained. A timeout was performed. The L4-L5 level was chosen for access. Maximum barrier sterile technique was utilized. The skin was c leansed with Betadine and the patient sterilely prepped and draped in the usual manner. The skin and deeper tissue was anesthetized with 1% Lidocaine. Utilizing a 20-gauge spinal needle the spinal canal was accessed. Good CSF return was evident. Clear fluid was obtained totaling 7 mL over 4 vials. The stylette was replaced and the needle withdrawn. The patient tolerated the procedure well. Discharge instructions were discussed with the patient. Th e patient was returned to her room for recovery. Findings: CSF was labeled and transferred to pathology for additional evaluation. IMPRESSION: 1. Successful Lumbar Puncture.
[2023-09-15 18:45] LABS: Glucose,CSF 48 mg/dL (40-70); Total Protein,CSF 60 mg/dL (12-60)
[2023-09-15] MEDS: ATORVASTATIN 80 MG TAB PO SCH (20:16)
[2023-09-15] MEDS: MELATONIN 5 MG TABLET PO SCH (20:16)
[2023-09-15] MEDS: MONTELUKAST 10 MG TAB PO SCH (20:16)
[2023-09-15] MEDS: ACETAMINOPHEN TAB 325 MG TAB PO PRN (20:47)
[2023-09-15 23:31] LABS: Appearance,CSF Clear; CSF Tube Number 4; Nucleated Cells, CSF 0 u/L (0-5); Red Blood Cell,CSF 0 u/L (0-10)
[2023-09-16] MEDS: LEVOTHYROXINE 100 MCG TAB PO SCH (06:22)
[2023-09-16] MEDS: LEVOTHYROXINE 75 MCG TAB PO SCH (06:22)
[2023-09-16] MEDS: DULoxetine HCL 60 MG CAPSULE.DR PO SCH (08:38)
[2023-09-16] MEDS: ENOXAPARIN 40 MG/0.4 ML SYRINGE SQ SCH (08:38)
[2023-09-16] MEDS: TOPIRAMATE 100 MG TAB PO SCH ×2 (08:38→21:52)
--- NOTE | 2023-09-16 12:35 | P.PN ---
Subjective Progress Note Date: 09/16/23 Subjective: No new complaints today. LP looked clear. Pt accepted to IPR by PMR, insurance auth is pending. 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 She presented to the emergency room accompanied by her sister/legal guardian with complaints of lower extremity weakness. Of note, the patient recently had a suspected CVA in 05/06 and has since been ambulating with a walker. The sister reports that she was contacted shortly after the patient had undergone a recent physical therapy appointment that the patient was feeling weak in her right lower extremity. Patient reports she has been feeling diffusely weak over the past 1-2 days but that it acutely worsened tonight. She had an extensive workup for possible CVA back in 05/06 when in the EEG was suggestive of diffuse encephalopathy with no obvious abnormalities noted on CT imaging of brain. Patient notes persistent right lower extremity weakness at the time of interview. Code stroke was activated in the emergency room. The patient was deemed to not be a candidate for TPA. CT angiogram of head and neck revealed no acute abnormalities with CT brain also revealing no acute abnormalities. EKG revealed sinus tachycardia 103 bpm with poor R-wave progression with no ST/T-wave changes noted as reviewed by me. Laboratory evaluation was reviewed with WBC count 8.3, hemoglobin 12.2, sodium 137, chloride 18, calcium 7.9, troponin less than 0.012. Patient was admitted for new right-sided weakness, rule out CVA/seizures. Consult was placed to neurology. 09/08 Patient was seen and examined. Guardian at bedside. 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 Case was discussed with Dr. Silverio, patient and guardian at bedside, plans for repeat CT brain and CT C-spine, abnormal EEG but no seizure like activity seen, increase Topamax. PMR has been consulted for possible IPR. Echocardiogram is within normal limits. 09/09 Patient was seen and examined. Continued weakness bilateral UE and LE. A ble to stand up with assist of Dr. Silverio but unable to take steps. Repeat CT brain and C-spine within normal limits. We will check if MRI is compatible with cochlear implant (information provided by guardian). ESR and CRP negative. 09/10 Patient was seen and examined. No changes neurologically. Our MRI is not compatible with her cochlear implants. I will attempt to see if Dr. Baldwin's MRI is compatible. Dr. Valera recommends LP after holding Plavix/ASA for 5 days. 09/11 Patient was seen and examined. No changes neurologically. CBC unremarkable. BMP Cl 112, bicarb 16, Ca 8.3. 09/12 Patient was seen and examined. No changes neurologically. PMR to determine if patient would be a good candidate for IPR. Case management on board. Will discus with Dr. Valera if LP is necessary. 09/13 Patient was seen and examined. Sleeping comfortably. No nursing complaints. Quite inconsistent with her neurological exam. Shows 0/5 strength in her bilateral LE but able to stand up with 2 person assist. Shows extremely weak strip strength but reports from staff that she is able to comb her hair. We are waiting for lumbar puncture, hopefully can be done on as recommended by Dr. Valera. PMR following for possible IPR. 09/14: Patient seen and fully evaluated at bedside. She was sitting up in a chair and reports continued complete weakness and numbness to bilateral lower extremities. Upon further physical examination, patient does minimally jerk away/withdraw from pain when a pen is ran up bottom of plantar surface of feet bilaterally. Awaiting completion of lumbar puncture, Plavix and Lovenox was held and lumbar puncture scheduled to be completed 09/15/23. Physical exam: Assessment and Plan of Care: Right lower extremity weakness, suspected CVA vs Todds paralysis vs conversion d isorder History of CVA with residual L sided weakness Chronic conditions: Hypothyroidism, seizure disorder, hyperlipidemia, congenital disorders Bilateral lower extremity weakness, suspected CVA vs Todds paralysis vs conversion disorder: Repeat CT head and and CT C-spine unremarkable. Unable to obtain MRI due to cochlear implants, would recommend outpatient compatible MRI brain. Neurology following recommending lumbar puncture and plans to complete on 09/15/23. Abnormal EEG: Discussed with Dr. Silverio, Topamax increased from 100 to 150 mg PO BID. ASA and Plavix held for LP. LP was clear. Will resume ASA/Plavix now. History of CVA with residual L sided weakness, provide safe and supportive care with assistance as needed. CODE STATUS: FULL CODE DVT prophylaxis: Lovenox SQ for DVT prophylaxis. Anticipated discharge date: Clinical course to determine Anticipated discharge place: Clinical course to determine Objective - Vital Signs Vital signs: Vital Signs Temp 98.2 F 09/16/23 08:40 Pulse 90 09/16/23 08:40 Resp 18 09/16/23 08:40 BP 111/75 09/16/23 08:40 Pulse Ox 95 09/16/23 08:40 FiO2 21 09/09/23 08:25 Intake & Output 09/15/23 09/16/23 09/16/23 18:59 06:59 18:59 Intake Total 660 480 Balance 660 480 Intake: Oral 660 480 Other: Voiding Method Bedside Commode Bedside Commode # Voids 3 1 1 - Labs CBC & Chem 7: 09/11/23 06:36 09/11/23 06:36
--- NOTE | 2023-09-16 12:43 | P.PN ---
Subjective Progress Note Date: 09/15/23 09/15/2023: Patient was seen for a follow-up. Patient is laying in the bed, appears very comfortable. Patient moves her arms well, but with examination, she barely has any strength no more than 3-3+. 09/14/2023: Patient was seen for a follow-up. Patient is sitting in the recli ner, comfortable. No new concerns. 09/13/2023: Patient was seen for a follow-up. Patient is sitting in the recliner. She was watching some video on the i-pad. When I entered the room, patient turned it off, placed the ipad at another part of the table, able to unplug the cable and was performing usually last normally. However on examination, she has sprinkler installer strength of no more than 3. Quite inconsistencies. Per nursing report, patient sometimes can stand up with one assist, and other times has difficulty with standing up with to assist. Patient has very inconsistencies in the examination. 09/12/2023: Patient was seen for a follow-up. Patient's conditions remains unchanged. Patient was sleeping. She appears very comfortable. 09/10/2023: Patient initially seen by Dr. Jose Silverio. Please refer to his note for details. Patient is a 32-year-old female came with lower more than upper extremity weakness. She came to the hospital because of episode of staring off in space. And then she was not able to move her legs. At present she complains of some headache and dizziness. Dr. Silverio felt that her leg weakness was possible conversion disorder. Patient continues to have weakness of the legs. She is sitting in the recliner, and her is by her bedside. Patient appears comfortable. Some of the workup during his hospital visit consisted of: CBC with differential is unremarkable Calcium is 7.9, HDL is within normal limits, glucose is 92. Sodium is 137. CT of the head is reported as bilateral cochlear implants was treated artifact limiting evaluation of those lower brain. No acute intracranial processes were visualized. I personally reviewed the CT and I agree there is artifact due to the cochlear implant but there is no appreciable acute or subacute ischemia and there is no bleed. CT angiography of the head and neck is reported as no evidence of dissection of the cervical internal carotid arteries or vertebral artery or any evidence of significant stenosis at the carotid bifurcation. No evidence of intracranial high-grade stenosis or intracranial aneurysm. 2-D echo is reported as normal size and systolic function. Ejection fraction of 55-60%. No obvious regional wall motion abnormality. Normal right atrium and left atrium size. No pericardial effusion Routine EEG is abnormal. The background slowing suggestive of mild encephalopathy. There is intermittent sporadic left parietal theta activity and at times seems sharply contoured that at one time seems diffuse in activity over bilateral hemisphere lasting between 2-3 seconds suggestive of focal cortical neuronal dysfunction. This may suggest underlying cortical ribbon and tendency for seizure. No seizure noted during the study. Repeat CT of the head was reported as no change from 2 days ago. Limited evaluation of the brain secondary due to streak artifact from metal implant. No acute intracranial process. CT cervical spine is reported as No evidence of cervical spine fracture. Mild multilevel degenerative disc disease CT lumbar reported as no evidence for a spine fracture. No evidence for significance the spinal canal or neuronal foramina stenosis. Workup performed last admission, been seen by myself in April 2023 include: * Repeat CT head 04/30/2023 showed mid to inferior aspect of the head is nondiagnostic due to extensive external mental artifact. Only the superior to mid aspect of the head is assessed. Questionable loss of neal-white matter differentiation involving the portion of the superior right frontal lobe on prior examination is not well seen on today's exam with no definite sulcal effacement. I personally reviewed CT head, and agree no acute ischemic process. The right cerebral hemisphere is completely clear with no evidence of cortical or subcortical or lacunar stroke. Only pontine region was not visualized, therefore pontine lacunar stroke cannot be ruled out because of metallic beam artifact through the brainstem. * CTA of head and neck 04/27/2023: Revealed no evidence of dissection of the cervical internal carotid arteries or vertebral arteries or any evidence of significant stenosis at the carotid bifurcations. No evidence of intracranial high-grade stenosis or intracranial aneurysm. I personally reviewed CTA films. The brain does not reveal any obvious evolving stroke. I discussed and reviewed CT head with Dr. Gamez, and he concurs that the CTA of the head was fairly good study, and does not reveal any obvious stroke. * Carotid Doppler revealed no evidence of hemodynamically significant stenosis. Antegrade flow in both vertebral arteries. * Transesophageal echocardiogram: Normal left atrial appendage, normal ventricle size and systolic function. Mild MR and TR. No shunting across the interatrial septum. Normal appearance of the descending thoracic aorta. * 2-D echo, revealed normal left ventricular size and systolic function. EF is 55-60%. Trace to mild mitral, aortic and tricuspid regurgitation. Left atrial size is normal. * EEG was abnormal due to background slowing of [id number] degree suggestive of diffuse encephalopathy. The presence of intermittent sporadic left temporal sharp waves with rhythmic left temporal theta, suggest focal cortical neuronal dysfunction. This may suggest underlying cortical irritability and tendency for seizure. No electrographic seizure was recor ded. Clinical correlation recommended. Patient has an acute stroke. Patient has not had any clinical seizure-like activity since arrival to the hospital. Hold off on antiepileptic medication for now. * B12 451, folate 16.4, Lyme tite negative r, West Nile virus antibodies normal/negative, TSH is normal. * Hemoglobin A1c 5.1, fasting lipid panel cholesterol 147, LDL 91, HDL 36 and triglycerides 99.2. Continue Lipitor 40 mg daily. * Continue aspirin 325 mg and Plavix 75 mg daily for 30 days, then stop Plavix and continue aspirin indefinitely. * Hematology on board for evaluation for hypercoagulable workup. Lupus anticoagulant, antithrombin III antigen, anticardiolipin antibodies negative. Prothrombin gene mutation negative. Objective - Vital Signs Vital signs: Vital Signs Temp 97.9 F 09/15/23 11:53 Pulse 97 09/15/23 15:51 Resp 16 09/15/23 15:51 BP 99/63 09/15/23 15:51 Pulse Ox 97 09/15/23 15:51 FiO2 21 09/09/23 08:25 Intake & Output 09/14/23 09/15/23 09/15/23 18:59 06:59 18:59 Intake Total 775 540 420 Balance 775 540 420 Weight 89 kg Intake: Oral 775 540 420 Other: Voiding Method Bedside Commode Bedside Commode # Voids 1 # Bowel Movements 1 - Exam Patient is alert and awake in no distress. Her speech is slow, hesitant, but not stuttering. On cranial nerve examination, pupils are equal, round and reacting to light, visual ortiz are full on confrontation with no neglect on either side. Extraocular muscles are intact with no nystagmus. Patient has chronic right facial weakness peripheral type ( defect). Patient has bifacial weakness, not able to smile on either side. Patient cannot wrinkle forehead on either side. However when she closes her eye, the left eye has much better strength of closure, but the right eye is definitely weak. Tongue protrudes the midline. She has cochlear implant bilaterally. On muscle strength testing, the strength is very symmetric. Deltoids 3+, biceps 3, triceps 3, sprinkler installer 2+3, hip flexion 0, ankle dorsiflexion 0. Deep tendon reflexes are symmetric, 1 at the biceps, 2 brachioradialis, 2+ at the knees, 1+ ankles and plantars are flat bilaterally. Sensory to touch is slightly decreased in the lower limbs as compared to the upper. - Labs CBC & Chem 7: 09/11/23 06:36 09/11/23 06:36 Assessment and Plan Assessment: Paraparesis, with moderate bilateral upper extremity weakness and bifacial weakness, unclear cause rule out CIDP, rule out myasthenia gravis versus functional disorder/conversion disorder. Patient's examination has significant inconsistencies, suggestive of possible conversion disorder. Episodes of unresponsive with blank stares. ? Seizure on the EEG there is no evidence of seizure and according to the patient's legal guardian has not had any further episode of unresponsiveness. No definitive evidence of recent or remote stroke. Patient's CT scans performed in the past had significant artifact, therefore CVA suspected. However repeat computed tomography scan of the head has been negative, with no evidence of an acute or remote stroke. History of cleft lip/palate and had multiple facial surgeries with residual right facial weakness Underlying cognitive impairment/learning disability and resides with her boyfriend who is also disabled and has a son History of bilateral cochlear implant History of migraine headache Plan: Patient underwent lumbar puncture by interventional radiology today. CSF is colorless, clear, RBCs 0, WBC 0, glucose 48 which is normal, CSF protein is also normal at 60 (12-60). No evidence of CIDP based upon normal CSF findings. Await CSF BESS, MS panel, myelin basic proteins. Also awaiting acetylcholine receptor antibodies. Patient clear for discharge. Recommend EMG and nerve conduction of upper and lower extremities as an outpatient. We will stop Plavix (last dose 09/10/2023). No need to resume Plavix, as patient never had any stroke. Decrease Lipitor down to [address] Silverio increased Topamax from 100 mg twice a day to 150 mg twice a day which can help with her migraines as well as a has antiepileptic effect. If has any further seizures consider Lamictal. Seizure precautions with seizure pads PT OT and AUTOMATIC SPLICING MACHINE OPERATOR are consulted Neurologically clear for discharge. Discussed with primary physician.
[2023-09-16] MEDS: ACETAMINOPHEN TAB 325 MG TAB PO PRN (14:58)
--- NOTE | 2023-09-16 15:18 | P.PN ---
Subjective Progress Note Date: 09/16/23 Principal diagnosis: incomplete paraparesis Ms Ngozi Coto is a 32 y/o single female who lives with her boyfriend and 6 year old son in a single story home with 3 ALEYDA. Patient has a legal guardian, Sister Agustina, whom she refers to as her mother (raised her from age 12). She was using a walker for ambulation, able to perform basic ADLs, but her sister assisted with bathing, medications, and finances. She gets transportation provided by her sister. She was on [facility] floor in April 2023 after CVA with left hemiparesis. She did well and was able to transition back home and was doing outpatient therapy. Patent presented to the hospital after multiple episodes over the past couple of months of "blank staring" episodes, sometimes lasting 20 minutes at a time. She has had at least 4 episodes since her discharge from [facility]. She was following outpatient with neurology, recently had her Topomax dose increased in July for Migraines. She was supposed to have a follow up with neurology on the day she presented to the hospital. She was also noted to have right sided weakness which was new. Neurology consulted. Head CT and CTA with no acute process. She is unable to have an MRI due to her cochlear implants. EKG with sinus tachycardia. Neurology ordered EEG, Echo, and increased her Topomax. PM&R consulted for rehab recommendations. Patient was cleared by speech therapy, thought to be at her baseline function. She needed total assist with bathing, UB dressing max, LB dressing total assist, grooming min assist, eating supervision, transfers dependent ( 2 ppl mod assist), was unable to ambulate at this time, standing balance supported due to knees buckling. 09/07/23: Patient seen sitting in recliner with legs elevated, sister at her bedside. She denies CP, SOB, and abdominal pain. She admits to some functional incontinence since her stroke in April, now wears a pad liner. She has chronic constipation, takes daily softeners at home. She has had 4 of these " episodes" since her stroke. Per her sister she has been seeing neurology outpatient, had not had any episodes since her increase of Topomax in July. She denies loss of bowel or bladder or tongue biting during these episodes. She does not remember them and cannot tell what us going on around her when they occur. Per her sister, she had been making good progress with outpatient therapy but in the last couple of visits they noted that she had hit a plateau and even had some regression. She had an outpatient EEG with Neurology on Aug 25 and was supposed to get the results on her day of admission to the hospital. Per sister and patient she was able to walk with her walker earlier in the day prior to admission. She is now unable to lift her legs, has significant weakness in her right arm. She did have some residual left sided weakness from her stroke, but that is now worse. She has had vision changes since her stroke in April and is planning to follow with ophthalmology on Sep 17. She reports numbness and tingling in her distal arms and hands as well as her feet,new. 09/09/2023: Patient found in recliner, with legs elevated. Patient denies CP, SOB and abdominal pain. Denies issues with urination, LBM 09/07. Patient does complain of some headaches. Patient is frustrated that she does not have any answers regarding medical diagnosis. Patient reports that she is willing to work with therapy, and wants to gain her strength and go back home. Patient has pending MRI of the brain. Therapy progress as of 09/09: Bathing total assist, UB dressing max assist, LB dressing total assist, grooming min assist, eating supervision, toileting ability total assist, bed mobility max assist, total assist transfers 09/12/23 ESR and CRP WNL. Per records, they are attempting to find an MRI compatible with her cochlear implants. Dr Friend recommending MRI brain and C sp ine as well as Lumbar Puncture. Agree with his assessment as there has not been an identified etiology to her weakness. Patient denies CP,SOB, and abdominal pain. Denies issues with bowel and bladder. Still has some numbness in her legs and is unable to move them. She is able to move her arms although ataxic at times. Therapy progress Bathing total assist, UB dressing max assist, LB dressing tot al assist, grooming min assist,toileting ability total assist, bed mobility max assist, total assist transfers, not ambulatory 09/16/2023: Unable to locate MRI compatible with her cochlear implants. Lumbar puncture completed in 09/15, results pending. CT of the lumbar spine completed 09/08 was negative. Head/cervical spine CT completed 09/08 showed no change from previous. Patient requiring total assist for bathing, toileting, LB dressing, and bed mobility. Patient requiring moderate assist with UB dressing. Supervision for grooming, independent for eating. Objective - Vital Signs Vital signs: Vital Signs Temp 98.2 F 09/16/23 08:40 Pulse 86 09/16/23 14:59 Resp 17 09/16/23 14:59 BP 108/71 09/16/23 14:59 Pulse Ox 100 09/16/23 14:59 FiO2 21 09/09/23 08:25 Intake & Output 09/15/23 09/16/23 09/16/23 18:59 06:59 18:59 Intake Total 660 480 Balance 660 480 Intake: Oral 660 480 Other: Voiding Method Bedside Commode Bedside Commode # Voids 3 1 1 - Exam EXAM; General: WDWN, young female sitting up in recliner with legs elevated, NAD Head: Nontraumatic Eyes: slight eye ptosis Ears: bilateral cochlear implants Mouth: Clear. Neck: Supple. Cardiac: customer liaison on, Calves supple, non tender, trace ankle edema Lungs: Breathing comfortably on RA. Chest symmetric. Abdomen: Soft, nontender. Neurological: Alert and oriented x 4. Speech is slightly slurred but baseline, history of right facial palsy, slight left facial droop-not new Musculoskeletal: LE paresis, bilateral UE weakness proximal greater than distal MMT UE Sh Abd EE EF FABD WE HG Right 3- 3+ 3+ 2 Left 3- 3+ 3+ 2+ MMT LE HF KE DF EHL Right 0 0 0 1 Left 0 0 0 1 Skin: Skin intact where visible to head, neck, and bilateral upper and lower extremities EXCEPT: peripheral IV Psych: Calm, cooperative - Labs CBC & Chem 7: 09/11/23 06:36 09/11/23 06:36 Assessment and Plan Assessment: # 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 -09/12 possible MRI brain and C spine if compatible MRI, LP pending, agree with procedure. -09/16: LP completed, results pending, CT of the lumbar spine completed 09/08 was negative. Head/cervical spine CT completed 09/08 showed no change from previous. # Seizure like activity with post ictal states, new onset -Neurology following, EEG pending, seizure precautions -PT/OT, job press feeder signed off -09/09/2023: EEG abnormal, suggestive of mild encephalopathy and cortical irritability with the tendency for seizure. MRI of brain pending # Right sided weakness, new onset -CT head negative # left sided residual weakness due to recent ( April 2023) CVA -on ASA, plavix, statin -09/16:patient no longer on plavix # Impaired gait and ADLs secondary to above # Cognitive impairment # Impaired hearing, bilateral cochlear implants # History of right facial palsy with multiple surgeries #Bowel/ Bladder: Nursing to monitor and report concerns if any. -09/09: Denies issues with urination, LBM 09/07 # Diet- -Cardiac # Skin/wound: Skin/Wound care to follow as needed # Pain Management- cymbalta # DVT Prophylaxis: Lovenox # Comorbidities: migraines # Your medical dx and mgt Goals: Modified Independent mobility and ADLS both basic and advanced; increased functional mobility/strength; increased balance, safety, endurance. Improvement in medical issues through your care. Barriers: weakness, fall risk, history of cva Discharge recommendation: IPR at discharge. Insurance authorization sent. Patient having significant deficits from baseline and would benefit from structured rehabilitation. Patient seen and examined by Dr. Winston Note prepped by EB Davies
[2023-09-16] MEDS ORDERED: IMMUNE GLOBULIN (GAMMAGARD) 30 GM in EMPTY BAG 1 BAG IV ONE (20:00)
[2023-09-16] MEDS: ATORVASTATIN 20 MG TAB PO SCH (21:52)
[2023-09-16] MEDS: MONTELUKAST 10 MG TAB PO SCH (21:53)
[2023-09-16] MEDS: MELATONIN 5 MG TABLET PO SCH (21:53)
--- NOTE | 2023-09-17 01:51 | P.PN ---
Subjective Progress Note Date: 09/16/23 09/16/2023: Patient was seen for a follow-up. Patient has developed some post spinal headache. The headaches are worse on sitting up, but gets better on laying down. Patient also complaining of pins and needles sensation in the toes up to mid calves bilaterally. Patient continues to have weakness of the upper limbs, and facial region. I spoke to patient's sister on the phone, whom she calls "Mom". She mentions that patient is getting worse. She was able to smile, but not anymore. Likewise her strength has progressively gotten worse. I'm somewhat concerned about patient's symptoms of pins and needle sensation in the toes up to mid calves. This raises concern for possible neuropathic process. 09/15/2023: Patient was seen for a follow-up. Patient is laying in the bed, appears very comfortable. Patient moves her arms well, but with examination, she barely has any strength no more than 3-3+. 09/14/2023: Patient was seen for a follow-up. Patient is sitting in the recliner, comfortable. No new concerns. 09/13/2023: Patient was seen for a follow-up. Patient is sitting in the recliner. She was watching some video on the i-pad. When I entered the room, patient turned it off, placed the ipad at another part of the table, able to unplug the cable and was performing usually last normally. However on ex amination, she has foreign diplomat strength of no more than 3. Quite inconsistencies. Per nursing report, patient sometimes can stand up with one assist, and other times has difficulty with standing up with to assist. Patient has very inconsistencies in the examination. 09/12/2023: Patient was seen for a follow-up. Patient's conditions remains unchanged. Patient was sleeping. She appears very comfortable. 09/10/2023: Patient initially seen by Dr. Jose Silverio. Please refer to his note for details. Patient is a 32-year-old female came with lower more than upper extremity weakness. She came to the hospital because of episode of staring off in space. And then she was not able to move her legs. At present she complains of some headache and dizziness. Dr. Silverio felt that her leg weakness was possible conversion disorder. Patient continues to have weakness of the legs. She is sitting in the recliner, and her is by her bedside. Patient appears comfortable. Some of the workup during his hospital visit consisted of: CBC with differential is unremarkable Calcium is 7.9, HDL is within normal limits, glucose is 92. Sodium is 137. CT of the head is reported as bilateral cochlear implants was treated artifact limiting evaluation of those lower brain. No acute intracranial processes were visualized. I personally reviewed the CT and I agree there is artifact due to the cochlear implant but there is no appreciable acute or subacute ischemia and there is no bleed. CT angiography of the head and neck is reported as no evidence of dissection of the cervical internal carotid arteries or vertebral artery or any evidence of significant stenosis at the carotid bifurcation. No evidence of intracranial high-grade stenosis or intracranial aneurysm. 2-D echo is reported as normal size and systolic function. Ejection fraction of 55-60%. No obvious regional wall motion abnormality. Normal right atrium and left atrium size. No pericardial effusion Routine EEG is abnormal. The background slowing suggestive of mild encephalopathy. There is intermittent sporadic left parietal theta activity and at times seems sharply contoured that at one time seems diffuse in activity over bilateral hemisphere lasting between 2-3 seconds suggestive of focal cortical neuronal dysfunction. This may suggest underlying cortical ribbon and tendency for seizure. No seizure noted during the study. Repeat CT of the head was reported as no change from 2 days ago. Limited evaluation of the brain secondary due to streak artifact from metal implant. No acute intracranial process. CT cervical spine is reported as No evidence of cervical spine fracture. Mild multilevel degenerative disc disease CT lumbar reported as no evidence for a spine fracture. No evidence for significance the spinal canal or neuronal foramina stenosis. Workup performed last admission, been seen by myself in April 2023 include: * Repeat CT head 04/30/2023 showed mid to inferior aspect of the head is nondiagnostic due to extensive external mental artifact. Only the superior to mid aspect of the head is assessed. Questionable loss of neal-white matter differentiation involving the portion of the superior right frontal lobe on prior examination is not well seen on today's exam with no definite sulcal effacement. I personally reviewed CT head, and agree no acute ischemic p rocess. The right cerebral hemisphere is completely clear with no evidence of cortical or subcortical or lacunar stroke. Only pontine region was not visualized, therefore pontine lacunar stroke cannot be ruled out because of metallic beam artifact through the brainstem. * CTA of head and neck 04/27/2023: Revealed no evidence of dissection of the cervical internal carotid arteries or vertebral arteries or any evidence of significant stenosis at the carotid bifurcations. No evidence of intracranial high-grade stenosis or intracranial aneurysm. I personally reviewed CTA films. The brain does not reveal any obvious evolving stroke. I discussed and reviewed CT head with Dr. Gamez, and he concurs that the CTA of the head was fairly good study, and does not reveal any obvious stroke. * Carotid Doppler revealed no evidence of hemodynamically significant stenosis. Antegrade flow in both vertebral arteries. * Transesophageal echocardiogram: Normal left atrial appendage, normal ventricle size and systolic function. Mild MR and TR. No shunting across the interatrial septum. Normal appearance of the descending thoracic aorta. * 2-D echo, revealed normal left ventricular size and systolic function. EF is 55-60%. Trace to mild mitral, aortic and tricuspid regurgitation. Left atrial size is normal. * EEG was abnormal due to background slowing of [id number] degree suggestive of diffuse encephalopathy. The presence of intermittent sporadic left temporal sharp waves with rhythmic left temporal theta, suggest focal cortical neuronal dysfunction. This may suggest underlying cortical irritability and tendency for seizure. No electrographic seizure was recorded. Clinical correlation recommended. Patient has an acute stroke. Patient has not had any clinical seizure-like activity since arrival to the hospital. Hold off on antiepileptic medication for now. * B12 451, folate 16.4, Lyme tite negative r, West Nile virus antibodies normal/negative, TSH is normal. * Hemoglobin A1c 5.1, fasting lipid panel cholesterol 147, LDL 91, HDL 36 and triglycerides 99.2. Continue Lipitor 40 mg daily. * Continue aspirin 325 mg and Plavix 75 mg daily for 30 days, then stop Plavix and continue aspirin indefinitely. * Hematology on board for evaluation for hypercoagulable workup. Lupus anticoagulant, antithrombin III antigen, anticardiolipin antibodies negative. Prothrombin gene mutation negative. Objective - Vital Signs Vital signs: Vital Signs Temp 98.0 F 09/16/23 19:46 Pulse 85 09/16/23 22:14 Resp 12 09/16/23 22:14 BP 103/65 09/16/23 19:46 Pulse Ox 97 09/16/23 19:46 FiO2 21 09/09/23 08:25 Intake & Output 09/16/23 09/16/23 09/17/23 06:59 18:59 06:59 Intake Total 480 70.5 Balance 480 70.5 Intake: Intake, IV Titration 70.5 Amount Immune Globulin ( 70.5 Gammagard) 30 gm In Empty Bag 1 bag @ Per Protocol IV .Q0M ONE Rx#: [id number] Oral 480 Other: Voiding Method Bedside Commode Bedside Commode Bedside Commode # Voids 1 1 - Exam Patient is alert and awake in no distress. Her speech is slow, hesitant, but not stuttering. On cranial nerve examination, pupils are equal, round and reacting to light, visual ortiz are full on confrontation with no neglect on either side. Extraocular muscles are intact with no nystagmus. Patient has chronic right facial weakness peripheral type ( defect). Patient has bifacial weakness, not able to smile on either side. Patient cannot wrinkle forehead on either side. However when she closes her eye, the left eye has much better strength of closure, but the right eye is definitely weak. Tongue protrudes the midline. She has cochlear implant bilaterally. On muscle strength testing, the strength is very symmetric. Deltoids 3+, biceps 4-, triceps 3, foreign diplomat 2+3, hip flexion 0, ankle dorsiflexion 0. Deep tendon reflexes are symmetric, 1+ at the biceps, 1 brachioradialis, 2+ at the knees, 1+2 ankles and plantars are flat bilaterally. Sensory to touch is slightly decreased in the lower limbs, and complains of pins and needles sensation from toes up to mid calves bilaterally. Patient denies any paresthesias in the hands. - Labs CBC & Chem 7: 09/11/23 06:36 09/11/23 06:36 Labs: Microbiology - Last 24 Hours (Table) 09/15/23 15:45 CSF Gram Stain - Preliminary Cerebral Spinal Fluid Assessment and Plan Assessment: Paraparesis, with moderate bilateral upper extremity weakness and bifacial weakness, unclear cause rule out CIDP, rule out myasthenia gravis versus functional disorder/conversion disorder. Patient's examination has significant inconsistencies, suggestive of possible conversion disorder. However patient complains of pins and needles sensation from toes up to mid calf bilaterally. This raises concern for possible peripheral neuropathic process. Uncertain if related to constantly sitting with some compressive changes in the sciatic nerves. Episodes of unresponsive with blank stares. ? Seizure on the EEG there is no evidence of seizure and according to the patient's legal guardian has not had any further episode of unresponsiveness. No definitive evidence of recent or remote stroke. Patient's CT scans performed in the past had significant artifact, therefore CVA suspected. However repeat computed tomography scan of the head has been negative, with no evidence of an acute or remote stroke. History of cleft lip/palate and had multiple facial surgeries with residual right facial weakness Underlying cognitive impairment/learning disability and resides with her boyfriend who is also disabled and has a son History of bilateral cochlear implant History of migraine headache Plan: I had a prolonged discussion with patient, her sister as well as primary physician. Patient's mother believes that her symptoms have progressed gradually. Patient has some neuropathic symptoms of pins and needle sensation distally in the feet up to mid calves. However she still has preserved reflexes. Unfortunately MRI of the spine cannot be performed because of presence of cochlear implants. Patient may benefit from EMG and nerve conductions of upper and lower extremities. Patient's spinal fluid protein was upper limits of normal range. Although patient has some psychogenic overlay, but underlying inflammatory polyneuropathy cannot be ruled out. CSF is colorless, clear, RBCs 0, WBC 0, glucose 48 which is normal, CSF protein is also normal at 60 (12-60). No evidence of CIDP based upon normal CSF findings. Await CSF BESS, MS panel, myelin basic proteins. Acetylcholine receptor antibodies negative < 0.30. B12 451, folate 16.4 on 04/25/2023. Because of persistent symptoms, we will empirically treat with IVIG 0.5 g/kg per day for 4 days. I spoke to patient's sister and informed her the risks and benefits of treatment with IVIG. She was informed of possible thrombotic side effects including DVT and others, the risks to the kidney, liver, rashes and headaches. Also discussed with primary physician in detail. Patient has developed post-spinal headache. She was recommended to drink a lot of water, and some caffeinated beverages. If the headache persists, may need anesthesia consultation for epidural blood patch. We will stop Plavix (last dose 09/10/2023). No need to resume Plavix, as patient never had any stroke. Decrease Lipitor down to [address] Silverio increased Topamax from 100 mg twice a day to 150 mg twice a day which can help with her migraines as well as a has antiepileptic effect. If has any further seizures consider Lamictal. Seizure precautions with seizure pads PT OT and [facility] are consulted Dr. Thomason will cover neurology service over the weekend and then Dr. Jose Silverio will start service from Tuesday. Time with Patient: Greater than 30
[2023-09-17] MEDS: LEVOTHYROXINE 75 MCG TAB PO SCH (06:46)
[2023-09-17] MEDS: LEVOTHYROXINE 100 MCG TAB PO SCH (06:46)
[2023-09-17] MEDS: ENOXAPARIN 40 MG/0.4 ML SYRINGE SQ SCH (08:39)
[2023-09-17] MEDS: ASPIRIN 81 MG PO SCH (08:39)
[2023-09-17] MEDS: TOPIRAMATE 100 MG TAB PO SCH ×2 (08:39→20:33)
[2023-09-17] MEDS: DULoxetine HCL 60 MG CAPSULE.DR PO SCH (08:39)
[2023-09-17] MEDS ORDERED: CLOPIDOGREL 75 MG TAB PO SCH (09:00)
--- NOTE | 2023-09-17 10:11 | P.PN ---
Subjective Progress Note Date: 09/17/23 Subjective: No new complaints today. LP looked clear. I had a prolonged discussion with the neurologist yesterday who suspected neuropathic process possibly of inflammatory or autoimmune nature given progressive symptoms despite the possibility of psychogenic overlay. Neurology would like to attempt a trial of IVIG and have discussed the risks with the patient and her family member who are in agreement. 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 She presented to the emergency room accompanied by her sister/legal guardian with complaints of lower extremity weakness. Of note, the patient recently had a suspected CVA in 05/06 and has since been ambulating with a walker. The sister reports that she was contacted shortly after the patient had undergone a recent physical therapy appointment that the patient was feeling weak in her right lower extremity. Patient reports she has been feeling diffusely weak over the past 1-2 days but that it acutely worsened tonight. She had an extensive workup for possible CVA back in 05/06 when in the EEG was suggestive of diffuse encephalopathy with no obvious abnormalities noted on CT imaging of brain. Patient notes persistent right lower extremity weakness at the time of interview. Code stroke was activated in the emergency room. The patient was deemed to not be a candidate for TPA. CT angiogram of head and neck revealed no acute abnormalities with CT brain also revealing no acute abnormalities. EKG revealed sinus tachycardia 103 bpm with poor R-wave progression with no ST/T-wave changes noted as reviewed by me. Laboratory evaluation was reviewed with WBC count 8.3, hemoglobin 12.2, sodium 137, chloride 18, calcium 7.9, troponin less than 0.012. Patient was admitted for new right-sided weakness, rule out CVA/seizures. Consult was placed to neurology. 09/08 Patient was seen and examined. Guardian at bedside. Patient continues to experience profound weakness in both legs and arms along with weakened red hat engineer strength. Case was discussed with Dr. Silverio, patient and guardian at bedside, plans for repeat CT brain and CT C-spine, abnormal EEG but no seizure like activity seen, increase Topamax. PMR has been consulted for possible IPR. Echocardiogram is within normal limits. 09/09 Patient was seen and examined. Continued weakness bilateral UE and LE. A ble to stand up with assist of Dr. Silverio but unable to take steps. Repeat CT brain and C-spine within normal limits. We will check if MRI is compatible with cochlear implant (information provided by guardian). ESR and CRP negative. 09/10 Patient was seen and examined. No changes neurologically. Our MRI is not compatible with her cochlear implants. I will attempt to see if Dr. Baldwin's MRI is compatible. Dr. Valera recommends LP after holding Plavix/ASA for 5 days. 09/11 Patient was seen and examined. No changes neurologically. CBC unremarkable. BMP Cl 112, bicarb 16, Ca 8.3. 09/12 Patient was seen and examined. No changes neurologically. PMR to determine if patient would be a good candidate for IPR. Case management on board. Will discus with Dr. Valera if LP is necessary. 09/13 Patient was seen and examined. Sleeping comfortably. No nursing complaints. Quite inconsistent with her neurological exam. Shows 0/5 strength in her bilateral LE but able to stand up with 2 person assist. Shows extremely weak strip strength but reports from staff that she is able to comb her hair. We are waiting for lumbar puncture, hopefully can be done on as recommended by Dr. Valera. PMR following for possible IPR. 09/14: Patient seen and fully evaluated at bedside. She was sitting up in a chair and reports continued complete weakness and numbness to bilateral lower extremities. Upon further physical examination, patient does minimally jerk away/withdraw from pain when a pen is ran up bottom of plantar surface of feet bilaterally. Awaiting completion of lumbar puncture, Plavix and Lovenox was held and lumbar puncture scheduled to be completed 09/15/23. Physical exam: Assessment and Plan of Care: Bilateral lower extremity weakness with paresthesias Repeat CT head and and CT C-spine unremarkable. Unable to obtain MRI due to cochlear implants, would recommend outpatient compatible MRI brain. Neurology is following and have reviewed the lumbar puncture tests, after discussing with them, they would like to initiate IVIG treatment for 4 days as a trial of symptomatically improvement. They would also like to discontinue Plavix, continue aspirin 81 mg Ongoing PT/OT with likely plan for IPR on discharge Chronic conditions: Hypothyroidism, seizure disorder, hyperlipidemia, congenital disorders CODE STATUS: FULL CODE DVT prophylaxis: Lovenox SQ for DVT prophylaxis. Anticipated discharge date: Clinical course to determine Anticipated discharge place: Clinical course to determine Objective - Vital Signs Vital signs: Vital Signs Temp 98.0 F 09/16/23 19:46 Pulse 87 09/17/23 02:00 Resp 16 09/17/23 02:00 BP 110/69 09/17/23 02:00 Pulse Ox 94 L 09/17/23 02:00 FiO2 21 09/09/23 08:25 Intake & Output 09/16/23 09/17/23 09/17/23 18:59 06:59 18:59 Intake Total 300.0 118 Balance 300.0 118 Intake: Intake, IV Titration 300.0 Amount Immune Globulin ( 300.0 Gammagard) 30 gm In Empty Bag 1 bag @ Per Protocol IV .Q0M ONE Rx#: [id number] Oral 118 Other: Voiding Method Bedside Commode Bedside Commode # Voids 1 1 - Labs CBC & Chem 7: 09/11/23 06:36 09/11/23 06:36 Labs: Microbiology - Last 24 Hours (Table) 09/15/23 15:45 CSF Gram Stain - Preliminary Cerebral Spinal Fluid CSF Culture - Preliminary
[2023-09-17] MEDS: ONDANSETRON 4 MG/2 ML VIAL IVP PRN (12:07)
[2023-09-17] MEDS ORDERED: IMMUNE GLOBULIN (GAMMAGARD) 30 GM in EMPTY BAG 1 BAG IV ONE (20:00)
[2023-09-17] MEDS: ACETAMINOPHEN TAB 325 MG TAB PO PRN (20:33)
[2023-09-17] MEDS: MELATONIN 5 MG TABLET PO SCH (20:33)
[2023-09-17] MEDS: ATORVASTATIN 20 MG TAB PO SCH (20:33)
[2023-09-17] MEDS: MONTELUKAST 10 MG TAB PO SCH (20:33)
--- NOTE | 2023-09-17 20:58 | P.PN ---
Subjective Progress Note Date: 09/17/23 The pt is a 32 y/o female who is seen in neurologic follow up on 2022, in collaboration with Morelia Mccray, via teleneurology. The chart has been reviewed. Today, the pt reports to this examiner that her left sided weakness began in April of this year. She was admitted to this hospital and was worked up for stroke. Apparently, there was also concern regarding a possible seizure. All testing was reportedly negative, per chart review. The pt states that approximately, 2 wks ago she had the sudden onset of weakness involving her right arm and leg. The pt states that her symptoms have not worsened, since their onset. The pt denies difficulty breathing. She does report a headache, blurred vision, occasional difficulty getting her words out. She denies difficulty swallowing. Objective - Vital Signs Vital signs: Vital Signs Temp 98.2 F 09/17/23 08:40 Pulse 103 H 09/17/23 15:55 Resp 17 09/17/23 15:55 BP 104/63 09/17/23 15:55 Pulse Ox 95 09/17/23 15:55 FiO2 21 09/09/23 08:25 Intake & Output 09/17/23 09/17/23 09/18/23 06:59 18:59 05:59 Intake Total 300.0 236 Output Total 0 Balance 300.0 236 Intake: Intake, IV Titration 300.0 Amount Immune Globulin ( 300.0 Gammagard) 30 gm In Empty Bag 1 bag @ Per Protocol IV .Q0M ONE Rx#: [id number] Oral 236 Output: Gastric Drainage 0 Urine 0 Stool 0 Urine/Stool Mix 0 Emesis 0 Oral Regurgitation 0 Other 0 Other: Voiding Method Bedside Commode Bedside Commode # Voids 1 0 # Bowel Movements 0 - Exam General: The pt is well nourished, recling in the bed. She reports having a headache, that worsens with sitting upright or standing. She is in no acute distress. HEENT: Head is atraumatic, normocephalic. There is no scleral icterus. Fundus is not visualized. Mucous membranes moist. Neck: Supple, without carotid bruits Heart: Regular rate and rhythm Lungs: No respiratory distress, cough or wheeze Extremities: Without edema Neurological examination Mental Status: The pt is awake, alert and oriented x3. Speech is clear. There is no dysarthria or aphasia. Affect is very flat. Cranial Nerves: Pupils are equal at 3 mm and reactive. Visual ortiz are grossly intact. Extraocular movments are intact. When attempting to smile, the pt does not move her mouth. She not elevate either eyebrow. Hearing is grossly intact. Shoulder shrug is symmetric. Tongue protrudes midline. Motor: Formal strength testing of upper extremities reveals poor effort. When the pt is asked to sit on the edge of the bed, she is observed pulling on the guard rails with both upper extremities, to position herself in an upright position. The pt then states that she is unable to move her legs. According to nursing, the pt is able to bear weight at times, to get to the bedside commode. Per nursing, the pt reports to be unable to move her legs, once she is standing. Sensation: Grossly intact. Coordination: Not formally tested however, the pt is observed accurately reaching for her cup. - Labs CBC & Chem 7: 09/11/23 06:36 09/11/23 06:36 Labs: Microbiology - Last 24 Hours (Table) 09/15/23 15:45 CSF Gram Stain - Preliminary Cerebral Spinal Fluid CSF Culture - Preliminary Assessment and Plan Assessment: 1. Generalized weakness of all 4 extremities, suspect functional as the pt's neurological examination is inconsistent. All work up to this time has been negative 2. Signs and symptoms are not consistent with GBS Plan: 1. Will DC IVIgG 2. Physical therapy eval and treat 3. Psychiatry evaluation Time with Patient: Greater than 30 (spent 35 minutes caring for this pt today)
--- NOTE | 2023-09-17 22:26 | P.CN ---
Psychiatric Consult - . Consult date: 09/17/23 Consult:: History of Present Illness: The patient is a 30-year-old female with a past medical history of congenital disorders, hypothyroidism, a seizure disorder, and hyperlipidemia. She was brought to the emergency department accompanied by her family due to complaints of lower extremity weakness. The patient had a suspected cerebrovascular accident (CVA) in April of this year and has been using a walker for mobility since then. Reportedly, the patient experienced weakness in her right lower extremity after a recent physical therapy appointment. Over the past one to two days leading up to this hospitalization, she developed diffuse weakness. The psychiatric team was consulted to evaluate the patient based on reported "flat affect" and signs of depression. The primary treatment team raised a concern that the patient may be experiencing psychosomatic symptoms, as her neurological complaints of diffuse weakness do not align with the neurological examination findings. The nursing staff also noted the patient's ability to bear weight on her lower extremities. During the evaluation today, the patient was lying on bed in her room on the medical floor. She presented with marked weakness, slow and very soft speech with a low tone. The patient denied feeling depressed, experiencing hopelessness, or having suicidal ideation. She reported history of anxiety and mentioned that her primary physician had prescribed Cymbalta to manage her anxiety symptoms. She minimizes anxiety symptoms currently. The patient denied any symptoms of mood disturbances such as irritability, agitation, or mood swings, as well as any manic symptoms, hallucinations, paranoid ideation, or delusions. She did report feeling weakness in her body, pins and needles in her feet and legs, and stated that she was unable to walk, feeling a complete loss of power in her lower extremities. Past Psychiatric History: The patient denied any previous psychiatric hospitalization, suicidal attempts, or outpatient psychiatric treatment. She reported a history of outpatient therapy related to relationship problems with her mother. The patient is currently prescribed Cymbalta by her primary care physician for managing her anxiety symptoms. Substance Use History: The patient denied using tobacco products, drinking alcohol, smoking marijuana, or using any other illicit drugs. Family Psychiatric History: The patient denied a family history of mental illness, addiction, or suicide. Social/Developmental History: The patient currently lives with her and son. 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 The patient also reported a history of intellectual difficulties and being in special education during her school years. Mental Status Examination: Appearance: Appears stated age, weak, blow body built, and no specific features. Gait/ posture: Unable to assess gait. Attitude and Behavior: partially cooperative,poor eye contact during course of interview. Motor Activity: Decreased psychomotor activity Speech: Decreased rate, Soft, low tone. None pressured. Mood: " fine Affect: Constricted Thought form: Goal directed, linear, not incoherent and no clang association. Thought content: Logical, non-delusional, denies suicidal / homicidal thoughts, intentions, or plans. Perception: Denies any auditory/ visual or tactile hallucinations. Attention: No impairment. Orientation: Oriented to time, place, person, and situation. Insight & Judgment: Fair Impulse control: Fair Assessment and Diagnosis: Adjustment disorder with anxious mood History of anxiety disorder, unspecified. Rule out Psychosomatic disorder Recommendation: Disposition/Follow-up: Is psychiatric hospitalization indicated? No Addressed and ensured patient's safety; patient does not meet the criteria for psychiatric hospitalization. The patient is not actively suicidal and has no active plan or intent of suicide. Currently, there is no need for further follow-up by the psychiatric team. Medication management: Continue home psychiatric medications Cymbalta for managing anxiety symptoms. Refer the patient to outpatient psychiatric treatment after discharge. Brief supportive psychotherapy and psychoeducation were provided to the patient. Discussed the treatment plan with the requesting physician/service. Thank you for permitting me to assist in this patient's treatment. Please call the psychiatry department if you have any questions or need further help with this case. 09/17/23 22:18
[2023-09-18] MEDS: LEVOTHYROXINE 100 MCG TAB PO SCH (06:02)
[2023-09-18] MEDS: LEVOTHYROXINE 75 MCG TAB PO SCH (06:02)
[2023-09-18] MEDS: TOPIRAMATE 100 MG TAB PO SCH ×2 (08:27→20:03)
[2023-09-18] MEDS: DULoxetine HCL 60 MG CAPSULE.DR PO SCH (08:27)
[2023-09-18] MEDS: ASPIRIN 81 MG PO SCH (08:27)
[2023-09-18] MEDS: ENOXAPARIN 40 MG/0.4 ML SYRINGE SQ SCH (08:28)
--- NOTE | 2023-09-18 08:53 | P.PN ---
Subjective Progress Note Date: 09/18/23 Subjective: No new complaints today. Neurology note reviewed, and IVIG will be d/c'd and psychiatry consult obtained. 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 She presented to the emergency room accompanied by her sister/legal guardian with complaints of lower extremity weakness. Of note, the patient recently had a suspected CVA in 05/06 and has since been ambulating with a walker. The sister reports that she was contacted shortly after the patient had undergone a recent physical therapy appointment that the patient was feeling weak in her right lower extremity. Patient reports she has been feeling diffusely weak over the past 1-2 days but that it acutely worsened tonight. She had an extensive workup for possible CVA back in 05/06 when in the EEG was suggestive of diffuse encephalopathy with no obvious abnormalities noted on CT imaging of brain. Patient notes persistent right lower extremity weakness at the time of interview. Code stroke was activated in the emergency room. The patient was deemed to not be a candidate for TPA. CT angiogram of head and neck revealed no acute abnormalities with CT brain also revealing no acute abnormalities. EKG revealed sinus tachycardia 103 bpm with poor R-wave progression with no ST/T-wave changes noted as reviewed by me. Laboratory evaluation was reviewed with WBC count 8.3, hemoglobin 12.2, sodium 137, chloride 18, calcium 7.9, troponin less than 0.012. Patient was admitted for new right-sided weakness, rule out CVA/seizures. Consult was placed to neurology. 09/08 Patient was seen and examined. Guardian at bedside. 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 Case was discussed with Dr. Silverio, patient and guardian at bedside, plans for repeat CT brain and CT C-spine, abnormal EEG but no seizure like activity seen, increase Topamax. PMR has been consulted for possible IPR. Echocardiogram is within normal limits. 09/09 Patient was seen and examined. Continued weakness bilateral UE and LE. Able to stand up with assist of Dr. Silverio but unable to take steps. Repeat CT brain and C-spine within normal limits. We will check if MRI is compatible with cochlear implant (information provided by guardian). ESR and CRP negative. 09/10 Patient was seen and examined. No changes neurologically. Our MRI is not compatible with her cochlear implants. I will attempt to see if Dr. Baldwin's M RI is compatible. Dr. Valera recommends LP after holding Plavix/ASA for 5 days. 09/11 Patient was seen and examined. No changes neurologically. CBC unremarkable. BMP Cl 112, bicarb 16, Ca 8.3. 09/12 Patient was seen and examined. No changes neurologically. PMR to determine if patient would be a good candidate for IPR. Case management on board. Will discus with Dr. Valera if LP is necessary. 09/13 Patient was seen and examined. Sleeping comfortably. No nursing complaints. Quite inconsistent with her neurological exam. Shows 0/5 strength in her bilateral LE but able to stand up with 2 person assist. Shows extremely weak strip strength but reports from staff that she is able to comb her hair. We are waiting for lumbar puncture, hopefully can be done on as recommended by Dr. Valera. PMR following for possible IPR. 09/14: Patient seen and fully evaluated at bedside. She was sitting up in a chair and reports continued complete weakness and numbness to bilateral lower extremities. Upon further physical examination, patient does minimally jerk away/withdraw from pain when a pen is ran up bottom of plantar surface of feet bilaterally. Awaiting completion of lumbar puncture, Plavix and Lovenox was held and lumbar puncture scheduled to be completed 09/15/23. Physical exam: Gen: awake, alert HEENT: normocephalic, atraumatic, good hearing acuity, moist mucous membranes Resp: good air exchange, breathing comfortably with no accessory muscle use CVS: good distal perfusion x 4, GI: soft, NTTP, ND : no SPT, no CVAT, hameed catheter not present MSK: no pitting edema, no clubbing Assessment and Plan of Care: Bilateral lower extremity weakness with paresthesias -Aspirin 81 mg daily -Atorvastatin 20 mg at bedtime -Psychiatry consult, neurology consult -Discontinue IVIG -Topamax 150 mg twice a day -Ongoing PT/OT with likely plan for IPR on discharge Chronic conditions: Hypothyroidism, seizure disorder, hyperlipidemia, congenital disorders CODE STATUS: FULL CODE DVT prophylaxis: Lovenox SQ for DVT prophylaxis. Anticipated discharge date: Clinical course to determine Anticipated discharge place: Clinical course to determine Objective - Vital Signs Vital signs: Vital Signs Temp 97.5 F L 09/17/23 20:30 Pulse 72 09/18/23 01:06 EST Resp 14 09/18/23 01:06 EST BP 103/54 09/18/23 01:06 EST Pulse Ox 100 09/18/23 01:06 EST FiO2 21 09/09/23 08:25 Intake & Output 09/17/23 09/18/23 09/18/23 19:59 06:59 18:59 Intake Total Output Total Balance Intake: Oral Output: Gastric Drainage Urine Stool Urine/Stool Mix Emesis Oral Regurgitation Other Other: Voiding Method # Voids # Bowel Movements - Labs CBC & Chem 7: 09/11/23 06:36 09/11/23 06:36 Labs: Microbiology - Last 24 Hours (Table) 09/15/23 15:45 CSF Gram Stain - Preliminary Cerebral Spinal Fluid CSF Culture - Preliminary
[2023-09-18] MEDS: ACETAMINOPHEN TAB 325 MG TAB PO PRN ×2 (11:08→18:01)
[2023-09-18] MEDS ORDERED: IMMUNE GLOBULIN (GAMMAGARD) 30 GM in EMPTY BAG 1 BAG IV ONE (20:00)
[2023-09-18] MEDS: ATORVASTATIN 20 MG TAB PO SCH (20:03)
[2023-09-18] MEDS: MONTELUKAST 10 MG TAB PO SCH (20:03)
[2023-09-18] MEDS: MELATONIN 5 MG TABLET PO SCH (20:03)
[2023-09-19] MEDS: LEVOTHYROXINE 100 MCG TAB PO SCH (06:32)
[2023-09-19] MEDS: LEVOTHYROXINE 75 MCG TAB PO SCH (06:32)
[2023-09-19] MEDS ORDERED: CAFFEINE-SODIUM BENZOATE 500 MG in SODIUM CHLORIDE 0.9% 1,000 ML IVPB ONE (08:53)
[2023-09-19 08:59] LABS: Basophils % (A) 1 %; Eosinophils # (A) 0.2 k/uL (0-0.7); Eosinophils % (A) 3 %; HCT 37.7 % (34.0-46.0); HGB 12.3 gm/dL (11.4-16.0); Lymphocytes # (A) 1.2 k/uL (1.0-4.8); Lymphocytes % (A) 22 %; MCH 27.3 pg (25.0-35.0); MCHC 32.6 g/dL (31.0-37.0); MCV 83.7 fL (80.0-100.0); Mean Platelet Volume 8.7; Monocytes # (A) 0.3 k/uL (0-1.0); Monocytes % (A) 5 %; Neutrophils # (A) 3.6 k/uL (1.3-7.7); Neutrophils % (A) 68 %; Platelet Count 192 k/uL (150-450); RDW 14.1 % (11.5-15.5); WBC 5.3 k/uL (3.8-10.6)
[2023-09-19] MEDS ORDERED: BUTALB/APAP/CAFF 50-325-40MG TAB PO PRN (09:02)
[2023-09-19 09:07] LABS: African American GFR (CKD) >90 (>60 ml/min/1.73 sqM); Anion Gap 13 mmol/L; Blood Urea Nitrogen 11 mg/dL (7-17); Carbon Dioxide 17 mmol/L (22-30); Chloride 111 mmol/L (98-107); Glucose 140 mg/dL (74-99); Magnesium 1.8 mg/dL (1.6-2.3); Non-African American GFR(CKD) >90 (>60 ml/min/1.73 sqM); Potassium 3.4 mmol/L (3.5-5.1); Sodium 141 mmol/L (137-145)
[2023-09-19] MEDS: ENOXAPARIN 40 MG/0.4 ML SYRINGE SQ SCH (10:20)
[2023-09-19] MEDS: DULoxetine HCL 60 MG CAPSULE.DR PO SCH (10:20)
[2023-09-19] MEDS: ASPIRIN 81 MG PO SCH (10:20)
[2023-09-19] MEDS: TOPIRAMATE 100 MG TAB PO SCH ×2 (10:20→20:59)
--- NOTE | 2023-09-19 10:28 | P.PN ---
Subjective Progress Note Date: 09/19/23 Subjective: Pt still c/o headache after LP. Will trial caffeine today, and if no improvement, then fioricet. If no improvement then we will attempt blood patch tomorrow AM - this was discussed with patient and family member over the phone. I had a detailed discussion of the case with Neurology and we determined there was no indication for IVIG at this time. This was explained to the family who understand the change in clinical plan and are more interested in pursuing rehab at this point. Pt was accepted to IPR on Tuesday, and we are pending insurance authorization. 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 CT angiogram of head and neck revealed no acute abnormalities with CT brain also revealing no acute abnormalities. EKG revealed sinus tachycardia 103 bpm with poor R-wave progression with no ST/T-wave changes noted as reviewed by me. Laboratory evaluation was reviewed with WBC count 8.3, hemoglobin 12.2, sodium 137, chloride 18, calcium 7.9, troponin less than 0.012. Patient was admitted for new right-sided weakness, rule out CVA/seizures. Consult was placed to neurology. On initial evaluation, patient was recommended by neurology to undergo EEG as well as CT imaging of the brain. Brain CT demonstrated bilateral cochlear implants with streak artifact but no acute intracranial process. CT angiography of the head and neck showed no evidence of high-grade stenosis or intracranial aneurysm. EEG showed background slowing suggestive of encephalopathy as well as intermittent sporadic left parietal theta activity at times suggesting potential cortical irritability and tendency for seizure, but no seizure noted on the study itself. Neurology subsequently recommended increasing patient's Topamax to 150 twice a day. 2 complete stroke workup, echocardiogram was ordered and was within normal limits despite limited views, showing appropriate ejection fraction of 55-60% with no obvious regional wall motion abnormality. On follow-up, neurology recommended inflammatory workup with ESR, CRP, lumbar puncture after holding aspirin and Plavix for 5 days - results of these findings showed no evidence of inflammation as the ESR was 15, CRP was less than 0.5, and the lumbar puncture showed no red blood cells, white blood cells, normal glucose, and borderline protein of 60 - lumbar puncture was completed on 09/15. Based on these results, consideration was made to treat patient with IVIG, and patient received 1 dose on 09/16 night, however, upon further review by neurology it was determined that patient did not require the complete course as there is no strong indication for this medication. Neurology also recommended the discontinuation of Plavix as there is no strong evidence of stroke, but did recommend outpatient MRI compatible with cochlear implants. Based on the possibility of psychogenic overlay/conversion disorder, psychiatry was consulted and did recommend outpatient follow-up for adjustment disorder, but did not recommend any medication changes. Patient continued to complain of ongoing spinal headache following lumbar puncture on 09/15, and had trial of IV caffeine, Fioricet. Upon discussion with the family, it was determined that there would be an attempt at a blood patch on 09/20 if there is no improvement with conservative management. Patient's discharge is pending insurance authorization for IPR at this time. Physical exam: Gen: awake, alert HEENT: normocephalic, atraumatic, good hearing acuity, moist mucous membranes Resp: good air exchange, breathing comfortably with no accessory muscle use CVS: good distal perfusion x 4, GI: soft, NTTP, ND : no SPT, no CVAT, hameed catheter not present MSK: no pitting edema, no clubbing Assessment and Plan of Care: Bilateral lower extremity weakness with paresthesias Headache -Aspirin 81 mg daily -Atorvastatin 20 mg at bedtime -Psychiatry consult, neurology consult -IV caffeine ordered, Fioricet when necessary ordered -Tylenol when necessary -Topamax 150 mg twice a day, duloxetine 60 mg daily -Ongoing PT/OT with likely plan for IPR on discharge -Recommend blood patch on 09/20 if no resolution of post spinal headache Chronic conditions: Hypothyroidism, seizure disorder, hyperlipidemia, congenital disorders -Levothyroxine 175 g daily, montelukast 10 mg CODE STATUS: FULL CODE DVT prophylaxis: Lovenox SQ for DVT prophylaxis. Anticipated discharge date: Clinical course to determine Anticipated discharge place: Clinical course to determine Objective - Vital Signs Vital signs: Vital Signs Temp 98.7 F 09/19/23 04:00 Pulse 59 L 09/19/23 04:00 Resp 20 09/19/23 04:00 BP 104/68 09/19/23 04:00 Pulse Ox 98 09/19/23 04:00 FiO2 21 09/09/23 08:25 Intake & Output 09/18/23 09/19/23 09/19/23 18:59 06:59 18:59 Intake Total 598 200 240 Balance 598 200 240 Intake: Oral 598 200 240 Other: Voiding Method Bedside Commode Bedside Commode # Voids 2 1 - Labs CBC & Chem 7: 09/19/23 08:22 09/19/23 08:22 Labs: Abnormal Lab Results - Last 24 Hours (Table) 09/19/23 Range/Units 08:22 Potassium 3.4 L (3.5-5.1) mmol/L Chloride 111 H (98-107) mmol/L Carbon Dioxide 17 L (22-30) mmol/L Glucose 140 H (74-99) mg/dL Microbiology - Last 24 Hours (Table) 09/15/23 15:45 CSF Gram Stain - Preliminary Cerebral Spinal Fluid CSF Culture - Preliminary
[2023-09-19 14:01] LABS: IgG - CSF 3.4 mg/dL (0.0 - 3.4); IgG/Albumin Index (CSF) 0.49 (0.00 - 0.77); Immunoglobulin G 893 mg/dL (700 - 1600)
--- NOTE | 2023-09-19 15:36 | P.PN ---
Subjective Progress Note Date: 09/19/23 I personally saw the patient last on 09/09/2023 and since last visit she was been managed by Dr. Valera and Dr. Thomason. It seems she had Lumbar puncture which CSF protein was 60 which was borderline high normal and Dr. Valera started her on IVIG for concern for inflammatory polyneuropthy on 09/16/[address] Thomason stopped IVIG since felt it was functional. Upon entering the room, the patient was with her family members and was laughing and smiling speaking with family members then upon seeing her she stated her medication for headache seems to work temporarily. Objective - Vital Signs Vital signs: Vital Signs Temp 98.6 F 09/19/23 12:10 Pulse 62 09/19/23 12:10 Resp 16 09/19/23 12:10 BP 127/82 09/19/23 12:10 Pulse Ox 98 09/19/23 12:10 FiO2 21 09/09/23 08:25 Intake & Output 09/18/23 09/19/23 09/19/23 18:59 06:59 18:59 Intake Total 598 200 240 Balance 598 200 240 Intake: Oral 598 200 240 Other: Voiding Method Bedside Commode Bedside Commode Bedside Commode # Voids 2 1 - Exam GENERAL: The patient is sitting in a recliner chair and is not in acute distress. She was sitting at angle taking to family members and smiling and laughing and did not seem in distress. HENT: Supple neck. NEUROLOGICAL: Higher mental function: The patient is awake, alert, oriented to self, place and time. Patient has some delay in response. She seems flat affect. Patient is following simple commands. No aphasia and no neglect. Cranial nerves: The pupils are round, equal and reactive to light. Visual ortiz are full to confrontation throughout. Extraocular movement is has lazy eye on the right eye and per sister old. Otherwise no nystagmus is noted. Facial sensation is normal to touch throughout. Has right lower facial weakness that is mild and is chronic. Hearing is normal bilaterally to hand rub. Tong ue is midline and moved [id number] without any difficulty. No dysarthria is noted. Shoulder shrug is normal bilaterally. Motor: Upon entering the room she was moving her ankles spontanously bilat erally but upon asking her to move her lowers she could not move any even ankles. Moves uppers spontaneously. Normal tone and bulk. Cerebellum: Normal finger to nose bilaterally. Sensation: Sensation is normal to touch throughout. Reflexes (right/left): 2+ throughout. Plantars are mute bilaterally. Some of the workup during his hospital visit consisted of: ESR 15 CBC with differential is unremarkable Calcium is 7.9, HDL is within normal limits, glucose is 92. Sodium is 137. CT of the head is reported as bilateral cochlear implants was treated artifact limiting evaluation of those lower brain. No acute intracranial processes were visualized. I personally reviewed the CT and I agree there is artifact due to the cochlear implant but there is no appreciable acute or subacute ischemia and there is no bleed. CT angiography of the head and neck is reported as no evidence of dissection of the cervical internal carotid arteries or vertebral artery or any evidence of significant stenosis at the carotid bifurcation. No evidence of intracranial high-grade stenosis or intracranial aneurysm. 2-D echo is reported as normal size and systolic function. Ejection fraction of 55-60%. No obvious regional wall motion abnormality. Normal right atrium and left atrium size. No pericardial effusion Routine EEG is abnormal. The background slowing suggestive of mild encephalop athy. There is intermittent sporadic left parietal theta activity and at times seems sharply contoured that at one time seems diffuse in activity over bilateral hemisphere lasting between 2-3 seconds suggestive of focal cortical neuronal dysfunction. This may suggest underlying cortical ribbon and tendency for seizure. No seizure noted during the study. Repeat CT of the head was reported as no change from 2 days ago. Limited evaluation of the brain secondary due to streak artifact from metal implant. No acute intracranial process. CT cervical spine is reported as No evidence of cervical spine fracture. Mild multilevel degenerative disc disease CT lumbar reported as no evidence for a spine fracture. No evidence for significance the spinal canal or neuronal foramina stenosis. CSF is colorless, clear, RBCs 0, WBC 0, glucose 48 which is normal, CSF protein is also normal at 60 (12-60). No evidence of CIDP based upon normal CSF findings. Acetylcholine receptor antibodies negative < 0.30. B12 451, folate 16.4 on 04/25/2023. CSF is negative for oligoclonal bands - Labs CBC & Chem 7: 09/19/23 08:22 09/19/23 08:22 Labs: Abnormal Lab Results - Last 24 Hours (Table) 09/19/23 Range/Units 08:22 Potassium 3.4 L (3.5-5.1) mmol/L Chloride 111 H (98-107) mmol/L Carbon Dioxide 17 L (22-30) mmol/L Glucose 140 H (74-99) mg/dL Microbiology - Last 24 Hours (Table) 09/15/23 15:45 CSF Gram Stain - Preliminary Cerebral Spinal Fluid CSF Culture - Preliminary Assessment and Plan Assessment: This is a 32-year-old woman with history of stroke with residual left-sided weakness and per the sister she walks with a walker and has mild weakness on the left side since April 2023 who has been having 4 episodes of unresponsiveness with blank stares since April 2023 and the episodes are prolonged with prolonged postictal state but no jerking of extremity urinary bowel incontinence. She recently had the witnessed on response with blank stares by her boyfriend and she has currently right-sided weakness. On examination there is poor effort on muscle strength. * Episodes of unresponsive with blank stares. ? Seizure on the EEG there is no evidence of seizure and according to the patient's legal guardian has not had any further episode of unresponsiveness. * Weakness of lower more than upper and on examination there is effort related on examination. Appears probable conversion. Upon entering the room today she moving the ankles but upon asking her to move could not. With therapy team she is two person assist but was notified with legal guardian she does not need two people to assist to walk. Patient had 2 CTs of the head which were negative but there is some limitation because of artifact, CT cervical and lumbar is negative. Patient reflexes are normal. Her CSF study is normal. * History of reported stroke with residual mild left hemiparesis and walks with a walker. Stroke was in April 2023. On examination she's presenting of symmetrical weakness of upper and lower and again on unsure if she truly had a stroke. * History of cleft lip/palate and had multiple facial surgeries with residual right facial weakness * Underlying cognitive impairment/learning disability and resides with her b oyfriend who is also disabled and has a son * History of bilateral cochlear implant * History of migraine headache Plan: * Dr. Valera started her on IVIG on 09/16/23 for concern for inflammatory polyneuropathy and then next day Dr. Thomason stopped the medication. I agree with Dr. Thomason decision since the patient has normal reflexes and has effort related strength. * Recommend EMG with NCS of lowers then uppers as outpatient. * Regarding her headaches after Lumbar Puncture, in my opinoin she seems rested comfortably but was upset that the medications were helping her temporarily and did not receive blood patch yet. I spoke with primary team and we agreed if she continues to have headache to pursue with blood patch then discharge to rehab. * She recieved caffeine and is on Fioricet PRN for headache. * Psychiatry evaluated her and felt she has adjustment disorder with anxious mood. * PT, OT and COMBUSTION ENGINEER are consulted. * Recommend the patient to follow-up with neurologist and psychiatrist as outpatient within 3 weeks. * We'll defer the rest of medical management to the primary team. The plan was discussed with the patient, primary attending and her nurse. Will continue to follow. Time with Patient: Less than 30
[2023-09-19] MEDS ORDERED: IMMUNE GLOBULIN (GAMMAGARD) 30 GM in EMPTY BAG 1 BAG IV ONE (20:00)
[2023-09-19] MEDS: ONDANSETRON 4 MG/2 ML VIAL IVP PRN (20:34)
[2023-09-19] MEDS: MONTELUKAST 10 MG TAB PO SCH (20:59)
[2023-09-19] MEDS: MELATONIN 5 MG TABLET PO SCH (20:59)
[2023-09-19] MEDS: ATORVASTATIN 20 MG TAB PO SCH (21:00)
[2023-09-20 03:40] VITALS: PULSE 60
[2023-09-20] MEDS: LEVOTHYROXINE 100 MCG TAB PO SCH (06:15)
[2023-09-20] MEDS: LEVOTHYROXINE 75 MCG TAB PO SCH (06:16)
[2023-09-20] MEDS: ASPIRIN 81 MG PO SCH (08:12)
[2023-09-20] MEDS: DULoxetine HCL 60 MG CAPSULE.DR PO SCH (08:12)
[2023-09-20] MEDS: ENOXAPARIN 40 MG/0.4 ML SYRINGE SQ SCH (08:12)
[2023-09-20] MEDS: TOPIRAMATE 100 MG TAB PO SCH (08:12)
[2023-09-20 08:36] VITALS: BP 108/74; RESP 18; TEMP 97.8
--- NOTE | 2023-09-20 11:43 | P.DS ---
Providers Date of admission: 09/07/23 00:28 Expected date of discharge: 09/20/23 Attending physician: Caroline Blum MD Consults: 09/07/23 00:28 Consult Physician Routine Consulting Provider: Jose Silverio Consult Reason/Comments: stroke like symptoms Do you want consulting provider notified?: Yes 09/07/23 10:44 Consult Physician Routine Consulting Provider: Amari Lang Consult Reason/Comments: Eval for IPR Do you want consulting provider notified?: Yes 09/17/23 10:40 Consult Physician Routine Consulting Provider: Bipin Ceron Consult Reason/Comments: depression/flat affect Do you want consulting provider notified?: Yes Primary care physician: [facility] Course: Patient is a 32-year-old female with multiple congenital disorders, 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 CT angiogram of head and neck revealed no acute abnormalities with CT brain also revealing no acute abnormalities. EKG revealed sinus tachycardia 103 bpm with poor R-wave progression with no ST/T-wave changes noted as reviewed by me. Laboratory evaluation was reviewed with WBC count 8.3, hemoglobin 12.2, sodium 137, chloride 18, calcium 7.9, troponin less than 0.012. Patient was admitted for new right-sided weakness, rule out CVA/seizures. Consult was placed to neurology. On initial evaluation, patient was recommended by neurology to undergo EEG as well as CT imaging of the brain. Brain CT demonstrated bilateral cochlear implants with streak artifact but no acute intracranial process. CT angiography of the head and neck showed no evidence of high-grade stenosis or intracranial aneurysm. EEG showed background slowing suggestive of encephalopathy as well as intermittent sporadic left parietal theta activity at times suggesting potential cortical irritability and tendency for seizure, but no seizure noted on the study itself. Neurology subsequently recommended increasing patient's Topamax to 150 twice a day. 2 complete stroke workup, echocardiogram was ordered and was within normal limits despite limited views, showing appropriate ejection fraction of 55-60% with no obvious regional wall motion abnormality. On follow-up, neurology recommended inflammatory workup with ESR, CRP, lumbar puncture after holding aspirin and Plavix for 5 days - results of these findings showed no evidence of inflammation as the ESR was 15, CRP was less than 0.5, and the lumbar puncture showed no red blood cells, white blood cells, normal glucose, and borderline protein of 60 - lumbar puncture was completed on 09/15. Based on these results, consideration was made to treat patient with IVIG, and patient received 1 dose on 09/16 night, however, upon further review by neurology it was determined that patient did not require the complete course as there is no strong indication for this medication. Neurology also recommended the discontinuation of Plavix as there is no strong evidence of stroke, but did recommend outpatient MRI compatible with cochlear implants. Based on the possibility of psychogenic overlay/conversion disorder, psychiatry was consulted and did recommend outpatient follow-up for adjustment disorder, but did not recommend any medication changes. Patient continued to complain of ongoing spinal headache following lumbar puncture on 09/15, and had trial of IV caffeine, Fioricet. 09/20 Patient was seen and examined. She reports no further headache. Discussed with guardian (via phone) and Dr. Silverio at bedside, neurological workup complete, organic cause of her symptoms have been ruled out. She is advised to follow up with her psychiatrist in the outpatient setting for intense cognitive behavioral therapy. Accepted to [facility], plans for discharge today. Pertinent procedures include LP. Pertinent studies include CT brain, CTA head and neck, CT C-spine/L-spine, EEG Vital signs reviewed General: non toxic, no distress Head: atraumatic, normocephalic, symmetric ENT: Nose and ears atraumatic Cardiovascular: good distal perfusion in all 4 extremities, no edema Lungs: breathing comfortably, no accessory muscle use Psych: Alert and oriented Discharge Diagnosis: Right lower extremity weakness, most likely conversion disorder or malingering, rule out suspected CVA vs Todds paralysis History of CVA with residual L sided weakness Chronic conditions: Hypothyroidism, seizure disorder, hyperlipidemia This complex discharge took 35 minutes to complete. Patient Condition at Discharge: Stable Plan - Discharge Summary Discharge Rx Participant: No New Discharge Prescriptions: New RX: Butalb/APAP/Caff 50-325-40Mg [Fioricet 50-325-40] 1 each PO Q4HR PRN tab PRN Reason: Headache RX: Topiramate [Topamax] 150 mg PO BID tab Continue RX: Albuterol Sulfate [Proair Hfa] 2 puff INHALATION RT-QID PRN PRN Reason: Shortness Of Breath RX: Montelukast [Singulair] 10 mg PO HS RX: Cetirizine HCl [Zyrtec] 10 mg PO DAILY RX: DULoxetine HCL [Cymbalta] 60 mg PO DAILY RX: Levothyroxine Sodium [Synthroid] 175 mcg PO DAILY RX: Atorvastatin [Lipitor] 40 mg PO DAILY tab RX: Sennosides [Senokot] 8.6 mg PO HS RX: Aspirin EC [Ecotrin Low Dose] 81 mg PO DAILY Discontinued RX: Clopidogrel [Plavix] 75 mg PO DAILY tab Topiramate [Topamax] 100 mg PO BID Discharge Medication List RX: Albuterol Sulfate [Proair Hfa] 2 puff INHALATION RT-QID PRN 02/26/16 [History] RX: Montelukast [Singulair] 10 mg PO HS 03/01/16 [History] RX: Cetirizine HCl [Zyrtec] 10 mg PO DAILY 04/25/23 [History] RX: Atorvastatin [Lipitor] 40 mg PO DAILY tab 05/02/23 [Rx] RX: Aspirin EC [Ecotrin Low Dose] 81 mg PO DAILY 09/06/23 [History] RX: DULoxetine HCL [Cymbalta] 60 mg PO DAILY 09/06/23 [History] RX: Levothyroxine Sodium [Synthroid] 175 mcg PO DAILY 09/06/23 [History] RX: Sennosides [Senokot] 8.6 mg PO HS 09/06/23 [History] RX: Butalb/APAP/Caff 50-325-40Mg [Fioricet 50-325-40] 1 each PO Q4HR PRN tab 09/20/23 [Rx] RX: Topiramate [Topamax] 150 mg PO BID tab 09/20/23 [Rx] Follow up Appointment(s)/Referral(s): Arnie Sanz MD [Primary Care Provider] - 1-2 days Lucy Baldwin MD [Medical Doctor] - 1 Week Discharge/Stand Alone Forms: Who Do I Call?, Community Resources, Personal Mileage Clerk Discharge Disposition: TRANSFER TO SNF/ECF
--- NOTE | 2023-09-20 13:37 | P.PN ---
Progress Note - Text Progress Note Date: 09/20/23 consulted for Epidural blood patch, Per EVERARDO Hernandez, the consult is cancelled, the patient is going to IPR. Headaches are better with meds per neurologist notes. NO CONSULT DONE
--- NOTE | 2023-09-20 15:05 | P.PN ---
Subjective Progress Note Date: 09/20/23 On follow-up with the patient and the she feels that the headache is resolved and does not want to pursue with a blood patch. Objective - Vital Signs Vital signs: Vital Signs Temp 97.8 F 09/20/23 08:00 Pulse 60 09/20/23 08:00 Resp 18 09/20/23 08:00 BP 108/74 09/20/23 08:00 Pulse Ox 100 09/20/23 08:00 FiO2 21 09/09/23 08:25 Intake & Output 09/19/23 09/20/23 09/20/23 18:59 06:59 18:59 Intake Total 1200 10 110 Output Total 0 Balance 1200 10 110 Intake: IV 10 0.9 10 Oral 1200 110 Output: Stool 0 Other: Voiding Method Bedside Commode Bedside Commode # Voids 2 1 1 - Exam GENERAL: The patient is sitting in a recliner chair and is not in acute distress. She was sitting at angle taking to family members and smiling and laughing and did not seem in distress. HENT: Supple neck. NEUROLOGICAL: Higher mental function: The patient is awake, alert, oriented to self, place and time. Patient has some delay in response. She seems flat affect. Patient is following simple commands. No aphasia and no neglect. Cranial nerves: The pupils are round, equal and reactive to light. Visual ortiz are full to confrontation throughout. Extraocular movement is has lazy eye on the right eye and per sister old. Otherwise no nystagmus is noted. Facial sensation is normal to touch throughout. Has right lower facial weakness that is mild and is chronic. Hearing is normal bilaterally to hand rub. Tongue is midline and moved [id number] without any difficulty. No dysarthria is noted. Shoulder shrug is normal bilaterally. Motor: Limited. No movement of the lowers. Moves uppers spontaneously. Normal tone and bulk. Cerebellum: Normal finger to nose bilaterally. Sensation: Sensation is normal to touch throughout. Reflexes (right/left): 2+ throughout. Plantars are mute bilaterally. Some of the workup during his hospital visit consisted of: ESR 15 CBC with differential is unremarkable Calcium is 7.9, HDL is within normal limits, glucose is 92. Sodium is 137. CT of the head is reported as bilateral cochlear implants was treated artifact limiting evaluation of those lower brain. No acute intracranial processes were visualized. I personally reviewed the CT and I agree there is artifact due to the cochlear implant but there is no appreciable acute or subacute ischemia and there is no bleed. CT angiography of the head and neck is reported as no evidence of dissection of the cervical internal carotid arteries or vertebral artery or any evidence of significant stenosis at the carotid bifurcation. No evidence of intracranial high-grade stenosis or intracranial aneurysm. 2-D echo is reported as normal size and systolic function. Ejection fraction of 55-60%. No obvious regional wall motion abnormality. Normal right atrium and left atrium size. No pericardial effusion Routine EEG is abnormal. The background slowing suggestive of mild encephalopathy. There is intermittent sporadic left parietal theta activity and at times seems sharply contoured that at one time seems diffuse in activity over bilateral hemisphere lasting between 2-3 seconds suggestive of focal cortical neuronal dysfunction. This may suggest underlying cortical ribbon and tendency for seizure. No seizure noted during the study. Repeat CT of the head was reported as no change from 2 days ago. Limited evaluation of the brain secondary due to streak artifact from metal implant. No acute intracranial process. CT cervical spine is reported as No evidence of cervical spine fracture. Mild multilevel degenerative disc disease CT lumbar reported as no evidence for a spine fracture. No evidence for significance the spinal canal or neuronal foramina stenosis. CSF is colorless, clear, RBCs 0, WBC 0, glucose 48 which is normal, CSF protein is also normal at 60 (12-60). No evidence of CIDP based upon normal CSF findings. Acetylcholine receptor antibodies negative < 0.30. B12 451, folate 16.4 on 04/25/2023. CSF is negative for oligoclonal bands - Labs CBC & Chem 7: 09/19/23 08:22 09/19/23 08:22 Labs: Microbiology - Last 24 Hours (Table) 09/15/23 15:45 CSF Gram Stain - Final Cerebral Spinal Fluid CSF Culture - Final Assessment and Plan Assessment: This is a 32-year-old woman with history of stroke with residual left-sided weakness and per the sister she walks with a walker and has mild weakness on the left side since April 2023 who has been having 4 episodes of unresponsiveness with blank stares since April 2023 and the episodes are prolonged with prolonged postictal state but no jerking of extremity urinary bowel incontinence. She recently had the witnessed on response with blank stares by her boyfriend and she has currently right-sided weakness. On examination there is poor effort on muscle strength. * Weakness/Quadraparesis of lower more than upper and on examination there is effort related on examination. Appears probable conversion. Upon entering the room today she moving the ankles but upon asking her to move could not. With therapy team she is two person assist but was notified with legal guardian she does not need two people to assist to walk. Patient had 2 CTs of the head which were negative but there is some limitation because of artifact, CT cervical and lumbar is negative. Patient reflexes are normal. Her CSF study is normal. * Episodes of unresponsive with blank stares. ? Seizure vs conversion. on the EEG there is no evidence of seizure--No further unresponsiveness noted. * History of reported stroke with residual mild left hemiparesis and walks with a walker. Stroke was in April 2023. On examination she's presenting of symmetrical weakness of upper and lower and again on unsure if she truly had a stroke. * History of cleft lip/palate and had multiple facial surgeries with residual right facial weakness * Underlying cognitive impairment/learning disability and resides with her boyfriend who is also disabled and has a son * History of bilateral cochlear implant * History of migraine headache Plan: * Dr. Valera started her on IVIG on 09/16/23 for concern for inflammatory polyneuropathy and then next day Dr. Thomason stopped the medication. I agree with Dr. Thomason decision since the patient has normal reflexes and has effort related strength. * Recommend EMG with NCS of lowers then uppers as outpatient. * Regarding her headaches it is controlled and no need for blood patch. * She recieved caffeine and is on Fioricet PRN for headache. * Psychiatry evaluated her and felt she has adjustment disorder with anxious mood. * PT, OT and CASING COOKER are consulted. Patient to be discharged to inpatient rehab. * Recommend the patient to follow-up with neurologist and psychiatrist as outpatient within 3 weeks. * We'll defer the rest of medical management to the primary team. The plan was discussed with the patient, primary attending and her nurse. Also discussed with her legal guardian via phone There is no further neurological work-up. Will sign off. Please reconsult if needed. Time with Patient: Less than 30
== END 2023-09-20 13:45 | DRG 756 ==
LOC: EC 20:58 → 3SCARD 09-07 00:28 → EEVIPCON 09-07 00:28 → 3SCARD 09-07 00:49
PROVIDERS: ADMIT Internal Medicine; ATTEND Internal Medicine
PROC: 009U3ZX Drainage of Spinal Canal, Percutaneous Approach, Diagnostic (ICD-10-PCS; principal; 2023-09-15)
DX: F44.4 Conversion disorder with motor symptom or deficit (principal); G97.1 Other reaction to spinal and lumbar puncture; Y84.4 Aspiration of fluid as the cause of abnormal reaction of the patient, or of later complication, without mention of misadventure at the time of the procedure; R32 Unspecified urinary incontinence; Z76.5 Malingerer [conscious simulation]; M51.36 Other intervertebral disc degeneration, lumbar region; K59.09 Other constipation; I69.354 Hemiplegia and hemiparesis following cerebral infarction affecting left non-dominant side; H91.90 Unspecified hearing loss, unspecified ear; E03.9 Hypothyroidism, unspecified; R26.89 Other abnormalities of gait and mobility; E78.5 Hyperlipidemia, unspecified; G93.49 Other encephalopathy; G40.909 Epilepsy, unspecified, not intractable, without status epilepticus; F43.22 Adjustment disorder with anxiety; F45.9 Somatoform disorder, unspecified; F81.9 Developmental disorder of scholastic skills, unspecified; M41.9 Scoliosis, unspecified; J45.909 Unspecified asthma, uncomplicated; G43.909 Migraine, unspecified, not intractable, without status migrainosus; E66.9 Obesity, unspecified; Z68.41 Body mass index [BMI] 40.0-44.9, adult; F17.290 Nicotine dependence, other tobacco product, uncomplicated; Z56.0 Unemployment, unspecified; Z91.81 History of falling; Z79.899 Other long term (current) drug therapy; Z79.890 Hormone replacement therapy; Z79.82 Long term (current) use of aspirin; Z79.02 Long term (current) use of antithrombotics/antiplatelets; Z88.5 Allergy status to narcotic agent; Z71.3 Dietary counseling and surveillance
CPT/HCPCS: 36415; 62328; 70450; 70496; 70498; 71046; 72125; 72131; 80048; 80053; 82040; 82042; 82164; 82550; 82784; 82945; 83519; 83735; 83873; 83916; 84157; 84484; 85025; 85027; 85610; 85652; 85730; 86140; 87070; 87205; 89050; 93005; 93308; 94760; 95816; 99291

== ENCOUNTER 2024-02-15 13:26 | Observation (INO) | payer OTHER ==
--- NOTE | 2024-02-15 13:54 | ED ---
General Adult HPI - General Chief complaint: Seizure Stated complaint: Seizures Time Seen by Provider: 02/15/24 13:30 Source: patient, family, RN notes reviewed, old records reviewed Mode of arrival: wheelchair Limitations: no limitations - History of Present Illness Initial comments: This is a 33-year-old female who presents to the emergency department with her mom. Mom gives all of the history. Mom states that the patient has had 18 seizures since yesterday. According to mom they last anywhere between 1 to 5 minutes and according to mom they are petit mall seizures. Patient was placed on ethosuximide and was told to double the dose last night and this morning and then when she talked to her neurologist Dr. Baldwin he told her to stop it today and come to the emergency department. According to mom the patient can feel the seizures coming on and when the seizures are done the patient is immediately able to answer questions. Patient has not had a fever or chills recently patient has not been ill recently according to mom this medicine was recently started. - Related Data Home Medications Medication Instructions Recorded Confirmed Albuterol Sulfate [Proair Hfa] 2 puff INHALATION RT-QID PRN 02/26/16 09/06/23 Montelukast [Singulair] 10 mg PO HS 03/01/16 09/06/23 Cetirizine HCl [Zyrtec] 10 mg PO DAILY 04/25/23 09/06/23 Aspirin EC [Ecotrin Low Dose] 81 mg PO DAILY 09/06/23 09/06/23 DULoxetine HCL [Cymbalta] 60 mg PO DAILY 09/06/23 09/06/23 Levothyroxine Sodium [Synthroid] 175 mcg PO DAILY 09/06/23 09/06/23 Sennosides [Senokot] 8.6 mg PO HS 09/06/23 09/06/23 Previous Rx's Medication Instructions Recorded Atorvastatin [Lipitor] 40 mg PO DAILY tab 05/02/23 Butalb/APAP/Caff 50-325-40Mg 1 each PO Q4HR PRN tab 09/20/23 [Fioricet 50-325-40] Topiramate [Topamax] 150 mg PO BID tab 09/20/23 Allergies Allergy/AdvReac Type Severity Reaction Status Date / Time hydrocodone bitartrate AdvReac Nausea & Verified 09/06/23 21:58 [From Vicodin] Vomiting tramadol AdvReac Nausea & Verified 09/06/23 21:58 Vomiting Review of Systems ROS Statement: Those systems with pertinent positive or pertinent negative responses have been documented in the HPI. ROS Other: All systems not noted in ROS Statement are negative. Past Medical History Past Medical History: Asthma, Hearing Disorder / Deafness, Thyroid Disorder Additional Past Medical History / Comment(s): BILATERAL COCHLEAR IMPLANTS, HEARING AIDES, BORN WITH CLEFT PALATE/LIP WITH MULTIPLE SURGERIES, R FACIAL WE AKNESS, 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 History of Any Multi-Drug Resistant Organisms: None Reported Past Surgical History: Ear Surgery, Tubal Ligation Additional Past Surgical History / Comment(s): CLEFT PALETTE SX, JAW ALIGNMENT, PROSTHETIC EARS ( HAS BRACKETS ON SIDES OF HEAD) AND NOSE RECONSTRUCTION, JEFFERY COCHLEAR IMPLANTS, R EYE PLASTIC SURGERY TO MAKE FACE LOOK MORE SYMMETRICAL, L WRIST GANGLION CYST REMOVED TWICE. Past Anesthesia/Blood Transfusion Reactions: No Reported Reaction, Postoperative Nausea & Vomiting (PONV) Past Psychological History: No Psychological Hx Reported, Anxiety, Depression Smoking Status: Vaper Past Alcohol Use History: None Reported Past Drug Use History: Marijuana - Past Family History Father Family Medical History: Cancer Additional Family Medical History / Comment(s): COLON Cancer. Mother Family Medical History: Congestive Heart Failure (CHF) General Exam - General Exam Comments Initial Comments: GENERAL: Patient is well-developed and well-nourished. Patient is nontoxic and well- hydrated and is in no acute distress. ENT: Neck is soft and supple. No significant lymphadenopathy is noted. Oropharynx is clear. Moist mucous membranes. Neck has full range of motion without eliciting any pain. Patient has longstanding facial deformities EYES: The sclera were anicteric and conjunctiva were pink and moist. Extraocular move ments were intact and pupils were equal round and reactive to light. Eyelids were unremarkable. PULMONARY: Unlabored respirations. Good breath sounds bilaterally. No audible rales rhonchi or wheezing was noted. CARDIOVASCULAR: There is a regular rate and rhythm without any murmurs gallops or rubs. ABDOMEN: Soft and nontender with normal bowel sounds. SKIN: Skin is clear with no lesions or rashes and otherwise unremarkable. NEUROLOGIC: Patient is alert and oriented x3. Cranial nerves II through XII are grossly intact. Motor and sensory are also intact. Normal speech, volume and content. Symmetrical smile. MUSCULOSKELETAL: Normal extremities with adequate strength and full range of motion. LYMPHATICS: No significant lymphadenopathy is noted PSYCHIATRIC: Normal psychiatric evaluation. Limitations: no limitations Course Vital Signs 02/15/24 02/15/24 13:29 15:31 Temperature 98 F Pulse Rate 74 80 Respiratory 16 16 Rate Blood Pressure 123/81 125/90 O2 Sat by Pulse 99 96 Oximetry Medical Decision Making - Medical Decision Making Was pt. sent in by a medical professional or institution (, PA, DEPARTMENTAL BUYER, urgent care, hospital, or group home...) When possible be specific @ -No Did you speak to anyone other than the patient for history (EMS, parent, family, police, friend...)? What history was obtained from this source @ -Mom gave all of the history on this patient Did you review nursing and triage notes (agree or disagree)? Why? @ -I reviewed and agree with nursing and triage notes Were old charts reviewed (outside hosp., previous admission, EMS record, old EKG, old radiological studies, urgent care reports/EKG's, group home records)? Report findings @ -No old charts were reviewed Differential Diagnosis (chest pain, altered mental status, abdominal pain women, abdominal pain men, vaginal bleeding, weakness, fever, dyspnea, syncope, headache, dizziness, GI bleed, back pain, seizure, CVA, palpatations, mental health, musculoskeletal)? @ -Differential Seizure: Recurrent seizure disorder, febrile seizure, alcohol withdrawal, stimulants, meningitis, encephalitis, intercranial hemorrhage, intracranial tumor, stroke, eclampsia, thyrotoxicosis, hypocalcemia, hyponatremia, hypernatremia, hypomagnesemia, psychogenic, this is not meant to be an all-inclusive list. EKG interpreted by me (3pts min.). @ -As above X-rays interpreted by me (1pt min.). @ -None done CT interpreted by me (1pt min.). @ -None done U/S interpreted by me (1pt. min.). @ -None done What testing was considered but not performed or refused? (CT, X-rays, U/S, labs)? Why? @ -None What meds were considered but not given or refused? Why? @ -None Did you discuss the management of the patient with other professionals (professionals i.e. , PA, DEPARTMENTAL BUYER, lab, RT, psych nurse, social services manager, inbound ingredient logistics specialist, teacher, certification officer, case briefer)? Give summary @ -I spoke with sound physicians they agreed to admit the patient. I spoke with Dr. Valera he stated he would come down and see the patient Was smoking cessation discussed for >3mins.? @ -No Was critical care preformed (if so, how long)? @ -No Were there social determinants of health that impacted care today? How? (Homelessness, low income, unemployed, alcoholism, drug addiction, menard sportation, low edu. Level, literacy, decrease access to med. care, skilled nursing, rehab)? @ -No Was there de-escalation of care discussed even if they declined (Discuss DNR or withdrawal of care, Hospice)? DNR status @ -No What co-morbidities impacted this encounter? (DM, HTN, Smoking, COPD, CAD, Cancer, CVA, ARF, Chemo, Hep., AIDS, mental health diagnosis, sleep apnea, morbid obesity)? @ -None Was patient admitted / discharged? Hospital course, mention meds given and route, prescriptions, significant lab abnormalities, going to OR and other pertinent info. @ -Patient had a few more 1 to 3-minute staring episodes which mom indicated were seizures. When patient was having a seizure she reacted to me putting my hand in front of her face but continued to stare out beyond me after I stopped doing that. No tonic-clonic movement patient was completely alert and at her neurologic baseline after the episode of staring stopped Undiagnosed new problem with uncertain prognosis? @ -No Drug Therapy requiring intensive monitoring for toxicity (Heparin, Nitro, Insulin, Cardizem)? @ -No Were any procedures done? @ -No Diagnosis/symptom? @ -Seizures, absence seizure Acute, or Chronic, or Acute on Chronic? @ -Acute Uncomplicated (without systemic symptoms) or Complicated (systemic symptoms)? @ -Complicated Side effects of treatment? @ -No Exacerbation, Progression, or Severe Exacerbation? @ -No Poses a threat to life or bodily function? How? (Chest pain, [place], [place], pneumonia, PE, COPD, DKA, ARF, appy, cholecystitis, CVA, Diverticulitis, Homicidal, Suicidal, threat to staff... and all critical care pts) @ -No - Lab Data Result diagrams: 02/15/24 14:03 02/15/24 14:03 Lab Results 02/15/24 02/15/24 Range/Units 14:03 14:03 WBC 7.5 (3.8-10.6) k/uL RBC 4.67 (3.80-5.40) m/uL Hgb 12.4 (11.4-16.0) gm/dL Hct 38.5 (34.0-46.0) % MCV 82.6 (80.0-100.0) fL MCH 26.6 (25.0-35.0) pg MCHC 32.3 (31.0-37.0) g/dL RDW 14.3 (11.5-15.5) % Plt Count 205 (150-450) k/uL MPV 8.7 Neutrophils % 68 % Lymphocytes % 21 % Monocytes % 6 % Eosinophils % 4 % Basophils % 1 % Neutrophils # 5.1 (1.3-7.7) k/uL Lymphocytes # 1.6 (1.0-4.8) k/uL Monocytes # 0.4 (0-1.0) k/uL Eosinophils # 0.3 (0-0.7) k/uL Basophils # 0.0 (0-0.2) k/uL Sodium 142 (137-145) mmol/L Potassium 5.5 H (3.5-5.1) mmol/L Chloride 118 H (98-107) mmol/L Carbon Dioxide 14 L (22-30) mmol/L Anion Gap 10 mmol/L BUN 9 (7-17) mg/dL Creatinine 0.70 (0.52-1.04) mg/dL Est GFR (CKD-EPI)AfAm >90 (>60 ml/min/1.73 sqM) Est GFR (CKD-EPI)NonAf >90 (>60 ml/min/1.73 sqM) Glucose 87 (74-99) mg/dL Calcium 8.5 (8.4-10.2) mg/dL Magnesium 1.9 (1.6-2.3) mg/dL Total Bilirubin 1.2 (0.2-1.3) mg/dL AST 49 H (14-36) U/L ALT 20 (4-34) U/L Alkaline Phosphatase 76 (38-126) U/L Total Protein 7.6 (6.3-8.2) g/dL Albumin 4.4 (3.5-5.0) g/dL Disposition Clinical Impression: Focal seizure Disposition: ADMITTED IP TO THIS [facility] Instructions (If sedation given, give patient instructions): Seizure/Epilepsy Discharge Instructions & Follow-Up Referrals: Arnie Sanz MD [Primary Care Provider] - 1-2 days Time of Disposition: 16:47
[2024-02-15] MEDS: LORazepam 2 MG/ML INJ IV STA (14:04)
[2024-02-15 14:19] LABS: Basophils % (A) 1 %; Eosinophils # (A) 0.3 k/uL (0-0.7); Eosinophils % (A) 4 %; HCT 38.5 % (34.0-46.0); HGB 12.4 gm/dL (11.4-16.0); Lymphocytes # (A) 1.6 k/uL (1.0-4.8); Lymphocytes % (A) 21 %; MCH 26.6 pg (25.0-35.0); MCHC 32.3 g/dL (31.0-37.0); MCV 82.6 fL (80.0-100.0); Mean Platelet Volume 8.7; Monocytes # (A) 0.4 k/uL (0-1.0); Monocytes % (A) 6 %; Neutrophils # (A) 5.1 k/uL (1.3-7.7); Neutrophils % (A) 68 %; Platelet Count 205 k/uL (150-450); RBC 4.67 m/uL (3.80-5.40); RDW 14.3 % (11.5-15.5); WBC 7.5 k/uL (3.8-10.6)
[2024-02-15 14:38] LABS: ALT 20 U/L (4-34); AST 49 U/L (14-36); African American GFR (CKD) >90 (>60 ml/min/1.73 sqM); Albumin 4.4 g/dL (3.5-5.0); Alkaline Phosphatase 76 U/L (38-126); Anion Gap 10 mmol/L; Blood Urea Nitrogen 9 mg/dL (7-17); Calcium 8.5 mg/dL (8.4-10.2); Carbon Dioxide 14 mmol/L (22-30); Chloride 118 mmol/L (98-107); Glucose 87 mg/dL (74-99); Magnesium 1.9 mg/dL (1.6-2.3); Non-African American GFR(CKD) >90 (>60 ml/min/1.73 sqM); Sodium 142 mmol/L (137-145); Total Bilirubin 1.2 mg/dL (0.2-1.3); Total Protein 7.6 g/dL (6.3-8.2)
[2024-02-15 14:58] LABS: Potassium 5.5 mmol/L (3.5-5.1)
[2024-02-15] MEDS ORDERED: NALOXONE 0.4 MG/ML 1 ML VIAL IV PRN (17:37)
[2024-02-15] MEDS: SODIUM CHLORIDE 0.9% 1,000 ML IV ONE (17:51)
--- NOTE | 2024-02-15 18:21 | P.HPIM ---
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 Initially admitted in 09/2023 for slurred speech, left sided weakness where she underwent extensive evaluation. Echo, CT brain x 2, CT C-spine, ESR and CRP was unrevealing of her symptoms. LP was also performed with no signs of infection. EEG was abnormal due to background slowing of bfxy-gv-ygywrrna degree suggestive of diffuse encephalopathy, intermittent sporadic left temporal sharp waves with rhythmic left temporal theta, suggest focal cortical neuronal dysfunction. MRI brain was not able to be done due to incompatibility with cochlear implants. Thought to be related to conversion/adjustment disorder, she was discharged to [facility] at [facility] on [facility]. Sister reports she was admitted at [place] on February 03, 2024 for 2 weeks for similar symptoms. Underwent MRI brain which was negative for new or old CVA. Prolonged EEG was abnormal, discharged and advised to follow up with Neurology in the outpatient setting. Started on Ethosuximide by Dr. Baldwin for possible abscence seizures. Since Tuesday, sister reports > 30 seizure like episodes, described as flacid and unresponsive that lasts between 2 and 5 minutes. She did have 2 episodes during our encounter In the ED he underwent extensive evaluation. BP 123/81 HR 74 RR 16 T98F 99%RA. CBC unremarkable. CMP K 5.5, Cl 118, bicarb 14, AST 49. Mag 1.9. Patient is admitted for seizure with Neurology on consult. General: non toxic, no distress, appears at stated age Derm: warm, dry Head: atraumatic, normocephalic, symmetric Eyes: EOMI, no lid lag, anicteric sclera Mouth: no lip lesion, mucus membranes moist Cardiovascular: Good distal pefusion in all 4 extremities Lungs: Breathing comfortably, no accessory muscle use Neuro: Chronic right sided facial weakness. CN 2-12 grossly intact otherwise. Strength 5/5 in all 4 extremities. Sensation intact to touch. Psych: Alert, oriented, appropriate affect Based on my assessment of this patient, this patient meets a high complexity level of care. Patient has an acute diagnosis of seizure that poses a threat to life or bodily function. Seizure: Discussed with Dr. Valera. Start Vimpat 100 mg IV BID. Fall precautions. Neurochecks. Telemetry monitoring. Seizure precautions. Obtain EEG. PT OT consult. Neurology consult. Hyperkalemia: Hemolyzed. Repeat BMP tomorrow. HyperCl metabolic acidosis: Unknown etiology. Repeat BMP tomorrow. Transaminitis: Unknown etiology. Outpatient follow up. 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 I have reviewed the results of the following tests: As above. I have ordered the following tests: As above. I have discussed the care of this patient with the following independent historian: Sister at bedside. I have independently interpreted the following test below: I have discussed the management of this patient with the following physician: Dr. Valera. 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 History of Any Multi-Drug Resistant Organisms: None Reported Past Surgical History: Ear Surgery, Tubal Ligation Additional Past Surgical History / Comment(s): CLEFT PALETTE SX, JAW ALIGNMENT, PROSTHETIC EARS ( HAS BRACKETS ON SIDES OF HEAD) AND NOSE RECONSTRUCTION, JEFFERY COCHLEAR IMPLANTS, R EYE PLASTIC SURGERY TO MAKE FACE LOOK MORE SYMMETRICAL, L WRIST GANGLION CYST REMOVED TWICE. Past Anesthesia/Blood Transfusion Reactions: No Reported Reaction, Postoperative Nausea & Vomiting (PONV) Past Psychological History: No Psychological Hx Reported, Anxiety, Depression Smoking Status: Vaper Past Alcohol Use History: None Reported Past Drug Use History: Marijuana - Past Family History Father Family Medical History: Cancer Additional Family Medical History / Comment(s): COLON Cancer. Mother Family Medical History: Congestive Heart Failure (CHF) Medications and Allergies Home Medications Medication Instructions Recorded Confirmed Type Albuterol Sulfate [Proair Hfa] 2 puff INHALATION RT-QID PRN 02/26/16 02/15/24 History Montelukast [Singulair] 10 mg PO HS 03/01/16 02/15/24 History Cetirizine HCl [Zyrtec] 10 mg PO DAILY 04/25/23 02/15/24 History DULoxetine HCL [Cymbalta] 60 mg PO DAILY 09/06/23 02/15/24 History Ibuprofen [Motrin] 800 mg PO Q8H PRN 02/15/24 02/15/24 History Ipratropium-Albuterol Nebulize 3 ml INHALATION RT-QID PRN 02/15/24 02/15/24 History [Duoneb 0.5 mg-3 mg/3 ml Soln] Levothyroxine Sodium [Synthroid] 75 mcg PO DAILY 02/15/24 02/15/24 History Sennosides/Docusate Sodium [Senna 1 cap PO HS PRN 02/15/24 02/15/24 History Plus 8.6-50 mg Softgel] Topiramate 50 mg PO BID 02/15/24 02/15/24 History Topiramate [Topamax] 100 mg PO BID 02/15/24 02/15/24 History Allergies Allergy/AdvReac Type Severity Reaction Status Date / Time hydrocodone bitartrate AdvReac Nausea & Verified 02/15/24 17:43 [From Vicodin] Vomiting tramadol AdvReac Nausea & Verified 02/15/24 17:43 Vomiting Physical Exam Vitals: Vital Signs Temp Pulse Resp BP Pulse Ox 02/15/24 17:54 58 L 18 120/84 96 02/15/24 15:31 80 16 125/90 96 02/15/24 13:29 98 F 74 16 123/81 99 Intake and Output 02/15/24 02/15/24 02/15/24 06:59 14:59 22:59 Other: Weight 83.007 kg Results CBC & Chem 7: 02/15/24 14:03 02/15/24 14:03 Labs: Abnormal Lab Results - Last 24 Hours (Table) 02/15/24 Range/Units 14:03 Potassium 5.5 H (3.5-5.1) mmol/L Chloride 118 H (98-107) mmol/L Carbon Dioxide 14 L (22-30) mmol/L AST 49 H (14-36) U/L
[2024-02-15] MEDS: ACETAMINOPHEN TAB 325 MG TAB PO PRN (19:09)
[2024-02-15] MEDS: TOPIRAMATE 100 MG TAB PO SCH (20:23)
[2024-02-15] MEDS: Lacosamide IV (ages 17+ yrs) 200 MG/20 ML ML IVP SCH (20:24)
[2024-02-16] MEDS ORDERED: LORazepam 2 MG/ML INJ IV PRN (01:02)
[2024-02-16] MEDS ORDERED: Lacosamide IV (ages 17+ yrs) 200 MG/20 ML ML IVP PRN (01:03)
[2024-02-16] MEDS: LEVOTHYROXINE 75 MCG TAB PO SCH (06:39)
[2024-02-16] MEDS: DULoxetine HCL 60 MG CAPSULE.DR PO SCH (08:25)
[2024-02-16] MEDS: ENOXAPARIN 40 MG/0.4 ML SYRINGE SQ SCH (08:25)
[2024-02-16] MEDS: LORATADINE 10 MG TAB PO SCH (08:25)
--- NOTE | 2024-02-16 11:03 | P.CNNES ---
History of Present Illness Consult date: 02/15/24 Requesting physician: Chalino Dial Reason for Consult: Focal seizures History of Present Illness: Patient is a 33-year-old female with multiple congenital disorder, known to neurology service from multiple admissions to the past, was brought to the hospital by patient's sister today at 1:26 PM for seizure-like spells. Patient was admitted to [facility] on on 09/07/2023 and discharged on 09/20/2023, with lower more than upper extremity weakness, staring spells. Conversion disorder was suspected. Patient then developed quadriparesis. Spinal fluid was normal. Borderline CSF protein of 60. Patient was given 1 dose of IVIG but developed some side effects, therefore was discontinued. It was felt that IVIG was not needed, as conversion disorder was strongly suspected. Patient was transferred to inpatient rehab in [facility]. Patient was subsequently admitted to [facility] as well for 2 weeks on 02/03/2024 for similar symptoms. She has presented with speech difficulty and left-sided weakness. Patient had an MRI of the brain, which ruled out any acute or remote stroke. Patient underwent prolonged EEG for 24 hours, was reportedly abnormal, and recommended to follow-up with the neurologist outpatient. Antiplatelet medications were discontinued. Seizures were suspected. Patient has been on Topamax 150 mg twice daily. She was subsequently seen by Dr. Martin for possible absence seizure's. Patient was started on ethosuximide. Patient's sister mentions that in the last 24 hours, patient developed seizure type spells, in which she stops responding, and lays there, in the event last for about 2 to 5 minutes. And then she comes out of it. She had about 30 of these spells. One of them happened in front of us as well, when she felt it coming, and she laid down, was keeping her eyes closed, and would not respond. After couple minutes, started coming around. Cannot rule out conversion disorder as well. Patient's weakness has resolved. She is about 80% back to her baseline. Patient's vitals on arrival blood pressure 123/81 pulse rate 74 temperature 98.0. Blood test shows normal CBC, normal sodium normal potassium 5.5, normal renal and hepatic panel with ALT mildly elevated 49. Patient had a normal CTA of head and neck performed on 04/27/2023 and 09/06/2023. Patient had a normal KALA on 04/27/2023. Review of Systems As mentioned in HPI, all other review of systems noncontributory. 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 History of Any Multi-Drug Resistant Organisms: None Reported Past Surgical History: Ear Surgery, Tubal Ligation Additional Past Surgical History / Comment(s): CLEFT PALETTE SX, JAW ALIGNMENT, PROSTHETIC EARS ( HAS BRACKETS ON SIDES OF HEAD) AND NOSE RECONSTRUCTION, JEFFERY COCHLEAR IMPLANTS, R EYE PLASTIC SURGERY TO MAKE FACE LOOK MORE SYMMETRICAL, L WRIST GANGLION CYST REMOVED TWICE. Past Anesthesia/Blood Transfusion Reactions: No Reported Reaction, Postoperative Nausea & Vomiting (PONV) Past Psychological History: No Psychological Hx Reported, Anxiety, Depression Smoking Status: Vaper Past Alcohol Use History: None Reported Past Drug Use History: Marijuana - Past Family History Father Family Medical History: Cancer Additional Family Medical History / Comment(s): COLON Cancer. Mother Family Medical History: Congestive Heart Failure (CHF) Medications and Allergies Home Medications Medication Instructions Recorded Confirmed Type Albuterol Sulfate [Proair Hfa] 2 puff INHALATION RT-QID PRN 02/26/16 02/15/24 History Montelukast [Singulair] 10 mg PO HS 03/01/16 02/15/24 History Cetirizine HCl [Zyrtec] 10 mg PO DAILY 04/25/23 02/15/24 History DULoxetine HCL [Cymbalta] 60 mg PO DAILY 09/06/23 02/15/24 History Ibuprofen [Motrin] 800 mg PO Q8H PRN 02/15/24 02/15/24 History Ipratropium-Albuterol Nebulize 3 ml INHALATION RT-QID PRN 02/15/24 02/15/24 History [Duoneb 0.5 mg-3 mg/3 ml Soln] Levothyroxine Sodium [Synthroid] 75 mcg PO DAILY 02/15/24 02/15/24 History Sennosides/Docusate Sodium [Senna 1 cap PO HS PRN 02/15/24 02/15/24 History Plus 8.6-50 mg Softgel] Topiramate 50 mg PO BID 02/15/24 02/15/24 History Topiramate [Topamax] 100 mg PO BID 02/15/24 02/15/24 History Allergies Allergy/AdvReac Type Severity Reaction Status Date / Time hydrocodone bitartrate AdvReac Nausea & Verified 02/15/24 17:43 [From Vicodin] Vomiting tramadol AdvReac Nausea & Verified 02/15/24 17:43 Vomiting Physical Examination - Vital Signs Vital Signs: Vital Signs Temp Pulse Resp BP Pulse Ox 02/15/24 15:31 80 16 125/90 96 02/15/24 13:29 98 F 74 16 123/81 99 Intake and Output 02/15/24 02/15/24 02/15/24 06:59 14:59 22:59 Other: Weight 83.007 kg Patient is alert and awake in no distress. Her speech is slow, hesitant, but not stuttering. She is speaking very clearly. On cranial nerve examination, pupils are equal, round and reacting to light, visual ortiz are full on confrontation with no neglect on double simultaneous stimulation. Patient has right gaze paresis, which is chronic. Her gaze is normal to the left up and down. There is no nystagmus. Patient has chronic right facial weakness peripheral type ( defect). Tongue protrudes the midline. She has cochlear implant bilaterally. She has history of previous cleft palate. On muscle strength testing, the strength is very symmetric. Strength appears normal in the arms and legs distally and proximally. She did not give the best effort, but was symmetric. Deep tendon reflexes are symmetric, 1+ at the biceps, 1 brachioradialis, 2+ at the knees, 1+2 ankles and plantars are flat bilaterally. Sensory to touch is equal on both sides. No ataxia for [id number] or imyk-un-yccj testing. Results - Laboratory Findings CBC and BMP: 02/15/24 14:03 02/15/24 14:03 Abnormal Lab Findings: Abnormal Labs 02/15/24 14:03 Potassium 5.5 H Chloride 118 H Carbon Dioxide 14 L AST 49 H Assessment and Plan Assessment: * Recurrent episodes of unresponsiveness, lasting for about 2 to 5 minutes. Patient had about 30 such spells in the last 24 hours. Differential is between complex partial seizures versus conversion disorder. * Numerous admission to the hospital in the past for strokelike symptoms, quadriparesis, which was felt to be conversion disorder. No evidence of recent or remote stroke on MRI performed in [place] recently. * History of cleft lip/palate and had multiple facial surgeries with residual right facial weakness * Mild cognitive impairment/learning disability * History of bilateral cochlear implant * History of migraine headache Plan: * Patient has some seizure type spells. Uncertain if epileptic, or nonepileptic/conversion disorder. * Start Vimpat 100 mg IV twice daily. * Ativan 1 mg every 1 hours IV as needed seizure * Continue Topamax 150 mg twice daily. * Urgent, prolonged EEG for 1 hour. * DVT prophylaxis: Lovenox 40 mg subcu daily * Telemetry monitoring * Seizure precautions, fall risk * Obtain records from [facility] from recent admission in January 2024. * Discussed with patient's sister and primary team in detail as well. * Thank you for the consult.
[2024-02-16] MEDS: ONDANSETRON 4 MG/2 ML VIAL IVP PRN (11:51)
--- NOTE | 2024-02-16 13:35 | EEG ---
ELECTROENCEPHALOGRAM REPORT TECHNIQUE: This is a report from a prolonged 1-hour inpatient digital video EEG performed utilizing the 10/20 international electrode placement system. HISTORY: The patient has history of recurrent seizures. CURRENT MEDICATIONS: 1. Topamax. 2. Vimpat. FINDINGS: Recording start time 10:19 a.m. on 02/16/2024, recording end time 11:20 a.m. on 02/16/2024. EVENTS: During this 1-hour continuous video EEG, during middle of the recording, there were episodes of rhythmic jerking of the left arm, and 1 time associated with jerking of the upper body. During this time, no electrographic abnormality was noted. No electrographic seizures were recorded. BACKGROUND: Background consists of well-developed, moderately well-regulated, mixed frequencies of 6 to 7 hertz theta, intermixed with some 8 hertz alpha activity seen. Background is posterior dominant and does not seem to be clearly reactive to eye opening or closing. Photic driving response was not seen. There are intermittent, left temporal sharp waves seen infrequently during the study. Intermittent left temporal slowing was also seen. Some sporadic high-amplitude generalized 6 hertz theta activity was seen, lasting for about 1-2 seconds. No electrographic seizure was seen. Different stages of sleep were not clearly seen. EKG channel showed no obvious arrhythmia. IMPRESSION: Abnormal 1-hour video EEG. 1. Background slowing, suggestive of [id number] encephalopathy. 2. Intermittent left temporal sharp waves were seen, suggestive of focal cortical neuronal dysfunction with underlying cortical irritability and tendency for seizures. No electrographic seizures were recorded. 3. During middle of the study, left arm jerking or upper body jerking was noted, during which no electrographic correlate was observed. 4. Intermittent high amplitude frontally maximal 6 hertz theta activity, lasting for 1- 2 seconds, of uncertain clinical significance, may be related to mild encephalopathy. MMODL / IJN: [id number] / [facility]
--- NOTE | 2024-02-16 15:19 | P.PN ---
Subjective Progress Note Date: 02/16/24 No new complaints, ongoing concern for absence seizures. Prolonged EEG shows epliptigenetic foci in the temporal lobe. 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 Initially admitted in 09/2023 for slurred speech, left sided weakness where she underwent extensive evaluation. Echo, CT brain x 2, CT C-spine, ESR and CRP was unrevealing of her symptoms. LP was also performed with no signs of infection. EEG was abnormal due to background slowing of gfys-ga-gskuynvb degree suggestive of diffuse encephalopathy, intermittent sporadic left temporal sharp waves with rhythmic left temporal theta, suggest focal cortical neuronal dysfunction. MRI brain was not able to be done due to incompatibility with cochlear implants. Thought to be related to conversion/adjustment disorder, she was discharged to [facility] at [facility] on [facility]. Sister reports she was admitted at [place] on February 03, 2024 for 2 weeks for similar symptoms. Underwent MRI brain which was negative for new or old CVA. Prolonged EEG was abnormal, discharged and advised to follow up with Neurology in the outpatient setting. Started on Ethosuximide by Dr. Baldwin for possible abscence seizures. Since Tuesday, sister reports > 30 seizure like episodes, described as flacid and unresponsive that lasts between 2 and 5 minutes. She did have 2 episodes during our encounter In the ED he underwent extensive evaluation. BP 123/81 HR 74 RR 16 T98F 99%RA. CBC unremarkable. CMP K 5.5, Cl 118, bicarb 14, AST 49. Mag 1.9. Assessment/plan: Seizure: -Discussed with Dr. Valera. Start Vimpat 100 mg IV BID. -Fall precautions. Neurochecks. Telemetry monitoring. Seizure precautions. -Obtain EEG. -PT OT consult. -Neurology consult. Hyperkalemia: Hemolyzed. Repeat BMP tomorrow. HyperCl metabolic acidosis: Unknown etiology. Repeat BMP tomorrow. Transaminitis: Unknown etiology. Outpatient follow up. 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, hypothyroidism, seizure disorder, and hyperlipidemia CODE STATUS: FULL CODE DVT Prophylaxis: Lovenox GI Prophylaxis: Designated medical POA if patient is not able to make medical decisions for themselves: Sister Objective - Vital Signs Vital signs: Vital Signs Temp 97.5 F L 02/16/24 08:18 Pulse 79 02/16/24 15:15 Resp 17 02/16/24 15:15 BP 119/72 02/16/24 15:15 Pulse Ox 95 02/16/24 15:15 FiO2 Intake & Output 02/15/24 02/16/24 02/16/24 18:59 06:59 18:59 Intake Total 236 Balance 236 Weight 83.007 kg 83.007 kg Intake: Oral 236 Other: Voiding Method Bedside Commode # Voids 1 - Labs CBC & Chem 7: 02/15/24 14:03 02/15/24 14:03
[2024-02-16 21:38] LABS: BUN/Creat Ratio 10.12 Ratio (12.00-20.00); Blood Urea Nitrogen 8.1 mg/dL (9.0-27.0); Calcium 8.4 mg/dL (8.7-10.3); Chloride 116 mmol/L (96-109); Glucose 96 mg/dL (70-110); Potassium 3.8 mmol/L (3.5-5.5); Sodium 144 mmol/L (135-145)
[2024-02-16] MEDS: MONTELUKAST 10 MG TAB PO SCH (22:03)
[2024-02-17 07:55] VITALS: BP 118/78; PULSE 89; RESP 18; TEMP 98.5
--- NOTE | 2024-02-17 10:42 | P.PN ---
Subjective Progress Note Date: 02/16/24 Patient was seen for a follow-up. Patient is laying comfortably in the bed. Patient has a flat affect. Patient's dad was on the phone on the speaker phone with her. Patient states that she had "quite a few more" seizure type spells. She cannot remember how many. While I was talking to patient's dad, patient went into a spell in which her left hand was rhythmically flexing extending, and she was not responding. After about 2 to 3 minutes, she started responding. Appears very functional/conversion disorder. Objective - Vital Signs Vital signs: Vital Signs Temp 97.5 F L 02/16/24 08:18 Pulse 79 02/16/24 15:15 Resp 17 02/16/24 15:15 BP 119/72 02/16/24 15:15 Pulse Ox 95 02/16/24 15:15 FiO2 Intake & Output 02/15/24 02/16/24 02/16/24 18:59 06:59 18:59 Intake Total 236 Balance 236 Weight 83.007 kg 83.007 kg Intake: Oral 236 Other: Voiding Method Bedside Commode # Voids 1 - Exam Examination unchanged. Patient had a spell as mentioned above. - Labs CBC & Chem 7: 02/15/24 14:03 02/16/24 14:50 Assessment and Plan Assessment: * Recurrent episodes of unresponsiveness, lasting for about 2 to 5 minutes. 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 * Numerous admission to the hospital in the past for strokelike symptoms, quadriparesis, which was felt to be conversion disorder. No evidence of recent or remote stroke on MRI performed in [place] recently. * History of cleft lip/palate and had multiple facial surgeries with residual right facial weakness * Mild cognitive impairment/learning disability * History of bilateral cochlear implant * History of migraine headache Plan: * Patient had a prolonged, 1 hour EEG performed, which revealed background slowing, suggestive of mild to moderate encephalopathy. Intermittent left temporal sharp waves were seen, suggestive of focal cortical neuronal dys function with underlying cortical irritability and tendency for seizures. No electrographic seizures were recorded. Intermittent high amplitude frontally maximal 6 Hz theta activity lasting for about 1 to 2 seconds, of uncertain significance. May be related to mild encephalopathy. Apparently patient had 2 typical spells during the EEG, during which there was no electrographic abnormality. This is consistent with nonepileptic psychogenic spells. * Vimpat has not helped her. We will stop Vimpat. * Consider psychiatry consultation for recurrent neurological events manifesting with conversion disorders. * Ativan 1 mg every 1 hours IV as needed seizure * Continue Topamax 150 mg twice daily. * DVT prophylaxis: Lovenox 40 mg subcu daily * Telemetry monitoring * Seizure precautions, fall risk * Obtain records from [facility] from recent admission in January 2024.
--- NOTE | 2024-02-17 10:52 | P.DS ---
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, hypothyroidism, seizure disorder, and hyperlipidemia Gen: In NAD, non-toxic HEENT: normocephalic, atraumatic, hearing acuity is intant, mucous membranes moist CVS: perfusing all extremities well, no pitting edema, Respiratory: symmetric chest expansion, no accessory muscle use, GI: soft, NTTP, ND, : no suprapubic tenderness, no CVA tenderness MSK/Derm: no rashes, cyanosis Neuro: CN II-XII intact, no motor weakness, Psych: cooperative, euthymic mood, judgment and insight is intact Hospital course: 33-year-old female with multiple congenital disorders, 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 Initially admitted in 09/2023 for slurred speech, left sided weakness where she underwent extensive evaluation. Echo, CT brain x 2, CT C-spine, ESR and CRP was unrevealing of her symptoms. LP was also performed with no signs of infection. EEG was abnormal due to background slowing of [id number] degree suggestive of diffuse encephalopathy, intermittent sporadic left temporal sharp waves with rhythmic left temporal theta, suggest focal cortical neuronal dysfunction. MRI brain was not able to be done due to incompatibility with cochlear implants. 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 Sister reports she was admitted at [facility] on February 03, 2024 for 2 weeks for similar symptoms. Underwent MRI brain which was negative for new or old CVA. Prolonged EEG was abnormal, discharged and advised to follow up with Neurology in the outpatient setting. Started on Ethosuximide by Dr. Baldwin for possible abscence seizures. Since Tuesday, sister reports > 30 seizure like episodes, described as flacid and unresponsive that lasts between 2 and 5 minutes. She did have 2 episodes during our encounter In the ED he underwent extensive evaluation. BP 123/81 HR 74 RR 16 T98F 99%RA. CBC unremarkable. CMP K 5.5, Cl 118, bicarb 14, AST 49. Mag 1.9. Pt was seen and evaluated by neurology who recommended prolonged EEG, which was completed and did not show seizures, but did show an epileptogenetic focus. Regardless, vimpat did not significantly help her symptoms and therefore was discontinued on discharge. She should f/u with [facility]/Psychiatry for non-epileptic convulsive disorder. I spent 38 min coordinating this discharge on 02/16 Patient Condition at Discharge: Good Plan - Discharge Summary Discharge Rx Participant: No New Discharge Prescriptions: New Acetaminophen Tab [Tylenol] 650 mg PO Q6HR PRN tab PRN Reason: Mild Pain Or Fever > 100.5 Continue Albuterol Sulfate [Proair Hfa] 2 puff INHALATION RT-QID PRN PRN Reason: Shortness Of Breath Montelukast [Singulair] 10 mg PO HS Cetirizine HCl [Zyrtec] 10 mg PO DAILY DULoxetine HCL [Cymbalta] 60 mg PO DAILY Sennosides/Docusate Sodium [Senna Plus 8.6-50 mg Softgel] 1 cap PO HS PRN PRN Reason: Constipation Topiramate 50 mg PO BID Topiramate [Topamax] 100 mg PO BID Ipratropium-Albuterol Nebulize [Duoneb 0.5 mg-3 mg/3 ml Soln] 3 ml INHALATION RT-QID PRN PRN Reason: Shortness Of Breath Levothyroxine Sodium [Synthroid] 75 mcg PO DAILY Discontinued Ibuprofen [Motrin] 800 mg PO Q8H PRN PRN Reason: Pain Discharge Medication List Albuterol Sulfate [Proair Hfa] 2 puff INHALATION RT-QID PRN 02/26/16 [History] Montelukast [Singulair] 10 mg PO HS 03/01/16 [History] Cetirizine HCl [Zyrtec] 10 mg PO DAILY 04/25/23 [History] DULoxetine HCL [Cymbalta] 60 mg PO DAILY 09/06/23 [History] Ipratropium-Albuterol Nebulize [Duoneb 0.5 mg-3 mg/3 ml Soln] 3 ml INHALATION RT-QID PRN 02/15/24 [History] Levothyroxine Sodium [Synthroid] 75 mcg PO DAILY 02/15/24 [History] Sennosides/Docusate Sodium [Senna Plus 8.6-50 mg Softgel] 1 cap PO HS PRN 02/15/24 [History] Topiramate 50 mg PO BID 02/15/24 [History] Topiramate [Topamax] 100 mg PO BID 02/15/24 [History] Acetaminophen Tab [Tylenol] 650 mg PO Q6HR PRN tab 02/17/24 [Rx] Follow up Appointment(s)/Referral(s): Arnie Sanz MD [Primary Care Provider] - 1-2 days Activity/Diet/Wound Care/Special Instructions: May continue out patient physical therapy at discharge. Discharge Disposition: HOME SELF-CARE
== END 2024-02-17 23:35 | disposition home or self-care (01) ==
LOC: EEVIPCON 13:26 → EC 13:26 → INTOOBSV 16:54 → 5NMEDONC 16:54 → 4SSUR 19:43 → 3SCARD 23:20 → UNDODISIN 02-17 11:35
PROVIDERS: ADMIT Internal Medicine; ATTEND Internal Medicine
DX: F44.5 Conversion disorder with seizures or convulsions (principal); E87.5 Hyperkalemia; E87.20 Acidosis, unspecified; R74.01 Elevation of levels of liver transaminase levels; E03.9 Hypothyroidism, unspecified; E78.5 Hyperlipidemia, unspecified; G82.50 Quadriplegia, unspecified; Z96.21 Cochlear implant status; R29.810 Facial weakness; G43.909 Migraine, unspecified, not intractable, without status migrainosus; G31.84 Mild cognitive impairment of uncertain or unknown etiology; F81.9 Developmental disorder of scholastic skills, unspecified; H91.90 Unspecified hearing loss, unspecified ear; Z79.82 Long term (current) use of aspirin; Z79.890 Hormone replacement therapy; Z79.899 Other long term (current) drug therapy; Z87.730 Personal history of (corrected) cleft lip and palate
CPT/HCPCS: 96376; 96361 ×2; 96372 ×2; 96375 ×2; 96374; 99285; 36415; 95813; 97162; 97166; 80053; 80048; 83735; 85025; G0378 ×5; J2060; J2405; J1650 ×2; C9254 ×2